=== PATIENT | female | born 1955 | race Caucasian/White ===

== ENCOUNTER → 2016-10-27 | Outpatient (CLI) | payer OTHER, BC ==
--- NOTE | 2016-10-30 13:09 | MM ---
Reason for exam: screening (asymptomatic). Last mammogram was performed 1 year ago. History: Patient is postmenopausal. Family history of premenopausal breast cancer in paternal cousin at age 42. Benign stereotactic core biopsy of the right breast, June 16, 2002. Physical Findings: A clinical breast exam by your physician is recommended on an annual basis and results should be correlated with mammographic findings. MG Screening Mammo w CAD Bilateral CC and MLO view(s) were taken. Prior study comparison: October 22, 2015, bilateral MG screening mammo w CAD. August 17, 2014, bilateral MG screening mammo w CAD. The breast tissue is almost entirely fat. No significant changes when compared with prior studies. ASSESSMENT: Benign, BI-RAD 2 RECOMMENDATION: Routine screening mammogram of both breasts in 1 year.
== END | disposition home or self-care (01) ==
LOC: RADMAMWWP 15:45
PROVIDERS: ATTEND Obstetrics & Gynecology
DX: Z12.31 Encounter for screening mammogram for malignant neoplasm of breast (principal); Z80.3 Family history of malignant neoplasm of breast

== ENCOUNTER 2017-05-17 09:31 | Day surgery (SDC) | payer OTHER, BC ==
[2017-05-15 10:43] VITALS: BMI 29.7
[~2017-05-17 09:31] MED LIST: LACTATED RINGERS 1,000 ML IV SCH
[2017-05-17 09:45] VITALS: RESP 16; TEMP 98
[2017-05-17] MEDS ORDERED: LIDOCAINE 1% 20 ML VIAL (10MG/ML) FOR IV START INTRADERMA ONE (10:04)
[2017-05-17] MEDS ORDERED: PROPOFOL 10 MG/ML 20 ML VIAL IV ONE (10:38)
[2017-05-17] MEDS ORDERED: LIDOCAINE 1% INJ 10MG/ML (20 ML MDV) ONE (10:38)
--- NOTE | 2017-05-17 10:59 | P.PCN ---
Date of Procedure: 05/17/17 Preoperative Diagnosis: Lung cancer screening, history of diverticulosis Postoperative Diagnosis: Colon cancer screening, diverticulosis, colon polyp Procedure(s) Performed: Colonoscopy and polypectomy Anesthesia: MAC Surgeon: Sayra Zamarripa Estimated Blood Loss (ml): 0 Pathology: other (Polyp 15 cm) Condition: stable Disposition: PACU Indications for Procedure: The patient presents for colon cancer screening. She has a history of diverticulitis in the past. There is a personal history of colon polyps but no pathology was available. Operative Findings: The patient's taken the operative suite where colonoscope is passed per rectum to the cecum. She had excellent prep. There is a very small polyp at 15 cm that appears to be hyperplastic polyp. This is removed with cold biopsy forceps. She has a few scattered diverticuli. There is noted to be some of the ascending colon and distal colon. Otherwise there is no evidence of polyp mass lesion or other mucosal abnormality. There is a widely patent anastomosis at about 20 cm. She tolerated the procedure without difficulty was taken recovery room in satisfactory condition. We'll call with the report of the polypectomy and let her know what her follow-up should be. Plan - Discharge Summary New Discharge Prescriptions: No Action Mometasone Furoate [Nasonex Nasal Dyer] 1 - 2 spray EA NOSTRIL DAILY PRN PRN Reason: allergies Omeprazole [PriLOSEC] 20 mg PO AC-BRKFST Levothyroxine Sodium [Levoxyl] 200 mcg PO DAILY Hydrochlorothiazide [Hydrodiuril] 25 mg PO DAILY Multivit with Calcium,Iron,Min [Women's Multivitamin] 1 each PO DAILY Loratadine [Alavert] 10 mg PO DAILY PRN PRN Reason: allergies Calcium Carbonate [Calcium] 600 mg PO DAILY Discharge Medication List Levothyroxine Sodium [Levoxyl] 200 mcg PO DAILY 06/15/15 [History] Mometasone Furoate [Nasonex Nasal Dyer] 1 - 2 spray EA NOSTRIL DAILY PRN [History] Omeprazole [PriLOSEC] 20 mg PO AC-BRKFST 06/15/15 [History] Calcium Carbonate [Calcium] 600 mg PO DAILY 05/15/17 [History] Hydrochlorothiazide [Hydrodiuril] 25 mg PO DAILY 05/15/17 [History] Loratadine [Alavert] 10 mg PO DAILY PRN 05/15/17 [History] Multivit with Calcium,Iron,Min [Women's Multivitamin] 1 each PO DAILY 05/15/17 [ History]
[2017-05-17 11:18] VITALS: BP 135/78; PULSE 71
== END 2017-05-17 11:50 | disposition home or self-care (01) ==
LOC: ORWHC2ENDO 09:31
PROVIDERS: ATTEND Surgery
DX: Z12.11 Encounter for screening for malignant neoplasm of colon (principal); K63.5 Polyp of colon; K57.30 Diverticulosis of large intestine without perforation or abscess without bleeding; Z86.010 Personal history of colon polyps; Z87.19 Personal history of other diseases of the digestive system; M19.90 Unspecified osteoarthritis, unspecified site; K21.9 Gastro-esophageal reflux disease without esophagitis; E04.9 Nontoxic goiter, unspecified; G43.909 Migraine, unspecified, not intractable, without status migrainosus; Z79.2 Long term (current) use of antibiotics; Z79.1 Long term (current) use of non-steroidal anti-inflammatories (NSAID); Z79.82 Long term (current) use of aspirin; Z79.899 Other long term (current) drug therapy; Z88.1 Allergy status to other antibiotic agents; Z88.2 Allergy status to sulfonamides; F17.210 Nicotine dependence, cigarettes, uncomplicated
CPT/HCPCS: 88305; 45380; J2001; J2704

== ENCOUNTER → 2018-01-21 | Outpatient (CLI) | payer OTHER, BC ==
--- NOTE | 2018-01-22 10:26 | MM ---
Reason for exam: screening (asymptomatic). Last mammogram was performed 1 year and 3 months ago. History: Patient is postmenopausal. Family history of premenopausal breast cancer in paternal cousin at age 42. Benign stereotactic core biopsy of the right breast, June 16, 2002. Physical Findings: A clinical breast exam by your physician is recommended on an annual basis and results should be correlated with mammographic findings. MG Screening Mammo w CAD Bilateral CC and MLO view(s) were taken. Prior study comparison: October 27, 2016, bilateral MG screening mammo w CAD. October 22, 2015, bilateral MG screening mammo w CAD. There are scattered fibroglandular densities. Finding: There are typically benign round calcifications in both breasts. Previous mammotome biopsy in the right breast. There is no discrete abnormality. ASSESSMENT: Benign, BI-RAD 2 RECOMMENDATION: Routine screening mammogram of both breasts in 1 year.
== END ==
LOC: RADMAMWWP 11:25
PROVIDERS: ATTEND Obstetrics & Gynecology
DX: Z12.31 Encounter for screening mammogram for malignant neoplasm of breast (principal); Z80.3 Family history of malignant neoplasm of breast
CPT/HCPCS: 77067

== ENCOUNTER → 2018-12-14 | Outpatient (CLI) | payer OTHER, BC ==
--- NOTE | 2018-12-14 07:47 | MR ---
EXAMINATION TYPE: MR shoulder LT wo con DATE OF EXAM: 12/14/2018 7:37 AM COMPARISON: Previous study dated 09/07/2011. HISTORY: Left shoulder pain TECHNIQUE: Multiplanar, multisequence imaging of the left shoulder is performed without contrast. FINDINGS: There is no evidence of an os acromiale. There are moderate inflammatory hypertrophic changes in the left AC joint. This is impinging upon the supraspinatus tendon. There is some superior surface scuffing of the superior surface of the suprasp inatus. No definite tear is identified. There is some subacromial fluid. There is pseudocystic change in the humeral head, an indirect sign of impingement. The cartilaginous glenoid labrum appears intact. The biceps tendon is slightly attenuated but remains within the biceps tendon groove and inserts norm ally upon the biceps anchor. IMPRESSION: 1. HYPERTROPHIC CHANGE IN THE LEFT AC JOINT CAUSING SUBACROMIAL IMPINGEMENT AND SUPERIOR SCUFFING OF THE SUPRASPINATUS TENDON. 2. MILD ATTENUATION OF THE BICEPS TENDON. 3. PSEUDOCYSTIC CHANGE IN THE HUMERAL HEAD, AN INDIRECT SIGN OF IMPINGEMENT.
== END ==
LOC: RADMRIMAIN 06:59
PROVIDERS: ATTEND Family Medicine
DX: M25.811 Other specified joint disorders, right shoulder (principal)

== ENCOUNTER → 2019-01-23 | Outpatient (CLI) | payer OTHER, BC ==
--- NOTE | 2019-01-27 09:20 | MM ---
Reason for exam: screening (asymptomatic). Last mammogram was performed 1 year ago. History: Patient is postmenopausal and history of other cancer. Family history of premenopausal breast cancer in paternal cousin at age 42. Benign stereotactic core biopsy of the right breast, June 16, 2002. Physical Findings: A clinical breast exam by your physician is recommended on an annual basis and results should be correlated with mammographic findings. MG 3D Screening Mammo W/Cad Bilateral CC and MLO view(s) were taken. Prior study comparison: January 21, 2018, bilateral MG screening mammo w CAD. October 27, 2016, bilateral MG screening mammo w CAD. There are scattered fibroglandular densities. There is chronic nodularity bilaterally. No significant changes when compared with prior studies. ASSESSMENT: Benign, BI-RAD 2 RECOMMENDATION: Routine screening mammogram of both breasts in 1 year.
== END | disposition home or self-care (01) ==
LOC: RADMAMWWP 07:38
PROVIDERS: ATTEND Family Medicine
DX: Z12.31 Encounter for screening mammogram for malignant neoplasm of breast (principal)
CPT/HCPCS: 77063; 77067

== ENCOUNTER → 2020-02-11 | Outpatient (CLI) | payer OTHER, BC ==
--- NOTE | 2020-02-12 11:15 | MM ---
Reason for exam: screening (asymptomatic). Last mammogram was performed 1 year and 1 month ago. History: Patient is postmenopausal and history of other cancer. Family history of premenopausal breast cancer in paternal cousin at age 42. Benign stereotactic core biopsy of the right breast, June 16, 2002. Physical Findings: A clinical breast exam by your physician is recommended on an annual basis and results should be correlated with mammographic findings. MG 3D Screening Mammo W/Cad Bilateral CC and MLO view(s) were taken. Prior study comparison: January 23, 2019, bilateral MG 3d screening mammo w/cad. January 21, 2018, bilateral MG screening mammo w CAD. There are scattered fibroglandular densities. Previous mammotome biopsy in the right breast. There is chronic nodularity in the left breast. Gradually enlarging 5mm nodule 8-9 o'clock right breast. Adjacent benign oil cyst. ASSESSMENT: Incomplete: need additional imaging evaluation, BI-RAD 0 RECOMMENDATION: Special view mammogram and ultrasound of the right breast. (3D) If lesion persists on supplemental views, image directed ultrasound is recommended. [facility] will attempt to contact patient to return for supplemental views and ultrasound if indicated.
== END | disposition home or self-care (01) ==
LOC: RADMAMWWP 15:56
PROVIDERS: ATTEND Obstetrics & Gynecology
DX: Z12.31 Encounter for screening mammogram for malignant neoplasm of breast (principal); Z80.3 Family history of malignant neoplasm of breast
CPT/HCPCS: 77063; 77067

== ENCOUNTER → 2020-02-17 | Outpatient (CLI) | payer OTHER, BC ==
--- NOTE | 2020-02-17 09:38 | MM ---
Reason for exam: additional evaluation requested from abnormal screening. Last mammogram was performed less than 1 month ago. History: Patient is postmenopausal and history of other cancer. Family history of premenopausal breast cancer in paternal cousin at age 42. Benign stereotactic core biopsy of the right breast, June 16, 2002. Physical Findings: Nurse Summary: 0.5 x 0.5cm nodule in the right breast at 9 o'clock (nurse ts). MG 3D Work Up W/Cad RT Spot compression CC, spot compression MLO, and LM view(s) were taken of the right breast. Prior study comparison: February 11, 2020, bilateral MG 3d screening mammo w/cad. January 23, 2019, bilateral MG 3d screening mammo w/cad. There are scattered fibroglandular densities. The nodule localizes to the 9 o'clock position. These results were verbally communicated with the patient and result sheet given to the patient on 02/17/20. ASSESSMENT: Incomplete: need additional imaging evaluation, BI-RAD 0 RECOMMENDATION: Ultrasound of the right breast.
--- NOTE | 2020-02-17 09:40 | USB ---
Reason for exam: additional evaluation requested from abnormal screening. History: Patient is postmenopausal and history of other cancer. Family history of premenopausal breast cancer in paternal cousin at age 42. Benign stereotactic core biopsy of the right breast, June 16, 2002. US Breast Workup Limited RT Right limited breast ultrasound including focal area of concern, retroareolar and axilla demonstrates a 0.3 x 0.3 x 0.3cm cystic, benign lesion at 9 o'clock, likely corresponds to the mammographic finding. No other solid or cystic lesion. Scanned 6-10 o'clock. These results were verbally communicated with the patient and result sheet given to the patient on 02/17/20. ASSESSMENT: Probably benign, BI-RAD 3 RECOMMENDATION: Follow-up diagnostic mammogram of the right breast in 6 months.
== END | disposition home or self-care (01) ==
LOC: RADMAMWWP 07:01
PROVIDERS: ATTEND Obstetrics & Gynecology
DX: R92.8 Other abnormal and inconclusive findings on diagnostic imaging of breast (principal)
CPT/HCPCS: 77061; 77065

== ENCOUNTER → 2020-02-20 | Outpatient (CLI) | payer OTHER, BC ==
--- NOTE | 2020-02-22 12:58 | ECHOF ---
Referral Reason:Heart murmur R01.1 MEASUREMENTS -------- HEIGHT: 168.9 cm WEIGHT: 84.4 kg BP: 122/84 IVSd: 1.3 cm (0.6 - 1.1) LVIDd: 3.7 cm (3.9 - 5.3) LVPWd: 1.2 cm (0.6 - 1.1) IVSs: 1.9 cm LVIDs: 2.3 cm LVPWs: 1.6 cm LA Diam: 3.5 cm (2.7 - 3.8) RVIDd: 3.1 cm (< 3.3) LAESV Index (A-L): 20.02 ml/m Ao Diam: 2.6 cm (2.0 - 3.7) AV Cusp: 1.4 cm (1.5 - 2.6) AV maxP.38 mmHg AV meanP.23 mmHg AR PHT: 516 ms RAP: 5.00 mmHg RVSP: 25.25 mmHg MV EF SLOPE: 423.16 mm/s (70 - 150) MV EXCURSION: 9.76 mm (> 18.000) FINDINGS -------- Sinus rhythm. This was a technically good study. The left ventricular size is normal. There is mild concentric left ventricular hypertrophy. Overa ll left ventricular systolic function is normal with, an EF between 60 - 65 %. The right ventricle is normal in size. Normal LA size by volume 22+/-6 ml/m2. The right atrium is normal in size. Interatrial and interventricular septum intact. There is mild aortic valve sclerosis. There is moderate aortic regurgitation. There is moderate a ortic stenosis present. Peak/mean gradient across the Aortic Valve is 36.38mmHg / 22.23mmHg. The mitral valve is normal. Mild tricuspid regurgitation present. Right ventricular systolic pressure is normal at < 35 mmHg. Trace/mild (physiologic) pulmonic regurgitation. The aortic root size is normal. Normal inferior vena cava with normal inspiratory collapse consistent with estimated right atrial pre ssure of 5 mmHg. There is no pericardial effusion. CONCLUSIONS -------- 1. Sinus rhythm. 2. This was a technically good study. 3. The left ventricular size is normal. 4. There is mild concentric left ventricular hypertrophy. 5. Overall left ventricular systolic function is normal with, an EF between 60 - 65 %. 6. Normal LA size by volume 22+/-6 ml/m2. 7. There is mild aortic valve sclerosis. 8. There is moderate aortic regurgitation. 9. There is moderate aortic stenosis present. 10. Peak/mean gradient across the Aortic Valve is 36.38mmHg / 22.23mmHg. 11. Mild tricuspid regurgitation present. 12. Right ventricular systolic pressure is normal at < 35 mmHg. 13. Trace/mild (physiologic) pulmonic regurgitation. 14. The aortic root size is normal. 15. There is no pericardial effusion. KEYBOARD INSTRUMENT TUNER: Babs Grissom RDCS
== END | disposition home or self-care (01) ==
LOC: RADECHMAIN 14:43
PROVIDERS: ATTEND Family Medicine
DX: I08.2 Rheumatic disorders of both aortic and tricuspid valves (principal)
CPT/HCPCS: 93306

== ENCOUNTER → 2020-07-19 | Outpatient (CLI) | payer OTHER, BC ==
--- NOTE | 2020-07-19 14:01 | MM ---
Reason for exam: additional evaluation requested from prior study. Last mammogram was performed 5 months ago. History: Patient is postmenopausal and history of other cancer. Family history of premenopausal breast cancer in paternal cousin at age 42. Benign stereotactic core biopsy of the right breast, June 16, 2002. Physical Findings: Nurse did not find any significant physical abnormalities on exam. MG 3D Diag Mammo W/Cad RT CC, MLO, and XCCL view(s) were taken of the right breast. Prior study comparison: February 17, 2020, right breast MG 3d work up w/cad RT. February 11, 2020, bilateral MG 3d screening mammo w/cad. The breast tissue is heterogeneously dense. This may lower the sensitivity of mammography. Stable benign calcifications. There is chronic nodularity in the right breast. There is no discrete abnormality. These results were verbally communicated with the patient and result sheet given to the patient on 07/19/20. ASSESSMENT: Benign, BI-RAD 2 RECOMMENDATION: Return to routine screening mammogram schedule for both breasts. Back on schedule.
== END | disposition home or self-care (01) ==
LOC: RADMAMWWP 13:23
PROVIDERS: ATTEND Obstetrics & Gynecology
DX: R92.8 Other abnormal and inconclusive findings on diagnostic imaging of breast (principal)
CPT/HCPCS: 77061; 77065

== ENCOUNTER → 2020-12-24 | Outpatient (CLI) | payer OTHER, BC ==
--- NOTE | 2020-12-29 14:20 | MM ---
Reason for exam: screening (asymptomatic). Last mammogram was performed 5 months ago. History: Patient is postmenopausal and history of other cancer. Family history of premenopausal breast cancer in paternal cousin at age 42. Benign stereotactic core biopsy of the right breast, June 16, 2002. Physical Findings: A clinical breast exam by your physician is recommended on an annual basis and results should be correlated with mammographic findings. MG 3D Screening Mammo W/Cad Bilateral CC and MLO view(s) were taken. Prior study comparison: July 19, 2020, right breast MG 3d diag mammo w/cad RT. February 17, 2020, right breast MG 3d work up w/cad RT. There are scattered fibroglandular densities. Previous mammotome biopsy in the right breast. ASSESSMENT: Benign, BI-RAD 2 RECOMMENDATION: Routine screening mammogram of both breasts in 1 year.
== END | disposition home or self-care (01) ==
LOC: RADMAMWWP 12:43
PROVIDERS: ATTEND Obstetrics & Gynecology
DX: Z12.31 Encounter for screening mammogram for malignant neoplasm of breast (principal); Z78.0 Asymptomatic menopausal state; Z80.3 Family history of malignant neoplasm of breast
CPT/HCPCS: 77063; 77067

== ENCOUNTER → 2021-10-19 | Outpatient (CLI) | payer MEDICARE ==
--- NOTE | 2021-10-19 15:10 | CT ---
EXAMINATION TYPE: CT chest w con DATE OF EXAM: 10/19/2021 COMPARISON: X-ray of the thoracic spine dated 10/17/2021 HISTORY: nodules CT DLP: 245.8 mGycm Automated exposure control for dose reduction was used. TECHNIQUE: CT scan of the chest is performed with IV Contrast, patient injected with 80cc mL of Isovue 300. FINDINGS: LUNGS: The lungs are grossly clear, there is no concerning parenchymal mass or nodule identified. T here is no pleural effusion or pneumothorax seen. The tracheobronchial tree is patent. MEDIASTINUM: Mild cardiomegaly, please correlate with echocardiographic results. Minimal arterial and aortic root atherosclerotic calcifications. No pericardial effusion. The pulmonary trunk measures 2. 9 cm. No pathology enlarged lymph nodes in the chest. OTHER: Unremarkable upper abdomen. Degenerative changes of the thoracic spine. T12 mild upper endpla te depression, likely chronic, please correlate clinically. No aggressive bone lesion. No definite pa raspinal lesion. IMPRESSION: No definite lesion or lymphadenopathy seen in the chest. No paraspinal abnormality identified. Incide ntal findings as described above.
== END | disposition home or self-care (01) ==
LOC: RADCTMAIN 12:39
PROVIDERS: ATTEND Family Medicine
DX: R68.89 Other general symptoms and signs (principal)
CPT/HCPCS: 82565; 84520; 71260; 36415; Q9967

== ENCOUNTER → 2022-01-02 | Outpatient (CLI) | payer MEDICARE ==
--- NOTE | 2022-01-04 07:39 | MM ---
Reason for Exam: Screening (asymptomatic). Last mammogram was performed 1 year(s) and 1 month(s) ago. Patient History: Menarche at age 12. First Full-Term at age 20. Postmenopausal. Other cancer. 06/16/2002, Benign Stereotactic Core Biopsy on the right side. Paternal cousin had breast cancer, age 42. Risk Values: Rhea 5 year model risk: 1.6%. NCI Lifetime model risk: 5.9%. Prior Study Comparison: 02/17/2020 Right Diagnostic Mammogram, [facility]. 07/19/2020 Right Diagnostic Mammogram, [facility]. 12/24/2020 Bilateral Screening Mammogram, [facility]. Tissue Density: The breast tissue is heterogeneously dense. This may lower the sensitivity of mammography. Findings: Analyzed By CAD. There is no suspicious group of microcalcifications or new suspicious mass in either breast. Overall Assessment: Benign, BI-RAD 2 Management: Screening Mammogram of both breasts in 1 year. A clinical breast exam by your physician is recommended on an annual basis and results should be correlated with mammographic findings. Electronically signed and approved by: Abdulaziz Kaufman M.D. Radiologis
== END | disposition home or self-care (01) ==
LOC: RADMAMWWP 09:37
PROVIDERS: ATTEND Family Medicine
DX: Z12.31 Encounter for screening mammogram for malignant neoplasm of breast (principal); Z78.0 Asymptomatic menopausal state; Z80.3 Family history of malignant neoplasm of breast
CPT/HCPCS: 77063; 77067

== ENCOUNTER 2022-10-25 06:07 | Day surgery (SDC) | payer MEDICARE ==
[2022-10-25 06:47] VITALS: TEMP 97.9
[2022-10-25] MEDS ORDERED: SODIUM CHLORIDE 0.9% 500 ML 500 ML IV ONE (06:47)
[2022-10-25] MEDS ORDERED: fentaNYL (PF) 50 MCG/ML 2 ML AMP ONE (07:11)
[2022-10-25] MEDS: BENZOCAINE SPRAY 1 CAN MUCOUS MEM ONE ×2 (07:15→07:25)
[2022-10-25] MEDS ORDERED: MIDAZOLAM 2 MG/2 ML VIAL IVP ONE ×2 (07:25→07:26)
[2022-10-25] MEDS ORDERED: fentaNYL (PF) 50 MCG/ML 2 ML AMP IVP ONE (07:25)
[2022-10-25 07:43] VITALS: RESP 16
--- NOTE | 2022-10-25 07:51 | P.PCN ---
Date of Procedure: 10/25/22 Description of Procedure: Indication: Aortic valve stenosis Procedure Description: After explaining the procedure to the patient, it's risk and complications, blood pressure, heart rate and O2 saturation were monitored. The throat was sprayed with Cetacaine. Patient received 3 mg intravenous Versed, 50 mcg intravenous fentanyl. The probe was introduced into the esophagus without difficulty. Images were obtained. Following that, the probe was removed. There was no immediate complication. Findings: Left atrial size is normal, left atrial appendage is normal. Left ventricle size and systolic function are normal. Mitral valve revealed mild thickening. The aortic valve is a tricuspid valve, heavily calcified, by planimetry the aortic valve area is 0.7 cm. The tricuspid valve is normal. Pulmonic valve is normal. Descending thoracic aorta appears to be normal. Contrast bubble study revealed no shunting across the intra-atrial septum with Valsalva maneuver. No pericardial effusion was noted. Doppler: Pulse wave and color Doppler were obtained, an revealed mild mitral and moderate tricuspid regurgitation. Moderate aortic regurgitation was noted. The peak gradient across the aortic valve was 65 mmHg with a mean of 30 mmHg. There was no shunting across the intra-atrial septum. Conclusion: 1. Normal left ventricle size and systolic function 2. Moderate to severe aortic stenosis with moderate aortic regurgitation 3. Mild mitral and moderate tricuspid regurgitation 4. Normal appearance of the descending thoracic aorta 5. No shunting across the interatrial septum Duration of sedation 15 minutes
[2022-10-25] MEDS ORDERED: SODIUM CHLORIDE 0.9% 1,000 ML IV SCH (08:00)
[2022-10-25 08:48] VITALS: BP 125/57; PULSE 62
[2022-10-25] MEDS ORDERED: hydroCHLOROthiazide 25 MG TAB PO SCH (09:00)
[2022-10-25] MEDS ORDERED: LEVOTHYROXINE 100 MCG TAB PO SCH (09:00)
[2022-10-25] MEDS ORDERED: ASPIRIN 81 MG PO SCH (09:00)
== END 2022-10-25 09:17 | disposition home or self-care (01) ==
LOC: CATHCVL 06:07
PROVIDERS: ATTEND Internal Medicine Interventional Cardiology
DX: I08.3 Combined rheumatic disorders of mitral, aortic and tricuspid valves (principal)
CPT/HCPCS: 93312; 93320; 93325; J2250; J3010

== ENCOUNTER → 2022-11-15 | Outpatient (CLI) | payer MEDICARE ==
[2022-11-15 15:14] LABS: HCT 44.3 % (37.2-46.3); HGB 14.7 g/dL (12.0-15.0); MCH 30.1 pg (27.0-32.0); MCHC 33.2 g/dL (32.0-37.0); MCV 90.6 fL (80.0-97.0); Mean Platelet Volume 9.6 fL (9.5-12.2); NRBC Per 100 WBC 0 /100 WBCS (0.0-0.0); Platelet Count 256 X 10*3/uL (140-440); RBC 4.89 X 10*6/uL (4.10-5.20); RDW 12.7 % (11.5-14.5); WBC 8.47 X 10*3/uL (4.50-10.00)
[2022-11-15 15:47] LABS: African American GFR (CKD) 78.9 (60.0-200.0); Anion Gap 12.1 mmol/L (10.00-18.00); Blood Urea Nitrogen 17.9 mg/dL (9.0-27.0); Carbon Dioxide 28.6 mmol/L (20.0-27.5); Non-African American GFR(CKD) 68.1 (60.0-200.0)
== END | disposition home or self-care (01) ==
LOC: LABPAT 09:58
PROVIDERS: ATTEND Internal Medicine Interventional Cardiology
DX: Z01.818 Encounter for other preprocedural examination (principal); I35.0 Nonrheumatic aortic (valve) stenosis
CPT/HCPCS: 36415; 80051; 82565; 84520; 85027

== ENCOUNTER 2022-11-22 06:06 | Day surgery (SDC) | payer MEDICARE ==
[2022-11-20 08:45] VITALS: BMI 28.9
[~2022-11-22 06:06] MED LIST changes: +ALPRAZolam 0.25 MG TAB PO PRN; +ALPRAZolam 0.5 MG TAB PO PRN; +HEPARIN SODIUM,PORCINE 10,000 UNIT in SODIUM CHLORIDE 0.9% 1,000 ML IRRIGATION PRN; +HEPARIN SODIUM,PORCINE 2,500 UNIT in SODIUM CHLORIDE 0.9% 250 ML IRRIGATION PRN; -LACTATED RINGERS 1,000 ML IV SCH; +NITROGLYCERIN SL TABS 0.4 MG TAB SUBLINGUAL PRN; +SODIUM CHLORIDE 0.9% 1,000 ML in EMPTY BAG 1 BAG IV SCH
[2022-11-22 06:43] VITALS: RESP 18; TEMP 98
[2022-11-22] MEDS ORDERED: ASPIRIN 325 MG TAB PO ONE (07:00)
[2022-11-22] MEDS ORDERED: ATORVASTATIN 80 MG TAB PO ONE (07:00)
[2022-11-22] MEDS ORDERED: HEPARIN SODIUM 1,000 UN/ML (10ML VL) ONE (07:18)
[2022-11-22] MEDS ORDERED: fentaNYL (PF) 50 MCG/ML 2 ML AMP ONE (07:18)
[2022-11-22] MEDS ORDERED: VERAPAMIL 2.5 MG/ML 2 ML AMP ONE (07:18)
[2022-11-22] MEDS ORDERED: fentaNYL (PF) 50 MCG/ML 2 ML AMP IVP ONE (07:40)
[2022-11-22] MEDS ORDERED: MIDAZOLAM 2 MG/2 ML VIAL IVP ONE (07:45)
[2022-11-22] MEDS: LIDOCAINE 1% INJ 10MG/ML (5 ML VIAL-PF) SQ ONE ×2 (07:46→07:49)
[2022-11-22] MEDS ORDERED: LIDOCAINE 1% INJ 10MG/ML (5 ML VIAL-PF) SQ ONE ×2 (07:46→07:49)
[2022-11-22] MEDS ORDERED: HYDROmorphone 1 MG/ML 1 ML SYRINGE ONE (07:50)
[2022-11-22] MEDS ORDERED: HYDROmorphone 1 MG/ML 1 ML SYRINGE IVP ONE (07:51)
[2022-11-22] MEDS ORDERED: HEPARIN SODIUM 1,000 UN/ML (10ML VL) IVP ONE (08:01)
[2022-11-22] MEDS ORDERED: IOPAMIDOL-370 100ML BTL INJ ONE (08:09)
[2022-11-22] MEDS ORDERED: RX INFO: IV CONTRAST WAS GIVEN 1 EACH MISC MISCELLANE PRN (08:19)
--- NOTE | 2022-11-22 08:26 | P.CARDCATH ---
Date of Procedure: 11/22/22 Description of Procedure: Cardiac Catheterization: The patient is a 67-year-old female who was found to have evidence of aortic stenosis, severe with symptoms of progressive dyspnea. Recommendations were made regarding cardiac catheterization, the risks and the complications were discussed with the patient who is in full understanding and agreement. Procedure Description: Patient was brought to lab specialist in fasting semi-sedated state after receiving Fentanyl and Benadryl achieiving moderate conscious sedated state. Using Xylocaine Anesthesia and Seldinger technique, a 6-Ghanaian sheath was introduced in the right radial artery . The venous access in the right brachial area was exchanged to a 6-Ghanaian sheath. There was inability to advance the [place]-Nelia catheter. Subsequently, selective coronary angiography was performed using a 5-Ghanaian 3.5 bend Richie catheter. Multiple views of the coronary artery including hemiaxial views were obtained. The right Richie catheter was used to cross the aortic valve and LVEDP was calculated. Following that, catheter and sheath were removed. Hemostasis was obtained with deployment of TR band . There was no immediate complication. Patient was returned to room in stable condition. Of note, the patient received a total of 4500 units of intravenous heparin as well as intra-arterial verapamil. Findings: Fluoroscopy: Calcification of the aortic valve was noted. Left main: This is a large size vessel, bifurcating into LAD and left circumflex, left main has no high-grade stenosis LAD: This is a large size vessel, reaching to the apex, giving rise to a large diagonal branch in the mid segment, the LAD and its branches have no evidence of high-grade stenosis. Left circumflex: This is a codominant vessel, giving rise to 2 small to moderate obtuse marginal branch, distally bifurcating into PDA and PLV, the left circumflex and its branches have no evidence of high-grade stenosis RCA: This is a codominant vessel moderate caliber giving rise to a right PDA the right coronary artery and its branches have no evidence of obstructive disease Left Ventriculogram: Not performed Hemodynamics: There was a gradient peak of 50 mmHg across the aortic valve , LVEDP was 20-25 mmHg Conclusion: 1. Normal coronary arteries 2. Codominant circulation 3. Calcified aortic valve 4. Severe aortic stenosis Recommendations: Patient will be evaluated for aortic valve replacement. She will be seen in the valve clinic for further evaluation and guidance. The findings and the recommendations were discussed with the patient and the family and they were in full understanding and agreement. Duration of sedation is 25 minutes.
[2022-11-22] MEDS ORDERED: SODIUM CHLORIDE 0.9% 1,000 ML IV SCH (08:30)
[2022-11-22] MEDS ORDERED: ASPIRIN 81 MG PO SCH (09:00)
[2022-11-22] MEDS ORDERED: MAGNESIUM OXIDE 400 MG TAB PO SCH (09:00)
[2022-11-22] MEDS ORDERED: LEVOTHYROXINE 100 MCG TAB PO SCH (09:00)
[2022-11-22 12:20] VITALS: BP 108/60; PULSE 60
[2022-11-22] MEDS ORDERED: PANTOPRAZOLE 40 MG TABLET PO SCH (21:00)
== END 2022-11-22 12:31 | disposition home or self-care (01) ==
LOC: CATHCVL 06:06
PROVIDERS: ATTEND Internal Medicine Interventional Cardiology
DX: I35.0 Nonrheumatic aortic (valve) stenosis (principal); I70.0 Atherosclerosis of aorta; I10 Essential (primary) hypertension; E07.9 Disorder of thyroid, unspecified; Z79.82 Long term (current) use of aspirin; Z79.890 Hormone replacement therapy; Z79.899 Other long term (current) drug therapy; Z87.891 Personal history of nicotine dependence
CPT/HCPCS: 93458; 99152; 99153; C1769 ×3; C1894; C1751; J2250; J2001; J3010; J1644; J1170; Q9967

== ENCOUNTER → 2022-12-14 | Outpatient (CLI) | payer MEDICARE ==
[2022-12-14 10:02] LABS: INR 0.9 (<1.2); Partial Thromboplastin Time 27.4 sec (22.0-30.0)
[2022-12-14 10:09] LABS: Appearance,Urine Clear (Clear); Bacteria,Urine Rare /hpf; Bilirubin,Urine Negative (Negative); Blood,Urine Negative (Negative); Color,Urine Yellow; Glucose,Urine (UA) Negative (Negative); Ketones,Urine Negative (Negative); Leukocyte Esterase,Urine Large (Negative); Mucus,Urine Rare /hpf; Nitrite,Urine Negative (Negative); Protein,Urine Negative (Negative); RBC,Urine 1 /hpf (0-5); Squamous Epithelial Cell,Urine 1 /hpf (0-4); Urobilinogen,Urine <2.0 mg/dL (<2.0); WBC,Urine 5 /hpf (0-5)
[2022-12-14 10:11] LABS: ALT 20 U/L (4-34); AST 29 U/L (14-36); African American GFR (CKD) >90 (>60 ml/min/1.73 sqM); Albumin 4.3 g/dL (3.5-5.0); Albumin/Globulin Ratio 1.3; Alkaline Phosphatase 125 U/L (38-126); Anion Gap 11 mmol/L; Blood Urea Nitrogen 29 mg/dL (7-17); Carbon Dioxide 30 mmol/L (22-30); Chloride 99 mmol/L (98-107); Globulin 3.4 g/dL; Glucose 107 mg/dL (74-99); Magnesium 2.1 mg/dL (1.6-2.3); Non-African American GFR(CKD) 81 (>60 ml/min/1.73 sqM); Potassium 3.7 mmol/L (3.5-5.1); Sodium 140 mmol/L (137-145); Total Bilirubin 0.6 mg/dL (0.2-1.3); Total Protein 7.7 g/dL (6.3-8.2)
[2022-12-14 10:27] LABS: HCT 48.5 % (34.0-46.0); HGB 16.1 gm/dL (11.4-16.0); MCH 29.8 pg (25.0-35.0); MCHC 33.3 g/dL (31.0-37.0); MCV 89.6 fL (80.0-100.0); Mean Platelet Volume 7.5; Platelet Count 210 k/uL (150-450); RBC 5.41 m/uL (3.80-5.40); RDW 13.1 % (11.5-15.5); WBC 6.7 k/uL (3.8-10.6)
--- NOTE | 2022-12-14 11:37 | US ---
EXAMINATION TYPE: US carotid duplex BILAT DATE OF EXAM: 12/14/2022 COMPARISON: NONE CLINICAL INDICATION: Female, 67 years old with history of R55; Pre op cardiac surgery. Aortic valve r eplacement TECHNIQUE: Carotid duplex ultrasound examination. Indirect Doppler criteria was utilized. FINDINGS: EXAM MEASUREMENTS: RIGHT: Peak Systolic Velocity (PSV) cm/sec ----- Right CCA: 72.1 ----- Right ICA: 73.2 ----- Right ECA: 94.0 ICA/CCA ratio: 1.0 RIGHT: End Diastole cm/sec ----- Right CCA: 20.6 ----- Right ICA: 19.3 ----- Right ECA: 11.1 LEFT: Peak Systolic Velocity (PSV) cm/sec ----- Left CCA: 75.6 ----- Left ICA: 81.7 ----- Left ECA: 71.2 ICA/CCA ratio: 1.1 LEFT: End Diastole cm/sec ----- Left CCA: 20.6 ----- Left ICA: 30.2 ----- Left ECA: 7.5 VERTEBRALS (direction of flow): Right Vertebral: Antegrade Left Vertebral: antegrade, diminished Rhythm: Normal FIRE TENDER NOTES: Mild plaque bilateral bifurcations. No evidence of increased velocities IMPRESSION: Mild bilateral plaque with no significant hemodynamic stenosis as visualized. Criteria for Assigning % of Stenosis / Diameter reduction (Estimation based on the indirect measurements of the internal carotid artery velocities (ICA PSV). 1. Normal (no stenosis)=ICA PSV < 125 cm/s: ratio < 2.0: ICA EDV<40 cm/s. 2. Less than 50% stenosis=ICA PSV < 125 cm/s: ratio < 2.0: ICA EDV<40 cm/s. 3. 50 to 69% stenosis=ICA PSV of 125 to 230 cm/s: ration 2.0 ? 4.0: ICA EDV 40-100 cm/s. 4. Greater than 70% stenosis to near occlusion= ICA PSV > 230 cm/s: ratio > 4.0: ICA EDV > 100 cm/s. 5. Near occlusion= ICA PSV velocities may be low or undetectable: variable ratio and ICA EDV. 6. Total occlusion=unable to detect flow.
[2022-12-14 11:53] LABS: T4, Free (Free Thyroxine) 2.05 ng/dL (0.78-2.19)
[2022-12-14 12:35] LABS: Eosinophils # (M) 0.27 k/uL (0-0.7); Lymphocytes # (M) 1.68 k/uL (1.0-4.8); Monocytes # (M) 0.67 k/uL (0-1.0); Neutrophils # (M) 4.09 k/uL (1.3-7.7); Neutrophils % (M) 61 %; Nucleated Red Blood Cells 0 /100 WBC (0-0); Total Cells Counted 100
[2022-12-14 15:09] LABS: Hepatitis A Antibody IgM Nonreactive (Nonreactive); Hepatitis B Core IgM Nonreactive (Nonreactive); Hepatitis B Surface Antigen Nonreactive (Nonreactive); Hepatitis C IgG Antibody Nonreactive (Nonreactive)
[2022-12-14 21:11] LABS: Chol/HDL Ratio 4.25 Ratio; LDL Cholesterol,Calculated 124.8 mg/dL (0.0-131.0)
--- NOTE | 2022-12-14 21:13 | CT ---
EXAMINATION TYPE: CT TAVR Planning DATE OF EXAM: 12/14/2022 COMPARISON: Not HISTORY: tavr CT DLP: 1819.4 mGycm, Automated exposure control for dose reduction was used. CONTRAST: Performed injected with 150 mL of Isovue 370. TECHNIQUE: Axial images 0.5 mm thick sections. Reconstructed images 2 3 mm thick sections were obtain ed. FINDINGS Visualized portions of the lung rose appear clear. Heart size is normal. Portion of the abdomen wit hin the field of view is unremarkable. No enlarged mediastinal or hilar adenopathy is evident. Couple small lymph nodes at the level of the main pulmonary artery. There is a 3 vessel arch. Tracheobronch ial tree appears unremarkable. Abdomen within the field of view appears normal. Liver spleen gallbladder pancreas and adrenal glands and kidneys appear unremarkable. Aorta tapers normally through its visualized course. The iliac vess els are patent. Common femoral arteries appear normal. Urinary bladder is unremarkable. Uterus is normal. Adnexa are normal. Scattered diverticuli within th e sigmoid colon. IMPRESSIONS: 1. CT for TAVR presurgical planning.
== END | disposition home or self-care (01) ==
LOC: LABWHC1 08:32
PROVIDERS: ATTEND Thoracic Surgery (Cardiothoracic Vascular Surgery)
DX: Z01.818 Encounter for other preprocedural examination (principal); I35.0 Nonrheumatic aortic (valve) stenosis; E87.8 Other disorders of electrolyte and fluid balance, not elsewhere classified; E11.9 Type 2 diabetes mellitus without complications; Z79.899 Other long term (current) drug therapy; R58 Hemorrhage, not elsewhere classified; E07.9 Disorder of thyroid, unspecified; R35.0 Frequency of micturition; N28.9 Disorder of kidney and ureter, unspecified; E78.5 Hyperlipidemia, unspecified
CPT/HCPCS: 94150; 84439; 83880; 80061; 80053; 80074; 84443; 83735; 85025; 85610; 85730; 81001; 87086; 83036; 93880; 71275; 36415 ×2; 74174; Q9967

== ENCOUNTER → 2023-01-03 | Outpatient (CLI) | payer MEDICARE ==
--- NOTE | 2023-01-03 14:40 | MM ---
Reason for Exam: Screening (asymptomatic). Last screening mammogram was performed 12 month(s) ago. Patient History: Menarche at age 12. First Full-Term at age 20. Postmenopausal. Other cancer. 06/16/2002, Benign Stereotactic Core Biopsy on the right side. Paternal cousin had breast cancer, age 42. Risk Values: Rhea 5 year model risk: 1.6%. NCI Lifetime model risk: 5.7%. Prior Study Comparison: 07/19/2020 Right Diagnostic Mammogram, [facility]. 12/24/2020 Bilateral Screening Mammogram, [facility]. 01/02/2022 Bilateral MG 3D screening mammo w/cad, [facility]. Tissue Density: The breast tissue is heterogeneously dense. This may lower the sensitivity of mammography. Findings: Analyzed By CAD. There is no suspicious group of microcalcifications or new suspicious mass in either breast. Benign round calcifications within both breasts. Biopsy clip within the right breast. Overall Assessment: Benign, BI-RAD 2 Management: Screening Mammogram of both breasts in 1 year. A clinical breast exam by your physician is recommended on an annual basis and results should be correlated with mammographic findings. Electronically signed and approved by: Chase Wallis D.O.
== END | disposition home or self-care (01) ==
LOC: RADMAMWWP 13:31
PROVIDERS: ATTEND Family Medicine
DX: Z12.31 Encounter for screening mammogram for malignant neoplasm of breast (principal); Z78.0 Asymptomatic menopausal state; Z80.3 Family history of malignant neoplasm of breast
CPT/HCPCS: 77063; 77067

== ENCOUNTER → 2023-01-05 | Outpatient (CLI) | payer MEDICARE | END | disposition home or self-care (01) | LOC: LABWHC1 10:28 | PROVIDERS: ATTEND Family Medicine | DX: I35.1 Nonrheumatic aortic (valve) insufficiency (principal) ==

== ENCOUNTER → 2023-01-09 | Outpatient (CLI) | payer MEDICARE ==
--- NOTE | 2023-01-09 09:28 | XR ---
EXAMINATION TYPE: XR chest 2V DATE OF EXAM: 01/09/2023 COMPARISON: NONE TECHNIQUE: PA and lateral views submitted. HISTORY: Presurgical FINDINGS: The lungs are clear and there is no pneumothorax, pleural effusion, or focal pneumonia. Heart size normal and no overt failure. Osseous structures demonstrate hypertrophic and degenerative changes of the spine. AC joint arthropathy. Biapical pleural thickening. IMPRESSION: 1. No acute process.
[2023-01-09 15:50] LABS: ALT 16 U/L (8-44); AST 20 U/L (13-35); Albumin 4.5 d/dL (3.8-4.9); Alkaline Phosphatase 131 U/L (41-126); BUN/Creat Ratio 24.67 Ratio (12.00-20.00); Blood Urea Nitrogen 22.2 mg/dL (9.0-27.0); Calcium 9.6 mg/dL (8.7-10.3); Carbon Dioxide 26.9 mmol/L (21.6-31.8); Chloride 100 mmol/L (96-109); Glucose 110 mg/dL (70-110); Sodium 140 mmol/L (135-145); Total Bilirubin 0.4 mg/dL (0.3-1.2); Total Protein 7.5 d/dL (6.2-8.2)
[2023-01-09 15:54] LABS: Basophils # (A) 0.04 X 10*3/uL (0.00-0.10); Basophils % (A) 0.4 %; Eosinophils # (A) 0.12 X 10*3/uL (0.04-0.35); Eosinophils % (A) 1.2 %; HCT 46.1 % (37.2-46.3); HGB 14.7 d/dL (12.0-15.0); Lymphocytes # (A) 2.21 X 10*3/uL (0.90-5.00); Lymphocytes % (A) 22.5 %; MCH 29.3 pg (27.0-32.0); MCHC 31.9 d/dL (32.0-37.0); MCV 91.8 FL (80.0-97.0); Mean Platelet Volume 9.8 FL (9.5-12.2); Monocytes # (A) 0.68 X 10*3/uL (0.20-1.00); Monocytes % (A) 6.9 %; NRBC Per 100 WBC 0 X 10*3/uL (0.00-0.01); Neutrophils # (A) 6.76 X 10*3/uL (1.80-7.70); Neutrophils % (A) 68.7 %; Platelet Count 248 X 10*3/uL (140-440); RBC 5.02 X 10*6/uL (4.10-5.20); RDW 13.1 % (11.5-14.5); WBC 9.84 X 10*3/uL (4.50-10.00)
[2023-01-09 20:38] LABS: INR <0.93 sec (0.93-1.11)
== END | disposition home or self-care (01) ==
LOC: LABPAT 08:42
PROVIDERS: ATTEND Thoracic Surgery (Cardiothoracic Vascular Surgery)
DX: Z01.812 Encounter for preprocedural laboratory examination (principal); I35.0 Nonrheumatic aortic (valve) stenosis; Z51.81 Encounter for therapeutic drug level monitoring; Z79.899 Other long term (current) drug therapy; Z79.01 Long term (current) use of anticoagulants; R06.02 Shortness of breath
CPT/HCPCS: 71046; 80053; 85025; 85610

== ENCOUNTER 2023-01-11 05:32 | Inpatient (IN) | payer MEDICARE ==
[~2023-01-11 05:32] MED LIST changes: +ALBUMIN HUMAN 25% 50 ML IV ONE; +ALBUMIN HUMAN 5% 500 ML IVPB ONE; -ALPRAZolam 0.25 MG TAB PO PRN; -ALPRAZolam 0.5 MG TAB PO PRN; +ASPIRIN 325 MG TAB PO ONE; +ATORVASTATIN 10 MG TAB PO ONE; +CALCIUM CHLORIDE 100 MG/ML 10 ML SYRINGE IV ONE; +CARDIOPLEGIC SOLN (K+ 16 MEQ/L 1,000 ML with SODIUM BICARB (1 MEQ/ML) 20 ML, LIDOCAINE ... PERFUSION ONE; +CHLORHEXIDINE GLUCONATE 15 ML CUP MUCOUS MEM ONE; +CLEVIDIPINE BUTYRATE 25 MG in EMPTY BAG 1 BAG IV ONE; +HEPARIN SODIUM 1,000 UN/ML (10ML VL) IV ONE; -HEPARIN SODIUM,PORCINE 10,000 UNIT in SODIUM CHLORIDE 0.9% 1,000 ML IRRIGATION PRN; -HEPARIN SODIUM,PORCINE 2,500 UNIT in SODIUM CHLORIDE 0.9% 250 ML IRRIGATION PRN; +HEPARIN SODIUM,PORCINE 5,000 UNIT in SODIUM CHLORIDE 0.9% 500 ML 500 ML IV ONE; +INSULIN REGULAR 100 UNIT in SODIUM CHLORIDE 0.9% 100 ML IV ONE; +LACTATED RINGERS 1,000 ML IV ONE; +MAGNESIUM SULFATE 16.24 MEQ in EMPTY SYRINGE 1 SYR IV ONE; +MANNITOL 25% 12.5 GM/50 ML VIAL IV ONE; +METOPROLOL TARTRATE 12.5 MG TAB PO ONE; +NITROGLYCERIN SL TABS 0.4 MG TAB SUBLINGUAL ONE; -NITROGLYCERIN SL TABS 0.4 MG TAB SUBLINGUAL PRN; +NITROGLYCERIN-D5W PMX 25 MG/250 ML BTL IV ONE; +NITROGLYCERIN-D5W PMX 50 MG in DEXTROSE/WATER 1 250ML.BAG IV ONE; +NOREPINEPHRINE 4 MG in SODIUM CHLORIDE 0.9% 250 ML IV ONE; +PHENYLEPHRINE 10 MG/ML VIAL IV ONE; +PHENYLEPHRINE 40 MG in SODIUM CHLORIDE 0.9% 250 ML IV ONE; +PROTAMINE SULFATE 10 MG/ML 25 ML VIAL IV ONE; +PROTAMINE SULFATE 250 MG in EMPTY BAG 1 BAG IV ONE; +SODIUM BICARB 8.4% 50 ML SYR (1 MEQ/ML) IV ONE; +SODIUM CHLORIDE 0.9% 1,000 ML IV ONE; -SODIUM CHLORIDE 0.9% 1,000 ML in EMPTY BAG 1 BAG IV SCH; +TRANEXAMIC ACID 2,000 MG in SODIUM CHLORIDE 0.9% 80 ML IV ONE; +VANCOMYCIN 1,000 MG in SODIUM CHLORIDE 0.9% IRRIGATIO 1,000 ML IRRIGATION ONE; +VANCOMYCIN 1,250 MG in SODIUM CHLORIDE 0.9% 250 ML IVPB ONE; +propofoL 1,000 MG/100 ML VIAL IV ONE
[2023-01-11] MEDS ORDERED: LACTATED RINGERS 1,000 ML IV ONE ×2 (06:00)
[2023-01-11 06:16] LABS: Glucose,Whole Blood 110 mg/dL (70-110)
[2023-01-11] MEDS ORDERED: TRANEXAMIC 1,000 MG/100ML-NACL PREMIX BAG ONE (07:30)
[2023-01-11] MEDS ORDERED: VECURONIUM 10 MG VIAL IV ONE (07:30)
[2023-01-11] MEDS ORDERED: PROTAMINE SULFATE 10 MG/ML 25 ML VIAL IV ONE (07:30)
[2023-01-11] MEDS ORDERED: fentaNYL (PF) 50 MCG/ML 50 ML VIAL ONE (07:30)
[2023-01-11] MEDS ORDERED: MILRINONE 1 MG/ML 20 ML VIAL IV ONE (07:30)
[2023-01-11] MEDS ORDERED: GLYCOPYRROLATE 0.2 MG/ML 2 ML VIAL ONE (07:30)
[2023-01-11] MEDS ORDERED: LIDOCAINE 2% SYG (PF) 100 MG/5 ML ONE (07:30)
[2023-01-11] MEDS ORDERED: MIDAZOLAM HCL 10 MG/10 ML VIAL ONE (07:30)
[2023-01-11] MEDS ORDERED: ALBUMIN HUMAN 5% (25gm) 500 ML VIAL IVPB ONE (07:30)
[2023-01-11] MEDS ORDERED: ELECTROLYTE-R (PH 7.4) 1,000 ML IV.SOLN IV ONE (07:30)
[2023-01-11] MEDS ORDERED: MAGNESIUM SULFATE 4 MEQ/ML 10ML VIAL ONE (07:30)
[2023-01-11] MEDS ORDERED: PROPOFOL 10 MG/ML 20 ML VIAL IV ONE (07:30)
[2023-01-11 08:31] LABS: ABG Base Excess 3.1 mmol/L; ABG Glucose Whole Blood 106 mg/dL (75-99); ABG HCO3 28 mmol/L (21-25); ABG Hematocrit 40 % (34.0-46.0); ABG Ionized Calcium 4.7 mg/dL (4.5-5.3); ABG Lactic Acid Whole Blood 1.2 mmol/L (0.5-1.6); ABG Oxygen Saturation 98.9 % (94-97); ABG PCO2 40 mmHg (35-45); ABG PH 7.44 (7.35-7.45); ABG PO2 218 mmHg (83-108); ABG Potassium Whole Blood 3.9 mmol/L (3.4-4.5); ABG Sodium Whole Blood 142 mmol/L (135-146); ABG TCO2 29 mmol/L (19-24)
[2023-01-11 09:10] LABS: ABG Base Excess 2.8 mmol/L; ABG Glucose Whole Blood 108 mg/dL (75-99); ABG HCO3 26 mmol/L (21-25); ABG Hematocrit 38 % (34.0-46.0); ABG Ionized Calcium 4.5 mg/dL (4.5-5.3); ABG Lactic Acid Whole Blood 1.5 mmol/L (0.5-1.6); ABG Oxygen Saturation 99.1 % (94-97); ABG PCO2 36 mmHg (35-45); ABG PH 7.47 (7.35-7.45); ABG PO2 226 mmHg (83-108); ABG Sodium Whole Blood 141 mmol/L (135-146); ABG TCO2 28 mmol/L (19-24)
[2023-01-11 09:42] LABS: ABG Base Excess 0.4 mmol/L; ABG Glucose Whole Blood 92 mg/dL (75-99); ABG HCO3 25 mmol/L (21-25); ABG Ionized Calcium 4.1 mg/dL (4.5-5.3); ABG Lactic Acid Whole Blood 1.1 mmol/L (0.5-1.6); ABG Oxygen Saturation 99.5 % (94-97); ABG PCO2 36 mmHg (35-45); ABG PH 7.44 (7.35-7.45); ABG Potassium Whole Blood 4.6 mmol/L (3.4-4.5); ABG Sodium Whole Blood 136 mmol/L (135-146); ABG TCO2 26 mmol/L (19-24)
[2023-01-11 10:14] LABS: ABG Base Excess 1.1 mmol/L; ABG Glucose Whole Blood 116 mg/dL (75-99); ABG HCO3 26 mmol/L (21-25); ABG Hematocrit 28 % (34.0-46.0); ABG Ionized Calcium 4.3 mg/dL (4.5-5.3); ABG Oxygen Saturation 99.4 % (94-97); ABG PCO2 40 mmHg (35-45); ABG PH 7.42 (7.35-7.45); ABG PO2 406 mmHg (83-108); ABG Potassium Whole Blood 4.6 mmol/L (3.4-4.5); ABG Sodium Whole Blood 138 mmol/L (135-146); ABG TCO2 27 mmol/L (19-24)
[2023-01-11 11:28] LABS: ABG Base Excess 0.1 mmol/L; ABG Glucose Whole Blood 129 mg/dL (75-99); ABG HCO3 26 mmol/L (21-25); ABG Hematocrit 27 % (34.0-46.0); ABG Ionized Calcium 4.3 mg/dL (4.5-5.3); ABG Oxygen Saturation 99.3 % (94-97); ABG PCO2 46 mmHg (35-45); ABG PH 7.36 (7.35-7.45); ABG PO2 417 mmHg (83-108); ABG Potassium Whole Blood 4.7 mmol/L (3.4-4.5); ABG Sodium Whole Blood 139 mmol/L (135-146); ABG TCO2 27 mmol/L (19-24)
[2023-01-11] MEDS ORDERED: IPRATROPIUM-ALBUTEROL 3 ML NEB INHALATION PRN (11:49)
[2023-01-11] MEDS ORDERED: CALCIUM GLUCONATE IN NACL 2 GM in SALINE 1 100ML.BAG IVPB PRN (11:49)
[2023-01-11] MEDS ORDERED: hydrALAZINE HCL 20 MG/ML 1 ML VIAL IVP PRN (11:49)
[2023-01-11] MEDS ORDERED: BENZOCAINE/MENTHOL LOZENG 1 EACH LOZENGE MUCOUS MEM PRN (11:49)
[2023-01-11] MEDS ORDERED: DEXTROSE 50% SYRINGE 50 ML IVP PRN ×2 (11:49)
[2023-01-11] MEDS ORDERED: DEXTROSE 5% IN WATER 100 ML with AMIODARONE 150 MG IV PRN (11:49)
[2023-01-11] MEDS ORDERED: FLUTICASONE 50MCG/SPRAY NASAL 16GM EA NOSTRIL PRN (11:49)
[2023-01-11] MEDS ORDERED: Potassium Replacement Protocol 1 EACH MISC MISCELLANE PRN (11:49)
[2023-01-11] MEDS ORDERED: DEXMEDETOMIDINE/0.9% NACL(PMX) 400 MCG in EMPTY BAG 1 BAG IV SCH (11:49)
[2023-01-11] MEDS ORDERED: Magnesium Replacement Protocol 1 EACH MISC MISCELLANE PRN (11:49)
[2023-01-11] MEDS ORDERED: METOCLOPRAMIDE 5 MG/ML 2 ML VIAL IVP PRN (11:49)
[2023-01-11] MEDS ORDERED: LORATADINE 10 MG TAB PO PRN (11:49)
[2023-01-11] MEDS ORDERED: AMIODARONE 450 MG in DEXTROSE 5% IN WATER 250 ML IV PRN ×2 (11:49)
[2023-01-11] MEDS ORDERED: AMIODARONE 360 MG in DEXTROSE 5% IN WATER 200 ML IV PRN ×2 (11:49)
[2023-01-11 12:13] LABS: ABG Hematocrit 24 % (34.0-46.0); ABG PO2 >420 mmHg (83-108)
--- NOTE | 2023-01-11 12:22 | P.OP ---
Date of Procedure: 01/11/23 Preoperative Diagnosis: Aortic stenosis, tricuspid regurgitation Postoperative Diagnosis: Same Procedure(s) Performed: Aortic valve replacement with 23 mm Curtis Insiris bovine pericardial valve, aortic root enlargement with a shield patch (both Yeng technique), epi-aortic ultrasound, ligation of the left atrial appendage with 35 mm AtriCure clip, ZOEY by anesthesia. Implants: 23 mm Curtis Inspiris bovine pericardial valve, Hemashield patch, AtriCure clip Anesthesia: GETA Surgeon: Chadwick Baxter Restaurant Greeter #1: Thaddeus Gautam Restaurant Greeter #2: Edy Muñiz Estimated Blood Loss (ml): 500 IV fluids (ml): 2,000 Urine output (ml): 450 Pathology: other (Aortic valve) Condition: stable Disposition: ICU Indications for Procedure: 68-year-old female with symptomatic tricuspid calcific aortic stenosis referred for several versus Shadia. She was seen in the high risk valve clinic. She has a history of tricuspid regurgitation dating back to 2009. She had a very small annulus. She is in excellent health. She was seen in the high risk valve clinic for shared decision-making and was generally agreed that she would be better served with surgical valve implantation with root enlargement. It was also felt appropriate to examine the tricuspid valve and consider a tricuspid valve repair. Patient was seen by me in the office and this was discussed f robert and informed consent was obtained. Operative Findings: ZOEY demonstrated severe calcific aortic stenosis with peak gradient of 57. The aortic root was small with a 17 mm measured annulus. There was only trivial tricuspid regurgitation noted and this was felt consistent simply with [place]-Nelia catheter. Epi-aortic ultrasonography demonstrated normal ascending aortic tissue. Was no calcification and no atheromatous degeneration. On exploration of the valve, tricuspid calcified valve with annular calcification. Following valve excision and annular debridement, attempts to place both a 21 and a 19 sizer were unsuccessful due to the small size of the root which appeared to be 17-18 mm in dimension. Description of Procedure: Patient was brought to the operating room placed supine on the operating table anesthetized and intubated. Monitoring lines been placed in the preop holding area. ZOEY probe was placed. The findings are as noted above. Based on only trivial tricuspid regurgitation it was not felt necessary to repair the tricuspid valve. The anterior torso and bilateral lower extremities were sterilely prepped and draped in entered fashion. Midline sternotomy was performed and the heart was exposed sternal retractor bilateral pleural spaces were opened the left fairly widely and the right less so. Midline pericard iotomy was performed and the heart was exposed with pericardial sutures. Patient was systemically heparinized. Epi-aortic ultrasonography was performed. Findings as noted above. Patient was cannulated for cardiopulmonary bypass was 7 mm soft flow cannula in the distal ascending aorta, two-stage venous cannula through the right atrium into the inferior vena cava. Antegrade and retrograde quadriplegia was replaced in standard fashion. Patient was placed on cardioplegia bypass and stabilized. 35mm AtriCure clip was placed across the left atrial appendage. Pursestring suture was placed in the right superior pulmonary vein. The aorta was crossclamped and the heart arrested with cold crystalloid antegrade artery plegia followed by retrograde cardioplegia. Atrial vent was placed through the right superior pulmonary vein pursestring into the right atrium. Transverse arteriotomy was performed and the aortic valve was examined. The aortic leaflets were excised the annulus debrided of calcium. Copious irrigation was performed. After sizing the valve it was determined the need tube perform a root enlargement. Arteriotomy was carried down onto and through the commissure between the left and non-coronary cusp. It was then teed to the left and to the right in the annular tissue. A patch of Hemashield was cut to appropriate dimension and brought up into the field. Was sewn in place with 5-0 running Prolene suture up into the midportion of the aorta. We now placed valve sutures pledgeted Tycron Sudanese Shiley around the annulus patch side the patch side. We now sized the annulus and chose a 23 mm instruments valve. Valve sutures were thrown sewn through the sewing ring of the valve and it was seated. Valve sutures were cut. Valve sutures were now placed through the remaining portion of the valve ring through the patch and tied externally. Following this the valve was checked and noted to have seated well. The coronary ostia were free. Copious irrigation was again performed. The aortic closure was now completed with the 5-0 Prolene suture tailoring the patch to fit the aortotomy all the way over to the region of the pulmonary artery. On completion of the patch it was sealed on the suture line with some CoSeal. The left atrial vent was removed and the site pursestring suture tied shut. Patient was placed into steep Trendelenburg and the cross-clamp was removed. Good hemostasis was noted at the aortotomy site. The retrograde catheter was removed and pacing wires were placed and the patient was paced. Heart was de-aired under ZOEY guidance and once we were satisfied with this the aortic vent line was removed and pursestring suture tied. After appropriate reperfusion and rewarming the patient was weaned from cardiopulmonary bypass. There was some diastolic dysfunction and she was very volume dependent. She was given a half loading dose of Primacor and stabilized. Heparin was reversed with protamine and the patient was decannulated in standard fashion. The aortic cannulation site was reinforced with a 40 pledgeted Prolene suture. Good hemostasis was noted throughout. Left pleural space was drained with a 32-Sudanese chest tube. The mediastinum was drained with a 36-Sudanese chest tube. Mediastinum was irrigated with antibiotic solution. After assuring good hemostasis sternum was closed with 8 sternal wires. Fascia was closed with 0 Ethibond. Subcutaneous and subcuticular layers were closed with layers of Vicryl suture. On completion of the case the patient was in sinus rhythm with a heart rate in the 60s. Blood pressure and cardiac output were satisfactory. Good urine output continued. Patient was not acidotic. Patient received no blood transfusions and was not on no inotropic support at the time of exit from the operating room. Patient was transported to the ICU in stable condition.
[2023-01-11 12:36] LABS: Glucose,Whole Blood 138 mg/dL (70-110)
[2023-01-11] MEDS: ALBUMIN HUMAN 5% 250 ML in EMPTY BAG 1 BAG IVPB PRN ×5 (12:39→21:12)
[2023-01-11 12:51] LABS: HCT 31.4 % (34.0-46.0); MCH 30.6 pg (25.0-35.0); MCHC 33.8 g/dL (31.0-37.0); MCV 90.5 fL (80.0-100.0); Mean Platelet Volume 8.1; Platelet Count 128 k/uL (150-450); RBC 3.47 m/uL (3.80-5.40); RDW 13.3 % (11.5-15.5); WBC 17.2 k/uL (3.8-10.6)
--- NOTE | 2023-01-11 12:56 | P.CNPUL ---
History of Present Illness Consult date: 01/11/23 Requesting physician: Chadwick Baxter Reason for consult: other (Ventilator/critical care management) Chief complaint: Aortic stenosis History of present illness: This is a 68-year-old female patient with a known history of hypertension, gastroesophageal reflux disease, hypothyroidism, Graves' disease, diverticulitis with previous bowel resection. She also has a known history of severe aortic valve stenosis and was brought in today electively for aortic valve replacement. She received an aortic valve replacement with a 23 mm Curtis Insiris bovine pericardial valve. She is seen in the postoperative period in the intensive care unit. Intubated on mechanical ventilator currently and assist-control mode at a tidal volume of 450, FiO2 100% and a PEEP of 8. She has a left pleural chest tube in place, mediastinal chest tube in place. Right IJ [place]-Nelia catheter in place. Temperature venous pacing wires in place. Arterial blood gases pending. Labs are pending. Review of Systems ROS unobtainable: due to endotracheal tube Past Medical History Past Medical History: Cancer, Diabetes Mellitus, GERD/Reflux, Hypertension, Osteoarthritis (OA), Thyroid Disorder Additional Past Medical History / Comment(s): past hx. hypertension-just takes "water pill". past hx. Grave's disease thyroid removed, aortic valve issues recent fatigue and SOB w/exertion, hx mild leaky mitral valve. tricuspid valve issue, "pre diabetic." watching diet. basal cell skin cancer removed from arm History of Any Multi-Drug Resistant Organisms: None Reported Past Surgical History: Bowel Resection, Heart Catheterization, Hernia Repair, Tonsillectomy, Uterine Ablation Additional Past Surgical History / Comment(s): thyroidectomy, inc hernia repair, left shoulder rotator cuff repair Past Anesthesia/Blood Transfusion Reactions: Postoperative Nausea & Vomiting (PONV) Additional Past Anesthesia/Blood Transfusion Reaction / Comment(s): slow to come out of anesthesia. no blood transfusions Smoking Status: Former smoker, Second hand smoke exposure - Past Family History Mother Family Medical History: Deep Vein Thrombosis (DVT) Father Family Medical History: Deep Vein Thrombosis (DVT) Medications and Allergies Home Medications Medication Instructions Recorded Confirmed Type Levothyroxine Sodium [Levoxyl] 200 mcg PO DAILY 06/15/15 01/11/23 History Mometasone Furoate [Nasonex Nasal 1 - 2 spray EA NOSTRIL DAILY PRN 06/15/15 01/08/23 History Ramey] Omeprazole [PriLOSEC] 20 mg PO HS 06/15/15 01/11/23 History Calcium Carbonate [Calcium] 600 mg PO DAILY 05/15/17 01/08/23 History Multivit with Calcium,Iron,Min 1 each PO DAILY 05/15/17 01/11/23 History [Women's Multivitamin] hydroCHLOROthiazide [Hydrodiuril] 25 mg PO DAILY 05/15/17 01/11/23 History Acetaminophen [Tylenol Extra 500 mg PO DIRECTED PRN 10/20/22 01/11/23 History Strength] Aspirin 81 mg PO DAILY 10/20/22 01/11/23 History Fexofenadine HCl [Liat Allergy] 180 mg PO DAILY PRN 10/20/22 01/11/23 History Ibuprofen [Motrin Ib] 200 mg PO DIRECTED PRN 10/20/22 01/11/23 History Magnesium 250 mg PO DAILY 10/20/22 01/08/23 History Unk B Complex 1 tab PO DAILY 10/20/22 01/11/23 History Unk Biotin 1 tab PO DAILY 10/20/22 01/11/23 History Unk Vitamin C 1 tab PO DAILY 10/20/22 01/11/23 History Cholecalciferol (Vitamin D3) 2,000 unit PO DAILY 11/20/22 01/11/23 History [Vitamin D3 (50 Mcg = 2000 Iu) Chew Tab] Ubidecarenone [Coenzyme Q10] 200 mg PO DAILY 11/20/22 01/11/23 History Rosuvastatin [Crestor] 10 mg PO QAM 01/08/23 01/11/23 History Allergies Allergy/AdvReac Type Severity Reaction Status Date / Time cefaclor [From Ceclor] Allergy Rash/Hives Verified 01/11/23 05:51 ciprofloxacin [From Cipro] Allergy Unknown Verified 01/11/23 05:51 sulfamethoxazole AdvReac Nausea & Verified 01/11/23 05:51 [From Septra] Vomiting trimethoprim [From Marra] AdvReac Nausea & Verified 01/11/23 05:51 Vomiting Physical Exam Vitals: Vital Signs Temp Pulse Resp BP BP Pulse Ox FiO2 01/11/23 12:31 100 01/11/23 12:15 100 01/11/23 05:45 98.2 F 75 16 132/60 155/66 99 Intake and Output 01/10/23 01/11/23 01/11/23 22:59 06:59 14:59 Intake Total 200 252 Output Total 1450 Balance 200 -1198 Intake: IV 200 252 Output: Urine 450 Estimated Blood Loss 1000 Other: Weight 85.1 kg GENERAL EXAM: Intubated, sedated 68-year-old female, comfortable in no apparent distress. HEAD: Normocephalic. EYES: Sluggish reaction of pupils, equal size. NOSE: Clear with pink turbinates. THROAT: Oral endotracheal and gastric tube secured in place. No erythema or exudates. NECK: Right IJ [place]-Nelia catheter in place No masses, no JVD. CHEST: Sternal dressing dry and intact. Mediastinal and left chest tubes in place. Temporary venous pacing wires in place. LUNGS: Equal air entry with no crackles, wheeze, rhonchi or dullness. CVS: S1 and S2 normal with no audible murmur, regular rhythm. ABDOMEN: No hepatosplenomegaly. SPINE: No scoliosis or deformity SKIN: No rashes CENTRAL NERVOUS SYSTEM: Sedated, tone is normal in all 4 extremities. EXTREMITIES: LUISA wraps to the lower extremities. SCDs in Place. There is no peripheral edema. No clubbing, no cyanosis. Peripheral pulses are intact. Results - Laboratory Findings ABG ABG pH 7.36 (7.35-7.45) 01/11/23 10:47 ABG pCO2 46 mmHg (35-45) H 01/11/23 10:47 ABG pO2 417 mmHg (83-108) H 01/11/23 10:47 ABG O2 Saturation 99.3 % (94-97) H 01/11/23 10:47 Abnormal lab findings: Abnormal Labs 01/05/23 01/05/23 01/11/23 10:40 10:40 08:34 APTT 34.8 H ABG pH ABG pCO2 ABG pO2 218 H ABG HCO3 28 H ABG Total CO2 29 H ABG O2 Saturation 98.9 H ABG Hematocrit ABG Potassium ABG Ionized Calcium ABG Glucose 106 H Hemoglobin POC Glucose (mg/dL) Arterial Blood Potassium Arterial Blood Glucose 106 H Crossmatch See Detail 01/11/23 01/11/23 01/11/23 09:13 09:45 10:17 APTT ABG pH 7.47 H ABG pCO2 ABG pO2 226 H >420 H 406 H ABG HCO3 26 H 26 H ABG Total CO2 28 H 26 H 27 H ABG O2 Saturation 99.1 H 99.5 H 99.4 H ABG Hematocrit 24 L 28 L ABG Potassium 4.6 H 4.6 H ABG Ionized Calcium 4.1 L 4.3 L ABG Glucose 108 H 116 H Hemoglobin 7.9 L 9.0 L POC Glucose (mg/dL) Arterial Blood Potassium 4.6 H 4.6 H Arterial Blood Glucose 108 H 116 H Crossmatch 01/11/23 01/11/23 10:47 12:35 APTT ABG pH ABG pCO2 46 H ABG pO2 417 H ABG HCO3 26 H ABG Total CO2 27 H ABG O2 Saturation 99.3 H ABG Hematocrit 27 L ABG Potassium 4.7 H ABG Ionized Calcium 4.3 L ABG Glucose 129 H Hemoglobin 8.9 L POC Glucose (mg/dL) 138 H Arterial Blood Potassium 4.7 H Arterial Blood Glucose 129 H Crossmatch Assessment and Plan Assessment: Severe aortic stenosis status post aortic valve replacement utilizing a 23 mm Curtis Insiris bovine pericardial valve. Postoperative day #0. History of hypertension Hypothyroidism status post thyroidectomy History of Graves' disease Gastroesophageal reflux disease History of diverticulitis with previous bowel resection Nonsmoker, pulmonary function testing revealed an FEV1 value of 2.0 L which was 83% of predicted Plan: The patient was seen and evaluated Chest x-ray, labs and ABGs are pending We will titrate the FiO2 as tolerated Plan for early extubation protocol Continue to monitor her closely here in the intensive care unit We will continue to follow and make further recommendations based on her clinical status I have personally seen and examined the patient, performed the documentation and the assessment and plan as written. Number of minutes spent on the visit: 20.
[2023-01-11 13:02] LABS: ABG Base Excess -0.2 mmol/L; ABG HCO3 25 mmol/L (21-25); ABG Oxygen Saturation 99.4 % (94-97); ABG PCO2 42 mmHg (35-45); ABG PH 7.38 (7.35-7.45); ABG PO2 202 mmHg (83-108); ABG TCO2 26 mmol/L (19-24)
--- NOTE | 2023-01-11 13:03 | XR ---
EXAMINATION TYPE: XR chest 1V portable DATE OF EXAM: 01/11/2023 COMPARISON: 01/09/2023 HISTORY: Postop TECHNIQUE: Single frontal view of the chest is obtained. FINDINGS: The left lower lobe consolidation and small effusion. Left-sided chest tube. No overt fail ure. Heart size normal. Prosthetic heart valve. ET tube 2.2 cm above cullen and NG tube in good position. [place]-Nelia catheter with the tip overlying the proximal pulmonary outflow tract. There is an epicardial lead. No sizable pneumothorax. IMPRESSION: 1. Left lower lobe infiltrate and small effusion. 2. Postoperative changes.
[2023-01-11 13:04] LABS: Allen Test Performed? no
[2023-01-11] MEDS: LACTATED RINGERS 1,000 ML IV SCH (13:11)
[2023-01-11 13:17] LABS: Ionized Calcium 4.9 mg/dL (4.5-5.3)
[2023-01-11] MEDS: CLEVIDIPINE BUTYRATE 25 MG in EMPTY BAG 1 BAG IV SCH ×2 (13:17→13:18)
[2023-01-11 13:20] LABS: INR 1.1 (<1.2); Partial Thromboplastin Time 29.6 sec (22.0-30.0); Prothrombin Time 11.4 sec (9.0-12.0)
[2023-01-11 13:22] LABS: HGB 10.6 gm/dL (11.4-16.0)
[2023-01-11] MEDS: INSULIN REGULAR 100 UNIT in SODIUM CHLORIDE 0.9% 100 ML IV SCH (13:29)
[2023-01-11 13:36] LABS: Glucose,Whole Blood 152 mg/dL (70-110)
[2023-01-11 13:43] LABS: ALT 16 U/L (4-34); AST 34 U/L (14-36); African American GFR (CKD) >90 (>60 ml/min/1.73 sqM); Albumin 2.8 g/dL (3.5-5.0); Alkaline Phosphatase 64 U/L (38-126); Anion Gap 6 mmol/L; Blood Urea Nitrogen 19 mg/dL (7-17); Calcium 7.8 mg/dL (8.4-10.2); Carbon Dioxide 23 mmol/L (22-30); Chloride 108 mmol/L (98-107); Glucose 137 mg/dL (74-99); Magnesium 3.9 mg/dL (1.6-2.3); Non-African American GFR(CKD) >90 (>60 ml/min/1.73 sqM); Potassium 4.3 mmol/L (3.5-5.1); Sodium 137 mmol/L (137-145); Total Bilirubin 0.8 mg/dL (0.2-1.3); Total Protein 4.8 g/dL (6.3-8.2)
[2023-01-11 13:48] LABS: Band Neutrophils % 3 %; Monocytes # (M) 1.55 k/uL (0-1.0); Neutrophils % (M) 81 %; Nucleated Red Blood Cells 0 /100 WBC (0-0); Total Cells Counted 100
[2023-01-11 13:49] LABS: RBC Morphology Normal
[2023-01-11] MEDS: ACETAMINOPHEN IV (For NPO) 1,000 MG in EMPTY BAG 1 BAG IVPB SCH ×2 (14:07→20:27)
[2023-01-11] MEDS: IPRATROPIUM-ALBUTEROL 3 ML NEB INHALATION SCH ×3 (14:17→19:59)
[2023-01-11 14:22] LABS: Glucose,Whole Blood 160 mg/dL (70-110)
[2023-01-11 15:04] LABS: Glucose,Whole Blood 154 mg/dL (70-110)
[2023-01-11 16:00] LABS: ABG HCO3 25 mmol/L (21-25); ABG Oxygen Saturation 97.2 % (94-97); ABG PCO2 43 mmHg (35-45); ABG PH 7.36 (7.35-7.45); ABG PO2 115 mmHg (83-108); ABG TCO2 26 mmol/L (19-24)
[2023-01-11 16:00] LABS: HCT 32.3 % (34.0-46.0); HGB 10.8 gm/dL (11.4-16.0); MCH 29.5 pg (25.0-35.0); MCHC 33.4 g/dL (31.0-37.0); MCV 88.4 fL (80.0-100.0); Mean Platelet Volume 8.3; Platelet Count 149 k/uL (150-450); RBC 3.65 m/uL (3.80-5.40); RDW 13.3 % (11.5-15.5); WBC 19.3 k/uL (3.8-10.6)
[2023-01-11 16:01] LABS: Allen Test Performed? no
[2023-01-11 16:32] LABS: Glucose,Whole Blood 148 mg/dL (70-110)
[2023-01-11] MEDS: ONDANSETRON 4 MG/2 ML VIAL IVP PRN (16:45)
[2023-01-11 16:46] LABS: Band Neutrophils % 3 %; Lymphocytes # (M) 1.93 k/uL (1.0-4.8); Monocytes # (M) 1.35 k/uL (0-1.0); Neutrophils % (M) 80 %; Nucleated Red Blood Cells 0 /100 WBC (0-0); Total Cells Counted 100
[2023-01-11] MEDS: KETOROLAC 15 MG/ML 1 ML VIAL IVP SCH ×2 (16:49→23:24)
[2023-01-11 17:13] LABS: Glucose,Whole Blood 130 mg/dL (70-110)
[2023-01-11] MEDS: HEPARIN SODIUM,PORCINE/PF 5,000 UNIT/0.5 ML SYRINGE SQ SCH ×2 (17:30→23:20)
[2023-01-11 18:24] LABS: Glucose,Whole Blood 123 mg/dL (70-110)
[2023-01-11 19:10] LABS: Glucose,Whole Blood 124 mg/dL (70-110)
[2023-01-11 19:11] LABS: HCT 24.5 % (34.0-46.0); HGB 8.3 gm/dL (11.4-16.0); MCH 30.4 pg (25.0-35.0); MCV 89.2 fL (80.0-100.0); Mean Platelet Volume 9.5; Platelet Count 108 k/uL (150-450); RBC 2.74 m/uL (3.80-5.40); RDW 13.3 % (11.5-15.5); WBC 12.1 k/uL (3.8-10.6)
[2023-01-11 19:56] LABS: Glucose,Whole Blood 124 mg/dL (70-110)
[2023-01-11] MEDS: SENNOSIDES-DOCUSATE SODIUM 1 EACH TAB PO SCH (20:31)
[2023-01-11 20:39] LABS: Lymphocytes # (M) 1.09 k/uL (1.0-4.8); Monocytes # (M) 0.48 k/uL (0-1.0); Neutrophils # (M) 10.53 k/uL (1.3-7.7); Neutrophils % (M) 87 %; Nucleated Red Blood Cells 0 /100 WBC (0-0); Total Cells Counted 100
[2023-01-11 21:35] LABS: Glucose,Whole Blood 137 mg/dL (70-110)
[2023-01-11 22:17] LABS: Glucose,Whole Blood 127 mg/dL (70-110)
[2023-01-11 23:10] LABS: Glucose,Whole Blood 122 mg/dL (70-110)
[2023-01-12 00:19] LABS: Glucose,Whole Blood 111 mg/dL (70-110)
[2023-01-12 01:01] LABS: Glucose,Whole Blood 138 mg/dL (70-110)
--- NOTE | 2023-01-12 01:18 | P.CONS ---
History of Present Illness - Reason for Consult Consult date: 01/11/23 Medical management - Chief Complaint Aortic valve replacement - History of Present Illness Patient is a 68-year-old female with a known history of hypertension, prediabetes, GERD, osteoarthritis, diverticulitis with history of bowel resection hypothyroidism and prior history of smoking and severe aortic stenosis was admitted to the hospital for elective aortic valve replacement. Patient is s/p replacement with bovine pericardial valve. Patient was intubated perioperatively and was transferred to MICU. Currently on Ventilator with assist control with FiO2 450 and PEEP of 8. Chest x-ray showed left lower lobe infiltrate with small effusion. Postoperative changes. ABG showed pH 7.38 PCO2 42 and PO2 202 WBC 17.2 hemoglobin 10.6 and platelets 128 Sodium 137 potassium 4.3 chloride 108 bicarb 23 BUN 19 and creatinine 0.65 blood sugar is 138 and albumin 2.8. Review of Systems ROS unobtainable: due to endotracheal tube, due to mental status Past Medical History Past Medical History: Cancer, Diabetes Mellitus, GERD/Reflux, Hypertension, Osteoarthritis (OA), Thyroid Disorder Additional Past Medical History / Comment(s): past hx. hypertension-just takes "water pill". past hx. Grave's disease thyroid removed, aortic valve issues recent fatigue and SOB w/exertion, hx mild leaky mitral valve. tricuspid valve issue, "pre diabetic." watching diet. basal cell skin cancer removed from arm History of Any Multi-Drug Resistant Organisms: None Reported Past Surgical History: Bowel Resection, Heart Catheterization, Hernia Repair, Tonsillectomy, Uterine Ablation Additional Past Surgical History / Comment(s): thyroidectomy, inc hernia repair, left shoulder rotator cuff repair Past Anesthesia/Blood Transfusion Reactions: Postoperative Nausea & Vomiting (PONV) Additional Past Anesthesia/Blood Transfusion Reaction / Comm: slow to come out of anesthesia. no blood transfusions Smoking Status: Former smoker, Second hand smoke exposure - Past Family History Mother Family Medical History: Deep Vein Thrombosis (DVT) Father Family Medical History: Deep Vein Thrombosis (DVT) Medications and Allergies Home Medications Medication Instructions Recorded Confirmed Type Levothyroxine Sodium [Levoxyl] 200 mcg PO DAILY 06/15/15 01/11/23 History Mometasone Furoate [Nasonex Nasal 1 - 2 spray EA NOSTRIL DAILY PRN 06/15/15 01/08/23 History [place]] Omeprazole [PriLOSEC] 20 mg PO HS 06/15/15 01/11/23 History Calcium Carbonate [Calcium] 600 mg PO DAILY 05/15/17 01/08/23 History Multivit with Calcium,Iron,Min 1 each PO DAILY 05/15/17 01/11/23 History [Women's Multivitamin] hydroCHLOROthiazide [Hydrodiuril] 25 mg PO DAILY 05/15/17 01/11/23 History Acetaminophen [Tylenol Extra 500 mg PO DIRECTED PRN 10/20/22 01/11/23 History Strength] Aspirin 81 mg PO DAILY 10/20/22 01/11/23 History Fexofenadine HCl [Liat Allergy] 180 mg PO DAILY PRN 10/20/22 01/11/23 History Ibuprofen [Motrin Ib] 200 mg PO DIRECTED PRN 10/20/22 01/11/23 History Magnesium 250 mg PO DAILY 10/20/22 01/08/23 History Unk B Complex 1 tab PO DAILY 10/20/22 01/11/23 History Unk Biotin 1 tab PO DAILY 10/20/22 01/11/23 History Unk Vitamin C 1 tab PO DAILY 10/20/22 01/11/23 History Cholecalciferol (Vitamin D3) 2,000 unit PO DAILY 11/20/22 01/11/23 History [Vitamin D3 (50 Mcg = 2000 Iu) Chew Tab] Ubidecarenone [Coenzyme Q10] 200 mg PO DAILY 11/20/22 01/11/23 History Rosuvastatin [Crestor] 10 mg PO QAM 01/08/23 01/11/23 History Allergies Allergy/AdvReac Type Severity Reaction Status Date / Time cefaclor [From Ceclor] Allergy Rash/Hives Verified 01/11/23 05:51 ciprofloxacin [From Cipro] Allergy Unknown Verified 01/11/23 05:51 sulfamethoxazole AdvReac Nausea & Verified 01/11/23 05:51 [From Septra] Vomiting trimethoprim [From Septra] AdvReac Nausea & Verified 01/11/23 05:51 Vomiting Physical Exam Vitals: Vital Signs Temp Pulse Pulse Resp BP BP Pulse Ox 01/11/23 13:50 68 18 100 01/11/23 13:40 68 24 100 01/11/23 13:30 96.8 F L 68 16 100 06/15/23 13:20 66 15 100 01/11/23 13:10 71 19 99 01/11/23 13:04 01/11/23 13:00 65 14 100 01/11/23 12:50 64 14 100 01/11/23 12:40 65 14 100 01/11/23 12:31 01/11/23 12:30 96.6 F L 64 14 100 01/11/23 12:15 01/11/23 05:45 98.2 F 75 16 132/60 155/66 99 FiO2 01/11/23 13:50 01/11/23 13:40 01/11/23 13:30 60 01/11/23 13:20 01/11/23 13:10 01/11/23 13:04 60 01/11/23 13:00 01/11/23 12:50 01/11/23 12:40 100 01/11/23 12:31 100 01/11/23 12:30 100 01/11/23 12:15 100 01/11/23 05:45 Intake and Output 01/10/23 01/11/23 01/11/23 22:59 06:59 14:59 Intake Total 200 971.129 Output Total 2355 Balance 200 -1383.871 Intake: IV 200 959 0.9NS Cardiac Output 30 0.9NS Pressure Bag 27 Albumin Human 5% 250 ml 500 In Empty Bag 1 bag @ 250 mls/hr IVPB Q1HR PRN Rx#: [id number] Lactated Ringers 1,000 ml 150 @ 50 mls/hr IV .Q20H GAURAV Rx#:[id number] Intake, IV Titration 12.129 Amount Clevidipine Butyrate 25 0.3 mg In Empty Bag 1 bag @ 1 MG/HR 2 mls/hr IV .Q24H GAURAV Rx#:[id number] propofoL 1,000 mg In 11.829 Empty Bag 1 bag @ Titrate IV .Q0M GAURAV Rx#: [id number] Output: Chest Tube Drainage 250 Left Pleural/Mediastinal 250 Urine 1105 Estimated Blood Loss 1000 Other: Weight 85.1 kg ABP, PAP, CO, CI - Last 8 Hours Arterial Blood Pressure 123/61 Arterial Blood Pressure 128/65 Arterial Blood Pressure 130/64 Arterial Blood Pressure 129/62 Arterial Blood Pressure 127/62 Arterial Blood Pressure 292/282 Arterial Blood Pressure 141/72 Arterial Blood Pressure 142/68 Pulmonary Artery Pressure 35/10 Pulmonary Artery Pressure 35/10 Pulmonary Artery Pressure 35/11 Pulmonary Artery Pressure 34/11 Pulmonary Artery Pressure 34/9 Pulmonary Artery Pressure 32/9 Pulmonary Artery Pressure 31/8 Pulmonary Artery Pressure 31/16 Cardiac Output 5.3 Cardiac Output 4.8 Cardiac Output 4.8 Cardiac Index 2.7 Cardiac Index 2.5 Cardiac Index 2.5 PHYSICAL EXAMINATION: Patient is currently on mechanical ventilator. Sedated... HEENT: Normocephalic. Neck is supple. Pupils reactive. Nostrils clear. Oral cavity is moist. Neck reveals no JVD, carotid bruits, or thyromegaly. CHEST EXAMINATION: Trachea is central. ET tube in place. Symmetrical expansion. Bibasilar diminished sounds.. CARDIAC: Normal S1, S2 with no gallops. No murmurs ABDOMEN: Soft. Bowel sounds present. Nontender. No organomegaly. No abdominal bruits. Extremities: reveal no edema. No clubbing or cyanosis Neurologically patient is sedated and intubated. No gross focal deficits noted Skin: No rash or skin lesions. Psychiatric: Could not be assessed at this time., Musculoskeletal: No joint swelling or deformity Results CBC & Chem 7: 01/11/23 18:41 01/11/23 12:38 Labs: Abnormal Lab Results - Last 24 Hours (Table) 01/05/23 01/11/23 01/11/23 Range/Units 10:40 08:34 09:13 WBC (3.8-10.6) k/uL RBC (3.80-5.40) m/uL Hgb (11.4-16.0) gm/dL Hct (34.0-46.0) % Plt Count (150-450) k/uL Neutrophils # (Manual) (1.3-7.7) k/uL Monocytes # (Manual) (0-1.0) k/uL ABG pH 7.47 H (7.35-7.45) ABG pCO2 (35-45) mmHg ABG pO2 218 H 226 H (83-108) mmHg ABG HCO3 28 H 26 H (21-25) mmol/L ABG Total CO2 29 H 28 H (19-24) mmol/L ABG O2 Saturation 98.9 H 99.1 H (94-97) % ABG Hematocrit (34.0-46.0) % ABG Potassium (3.4-4.5) mmol/L ABG Ionized Calcium (4.5-5.3) mg/dL ABG Glucose 106 H 108 H (75-99) mg/dL Hemoglobin (11.4-16.0) gm/dL Chloride (98-107) mmol/L BUN (7-17) mg/dL Glucose (74-99) mg/dL POC Glucose (mg/dL) (70-110) mg/dL Calcium (8.4-10.2) mg/dL Magnesium (1.6-2.3) mg/dL Total Protein (6.3-8.2) g/dL Albumin (3.5-5.0) g/dL Arterial Blood Potassium (3.4-4.5) mmol/L Arterial Blood Glucose 106 H 108 H (75-99) mg/dL Crossmatch See Detail 01/11/23 01/11/23 01/11/23 Range/Units 09:45 10:17 10:47 WBC (3.8-10.6) k/uL RBC (3.80-5.40) m/uL Hgb (11.4-16.0) gm/dL Hct (34.0-46.0) % Plt Count (150-450) k/uL Neutrophils # (Manual) (1.3-7.7) k/uL Monocytes # (Manual) (0-1.0) k/uL ABG pH (7.35-7.45) ABG pCO2 46 H (35-45) mmHg ABG pO2 >420 H 406 H 417 H (83-108) mmHg ABG HCO3 26 H 26 H (21-25) mmol/L ABG Total CO2 26 H 27 H 27 H (19-24) mmol/L ABG O2 Saturation 99.5 H 99.4 H 99.3 H (94-97) % ABG Hematocrit 24 L 28 L 27 L (34.0-46.0) % ABG Potassium 4.6 H 4.6 H 4.7 H (3.4-4.5) mmol/L ABG Ionized Calcium 4.1 L 4.3 L 4.3 L (4.5-5.3) mg/dL ABG Glucose 116 H 129 H (75-99) mg/dL Hemoglobin 7.9 L 9.0 L 8.9 L (11.4-16.0) gm/dL Chloride (98-107) mmol/L BUN (7-17) mg/dL Glucose (74-99) mg/dL POC Glucose (mg/dL) (70-110) mg/dL Calcium (8.4-10.2) mg/dL Magnesium (1.6-2.3) mg/dL Total Protein (6.3-8.2) g/dL Albumin (3.5-5.0) g/dL Arterial Blood Potassium 4.6 H 4.6 H 4.7 H (3.4-4.5) mmol/L Arterial Blood Glucose 116 H 129 H (75-99) mg/dL Crossmatch 01/11/23 01/11/23 01/11/23 Range/Units 12:35 12:38 12:38 WBC 17.2 H (3.8-10.6) k/uL RBC 3.47 L (3.80-5.40) m/uL Hgb 10.6 L D (11.4-16.0) gm/dL Hct 31.4 L (34.0-46.0) % Plt Count 128 L (150-450) k/uL Neutrophils # (Manual) 14.40 H (1.3-7.7) k/uL Monocytes # (Manual) 1.55 H (0-1.0) k/uL ABG pH (7.35-7.45) ABG pCO2 (35-45) mmHg ABG pO2 (83-108) mmHg ABG HCO3 (21-25) mmol/L ABG Total CO2 (19-24) mmol/L ABG O2 Saturation (94-97) % ABG Hematocrit (34.0-46.0) % ABG Potassium (3.4-4.5) mmol/L ABG Ionized Calcium (4.5-5.3) mg/dL ABG Glucose (75-99) mg/dL Hemoglobin (11.4-16.0) gm/dL Chloride 108 H (98-107) mmol/L BUN 19 H (7-17) mg/dL Glucose 137 H (74-99) mg/dL POC Glucose (mg/dL) 138 H (70-110) mg/dL Calcium 7.8 L (8.4-10.2) mg/dL Magnesium 3.9 H (1.6-2.3) mg/dL Total Protein 4.8 L (6.3-8.2) g/dL Albumin 2.8 L (3.5-5.0) g/dL Arterial Blood Potassium (3.4-4.5) mmol/L Arterial Blood Glucose (75-99) mg/dL Crossmatch 01/11/23 01/11/23 Range/Units 13:00 13:25 WBC (3.8-10.6) k/uL RBC (3.80-5.40) m/uL Hgb (11.4-16.0) gm/dL Hct (34.0-46.0) % Plt Count (150-450) k/uL Neutrophils # (Manual) (1.3-7.7) k/uL Monocytes # (Manual) (0-1.0) k/uL ABG pH (7.35-7.45) ABG pCO2 (35-45) mmHg ABG pO2 202 H (83-108) mmHg ABG HCO3 (21-25) mmol/L ABG Total CO2 26 H (19-24) mmol/L ABG O2 Saturation 99.4 H (94-97) % ABG Hematocrit (34.0-46.0) % ABG Potassium (3.4-4.5) mmol/L ABG Ionized Calcium (4.5-5.3) mg/dL ABG Glucose (75-99) mg/dL Hemoglobin (11.4-16.0) gm/dL Chloride (98-107) mmol/L BUN (7-17) mg/dL Glucose (74-99) mg/dL POC Glucose (mg/dL) 152 H (70-110) mg/dL Calcium (8.4-10.2) mg/dL Magnesium (1.6-2.3) mg/dL Total Protein (6.3-8.2) g/dL Albumin (3.5-5.0) g/dL Arterial Blood Potassium (3.4-4.5) mmol/L Arterial Blood Glucose (75-99) mg/dL Crossmatch Assessment and Plan Assessment: Severe aortic stenosis. Status post surgical aortic valve replacement with bovine valve. Postoperative day 0 Leukocytosis likely due to postoperative inflammation reaction. Hypertension Prediabetes Hypothyroidism with history of thyroidectomy History of diverticulitis status post bowel resection GERD Prior history of smoking DVT prophylaxis and GI prophylaxis Plan: Patient is currently in the MICU. Intubated and on mechanical ventilator. Critical care team is on board. Plan to extubate in the next few hours. Patient is on insulin drip for better blood sugar control. Patient will be continued on home medication including levothyroxine. GI DVT prophylaxis. We will continue to follow closely and further recommendations based on the clinical course. Thank you for your consult. Time with Patient: Greater than 30
[2023-01-12 02:04] LABS: Glucose,Whole Blood 137 mg/dL (70-110)
[2023-01-12 03:09] LABS: Glucose,Whole Blood 124 mg/dL (70-110)
[2023-01-12 04:12] LABS: Glucose,Whole Blood 115 mg/dL (70-110)
[2023-01-12 04:27] LABS: Ionized Calcium 4.7 mg/dL (4.5-5.3)
[2023-01-12 04:39] LABS: HCT 21.1 % (34.0-46.0); HGB 7.1 gm/dL (11.4-16.0); MCH 30.6 pg (25.0-35.0); MCHC 33.7 g/dL (31.0-37.0); MCV 90.6 fL (80.0-100.0); Mean Platelet Volume 8.8; Platelet Count 121 k/uL (150-450); RBC 2.33 m/uL (3.80-5.40); RDW 13.3 % (11.5-15.5); WBC 10.7 k/uL (3.8-10.6)
[2023-01-12 04:41] LABS: ALT 15 U/L (4-34); AST 37 U/L (14-36); African American GFR (CKD) >90 (>60 ml/min/1.73 sqM); Albumin 3.1 g/dL (3.5-5.0); Alkaline Phosphatase 44 U/L (38-126); Anion Gap 7 mmol/L; Blood Urea Nitrogen 19 mg/dL (7-17); Calcium 7.4 mg/dL (8.4-10.2); Carbon Dioxide 24 mmol/L (22-30); Chloride 107 mmol/L (98-107); Glucose 105 mg/dL (74-99); Magnesium 2.5 mg/dL (1.6-2.3); Non-African American GFR(CKD) >90 (>60 ml/min/1.73 sqM); Potassium 3.7 mmol/L (3.5-5.1); Sodium 138 mmol/L (137-145); Total Bilirubin 0.5 mg/dL (0.2-1.3); Total Protein 4.8 g/dL (6.3-8.2)
[2023-01-12] MEDS: HYDROcodone/APAP 5-325MG 1 EACH TAB PO PRN ×3 (04:55→14:18)
[2023-01-12 05:02] LABS: Glucose,Whole Blood 113 mg/dL (70-110)
[2023-01-12 06:01] LABS: Glucose,Whole Blood 123 mg/dL (70-110)
--- NOTE | 2023-01-12 06:51 | P.CRDCN ---
History of Present Illness Consult date: 01/12/23 Chief complaint: Status post aortic valve replacement History of present illness: The patient is a pleasant 68-year-old female patient with a past medical history significant for valvular heart disease with aortic stenosis as well as dyslipidemia as well as thyroid disease was admitted to the hospital and underwent surgical aortic valve replacement. The patient was diagnosed recently with severe symptomatic aortic stenosis where she was experiencing shortness of breath on exertion consistent with NYHA class II. No dizziness or lightheade dness and no presyncope or syncope and no symptoms of any chest pain or chest discomfort. Further workup including transesophageal echocardiogram and heart catheterization performed and showed severe aortic stenosis. She was seen after that the valve if clinically and she was deemed to be a candidate to undergo surgical aortic valve replacement. The surgery was performed yesterday and this is postoperative day #1. She has been stable from the cardiac standpoint of view and currently she is not on any vasopressors. She has been maintaining normal sinus mechanism. Urine output has been within normal limits. Hemoglobin this morning 7.1. The chest x-ray was reviewed and showed what it seems to be a small left pleural effusion. Currently she is on aspirin 325 mg by mouth daily and also she is on beta cruz. At this point we'll continue the current medical regimen continue monitoring the kidney function and electrolytes and continue monitoring the hemoglobin. The examination is remarkable for regular rhythm with a systolic murmur right upper sternal border sounds bilaterally. Assessment Severe symptomatic aortic stenosis and status post aortic valve replacement Hypertension appeared to be under good control Thyroid disease with hypothyroidism Plan Continue the current medical regimen including the current dose of beta cruz at current dose of statin Continue monitor the hemoglobin and kidney function and electrolytes The chest x-ray from this morning was reviewed She has been maintaining good urine output She has been maintaining normal sinus mechanism so far We'll continue following up with the patient Past Medical History Past Medical History: Cancer, Diabetes Mellitus, GERD/Reflux, Hypertension, Osteoarthritis (OA), Thyroid Disorder Additional Past Medical History / Comment(s): past hx. hypertension-just takes "water pill". past hx. Grave's disease thyroid removed, aortic valve issues re cent fatigue and SOB w/exertion, hx mild leaky mitral valve. tricuspid valve issue, "pre diabetic." watching diet. basal cell skin cancer removed from arm History of Any Multi-Drug Resistant Organisms: None Reported Past Surgical History: Bowel Resection, Heart Catheterization, Hernia Repair, Tonsillectomy, Uterine Ablation Additional Past Surgical History / Comment(s): thyroidectomy, inc hernia repair, left shoulder rotator cuff repair Past Anesthesia/Blood Transfusion Reactions: Postoperative Nausea & Vomiting (PONV) Additional Past Anesthesia/Blood Transfusion Reaction / Comment(s): slow to come out of anesthesia. no blood transfusions Smoking Status: Former smoker, Second hand smoke exposure - Past Family History Mother Family Medical History: Deep Vein Thrombosis (DVT) Father Family Medical History: Deep Vein Thrombosis (DVT) Medications and Allergies Home Medications Medication Instructions Recorded Confirmed Type Levothyroxine Sodium [Levoxyl] 200 mcg PO DAILY 06/15/15 01/11/23 History Mometasone Furoate [Nasonex Nasal 1 - 2 spray EA NOSTRIL DAILY PRN 06/15/15 01/08/23 History Pep] Omeprazole [PriLOSEC] 20 mg PO HS 06/15/15 01/11/23 History Calcium Carbonate [Calcium] 600 mg PO DAILY 05/15/17 01/08/23 History Multivit with Calcium,Iron,Min 1 each PO DAILY 05/15/17 01/11/23 History [Women's Multivitamin] hydroCHLOROthiazide [Hydrodiuril] 25 mg PO DAILY 05/15/17 01/11/23 History Acetaminophen [Tylenol Extra 500 mg PO DIRECTED PRN 10/20/22 01/11/23 History Strength] Aspirin 81 mg PO DAILY 10/20/22 01/11/23 History Fexofenadine HCl [Liat Allergy] 180 mg PO DAILY PRN 10/20/22 01/11/23 History Ibuprofen [Motrin Ib] 200 mg PO DIRECTED PRN 10/20/22 01/11/23 History Magnesium 250 mg PO DAILY 10/20/22 01/08/23 History Unk B Complex 1 tab PO DAILY 10/20/22 01/11/23 History Unk Biotin 1 tab PO DAILY 10/20/22 01/11/23 History Unk Vitamin C 1 tab PO DAILY 10/20/22 01/11/23 History Cholecalciferol (Vitamin D3) 2,000 unit PO DAILY 11/20/22 01/11/23 History [Vitamin D3 (50 Mcg = 2000 Iu) Chew Tab] Ubidecarenone [Coenzyme Q10] 200 mg PO DAILY 11/20/22 01/11/23 History Rosuvastatin [Crestor] 10 mg PO QAM 01/08/23 01/11/23 History Allergies Allergy/AdvReac Type Severity Reaction Status Date / Time cefaclor [From Ceclor] Allergy Rash/Hives Verified 01/11/23 05:51 ciprofloxacin [From Cipro] Allergy Unknown Verified 01/11/23 05:51 sulfamethoxazole AdvReac Nausea & Verified 01/11/23 05:51 [From Septra] Vomiting trimethoprim [From Marra] AdvReac Nausea & Verified 01/11/23 05:51 Vomiting Physical Exam Vitals: Vital Signs Temp Pulse Resp Pulse Ox FiO2 01/12/23 06:00 78 19 93 L 01/12/23 05:30 82 18 95 01/12/23 05:00 92 17 97 01/12/23 04:30 86 19 95 01/12/23 04:00 98.8 F 91 19 95 01/12/23 03:30 79 19 96 01/12/23 03:00 76 18 96 01/12/23 02:30 73 16 96 01/12/23 02:00 76 16 97 01/12/23 01:30 77 16 97 01/12/23 01:00 75 15 98 01/12/23 00:30 69 15 97 01/12/23 00:00 98.6 F 65 17 98 01/11/23 23:30 75 20 98 01/11/23 23:00 73 18 98 01/11/23 22:30 64 15 98 01/11/23 22:00 64 15 97 01/11/23 21:30 63 14 99 01/11/23 21:00 74 16 98 01/11/23 20:30 71 17 98 01/11/23 20:12 80 01/11/23 20:00 98.2 F 75 15 97 01/11/23 19:59 71 01/11/23 19:30 75 24 97 01/11/23 19:00 65 17 99 01/11/23 18:30 62 15 98 01/11/23 18:00 97.9 F 60 14 99 01/11/23 17:45 73 19 99 01/11/23 17:30 57 L 15 99 01/11/23 17:15 57 L 16 99 01/11/23 17:00 63 16 98 01/11/23 16:30 63 14 99 01/11/23 16:00 68 15 98 01/11/23 15:30 84 16 99 01/11/23 15:28 40 01/11/23 15:17 100 01/11/23 15:00 97.9 F 79 23 100 40 01/11/23 14:48 40 01/11/23 14:40 78 21 97 01/11/23 14:20 71 19 98 40 01/11/23 14:17 40 01/11/23 14:00 73 23 99 01/11/23 13:50 68 18 100 45 01/11/23 13:40 68 24 100 01/11/23 13:30 96.8 F L 68 16 100 60 01/11/23 13:20 66 15 100 01/11/23 13:10 71 19 99 01/11/23 13:04 60 01/11/23 13:00 65 14 100 01/11/23 12:50 64 14 100 01/11/23 12:41 100 01/11/23 12:40 65 14 100 100 01/11/23 12:31 100 01/11/23 12:30 96.6 F L 64 14 100 100 01/11/23 12:15 100 Intake and Output 01/11/23 01/11/23 01/12/23 14:59 22:59 06:59 Intake Total 4957.809 5481.441 512.992 Output Total 2355 2085 415 Balance -1132.432 -950.559 97.992 Intake: IV 1209 1072 492 0.9NS Cardiac Output 30 100 120 0.9NS Pressure Bag 27 72 72 Albumin Human 5% 250 ml 750 500 In Empty Bag 1 bag @ 250 mls/hr IVPB Q1HR PRN Rx#: [id number] Lactated Ringers 1,000 ml 150 400 250 @ 50 mls/hr IV .Q20H [facility] Rx#:[id number] ceFAZolin 2 gm In Sodium 50 Chloride 0.9% 50 ml @ 100 mls/hr IVPB Q8HR [facility] Rx# :[id number] Intake, IV Titration 13.568 62.441 20.992 Amount Clevidipine Butyrate 25 0.3 38.866 mg In Empty Bag 1 bag @ 1 MG/HR 2 mls/hr IV .Q24H [facility] Rx#:[id number] Insulin Regular 100 unit 1.439 23.575 20.992 In Sodium Chloride 0.9% 100 ml @ Per Protocol IV .Q0M [facility] Rx#:[id number] propofoL 1,000 mg In 11.829 Empty Bag 1 bag @ Titrate IV .Q0M [facility] Rx#: [id number] Output: Chest Tube Drainage 250 1000 150 Left Pleural/Mediastinal 250 1000 150 Urine 1105 1085 265 Estimated Blood Loss 1000 Other: Voiding Method Indwelling Catheter Indwelling Catheter Indwelling Catheter Weight 89.4 kg ABP, PAP, CO, CI - Last 8 Hours Arterial Blood Pressure 117/38 Arterial Blood Pressure 132/42 Arterial Blood Pressure 115/39 Arterial Blood Pressure 126/40 Arterial Blood Pressure 116/39 Arterial Blood Pressure 120/40 Arterial Blood Pressure 112/39 Arterial Blood Pressure 105/37 Arterial Blood Pressure 110/39 Arterial Blood Pressure 111/40 Arterial Blood Pressure 104/39 Arterial Blood Pressure 103/38 Arterial Blood Pressure 107/40 Arterial Blood Pressure 115/44 Arterial Blood Pressure 116/44 Pulmonary Artery Pressure 24/9 Pulmonary Artery Pressure 31/12 Pulmonary Artery Pressure 29/11 Pulmonary Artery Pressure 27/9 Pulmonary Artery Pressure 25/11 Pulmonary Artery Pressure 26/10 Pulmonary Artery Pressure 25/8 Pulmonary Artery Pressure 25/7 Pulmonary Artery Pressure 27/9 Pulmonary Artery Pressure 29/10 Pulmonary Artery Pressure 27/10 Pulmonary Artery Pressure 24/8 Pulmonary Artery Pressure 25/9 Pulmonary Artery Pressure 27/11 Cardiac Output 6.4 Cardiac Output 6.3 Cardiac Output 5 Cardiac Output 5.8 Cardiac Index 3.3 Cardiac Index 3.3 Cardiac Index 2.6 Cardiac Index 3 Results 01/12/23 04:11 01/12/23 04:11 Cardiac Enzymes 01/11/23 01/12/23 Range/Units 12:38 04:11 AST 34 37 H (14-36) U/L Coagulation 01/11/23 Range/Units 12:38 PT 11.4 (9.0-12.0) sec APTT 29.6 (22.0-30.0) sec CBC 01/11/23 01/11/23 01/11/23 Range/Units 12:38 15:35 18:41 WBC 17.2 H 19.3 H 12.1 H (3.8-10.6) k/uL RBC 3.47 L 3.65 L 2.74 L (3.80-5.40) m/uL Hgb 10.6 L D 10.8 L 8.3 L D (11.4-16.0) gm/dL Hct 31.4 L 32.3 L 24.5 L (34.0-46.0) % Plt Count 128 L 149 L 108 L (150-450) k/uL 01/12/23 Range/Units 04:11 WBC 10.7 H (3.8-10.6) k/uL RBC 2.33 L (3.80-5.40) m/uL Hgb 7.1 L (11.4-16.0) gm/dL Hct 21.1 L (34.0-46.0) % Plt Count 121 L (150-450) k/uL Comprehensive Metabolic Panel 01/11/23 01/12/23 Range/Units 12:38 04:11 Sodium 137 138 (137-145) mmol/L Potassium 4.3 3.7 (3.5-5.1) mmol/L Chloride 108 H 107 (98-107) mmol/L Carbon Dioxide 23 24 (22-30) mmol/L BUN 19 H 19 H (7-17) mg/dL Creatinine 0.65 0.66 (0.52-1.04) mg/dL Glucose 137 H 105 H (74-99) mg/dL Calcium 7.8 L 7.4 L (8.4-10.2) mg/dL AST 34 37 H (14-36) U/L ALT 16 15 (4-34) U/L Alkaline Phosphatase 64 44 (38-126) U/L Total Protein 4.8 L 4.8 L (6.3-8.2) g/dL Albumin 2.8 L 3.1 L (3.5-5.0) g/dL Current Medications Generic Name Dose Route Start Last Admin Trade Name Freq PRN Reason Stop Dose Admin Hydrocodone Bitart/Acetaminophen 1 each 01/11/23 19:00 01/12/23 04:55 Hydrocodone/Apap 5-325mg 1 Each Tab PO 1 each Q4HR PRN Administration Moderate Pain (Scale 4 to 6) Hydrocodone Bitart/Acetaminophen 1 each 01/11/23 19:00 Hydrocodone/Apap 10-325mg 1 Each Tab PO Q4HR PRN Severe Pain (Scale 7 to 10) Albuterol/Ipratropium 3 ml 01/11/23 11:49 Ipratropium-Albuterol 3 Ml Neb INHALATION RT-Q2H PRN Shortness Of Breath Or Wheezin Albuterol/Ipratropium 3 ml 01/11/23 20:00 01/11/23 19:59 Ipratropium-Albuterol 3 Ml Neb INHALATION 3 ml RT-QID [facility] Administration Ascorbic Acid 500 mg 01/12/23 07:30 Ascorbic Acid 500 Mg Tab PO BID-W/MEALS [facility] Aspirin 81 mg 01/12/23 09:00 Aspirin 325 Mg Tab PO DAILY [facility] Atorvastatin Calcium 20 mg 01/12/23 09:00 Atorvastatin 20 Mg Tab PO QAM [facility] Benzocaine/Menthol 1 each 01/11/23 11:49 Benzocaine/Menthol Lozeng 1 Each Lozenge MUCOUS MEM Q2H PRN Sore Throat Bisacodyl 10 mg 01/12/23 09:00 Bisacodyl 10 Mg Supp RECTAL DAILY PRN Constipation Calcium Carbonate/Glycine 500 mg 01/12/23 09:00 Calcium Carbonate 500 Mg Chewable PO DAILY [facility] Cholecalciferol 50 mcg 01/12/23 09:00 Cholecalciferol 25 Mcg (1000 Iu) Tablet PO DAILY [facility] Clopidogrel Bisulfate 75 mg 01/12/23 09:00 Clopidogrel 75 Mg Tab PO DAILY [facility] Dextrose/Water 25 ml 01/11/23 11:49 Dextrose 50% Syringe 50 Ml IVP PER PROTOCOL PRN Hypoglycemia Protocol Dextrose/Water 50 ml 01/11/23 11:49 Dextrose 50% Syringe 50 Ml IVP PER PROTOCOL PRN Hypoglycemia Protocol Ferrous Sulfate 325 mg 01/12/23 07:30 Ferrous Sulfate 325 Mg Tab PO BID-W/MEALS [facility] Fluticasone Propionate 1 - 2 spray 01/11/23 11:49 Fluticasone 50mcg/Pep Nasal 16gm EA NOSTRIL DAILY PRN allergies Heparin Sodium (Porcine) 5,000 unit 01/11/23 16:00 01/11/23 23:20 Heparin Sodium,Porcine/Pf 5,000 Unit/0.5 Ml Syringe SQ Not Given Q8HR [facility] Hydralazine HCl 10 mg 01/11/23 11:49 Hydralazine Hcl 20 Mg/Ml 1 Ml Vial IVP Q1H PRN Blood Pressure - High Clevidipine 25 mg/ IV Solution 50 mls @ 2 mls/hr 01/11/23 11:49 01/11/23 19:15 IV 0 mg/hr .Q24H [facility] 0 mls/hr Titration Protocol 1 MG/HR Amiodarone HCl 150 mg/ 103 mls @ 618 mls/hr 01/11/23 11:49 Dextrose/Water IV .Q10M PRN A.FIB/FLUTTER Protocol Amiodarone HCl 360 mg/ 207.2 mls @ 34.533 mls/hr 01/11/23 11:49 Dextrose/Water IV .Q6H PRN A.FIB/FLUTTER Protocol 1 MG/MIN Amiodarone HCl 450 mg/ 250 mls @ 16.667 mls/hr 01/11/23 11:49 Dextrose/Water IV .Q15H PRN A.FIB/FLUTTER Protocol 0.5 MG/MIN Albumin Human 250 ml/ IV 250 mls @ 250 mls/hr 01/11/23 11:49 01/11/23 21:12 Solution IVPB 01/13/23 11:50 250 mls/hr Q1HR PRN Administration For Volume Protocol Lactated Ringer's 1,000 mls @ 50 mls/hr 01/11/23 11:49 01/11/23 13:11 Lactated Ringers IV 50 mls/hr .Q20H [facility] Administration Cefazolin Sodium 2 gm/ Sodium 50 mls @ 100 mls/hr 01/11/23 16:00 01/11/23 23:25 Chloride IVPB 01/12/23 08:29 100 mls/hr Q8HR [facility] Administration Protocol Calcium Gluconate/Sodium 100 mls @ 100 mls/hr 01/11/23 11:49 Chloride 2 gm/ IV Solution IVPB 01/18/23 11:50 ONCE PRN Ionized Calcium less than 4.4 Insulin Human Regular 100 unit 101 mls @ 0 mls/hr 01/11/23 11:49 01/12/23 06:21 / Sodium Chloride IV 2 unit/hr .Q0M [facility] 2.02 mls/hr Titration Protocol Per Protocol Ketorolac Tromethamine 15 mg 01/11/23 18:00 01/11/23 23:24 Ketorolac 15 Mg/Ml 1 Ml Vial IVP 01/16/23 13:58 15 mg Q6HR [facility] Administration Levothyroxine Sodium 200 mcg 01/12/23 06:30 Levothyroxine 100 Mc[place] 0630 [facility] Loratadine 10 mg 01/11/23 11:49 Loratadine 10 Mg Tab PO DAILY PRN allergies Magnesium Hydroxide 2,400 mg 01/12/23 09:00 Magnesium Hydroxide 2,400 Mg/10 Ml Cup PO BID PRN Constipation Metoclopramide HCl 10 mg 01/11/23 11:49 01/11/23 20:18 Metoclopramide 5 Mg/Ml 2 Ml Vial IVP 10 mg Q4H PRN Administration Nausea And Vomiting Metoprolol Tartrate 12.5 mg 01/12/23 09:00 Metoprolol Tartrate 12.5 Mg Tab PO BID [facility] Miscellaneous Information 1 each 01/11/23 11:49 Magnesium Replacement Protocol 1 Each Misc MISCELLANE DAILY PRN Per Protocol Protocol Miscellaneous Information 1 each 01/11/23 11:49 Potassium Replacement Protocol 1 Each Misc MISCELLANE DAILY PRN Per Protocol Protocol Multivitamins 1 each 01/12/23 09:00 Multivitamins, Thera 1 Each Tab PO DAILY [facility] Ondansetron HCl 4 mg 01/11/23 11:49 01/11/23 16:45 Ondansetron 4 Mg/2 Ml Vial IVP 4 mg Q6HR PRN Administration Nausea And Vomiting Pantoprazole Sodium 40 mg 01/12/23 09:00 Pantoprazole 40 Mg/10 Ml Vial IVP DAILY [facility] Senna/Docusate Sodium 2 each 01/11/23 21:00 01/11/23 20:31 Sennosides-Docusate Sodium 1 Each Tab PO 2 each HS [facility] Administration Sodium Chloride 10 ml 01/11/23 21:00 01/11/23 20:31 Sodium Chloride 0.9% Flush 10 Ml Syringe IV 10 ml BID [facility] Administration Intake and Output 01/11/23 01/11/23 01/12/23 14:59 22:59 06:59 Intake Total 7566.543 2421.441 512.992 Output Total 2355 2085 415 Balance -1132.432 -950.559 97.992 Intake: IV 1209 1072 492 0.9NS Cardiac Output 30 100 120 0.9NS Pressure Bag 27 72 72 Albumin Human 5% 250 ml 750 500 In Empty Bag 1 bag @ 250 mls/hr IVPB Q1HR PRN Rx#: [id number] Lactated Ringers 1,000 ml 150 400 250 @ 50 mls/hr IV .Q20H [facility] Rx#:[id number] ceFAZolin 2 gm In Sodium 50 Chloride 0.9% 50 ml @ 100 mls/hr IVPB Q8HR [facility] Rx# :[id number] Intake, IV Titration 13.568 62.441 20.992 Amount Clevidipine Butyrate 25 0.3 38.866 mg In Empty Bag 1 bag @ 1 MG/HR 2 mls/hr IV .Q24H [facility] Rx#:[id number] Insulin Regular 100 unit 1.439 23.575 20.992 In Sodium Chloride 0.9% 100 ml @ Per Protocol IV .Q0M [facility] Rx#:[id number] propofoL 1,000 mg In 11.829 Empty Bag 1 bag @ Titrate IV .Q0M [facility] Rx#: [id number] Output: Chest Tube Drainage 250 1000 150 Left Pleural/Mediastinal 250 1000 150 Urine 1105 1085 265 Estimated Blood Loss 1000 Other: Voiding Method Indwelling Catheter Indwelling Catheter Indwelling Catheter Weight 89.4 kg Patient Weight 01/12/23 06:59 Weight 89.4 kg 01/12/23 04:11 01/12/23 04:11
[2023-01-12] MEDS ORDERED: POTASSIUM CHLORIDE ER 20 MEQ TAB.ER PO STA (06:54)
[2023-01-12] MEDS: KETOROLAC 15 MG/ML 1 ML VIAL IVP SCH (06:56)
[2023-01-12] MEDS: ASCORBIC ACID 500 MG TAB PO SCH ×2 (07:00→18:10)
[2023-01-12] MEDS: FERROUS SULFATE 325 MG TAB PO SCH ×2 (07:01→18:10)
[2023-01-12] MEDS: LEVOTHYROXINE 100 MCG TAB PO SCH (07:07)
[2023-01-12 07:13] LABS: Glucose,Whole Blood 160 mg/dL (70-110)
--- NOTE | 2023-01-12 08:01 | P.PN ---
Subjective Progress Note Date: 01/12/23 Principal diagnosis: Severe symptomatic aortic stenosis, tricuspid regurgitation. Previous medical history of hypertension, hyperlipidemia, borderline diet controlled diabetes, hy pothyroid/Graves status post thyroidectomy, previous secondhand smoke exposure, bowel resection secondary to diverticulitis, GERD POD #1 aortic valve replacement with 23 mm Curtis Inspiris bovine pericardial valve, aortic root enlargement with hemashield patch (Gurinder Leahy technique), epi- aortic ultrasound, ligation of the left atrial appendage with a 35 mm AtriCure clip, intraoperative transesophageal echocardiogram performed by anesthesia Postoperative acute blood loss anemia and thrombocytopenia, expected outcomes of postoperative open heart surgery given the hemodilution and cardiopulmonary bypass pump The patient was seen and examined this morning sitting up in a recliner in the intensive care unit in no acute distress. She was successfully extubated yesterday at 16:12. Remains in sinus rhythm, currently hemodynamically stable on no inotropes or pressors. She did have a brief episode of hypotension yesterday which responded well to IV fluids. This morning she needed Cleviprex for a short time period. Her only complaint is of a stiff neck and some back pain, she has been reluctant to take narcotics. Currently on 2 L nasal cannula with oxygen saturation in the mid to high 90s, able to achieve 1000 mL on her incentive spirometry. Chest x-ray, lab work were reviewed. Right internal jugular [place]/Cordis, right radial arterial line, mediastinal/left pleural chest tubes remain. No other new concerns. Objective - Vital Signs Vital signs: Vital Signs Temp 98.8 F 01/12/23 04:00 Pulse 84 01/12/23 07:00 Resp 24 01/12/23 07:00 BP 155/66 01/11/23 05:45 Pulse Ox 97 01/12/23 07:00 FiO2 40 01/11/23 15:28 Intake & Output 01/11/23 01/12/23 01/12/23 18:59 06:59 18:59 Intake Total 0867.398 0545.516 40.751 Output Total 3730 1125 90 Balance -1949.515 -35.484 -49.249 Weight 89.4 kg Intake: IV 1745 1028 39 0.9NS Cardiac Output 80 170 30 0.9NS Pressure Bag 63 108 9 Albumin Human 5% 250 ml 1000 250 In Empty Bag 1 bag @ 250 mls/hr IVPB Q1HR PRN Rx#: [id number] Lactated Ringers 1,000 ml 350 450 @ 20 mls/hr IV .Q24H [facility] Rx#:[id number] ceFAZolin 2 gm In Sodium 50 Chloride 0.9% 50 ml @ 100 mls/hr IVPB Q8HR [facility] Rx# :[id number] Intake, IV Titration 35.485 61.516 1.751 Amount Clevidipine Butyrate 25 7.833 31.333 mg In Empty Bag 1 bag @ 1 MG/HR 2 mls/hr IV .Q24H [facility] Rx#:[id number] Insulin Regular 100 unit 15.823 30.183 1.751 In Sodium Chloride 0.9% 100 ml @ Per Protocol IV .Q0M [facility] Rx#:[id number] propofoL 1,000 mg In 11.829 Empty Bag 1 bag @ Titrate IV .Q0M [facility] Rx#: [id number] Output: Chest Tube Drainage 730 670 30 Left Pleural/Mediastinal 730 670 30 Urine 2000 455 60 Estimated Blood Loss 1000 Other: Voiding Method Indwelling Catheter Indwelling Catheter ABP, PAP, CO, CI - Last Documented Arterial Blood Pressure 142/43 Pulmonary Artery Pressure 24/8 Cardiac Output 5 Cardiac Index 2.6 - Exam CONSTITUTIONAL: Appears comfortable, cooperative, no acute distress RESPIRATORY: Lungs sounds diminished bilaterally. Respirations even, nonlabored. Currently on 2 L nasal cannula with oxygen saturation 97%. Able to achieve 1000 mL on incentive spirometry. Strong cough. CARDIOVASCULAR: S1, S2 present. Regular rate and rhythm, sinus rhythm on tel emetry. Sternum stable. Palpable peripheral pulses bilaterally. No edema present. No calf pain or tenderness noted. Heart hugger in place with patient demonstrating appropriate use. Antiembolism stockings, SCDs present. GASTROINTESTINAL: Abdomen soft, nontender, nondistended. Hypoactive bowel sounds present 4 quadrants. Tolerating minimal clear liquids. Denies flatus GENITOURINARY: Smith present draining clear, yellow urine. Output overnight 25-45 mL per hour INTEGUMENTARY: Skin is warm and dry with evidence of good perfusion. Anterior chest incision well approximated and covered with dry intact dressing NEUROLOGIC: Cranial nerves II through XII intact MUSKULOSKELETAL: Able to move all extremities, strength equal bilaterally, gait normal PSYCHIATRIC: Alert and oriented to person place and time, appropriate affect, intact judgment and insight INVASIVE LINES AND TUBES: Mediastinal/left pleural chest tubes present and connected to wall suction, no air leaks present, 150 mL serosanguineous drainage overnight, 1470 mL since surgery. A/V epicardial pacemaker wires present, connected to generator, backup rate 50 bpm. Right internal jugular [place]/Cordis, right radial arterial line present. Last CO/CI 5.0/2.6, PA 27/9, CVP 9. - Allied health notes Allied health notes reviewed: nursing - Labs CBC & Chem 7: 01/12/23 04:11 01/12/23 04:11 Labs: Abnormal Lab Results - Last 24 Hours (Table) 01/05/23 01/11/23 01/11/23 Range/Units 10:40 08:34 09:13 WBC (3.8-10.6) k/uL RBC (3.80-5.40) m/uL Hgb (11.4-16.0) gm/dL Hct (34.0-46.0) % Plt Count (150-450) k/uL Neutrophils # (Manual) (1.3-7.7) k/uL Monocytes # (Manual) (0-1.0) k/uL ABG pH 7.47 H (7.35-7.45) ABG pCO2 (35-45) mmHg ABG pO2 218 H 226 H (83-108) mmHg ABG HCO3 28 H 26 H (21-25) mmol/L ABG Total CO2 29 H 28 H (19-24) mmol/L ABG O2 Saturation 98.9 H 99.1 H (94-97) % ABG Hematocrit (34.0-46.0) % ABG Potassium (3.4-4.5) mmol/L ABG Ionized Calcium (4.5-5.3) mg/dL ABG Glucose 106 H 108 H (75-99) mg/dL Hemoglobin (11.4-16.0) gm/dL Chloride (98-107) mmol/L BUN (7-17) mg/dL Glucose (74-99) mg/dL POC Glucose (mg/dL) (70-110) mg/dL Calcium (8.4-10.2) mg/dL Magnesium (1.6-2.3) mg/dL AST (14-36) U/L Total Protein (6.3-8.2) g/dL Albumin (3.5-5.0) g/dL Arterial Blood Potassium (3.4-4.5) mmol/L Arterial Blood Glucose 106 H 108 H (75-99) mg/dL Crossmatch See Detail 01/11/23 01/11/23 01/11/23 Range/Units 09:45 10:17 10:47 WBC (3.8-10.6) k/uL RBC (3.80-5.40) m/uL Hgb (11.4-16.0) gm/dL Hct (34.0-46.0) % Plt Count (150-450) k/uL Neutrophils # (Manual) (1.3-7.7) k/uL Monocytes # (Manual) (0-1.0) k/uL ABG pH (7.35-7.45) ABG pCO2 46 H (35-45) mmHg ABG pO2 >420 H 406 H 417 H (83-108) mmHg ABG HCO3 26 H 26 H (21-25) mmol/L ABG Total CO2 26 H 27 H 27 H (19-24) mmol/L ABG O2 Saturation 99.5 H 99.4 H 99.3 H (94-97) % ABG Hematocrit 24 L 28 L 27 L (34.0-46.0) % ABG Potassium 4.6 H 4.6 H 4.7 H (3.4-4.5) mmol/L ABG Ionized Calcium 4.1 L 4.3 L 4.3 L (4.5-5.3) mg/dL ABG Glucose 116 H 129 H (75-99) mg/dL Hemoglobin 7.9 L 9.0 L 8.9 L (11.4-16.0) gm/dL Chloride (98-107) mmol/L BUN (7-17) mg/dL Glucose (74-99) mg/dL POC Glucose (mg/dL) (70-110) mg/dL Calcium (8.4-10.2) mg/dL Magnesium (1.6-2.3) mg/dL AST (14-36) U/L Total Protein (6.3-8.2) g/dL Albumin (3.5-5.0) g/dL Arterial Blood Potassium 4.6 H 4.6 H 4.7 H (3.4-4.5) mmol/L Arterial Blood Glucose 116 H 129 H (75-99) mg/dL Crossmatch 01/11/23 01/11/23 01/11/23 Range/Units 12:35 12:38 12:38 WBC 17.2 H (3.8-10.6) k/uL RBC 3.47 L (3.80-5.40) m/uL Hgb 10.6 L D (11.4-16.0) gm/dL Hct 31.4 L (34.0-46.0) % Plt Count 128 L (150-450) k/uL Neutrophils # (Manual) 14.40 H (1.3-7.7) k/uL Monocytes # (Manual) 1.55 H (0-1.0) k/uL ABG pH (7.35-7.45) ABG pCO2 (35-45) mmHg ABG pO2 (83-108) mmHg ABG HCO3 (21-25) mmol/L ABG Total CO2 (19-24) mmol/L ABG O2 Saturation (94-97) % ABG Hematocrit (34.0-46.0) % ABG Potassium (3.4-4.5) mmol/L ABG Ionized Calcium (4.5-5.3) mg/dL ABG Glucose (75-99) mg/dL Hemoglobin (11.4-16.0) gm/dL Chloride 108 H (98-107) mmol/L BUN 19 H (7-17) mg/dL Glucose 137 H (74-99) mg/dL POC Glucose (mg/dL) 138 H (70-110) mg/dL Calcium 7.8 L (8.4-10.2) mg/dL Magnesium 3.9 H (1.6-2.3) mg/dL AST (14-36) U/L Total Protein 4.8 L (6.3-8.2) g/dL Albumin 2.8 L (3.5-5.0) g/dL Arterial Blood Potassium (3.4-4.5) mmol/L Arterial Blood Glucose (75-99) mg/dL Crossmatch 01/11/23 01/11/23 01/11/23 Range/Units 13:00 13:25 14:20 WBC (3.8-10.6) k/uL RBC (3.80-5.40) m/uL Hgb (11.4-16.0) gm/dL Hct (34.0-46.0) % Plt Count (150-450) k/uL Neutrophils # (Manual) (1.3-7.7) k/uL Monocytes # (Manual) (0-1.0) k/uL ABG pH (7.35-7.45) ABG pCO2 (35-45) mmHg ABG pO2 202 H (83-108) mmHg ABG HCO3 (21-25) mmol/L ABG Total CO2 26 H (19-24) mmol/L ABG O2 Saturation 99.4 H (94-97) % ABG Hematocrit (34.0-46.0) % ABG Potassium (3.4-4.5) mmol/L ABG Ionized Calcium (4.5-5.3) mg/dL ABG Glucose (75-99) mg/dL Hemoglobin (11.4-16.0) gm/dL Chloride (98-107) mmol/L BUN (7-17) mg/dL Glucose (74-99) mg/dL POC Glucose (mg/dL) 152 H 160 H (70-110) mg/dL Calcium (8.4-10.2) mg/dL Magnesium (1.6-2.3) mg/dL AST (14-36) U/L Total Protein (6.3-8.2) g/dL Albumin (3.5-5.0) g/dL Arterial Blood Potassium (3.4-4.5) mmol/L Arterial Blood Glucose (75-99) mg/dL Crossmatch 01/11/23 01/11/23 01/11/23 Range/Units 15:02 15:35 15:59 WBC 19.3 H (3.8-10.6) k/uL RBC 3.65 L (3.80-5.40) m/uL Hgb 10.8 L (11.4-16.0) gm/dL Hct 32.3 L (34.0-46.0) % Plt Count 149 L (150-450) k/uL Neutrophils # (Manual) 16.00 H (1.3-7.7) k/uL Monocytes # (Manual) 1.35 H (0-1.0) k/uL ABG pH (7.35-7.45) ABG pCO2 (35-45) mmHg ABG pO2 115 H (83-108) mmHg ABG HCO3 (21-25) mmol/L ABG Total CO2 26 H (19-24) mmol/L ABG O2 Saturation 97.2 H (94-97) % ABG Hematocrit (34.0-46.0) % ABG Potassium (3.4-4.5) mmol/L ABG Ionized Calcium (4.5-5.3) mg/dL ABG Glucose (75-99) mg/dL Hemoglobin (11.4-16.0) gm/dL Chloride (98-107) mmol/L BUN (7-17) mg/dL Glucose (74-99) mg/dL POC Glucose (mg/dL) 154 H (70-110) mg/dL Calcium (8.4-10.2) mg/dL Magnesium (1.6-2.3) mg/dL AST (14-36) U/L Total Protein (6.3-8.2) g/dL Albumin (3.5-5.0) g/dL Arterial Blood Potassium (3.4-4.5) mmol/L Arterial Blood Glucose (75-99) mg/dL Crossmatch 01/11/23 01/11/23 01/11/23 Range/Units 16:30 17:12 18:21 WBC (3.8-10.6) k/uL RBC (3.80-5.40) m/uL Hgb (11.4-16.0) gm/dL Hct (34.0-46.0) % Plt Count (150-450) k/uL Neutrophils # (Manual) (1.3-7.7) k/uL Monocytes # (Manual) (0-1.0) k/uL ABG pH (7.35-7.45) ABG pCO2 (35-45) mmHg ABG pO2 (83-108) mmHg ABG HCO3 (21-25) mmol/L ABG Total CO2 (19-24) mmol/L ABG O2 Saturation (94-97) % ABG Hematocrit (34.0-46.0) % ABG Potassium (3.4-4.5) mmol/L ABG Ionized Calcium (4.5-5.3) mg/dL ABG Glucose (75-99) mg/dL Hemoglobin (11.4-16.0) gm/dL Chloride (98-107) mmol/L BUN (7-17) mg/dL Glucose (74-99) mg/dL POC Glucose (mg/dL) 148 H 130 H 123 H (70-110) mg/dL Calcium (8.4-10.2) mg/dL Magnesium (1.6-2.3) mg/dL AST (14-36) U/L Total Protein (6.3-8.2) g/dL Albumin (3.5-5.0) g/dL Arterial Blood Potassium (3.4-4.5) mmol/L Arterial Blood Glucose (75-99) mg/dL Crossmatch 01/11/23 01/11/23 01/11/23 Range/Units 18:41 19:08 19:55 WBC 12.1 H (3.8-10.6) k/uL RBC 2.74 L (3.80-5.40) m/uL Hgb 8.3 L D (11.4-16.0) gm/dL Hct 24.5 L (34.0-46.0) % Plt Count 108 L (150-450) k/uL Neutrophils # (Manual) 10.53 H (1.3-7.7) k/uL Monocytes # (Manual) (0-1.0) k/uL ABG pH (7.35-7.45) ABG pCO2 (35-45) mmHg ABG pO2 (83-108) mmHg ABG HCO3 (21-25) mmol/L ABG Total CO2 (19-24) mmol/L ABG O2 Saturation (94-97) % ABG Hematocrit (34.0-46.0) % ABG Potassium (3.4-4.5) mmol/L ABG Ionized Calcium (4.5-5.3) mg/dL ABG Glucose (75-99) mg/dL Hemoglobin (11.4-16.0) gm/dL Chloride (98-107) mmol/L BUN (7-17) mg/dL Glucose (74-99) mg/dL POC Glucose (mg/dL) 124 H 124 H (70-110) mg/dL Calcium (8.4-10.2) mg/dL Magnesium (1.6-2.3) mg/dL AST (14-36) U/L Total Protein (6.3-8.2) g/dL Albumin (3.5-5.0) g/dL Arterial Blood Potassium (3.4-4.5) mmol/L Arterial Blood Glucose (75-99) mg/dL Crossmatch 01/11/23 01/11/23 01/11/23 Range/Units 21:24 22:16 23:08 WBC (3.8-10.6) k/uL RBC (3.80-5.40) m/uL Hgb (11.4-16.0) gm/dL Hct (34.0-46.0) % Plt Count (150-450) k/uL Neutrophils # (Manual) (1.3-7.7) k/uL Monocytes # (Manual) (0-1.0) k/uL ABG pH (7.35-7.45) ABG pCO2 (35-45) mmHg ABG pO2 (83-108) mmHg ABG HCO3 (21-25) mmol/L ABG Total CO2 (19-24) mmol/L ABG O2 Saturation (94-97) % ABG Hematocrit (34.0-46.0) % ABG Potassium (3.4-4.5) mmol/L ABG Ionized Calcium (4.5-5.3) mg/dL ABG Glucose (75-99) mg/dL Hemoglobin (11.4-16.0) gm/dL Chloride (98-107) mmol/L BUN (7-17) mg/dL Glucose (74-99) mg/dL POC Glucose (mg/dL) 137 H 127 H 122 H (70-110) mg/dL Calcium (8.4-10.2) mg/dL Magnesium (1.6-2.3) mg/dL AST (14-36) U/L Total Protein (6.3-8.2) g/dL Albumin (3.5-5.0) g/dL Arterial Blood Potassium (3.4-4.5) mmol/L Arterial Blood Glucose (75-99) mg/dL Crossmatch 01/12/23 01/12/23 01/12/23 Range/Units 00:18 01:00 02:02 WBC (3.8-10.6) k/uL RBC (3.80-5.40) m/uL Hgb (11.4-16.0) gm/dL Hct (34.0-46.0) % Plt Count (150-450) k/uL Neutrophils # (Manual) (1.3-7.7) k/uL Monocytes # (Manual) (0-1.0) k/uL ABG pH (7.35-7.45) ABG pCO2 (35-45) mmHg ABG pO2 (83-108) mmHg ABG HCO3 (21-25) mmol/L ABG Total CO2 (19-24) mmol/L ABG O2 Saturation (94-97) % ABG Hematocrit (34.0-46.0) % ABG Potassium (3.4-4.5) mmol/L ABG Ionized Calcium (4.5-5.3) mg/dL ABG Glucose (75-99) mg/dL Hemoglobin (11.4-16.0) gm/dL Chloride (98-107) mmol/L BUN (7-17) mg/dL Glucose (74-99) mg/dL POC Glucose (mg/dL) 111 H 138 H 137 H (70-110) mg/dL Calcium (8.4-10.2) mg/dL Magnesium (1.6-2.3) mg/dL AST (14-36) U/L Total Protein (6.3-8.2) g/dL Albumin (3.5-5.0) g/dL Arterial Blood Potassium (3.4-4.5) mmol/L Arterial Blood Glucose (75-99) mg/dL Crossmatch 01/12/23 01/12/23 01/12/23 Range/Units 03:06 04:10 04:11 WBC 10.7 H (3.8-10.6) k/uL RBC 2.33 L (3.80-5.40) m/uL Hgb 7.1 L (11.4-16.0) gm/dL Hct 21.1 L (34.0-46.0) % Plt Count 121 L (150-450) k/uL Neutrophils # (Manual) (1.3-7.7) k/uL Monocytes # (Manual) (0-1.0) k/uL ABG pH (7.35-7.45) ABG pCO2 (35-45) mmHg ABG pO2 (83-108) mmHg ABG HCO3 (21-25) mmol/L ABG Total CO2 (19-24) mmol/L ABG O2 Saturation (94-97) % ABG Hematocrit (34.0-46.0) % ABG Potassium (3.4-4.5) mmol/L ABG Ionized Calcium (4.5-5.3) mg/dL ABG Glucose (75-99) mg/dL Hemoglobin (11.4-16.0) gm/dL Chloride (98-107) mmol/L BUN (7-17) mg/dL Glucose (74-99) mg/dL POC Glucose (mg/dL) 124 H 115 H (70-110) mg/dL Calcium (8.4-10.2) mg/dL Magnesium (1.6-2.3) mg/dL AST (14-36) U/L Total Protein (6.3-8.2) g/dL Albumin (3.5-5.0) g/dL Arterial Blood Potassium (3.4-4.5) mmol/L Arterial Blood Glucose (75-99) mg/dL Crossmatch 01/12/23 01/12/23 01/12/23 Range/Units 04:11 05:00 05:59 WBC (3.8-10.6) k/uL RBC (3.80-5.40) m/uL Hgb (11.4-16.0) gm/dL Hct (34.0-46.0) % Plt Count (150-450) k/uL Neutrophils # (Manual) (1.3-7.7) k/uL Monocytes # (Manual) (0-1.0) k/uL ABG pH (7.35-7.45) ABG pCO2 (35-45) mmHg ABG pO2 (83-108) mmHg ABG HCO3 (21-25) mmol/L ABG Total CO2 (19-24) mmol/L ABG O2 Saturation (94-97) % ABG Hematocrit (34.0-46.0) % ABG Potassium (3.4-4.5) mmol/L ABG Ionized Calcium (4.5-5.3) mg/dL ABG Glucose (75-99) mg/dL Hemoglobin (11.4-16.0) gm/dL Chloride (98-107) mmol/L BUN 19 H (7-17) mg/dL Glucose 105 H (74-99) mg/dL POC Glucose (mg/dL) 113 H 123 H (70-110) mg/dL Calcium 7.4 L (8.4-10.2) mg/dL Magnesium 2.5 H (1.6-2.3) mg/dL AST 37 H (14-36) U/L Total Protein 4.8 L (6.3-8.2) g/dL Albumin 3.1 L (3.5-5.0) g/dL Arterial Blood Potassium (3.4-4.5) mmol/L Arterial Blood Glucose (75-99) mg/dL Crossmatch 01/12/23 Range/Units 07:12 WBC (3.8-10.6) k/uL RBC (3.80-5.40) m/uL Hgb (11.4-16.0) gm/dL Hct (34.0-46.0) % Plt Count (150-450) k/uL Neutrophils # (Manual) (1.3-7.7) k/uL Monocytes # (Manual) (0-1.0) k/uL ABG pH (7.35-7.45) ABG pCO2 (35-45) mmHg ABG pO2 (83-108) mmHg ABG HCO3 (21-25) mmol/L ABG Total CO2 (19-24) mmol/L ABG O2 Saturation (94-97) % ABG Hematocrit (34.0-46.0) % ABG Potassium (3.4-4.5) mmol/L ABG Ionized Calcium (4.5-5.3) mg/dL ABG Glucose (75-99) mg/dL Hemoglobin (11.4-16.0) gm/dL Chloride (98-107) mmol/L BUN (7-17) mg/dL Glucose (74-99) mg/dL POC Glucose (mg/dL) 160 H (70-110) mg/dL Calcium (8.4-10.2) mg/dL Magnesium (1.6-2.3) mg/dL AST (14-36) U/L Total Protein (6.3-8.2) g/dL Albumin (3.5-5.0) g/dL Arterial Blood Potassium (3.4-4.5) mmol/L Arterial Blood Glucose (75-99) mg/dL Crossmatch - Imaging and Cardiology Chest x-ray: image reviewed Assessment and Plan Assessment: Severe symptomatic aortic stenosis, status post bioprosthetic aortic valve replacement with aortic root enlargement Tricuspid regurgitation, moderate on previous ZOEY, trivial intraoperative History of hypertension Hyperlipidemia, treated, cholesterol 217, LDL 125, triglycerides 206 Borderline diet controlled diabetes, hemoglobin A1c 6.2% Hypothyroid/Graves status post thyroidectomy, recent TSH 0.274, free T4 2.05 Previous secondhand smoke exposure, preoperative FEV1 83% of predicted Bowel resection secondary to diverticulitis GERD Postoperative acute blood loss anemia and thrombocytopenia, expected Plan: Continue to maximize medical therapy with low-dose aspirin, statin, Plavix, beta cruz. Will increase beta cruz therapy as tolerated Wean O2 as tolerated. Encourage incentive spirometry use 10 times every hour while awake. Bronchodilators per pulmonology Increase activity, ambulate as tolerated. PT/OT/cardiac rehab consulted Will monitor daily labs and x-rays. Electrolyte replacement protocol GI/DVT prophylaxis Pain control with current medication regimen Insulin management per internal medicine service. Patient is borderline diabeti c with preoperative hemoglobin A1c 6.2%, needs tight blood sugar control to prevent infection and promote healing Discontinue [place]. Connect Cordis to continuous CVP monitoring Continue mediastinal/left pleural chest tubes for another 24 hours, monitor output Continue Smith for another 24 hours for strict accurate intake and output Daily weights Appropriate home meds resumed More recommendations to follow based on patient's progress
[2023-01-12 08:19] LABS: Band Neutrophils % 1 %; Lymphocytes # (M) 1.39 k/uL (1.0-4.8); Monocytes # (M) 0.54 k/uL (0-1.0); Neutrophils % (M) 81 %; Nucleated Red Blood Cells 0 /100 WBC (0-0); Total Cells Counted 100
[2023-01-12] MEDS: IPRATROPIUM-ALBUTEROL 3 ML NEB INHALATION SCH ×5 (08:26→19:55)
--- NOTE | 2023-01-12 08:26 | XR ---
EXAMINATION TYPE: XR chest 1V portable DATE OF EXAM: 01/12/2023 COMPARISON: 01/11/2023 HISTORY: Postop TECHNIQUE: Single frontal view of the chest is obtained. FINDINGS: The left lower lobe consolidation and small effusion. There now is right lower lobe consol idation with small effusion. Correlate for Left-sided chest tube. Mediastinal drains stable. Heart size normal. Prosthetic heart valve. ET tube and NG tube have been removed. [place] catheter with the tip overlying the proximal pulmonary outflow tract. IMPRESSION: 1. Postsurgical changes with stable left lower lobe consolidation and small effusion. There now is a small right pleural effusion
[2023-01-12] MEDS ORDERED: PANTOPRAZOLE 40 MG/10 ML VIAL IVP SCH (09:00)
[2023-01-12] MEDS ORDERED: ASPIRIN 325 MG TAB PO SCH (09:00)
[2023-01-12] MEDS ORDERED: MAGNESIUM HYDROXIDE 2,400 MG/10 ML CUP PO PRN (09:00)
[2023-01-12] MEDS ORDERED: bisacodyL 10 MG SUPP RECTAL PRN (09:00)
[2023-01-12] MEDS: HEPARIN SODIUM,PORCINE/PF 5,000 UNIT/0.5 ML SYRINGE SQ SCH ×2 (09:02→16:23)
[2023-01-12] MEDS: CALCIUM CARBONATE 500 MG CHEWABLE PO SCH (09:07)
[2023-01-12] MEDS: ATORVASTATIN 20 MG TAB PO SCH (09:07)
[2023-01-12] MEDS: MULTIVITAMINS, THERA 1 EACH TAB PO SCH (09:09)
[2023-01-12] MEDS: ASPIRIN 81 MG PO SCH (09:11)
[2023-01-12] MEDS: CLOPIDOGREL 75 MG TAB PO SCH (09:11)
[2023-01-12] MEDS: METOPROLOL TARTRATE 12.5 MG TAB PO SCH ×2 (09:11→20:12)
[2023-01-12 09:12] LABS: Glucose,Whole Blood 138 mg/dL (70-110)
[2023-01-12] MEDS: CHOLECALCIFEROL 25 MCG (1000 IU) TABLET PO SCH (09:15)
[2023-01-12 10:11] VITALS: BMI 31.3
--- NOTE | 2023-01-12 10:18 | P.PN ---
Subjective Progress Note Date: 01/12/23 This is a 68-year-old female patient with a known history of hypertension, gastroesophageal reflux disease, hypothyroidism, Graves' disease, diverticulitis with previous bowel resection. She also has a known history of severe aortic valve stenosis and was brought in today electively for aortic valve replacement. She received an aortic valve replacement with a 23 mm Curtis Insiris bovine pericardial valve. She is seen in the postoperative period in the intensive care unit. Intubated on mechanical ventilator currently and assist-control mode at a tidal volume of 450, FiO2 100% and a PEEP of 8. She has a left pleural chest tube in place, mediastinal chest tube in place. Right IJ [place]elia cath eter in place. Temperature venous pacing wires in place. Arterial blood gases pending. Labs are pending. The patient is seen today 01/12/2023 in follow-up in the intensive care unit. She was successfully extubated within the six-hour protocol. She is currently sitting up in a chair at the bedside. Maintaining good O2 saturations in the 90s on 2 L/m per nasal cannula. She has lactated Ringer's at 50 MLS per hour. Currently on a insulin drip at 4 units per hour. Right IJ [place]elia catheter remains in place. Cardiac output 5.0. Cardiac index 2.6. CVP 4. PA pressures 25/11. Right radial arterial line in place. Mediastinal and left pleural chest tubes remain in place. AV epicardial pacemaker wires remain in place. Backup rate of 50. Currently in sinus rhythm in the 80s. Blood pressure improved. Off Cleviprex. White count 10.7. Hemoglobin 7.1. Platelet count 121. Sodium 138. Potassium 3.7. Bicarb 24. BUN 19. Creatinine 0.66. Glucose 1:15. AST 37. ALT 15. Magnesium 2.5. Chest x-ray reveals small left pleural effusion. She continues to work well with the incentive spirometer. Continued on DuoNeb inhalations. Heparin for DVT prophylaxis. Objective - Vital Signs Vital signs: Vital Signs Temp 98.8 F 01/12/23 04:00 Pulse 84 01/12/23 07:00 Resp 24 01/12/23 07:00 BP 155/66 01/11/23 05:45 Pulse Ox 97 01/12/23 08:29 FiO2 40 01/11/23 15:28 Intake & Output 01/11/23 01/12/23 01/12/23 18:59 06:59 18:59 Intake Total 1280.746 6238.516 48.764 Output Total 3730 1125 90 Balance -1949.515 -35.484 -41.236 Weight 89.4 kg 89.4 kg Intake: IV 1745 1028 39 0.9NS Cardiac Output 80 170 30 0.9NS Pressure Bag 63 108 9 Albumin Human 5% 250 ml 1000 250 In Empty Bag 1 bag @ 250 mls/hr IVPB Q1HR PRN Rx#: [id number] Lactated Ringers 1,000 ml 350 450 @ 20 mls/hr IV .Q24H GAURAV Rx#:[id number] ceFAZolin 2 gm In Sodium 50 Chloride 0.9% 50 ml @ 100 mls/hr IVPB Q8HR GAURAV Rx# :[id number] Intake, IV Titration 35.485 61.516 9.764 Amount Clevidipine Butyrate 25 7.833 31.333 mg In Empty Bag 1 bag @ 1 MG/HR 2 mls/hr IV .Q24H GAURAV Rx#:[id number] Insulin Regular 100 unit 15.823 30.183 9.764 In Sodium Chloride 0.9% 100 ml @ Per Protocol IV .Q0M GAURAV Rx#:[id number] propofoL 1,000 mg In 11.829 Empty Bag 1 bag @ Titrate IV .Q0M GAURAV Rx#: [id number] Output: Chest Tube Drainage 730 670 30 Left Pleural/Mediastinal 730 670 30 Urine 2000 455 60 Estimated Blood Loss 1000 Other: Voiding Method Indwelling Catheter Indwelling Catheter ABP, PAP, CO, CI - Last Documented Arterial Blood Pressure 142/43 Pulmonary Artery Pressure 24/8 Cardiac Output 5 Cardiac Index 2.6 - Exam GENERAL EXAM: Alert, very pleasant 68-year-old female, up in a chair at the bedside, on 2 L nasal cannula, fairly comfortable in no apparent distress. HEAD: Normocephalic. EYES: Normal reaction of pupils, equal size. NOSE: Clear with pink turbinates. THROAT: No erythema or exudates. NECK: Right IJ [place]elia catheter in place. No masses, no JVD. CHEST: Sternal dressing dry and intact. Left and mediastinal chest tubes remain in place. AV pacemaker wires in place. Backup rate of 50. LUNGS: Equal air entry with crackles in the left lung base. CVS: S1 and S2 normal with no audible murmur, regular rhythm. ABDOMEN: No hepatosplenomegaly, normal bowel sounds, no guarding or rigidity. SPINE: No scoliosis or deformity SKIN: No rashes CENTRAL NERVOUS SYSTEM: No focal deficits, tone is normal in all 4 extremities. EXTREMITIES: There is trace peripheral edema. No clubbing, no cyanosis. Peripheral pulses are intact. - Labs CBC & Chem 7: 01/12/23 04:11 01/12/23 04:11 Labs: Abnormal Lab Results - Last 24 Hours (Table) 01/05/23 01/11/23 01/11/23 Range/Units 10:40 08:34 09:13 WBC (3.8-10.6) k/uL RBC (3.80-5.40) m/uL Hgb (11.4-16.0) gm/dL Hct (34.0-46.0) % Plt Count (150-450) k/uL Neutrophils # (Manual) (1.3-7.7) k/uL Monocytes # (Manual) (0-1.0) k/uL ABG pH 7.47 H (7.35-7.45) ABG pCO2 (35-45) mmHg ABG pO2 218 H 226 H (83-108) mmHg ABG HCO3 28 H 26 H (21-25) mmol/L ABG Total CO2 29 H 28 H (19-24) mmol/L ABG O2 Saturation 98.9 H 99.1 H (94-97) % ABG Hematocrit (34.0-46.0) % ABG Potassium (3.4-4.5) mmol/L ABG Ionized Calcium (4.5-5.3) mg/dL ABG Glucose 106 H 108 H (75-99) mg/dL Hemoglobin (11.4-16.0) gm/dL Chloride (98-107) mmol/L BUN (7-17) mg/dL Glucose (74-99) mg/dL POC Glucose (mg/dL) (70-110) mg/dL Calcium (8.4-10.2) mg/dL Magnesium (1.6-2.3) mg/dL AST (14-36) U/L Total Protein (6.3-8.2) g/dL Albumin (3.5-5.0) g/dL Arterial Blood Potassium (3.4-4.5) mmol/L Arterial Blood Glucose 106 H 108 H (75-99) mg/dL Crossmatch See Detail 01/11/23 01/11/23 01/11/23 Range/Units 09:45 10:17 10:47 WBC (3.8-10.6) k/uL RBC (3.80-5.40) m/uL Hgb (11.4-16.0) gm/dL Hct (34.0-46.0) % Plt Count (150-450) k/uL Neutrophils # (Manual) (1.3-7.7) k/uL Monocytes # (Manual) (0-1.0) k/uL ABG pH (7.35-7.45) ABG pCO2 46 H (35-45) mmHg ABG pO2 >420 H 406 H 417 H (83-108) mmHg ABG HCO3 26 H 26 H (21-25) mmol/L ABG Total CO2 26 H 27 H 27 H (19-24) mmol/L ABG O2 Saturation 99.5 H 99.4 H 99.3 H (94-97) % ABG Hematocrit 24 L 28 L 27 L (34.0-46.0) % ABG Potassium 4.6 H 4.6 H 4.7 H (3.4-4.5) mmol/L ABG Ionized Calcium 4.1 L 4.3 L 4.3 L (4.5-5.3) mg/dL ABG Glucose 116 H 129 H (75-99) mg/dL Hemoglobin 7.9 L 9.0 L 8.9 L (11.4-16.0) gm/dL Chloride (98-107) mmol/L BUN (7-17) mg/dL Glucose (74-99) mg/dL POC Glucose (mg/dL) (70-110) mg/dL Calcium (8.4-10.2) mg/dL Magnesium (1.6-2.3) mg/dL AST (14-36) U/L Total Protein (6.3-8.2) g/dL Albumin (3.5-5.0) g/dL Arterial Blood Potassium 4.6 H 4.6 H 4.7 H (3.4-4.5) mmol/L Arterial Blood Glucose 116 H 129 H (75-99) mg/dL Crossmatch 01/11/23 01/11/23 01/11/23 Range/Units 12:35 12:38 12:38 WBC 17.2 H (3.8-10.6) k/uL RBC 3.47 L (3.80-5.40) m/uL Hgb 10.6 L D (11.4-16.0) gm/dL Hct 31.4 L (34.0-46.0) % Plt Count 128 L (150-450) k/uL Neutrophils # (Manual) 14.40 H (1.3-7.7) k/uL Monocytes # (Manual) 1.55 H (0-1.0) k/uL ABG pH (7.35-7.45) ABG pCO2 (35-45) mmHg ABG pO2 (83-108) mmHg ABG HCO3 (21-25) mmol/L ABG Total CO2 (19-24) mmol/L ABG O2 Saturation (94-97) % ABG Hematocrit (34.0-46.0) % ABG Potassium (3.4-4.5) mmol/L ABG Ionized Calcium (4.5-5.3) mg/dL ABG Glucose (75-99) mg/dL Hemoglobin (11.4-16.0) gm/dL Chloride 108 H (98-107) mmol/L BUN 19 H (7-17) mg/dL Glucose 137 H (74-99) mg/dL POC Glucose (mg/dL) 138 H (70-110) mg/dL Calcium 7.8 L (8.4-10.2) mg/dL Magnesium 3.9 H (1.6-2.3) mg/dL AST (14-36) U/L Total Protein 4.8 L (6.3-8.2) g/dL Albumin 2.8 L (3.5-5.0) g/dL Arterial Blood Potassium (3.4-4.5) mmol/L Arterial Blood Glucose (75-99) mg/dL Crossmatch 01/11/23 01/11/23 01/11/23 Range/Units 13:00 13:25 14:20 WBC (3.8-10.6) k/uL RBC (3.80-5.40) m/uL Hgb (11.4-16.0) gm/dL Hct (34.0-46.0) % Plt Count (150-450) k/uL Neutrophils # (Manual) (1.3-7.7) k/uL Monocytes # (Manual) (0-1.0) k/uL ABG pH (7.35-7.45) ABG pCO2 (35-45) mmHg ABG pO2 202 H (83-108) mmHg ABG HCO3 (21-25) mmol/L ABG Total CO2 26 H (19-24) mmol/L ABG O2 Saturation 99.4 H (94-97) % ABG Hematocrit (34.0-46.0) % ABG Potassium (3.4-4.5) mmol/L ABG Ionized Calcium (4.5-5.3) mg/dL ABG Glucose (75-99) mg/dL Hemoglobin (11.4-16.0) gm/dL Chloride (98-107) mmol/L BUN (7-17) mg/dL Glucose (74-99) mg/dL POC Glucose (mg/dL) 152 H 160 H (70-110) mg/dL Calcium (8.4-10.2) mg/dL Magnesium (1.6-2.3) mg/dL AST (14-36) U/L Total Protein (6.3-8.2) g/dL Albumin (3.5-5.0) g/dL Arterial Blood Potassium (3.4-4.5) mmol/L Arterial Blood Glucose (75-99) mg/dL Crossmatch 01/11/23 01/11/23 01/11/23 Range/Units 15:02 15:35 15:59 WBC 19.3 H (3.8-10.6) k/uL RBC 3.65 L (3.80-5.40) m/uL Hgb 10.8 L (11.4-16.0) gm/dL Hct 32.3 L (34.0-46.0) % Plt Count 149 L (150-450) k/uL Neutrophils # (Manual) 16.00 H (1.3-7.7) k/uL Monocytes # (Manual) 1.35 H (0-1.0) k/uL ABG pH (7.35-7.45) ABG pCO2 (35-45) mmHg ABG pO2 115 H (83-108) mmHg ABG HCO3 (21-25) mmol/L ABG Total CO2 26 H (19-24) mmol/L ABG O2 Saturation 97.2 H (94-97) % ABG Hematocrit (34.0-46.0) % ABG Potassium (3.4-4.5) mmol/L ABG Ionized Calcium (4.5-5.3) mg/dL ABG Glucose (75-99) mg/dL Hemoglobin (11.4-16.0) gm/dL Chloride (98-107) mmol/L BUN (7-17) mg/dL Glucose (74-99) mg/dL POC Glucose (mg/dL) 154 H (70-110) mg/dL Calcium (8.4-10.2) mg/dL Magnesium (1.6-2.3) mg/dL AST (14-36) U/L Total Protein (6.3-8.2) g/dL Albumin (3.5-5.0) g/dL Arterial Blood Potassium (3.4-4.5) mmol/L Arterial Blood Glucose (75-99) mg/dL Crossmatch 01/11/23 01/11/23 01/11/23 Range/Units 16:30 17:12 18:21 WBC (3.8-10.6) k/uL RBC (3.80-5.40) m/uL Hgb (11.4-16.0) gm/dL Hct (34.0-46.0) % Plt Count (150-450) k/uL Neutrophils # (Manual) (1.3-7.7) k/uL Monocytes # (Manual) (0-1.0) k/uL ABG pH (7.35-7.45) ABG pCO2 (35-45) mmHg ABG pO2 (83-108) mmHg ABG HCO3 (21-25) mmol/L ABG Total CO2 (19-24) mmol/L ABG O2 Saturation (94-97) % ABG Hematocrit (34.0-46.0) % ABG Potassium (3.4-4.5) mmol/L ABG Ionized Calcium (4.5-5.3) mg/dL ABG Glucose (75-99) mg/dL Hemoglobin (11.4-16.0) gm/dL Chloride (98-107) mmol/L BUN (7-17) mg/dL Glucose (74-99) mg/dL POC Glucose (mg/dL) 148 H 130 H 123 H (70-110) mg/dL Calcium (8.4-10.2) mg/dL Magnesium (1.6-2.3) mg/dL AST (14-36) U/L Total Protein (6.3-8.2) g/dL Albumin (3.5-5.0) g/dL Arterial Blood Potassium (3.4-4.5) mmol/L Arterial Blood Glucose (75-99) mg/dL Crossmatch 01/11/23 01/11/23 01/11/23 Range/Units 18:41 19:08 19:55 WBC 12.1 H (3.8-10.6) k/uL RBC 2.74 L (3.80-5.40) m/uL Hgb 8.3 L D (11.4-16.0) gm/dL Hct 24.5 L (34.0-46.0) % Plt Count 108 L (150-450) k/uL Neutrophils # (Manual) 10.53 H (1.3-7.7) k/uL Monocytes # (Manual) (0-1.0) k/uL ABG pH (7.35-7.45) ABG pCO2 (35-45) mmHg ABG pO2 (83-108) mmHg ABG HCO3 (21-25) mmol/L ABG Total CO2 (19-24) mmol/L ABG O2 Saturation (94-97) % ABG Hematocrit (34.0-46.0) % ABG Potassium (3.4-4.5) mmol/L ABG Ionized Calcium (4.5-5.3) mg/dL ABG Glucose (75-99) mg/dL Hemoglobin (11.4-16.0) gm/dL Chloride (98-107) mmol/L BUN (7-17) mg/dL Glucose (74-99) mg/dL POC Glucose (mg/dL) 124 H 124 H (70-110) mg/dL Calcium (8.4-10.2) mg/dL Magnesium (1.6-2.3) mg/dL AST (14-36) U/L Total Protein (6.3-8.2) g/dL Albumin (3.5-5.0) g/dL Arterial Blood Potassium (3.4-4.5) mmol/L Arterial Blood Glucose (75-99) mg/dL Crossmatch 01/11/23 01/11/23 01/11/23 Range/Units 21:24 22:16 23:08 WBC (3.8-10.6) k/uL RBC (3.80-5.40) m/uL Hgb (11.4-16.0) gm/dL Hct (34.0-46.0) % Plt Count (150-450) k/uL Neutrophils # (Manual) (1.3-7.7) k/uL Monocytes # (Manual) (0-1.0) k/uL ABG pH (7.35-7.45) ABG pCO2 (35-45) mmHg ABG pO2 (83-108) mmHg ABG HCO3 (21-25) mmol/L ABG Total CO2 (19-24) mmol/L ABG O2 Saturation (94-97) % ABG Hematocrit (34.0-46.0) % ABG Potassium (3.4-4.5) mmol/L ABG Ionized Calcium (4.5-5.3) mg/dL ABG Glucose (75-99) mg/dL Hemoglobin (11.4-16.0) gm/dL Chloride (98-107) mmol/L BUN (7-17) mg/dL Glucose (74-99) mg/dL POC Glucose (mg/dL) 137 H 127 H 122 H (70-110) mg/dL Calcium (8.4-10.2) mg/dL Magnesium (1.6-2.3) mg/dL AST (14-36) U/L Total Protein (6.3-8.2) g/dL Albumin (3.5-5.0) g/dL Arterial Blood Potassium (3.4-4.5) mmol/L Arterial Blood Glucose (75-99) mg/dL Crossmatch 01/12/23 01/12/23 01/12/23 Range/Units 00:18 01:00 02:02 WBC (3.8-10.6) k/uL RBC (3.80-5.40) m/uL Hgb (11.4-16.0) gm/dL Hct (34.0-46.0) % Plt Count (150-450) k/uL Neutrophils # (Manual) (1.3-7.7) k/uL Monocytes # (Manual) (0-1.0) k/uL ABG pH (7.35-7.45) ABG pCO2 (35-45) mmHg ABG pO2 (83-108) mmHg ABG HCO3 (21-25) mmol/L ABG Total CO2 (19-24) mmol/L ABG O2 Saturation (94-97) % ABG Hematocrit (34.0-46.0) % ABG Potassium (3.4-4.5) mmol/L ABG Ionized Calcium (4.5-5.3) mg/dL ABG Glucose (75-99) mg/dL Hemoglobin (11.4-16.0) gm/dL Chloride (98-107) mmol/L BUN (7-17) mg/dL Glucose (74-99) mg/dL POC Glucose (mg/dL) 111 H 138 H 137 H (70-110) mg/dL Calcium (8.4-10.2) mg/dL Magnesium (1.6-2.3) mg/dL AST (14-36) U/L Total Protein (6.3-8.2) g/dL Albumin (3.5-5.0) g/dL Arterial Blood Potassium (3.4-4.5) mmol/L Arterial Blood Glucose (75-99) mg/dL Crossmatch 01/12/23 01/12/23 01/12/23 Range/Units 03:06 04:10 04:11 WBC 10.7 H (3.8-10.6) k/uL RBC 2.33 L (3.80-5.40) m/uL Hgb 7.1 L (11.4-16.0) gm/dL Hct 21.1 L (34.0-46.0) % Plt Count 121 L (150-450) k/uL Neutrophils # (Manual) 8.70 H (1.3-7.7) k/uL Monocytes # (Manual) (0-1.0) k/uL ABG pH (7.35-7.45) ABG pCO2 (35-45) mmHg ABG pO2 (83-108) mmHg ABG HCO3 (21-25) mmol/L ABG Total CO2 (19-24) mmol/L ABG O2 Saturation (94-97) % ABG Hematocrit (34.0-46.0) % ABG Potassium (3.4-4.5) mmol/L ABG Ionized Calcium (4.5-5.3) mg/dL ABG Glucose (75-99) mg/dL Hemoglobin (11.4-16.0) gm/dL Chloride (98-107) mmol/L BUN (7-17) mg/dL Glucose (74-99) mg/dL POC Glucose (mg/dL) 124 H 115 H (70-110) mg/dL Calcium (8.4-10.2) mg/dL Magnesium (1.6-2.3) mg/dL AST (14-36) U/L Total Protein (6.3-8.2) g/dL Albumin (3.5-5.0) g/dL Arterial Blood Potassium (3.4-4.5) mmol/L Arterial Blood Glucose (75-99) mg/dL Crossmatch 01/12/23 01/12/23 01/12/23 Range/Units 04:11 05:00 05:59 WBC (3.8-10.6) k/uL RBC (3.80-5.40) m/uL Hgb (11.4-16.0) gm/dL Hct (34.0-46.0) % Plt Count (150-450) k/uL Neutrophils # (Manual) (1.3-7.7) k/uL Monocytes # (Manual) (0-1.0) k/uL ABG pH (7.35-7.45) ABG pCO2 (35-45) mmHg ABG pO2 (83-108) mmHg ABG HCO3 (21-25) mmol/L ABG Total CO2 (19-24) mmol/L ABG O2 Saturation (94-97) % ABG Hematocrit (34.0-46.0) % ABG Potassium (3.4-4.5) mmol/L ABG Ionized Calcium (4.5-5.3) mg/dL ABG Glucose (75-99) mg/dL Hemoglobin (11.4-16.0) gm/dL Chloride (98-107) mmol/L BUN 19 H (7-17) mg/dL Glucose 105 H (74-99) mg/dL POC Glucose (mg/dL) 113 H 123 H (70-110) mg/dL Calcium 7.4 L (8.4-10.2) mg/dL Magnesium 2.5 H (1.6-2.3) mg/dL AST 37 H (14-36) U/L Total Protein 4.8 L (6.3-8.2) g/dL Albumin 3.1 L (3.5-5.0) g/dL Arterial Blood Potassium (3.4-4.5) mmol/L Arterial Blood Glucose (75-99) mg/dL Crossmatch 01/12/23 01/12/23 Range/Units 07:12 09:11 WBC (3.8-10.6) k/uL RBC (3.80-5.40) m/uL Hgb (11.4-16.0) gm/dL Hct (34.0-46.0) % Plt Count (150-450) k/uL Neutrophils # (Manual) (1.3-7.7) k/uL Monocytes # (Manual) (0-1.0) k/uL ABG pH (7.35-7.45) ABG pCO2 (35-45) mmHg ABG pO2 (83-108) mmHg ABG HCO3 (21-25) mmol/L ABG Total CO2 (19-24) mmol/L ABG O2 Saturation (94-97) % ABG Hematocrit (34.0-46.0) % ABG Potassium (3.4-4.5) mmol/L ABG Ionized Calcium (4.5-5.3) mg/dL ABG Glucose (75-99) mg/dL Hemoglobin (11.4-16.0) gm/dL Chloride (98-107) mmol/L BUN (7-17) mg/dL Glucose (74-99) mg/dL POC Glucose (mg/dL) 160 H 138 H (70-110) mg/dL Calcium (8.4-10.2) mg/dL Magnesium (1.6-2.3) mg/dL AST (14-36) U/L Total Protein (6.3-8.2) g/dL Albumin (3.5-5.0) g/dL Arterial Blood Potassium (3.4-4.5) mmol/L Arterial Blood Glucose (75-99) mg/dL Crossmatch Assessment and Plan Assessment: Severe aortic stenosis status post aortic valve replacement utilizing a 23 mm Curtis Insiris bovine pericardial valve. Postoperative day #1. History of hypertension Hypothyroidism status post thyroidectomy History of Graves' disease Gastroesophageal reflux disease History of diverticulitis with previous bowel resection Nonsmoker, pulmonary function testing revealed an FEV1 value of 2.0 L which was 83% of predicted Plan: The patient was seen and evaluated Chest x-ray, labs and medications reviewed We will titrate the FiO2 as tolerated Encourage increased use of the incentive spirometer Continue bronchodilators Heparin for DVT prophylaxis Continue to monitor her in the intensive care unit We will continue to follow I have personally seen and examined the patient, performed the documentation and the assessment and plan as written. Number of minutes spent on the visit: 10.
[2023-01-12] MEDS: ONDANSETRON 4 MG/2 ML VIAL IVP PRN ×2 (10:44→20:12)
[2023-01-12 11:39] LABS: Glucose,Whole Blood 138 mg/dL (70-110)
[2023-01-12] MEDS: ALBUMIN HUMAN 5% 250 ML in EMPTY BAG 1 BAG IVPB PRN (13:05)
[2023-01-12 15:29] LABS: Glucose,Whole Blood 153 mg/dL (70-110)
[2023-01-12 18:00] LABS: Glucose,Whole Blood 174 mg/dL (70-110)
[2023-01-12 19:41] LABS: Glucose,Whole Blood 149 mg/dL (70-110)
[2023-01-12] MEDS: SENNOSIDES-DOCUSATE SODIUM 1 EACH TAB PO SCH (20:12)
[2023-01-12] MEDS: HYDROcodone/APAP 10-325MG 1 EACH TAB PO PRN (20:30)
[2023-01-12 21:20] LABS: Glucose,Whole Blood 146 mg/dL (70-110)
[2023-01-12] MEDS: INSULIN REGULAR 100 UNIT in SODIUM CHLORIDE 0.9% 100 ML IV SCH (21:23)
[2023-01-12 22:21] LABS: Glucose,Whole Blood 94 mg/dL (70-110)
[2023-01-12 22:54] LABS: Glucose,Whole Blood 138 mg/dL (70-110)
[2023-01-12] MEDS: LACTATED RINGERS 1,000 ML IV SCH (23:39)
[2023-01-12 23:46] LABS: Glucose,Whole Blood 141 mg/dL (70-110)
[2023-01-13] MEDS: HYDROcodone/APAP 10-325MG 1 EACH TAB PO PRN ×6 (00:02→20:07)
[2023-01-13 00:56] LABS: Glucose,Whole Blood 138 mg/dL (70-110)
[2023-01-13 02:16] LABS: Glucose,Whole Blood 115 mg/dL (70-110)
[2023-01-13] MEDS: HEPARIN SODIUM,PORCINE/PF 5,000 UNIT/0.5 ML SYRINGE SQ SCH ×3 (02:18→15:38)
[2023-01-13 03:13] LABS: Glucose,Whole Blood 134 mg/dL (70-110)
[2023-01-13 04:22] LABS: Glucose,Whole Blood 125 mg/dL (70-110)
[2023-01-13 05:26] LABS: Glucose,Whole Blood 116 mg/dL (70-110)
[2023-01-13 05:35] LABS: HCT 21.3 % (34.0-46.0); HGB 7.1 gm/dL (11.4-16.0); MCHC 33.5 g/dL (31.0-37.0); MCV 89.4 fL (80.0-100.0); Mean Platelet Volume 8.7; Platelet Count 115 k/uL (150-450); RBC 2.38 m/uL (3.80-5.40); RDW 13.8 % (11.5-15.5); WBC 12.6 k/uL (3.8-10.6)
[2023-01-13 05:40] LABS: Ionized Calcium 4.8 mg/dL (4.5-5.3)
[2023-01-13 05:48] LABS: ALT 13 U/L (4-34); AST 29 U/L (14-36); African American GFR (CKD) >90 (>60 ml/min/1.73 sqM); Albumin 3.2 g/dL (3.5-5.0); Alkaline Phosphatase 54 U/L (38-126); Anion Gap 4 mmol/L; Blood Urea Nitrogen 14 mg/dL (7-17); Calcium 8.1 mg/dL (8.4-10.2); Carbon Dioxide 27 mmol/L (22-30); Chloride 104 mmol/L (98-107); Glucose 105 mg/dL (74-99); Non-African American GFR(CKD) >90 (>60 ml/min/1.73 sqM); Potassium 4.2 mmol/L (3.5-5.1); Sodium 135 mmol/L (137-145); Total Bilirubin 0.7 mg/dL (0.2-1.3); Total Protein 5.2 g/dL (6.3-8.2)
[2023-01-13 06:03] LABS: Eosinophils # (M) 0.25 k/uL (0-0.7); Lymphocytes # (M) 1.64 k/uL (1.0-4.8); Monocytes # (M) 1.26 k/uL (0-1.0); Neutrophils # (M) 9.45 k/uL (1.3-7.7); Neutrophils % (M) 75 %; Nucleated Red Blood Cells 0 /100 WBC (0-0); Polychromasia Present; Total Cells Counted 100
[2023-01-13 06:15] LABS: Glucose,Whole Blood 127 mg/dL (70-110)
[2023-01-13] MEDS: LEVOTHYROXINE 100 MCG TAB PO SCH (06:28)
--- NOTE | 2023-01-13 07:01 | XR ---
EXAMINATION TYPE: XR chest 1V portable DATE OF EXAM: 01/13/2023 5:55 AM COMPARISON: Chest radiographs from 01/12/2023 TECHNIQUE: XR chest 1V portable Frontal view of the chest. CLINICAL INDICATION:Female, 68 years old with history of Post Operative Cardiac Surgery; FINDINGS: Lungs/Pleura: No evidence of focal consolidation or pneumothorax. Blunting of the costophrenic angles is present. Pulmonary vascularity: Unremarkable. Heart/mediastinum: Cardiomediastinal silhouette is enlarged and stable. Post aortic valve repair clarence nges. Left atrial appendage occlusion device is present. Musculoskeletal: No acute osseous pathology. Midline sternotomy wires are noted. Other findings: None Lines/Tubes: Left thoracotomy versus mediastinal tube tube is present without evidence of pneumothorax. There is a [place]-Nelia catheter sheath in place. IMPRESSION: Stable postsurgical change with trace bilateral pleural effusions and left thoracotomy tube. No evide nce for pneumothorax.
[2023-01-13] MEDS: ASCORBIC ACID 500 MG TAB PO SCH ×2 (07:05→16:39)
[2023-01-13] MEDS: FERROUS SULFATE 325 MG TAB PO SCH ×2 (07:05→16:39)
[2023-01-13] MEDS: PANTOPRAZOLE 40 MG TABLET PO SCH (07:05)
[2023-01-13 07:10] LABS: Glucose,Whole Blood 121 mg/dL (70-110)
[2023-01-13] MEDS: CYCLOBENZAPRINE 5 MG TAB PO PRN ×2 (07:23→21:47)
[2023-01-13] MEDS: IPRATROPIUM-ALBUTEROL 3 ML NEB INHALATION SCH ×4 (07:27→21:45)
--- NOTE | 2023-01-13 07:36 | P.PN ---
Subjective Progress Note Date: 01/13/23 Principal diagnosis: Severe symptomatic aortic stenosis, tricuspid regurgitation. Previous medical history of hypertension, hyperlipidemia, borderline diet controlled diabetes, hy pothyroid/Graves status post thyroidectomy, previous secondhand smoke exposure, bowel resection secondary to diverticulitis, GERD POD #2 aortic valve replacement with 23 mm Curtis Inspiris bovine pericardial valve, aortic root enlargement with hemashield patch (Gurinder Leahy technique), epi- aortic ultrasound, ligation of the left atrial appendage with a 35 mm AtriCure clip, intraoperative transesophageal echocardiogram performed by anesthesia Postoperative acute blood loss anemia and thrombocytopenia, expected outcomes of postoperative open heart surgery given the hemodilution and cardiopulmonary bypass pump The patient was seen and examined this morning sitting up in a recliner in the intensive care unit in no acute distress. Her complaint this morning is of headache. Remains in sinus rhythm, currently hemodynamically stable on no inotropes or pressors. Currently on 2 L nasal cannula with oxygen saturation in the mid 90s, only able to achieve 500 mL on her incentive spirometry this m orning. Chest x-ray, lab work were reviewed. Right internal jugular Cordis, right radial arterial line, mediastinal/left pleural chest tubes remain. No other new concerns. Objective - Vital Signs Vital signs: Vital Signs Temp 98.0 F 01/13/23 04:00 Pulse 79 01/13/23 07:00 Resp 18 01/13/23 07:00 BP 155/66 01/11/23 05:45 Pulse Ox 95 01/13/23 07:00 FiO2 40 01/11/23 15:28 Intake & Output 01/12/23 01/13/23 01/13/23 18:59 06:59 18:59 Intake Total 1525.618 374.673 1.978 Output Total 441 1915 Balance 1084.618 -1540.327 1.978 Weight 89.4 kg 90.7 kg Intake: IV 731 342 0.9NS Cardiac Output 30 0.9NS Pressure Bag 81 72 Albumin Human 5% 250 ml 250 In Empty Bag 1 bag @ 250 mls/hr IVPB Q1HR PRN Rx#: [id number] Lactated Ringers 1,000 ml 370 270 @ 20 mls/hr IV .Q24H [facility] Rx#:[id number] Intake, IV Titration 34.618 32.673 1.978 Amount Insulin Regular 100 unit 34.618 32.673 1.978 In Sodium Chloride 0.9% 100 ml @ Per Protocol IV .Q0M [facility] Rx#:[id number] Oral 760 Output: Chest Tube Drainage 90 260 Left Pleural/Mediastinal 90 260 Urine 351 1655 Other: Voiding Method Indwelling Catheter Indwelling Catheter ABP, PAP, CO, CI - Last Documented Arterial Blood Pressure 90/42 Pulmonary Artery Pressure 25/12 Cardiac Output 5 Cardiac Index 2.6 - Exam CONSTITUTIONAL: Appears comfortable, cooperative, no acute distress RESPIRATORY: Lungs sounds diminished bilaterally. Respirations even, nonlabored. Currently on 2 L nasal cannula with oxygen saturation 95%. Able to achieve 500 mL on incentive spirometry. Strong cough. CARDIOVASCULAR: S1, S2 present. Regular rate and rhythm, sinus rhythm on telemetry. Sternum stable. Palpable peripheral pulses bilaterally. Trace upper extremity edema present. No calf pain or tenderness noted. Heart hugger in place with patient demonstrating appropriate use. Antiembolism stockings, SCDs present. GASTROINTESTINAL: Abdomen soft, nontender, nondistended. Hypoactive bowel sounds present 4 quadrants. Tolerating diet. Denies flatus GENITOURINARY: Smith present draining clear, yellow urine. Output overnight 100-200 mL per hour, 1806 mL in the last 24 hours INTEGUMENTARY: Skin is warm and dry with evidence of good perfusion. Anterior chest incision well approximated and covered with dry intact dressing NEUROLOGIC: Cranial nerves II through XII intact MUSKULOSKELETAL: Able to move all extremities, strength equal bilaterally, gait normal PSYCHIATRIC: Alert and oriented to person place and time, appropriate affect, intact judgment and insight INVASIVE LINES AND TUBES: Mediastinal/left pleural chest tubes present and connected to wall suction, no air leaks present, 140 mL serosanguineous drainage overnight, 300 mL in the last 24 hours. A/V epicardial pacemaker wires present, connected to generator, backup rate 50 bpm. Right internal jugular cordis, right radial arterial line present. Last CVP 8. - Allied health notes Allied health notes reviewed: nursing - Labs CBC & Chem 7: 01/13/23 04:45 01/13/23 04:45 Labs: Abnormal Lab Results - Last 24 Hours (Table) 01/12/23 01/12/23 01/12/23 Range/Units 04:11 09:11 11:38 WBC (3.8-10.6) k/uL RBC (3.80-5.40) m/uL Hgb (11.4-16.0) gm/dL Hct (34.0-46.0) % Plt Count (150-450) k/uL Neutrophils # (Manual) 8.70 H (1.3-7.7) k/uL Monocytes # (Manual) (0-1.0) k/uL Sodium (137-145) mmol/L Glucose (74-99) mg/dL POC Glucose (mg/dL) 138 H 138 H (70-110) mg/dL Calcium (8.4-10.2) mg/dL Total Protein (6.3-8.2) g/dL Albumin (3.5-5.0) g/dL 01/12/23 01/12/23 01/12/23 Range/Units 15:28 17:59 19:40 WBC (3.8-10.6) k/uL RBC (3.80-5.40) m/uL Hgb (11.4-16.0) gm/dL Hct (34.0-46.0) % Plt Count (150-450) k/uL Neutrophils # (Manual) (1.3-7.7) k/uL Monocytes # (Manual) (0-1.0) k/uL Sodium (137-145) mmol/L Glucose (74-99) mg/dL POC Glucose (mg/dL) 153 H 174 H 149 H (70-110) mg/dL Calcium (8.4-10.2) mg/dL Total Protein (6.3-8.2) g/dL Albumin (3.5-5.0) g/dL 01/12/23 01/12/23 01/12/23 Range/Units 21:18 22:52 23:44 WBC (3.8-10.6) k/uL RBC (3.80-5.40) m/uL Hgb (11.4-16.0) gm/dL Hct (34.0-46.0) % Plt Count (150-450) k/uL Neutrophils # (Manual) (1.3-7.7) k/uL Monocytes # (Manual) (0-1.0) k/uL Sodium (137-145) mmol/L Glucose (74-99) mg/dL POC Glucose (mg/dL) 146 H 138 H 141 H (70-110) mg/dL Calcium (8.4-10.2) mg/dL Total Protein (6.3-8.2) g/dL Albumin (3.5-5.0) g/dL 01/13/23 01/13/23 01/13/23 Range/Units 00:54 02:14 03:12 WBC (3.8-10.6) k/uL RBC (3.80-5.40) m/uL Hgb (11.4-16.0) gm/dL Hct (34.0-46.0) % Plt Count (150-450) k/uL Neutrophils # (Manual) (1.3-7.7) k/uL Monocytes # (Manual) (0-1.0) k/uL Sodium (137-145) mmol/L Glucose (74-99) mg/dL POC Glucose (mg/dL) 138 H 115 H 134 H (70-110) mg/dL Calcium (8.4-10.2) mg/dL Total Protein (6.3-8.2) g/dL Albumin (3.5-5.0) g/dL 01/13/23 01/13/23 01/13/23 Range/Units 04:15 04:45 04:45 WBC 12.6 H (3.8-10.6) k/uL RBC 2.38 L (3.80-5.40) m/uL Hgb 7.1 L (11.4-16.0) gm/dL Hct 21.3 L (34.0-46.0) % Plt Count 115 L (150-450) k/uL Neutrophils # (Manual) 9.45 H (1.3-7.7) k/uL Monocytes # (Manual) 1.26 H (0-1.0) k/uL Sodium 135 L (137-145) mmol/L Glucose 105 H (74-99) mg/dL POC Glucose (mg/dL) 125 H (70-110) mg/dL Calcium 8.1 L (8.4-10.2) mg/dL Total Protein 5.2 L (6.3-8.2) g/dL Albumin 3.2 L (3.5-5.0) g/dL 01/13/23 01/13/23 01/13/23 Range/Units 05:25 06:14 07:09 WBC (3.8-10.6) k/uL RBC (3.80-5.40) m/uL Hgb (11.4-16.0) gm/dL Hct (34.0-46.0) % Plt Count (150-450) k/uL Neutrophils # (Manual) (1.3-7.7) k/uL Monocytes # (Manual) (0-1.0) k/uL Sodium (137-145) mmol/L Glucose (74-99) mg/dL POC Glucose (mg/dL) 116 H 127 H 121 H (70-110) mg/dL Calcium (8.4-10.2) mg/dL Total Protein (6.3-8.2) g/dL Albumin (3.5-5.0) g/dL - Imaging and Cardiology Chest x-ray: report reviewed, image reviewed Assessment and Plan Assessment: Severe symptomatic aortic stenosis, status post bioprosthetic aortic valve replacement with aortic root enlargement Tricuspid regurgitation, moderate on previous ZOEY, trivial intraoperative History of hypertension Hyperlipidemia, treated, cholesterol 217, LDL 125, triglycerides 206 Borderline diet controlled diabetes, hemoglobin A1c 6.2% Hypothyroid/Graves status post thyroidectomy, recent TSH 0.274, free T4 2.05 Previous secondhand smoke exposure, preoperative FEV1 83% of predicted Bowel resection secondary to diverticulitis GERD Postoperative acute blood loss anemia and thrombocytopenia, expected Plan: Continue to maximize medical therapy with low-dose aspirin, statin, Plavix, beta cruz. Will increase beta cruz therapy as tolerated. Will add afterload reduction when able Wean O2 as tolerated. Encourage incentive spirometry use 10 times every hour while awake. Bronchodilators per pulmonology Increase activity, ambulate as tolerated. PT/OT/cardiac rehab consulted Will monitor daily labs and x-rays. Electrolyte replacement protocol GI/DVT prophylaxis Pain control with current medication regimen Insulin management per internal medicine service. Patient is borderline diabetic with preoperative hemoglobin A1c 6.2%, needs tight blood sugar control to prevent infection and promote healing Will discontinue mediastinal chest tube, continue left pleural chest tubes for another 24 hours, monitor output Discontinue Smith, may bladder scan and straight cath for >300 mL residual Strict accurate intake and output Daily weights More recommendations to follow based on patient's progress
[2023-01-13 08:19] LABS: Glucose,Whole Blood 168 mg/dL (70-110)
[2023-01-13] MEDS: ASPIRIN 81 MG PO SCH (08:19)
[2023-01-13] MEDS: ATORVASTATIN 20 MG TAB PO SCH (08:19)
[2023-01-13] MEDS: CLOPIDOGREL 75 MG TAB PO SCH (08:19)
[2023-01-13] MEDS: METOPROLOL TARTRATE 12.5 MG TAB PO SCH ×2 (08:19→20:08)
[2023-01-13] MEDS: CHOLECALCIFEROL 25 MCG (1000 IU) TABLET PO SCH (08:20)
[2023-01-13] MEDS: MULTIVITAMINS, THERA 1 EACH TAB PO SCH (08:20)
[2023-01-13] MEDS: CALCIUM CARBONATE 500 MG CHEWABLE PO SCH (08:21)
--- NOTE | 2023-01-13 08:25 | P.PN ---
Subjective Progress Note Date: 01/13/23 Principal diagnosis: Status post aortic valve replacement The patient is a 68-year-old female patient was underwent 2 days ago surgical aortic valve replacement. This is postoperative patient a #2. She is doing well overall. The pressure has been marginal. Currently she is only on metoprolol at the small dose. We'll continue monitor the blood pressure. Urine output has been marginal as well. The chest x-ray was reviewed and appeared to be stable. She is on dual antiplatelet therapy as well as statin. On examination the vitals are as described above and she does not look in any pain or any distress. She has soft systolic murmur at the right upper sternal border Assessment Status post aortic valve replacement Plan Continue the current medical regimen Continue monitor the kidney function and electrolytes Continue monitor the blood pressure Continue monitor for arrhythmia Follow-up with the patient Objective - Vital Signs Vital signs: Vital Signs Temp 98.0 F 01/13/23 04:00 Pulse 84 01/13/23 07:42 Resp 18 01/13/23 07:00 BP 155/66 01/11/23 05:45 Pulse Ox 95 01/13/23 07:29 FiO2 40 01/11/23 15:28 Intake & Output 01/12/23 01/13/23 01/13/23 18:59 06:59 18:59 Intake Total 1525.618 374.673 1.978 Output Total 441 1915 Balance 1084.618 -1540.327 1.978 Weight 89.4 kg 90.7 kg Intake: IV 731 342 0.9NS Cardiac Output 30 0.9NS Pressure Bag 81 72 Albumin Human 5% 250 ml 250 In Empty Bag 1 bag @ 250 mls/hr IVPB Q1HR PRN Rx#: [id number] Lactated Ringers 1,000 ml 370 270 @ 20 mls/hr IV .Q24H [facility] Rx#:[id number] Intake, IV Titration 34.618 32.673 1.978 Amount Insulin Regular 100 unit 34.618 32.673 1.978 In Sodium Chloride 0.9% 100 ml @ Per Protocol IV .Q0M [facility] Rx#:[id number] Oral 760 Output: Chest Tube Drainage 90 260 Left Pleural/Mediastinal 90 260 Urine 351 1655 Other: Voiding Method Indwelling Catheter Indwelling Catheter ABP, PAP, CO, CI - Last Documented Arterial Blood Pressure 90/42 Pulmonary Artery Pressure 25/12 Cardiac Output 5 Cardiac Index 2.6 - Labs CBC & Chem 7: 01/13/23 04:45 01/13/23 04:45 Labs: Abnormal Lab Results - Last 24 Hours (Table) 01/12/23 01/12/23 01/12/23 Range/Units 04:11 09:11 11:38 WBC (3.8-10.6) k/uL RBC (3.80-5.40) m/uL Hgb (11.4-16.0) gm/dL Hct (34.0-46.0) % Plt Count (150-450) k/uL Neutrophils # (Manual) 8.70 H (1.3-7.7) k/uL Monocytes # (Manual) (0-1.0) k/uL Sodium (137-145) mmol/L Glucose (74-99) mg/dL POC Glucose (mg/dL) 138 H 138 H (70-110) mg/dL Calcium (8.4-10.2) mg/dL Total Protein (6.3-8.2) g/dL Albumin (3.5-5.0) g/dL 01/12/23 01/12/23 01/12/23 Range/Units 15:28 17:59 19:40 WBC (3.8-10.6) k/uL RBC (3.80-5.40) m/uL Hgb (11.4-16.0) gm/dL Hct (34.0-46.0) % Plt Count (150-450) k/uL Neutrophils # (Manual) (1.3-7.7) k/uL Monocytes # (Manual) (0-1.0) k/uL Sodium (137-145) mmol/L Glucose (74-99) mg/dL POC Glucose (mg/dL) 153 H 174 H 149 H (70-110) mg/dL Calcium (8.4-10.2) mg/dL Total Protein (6.3-8.2) g/dL Albumin (3.5-5.0) g/dL 01/12/23 01/12/23 01/12/23 Range/Units 21:18 22:52 23:44 WBC (3.8-10.6) k/uL RBC (3.80-5.40) m/uL Hgb (11.4-16.0) gm/dL Hct (34.0-46.0) % Plt Count (150-450) k/uL Neutrophils # (Manual) (1.3-7.7) k/uL Monocytes # (Manual) (0-1.0) k/uL Sodium (137-145) mmol/L Glucose (74-99) mg/dL POC Glucose (mg/dL) 146 H 138 H 141 H (70-110) mg/dL Calcium (8.4-10.2) mg/dL Total Protein (6.3-8.2) g/dL Albumin (3.5-5.0) g/dL 01/13/23 01/13/23 01/13/23 Range/Units 00:54 02:14 03:12 WBC (3.8-10.6) k/uL RBC (3.80-5.40) m/uL Hgb (11.4-16.0) gm/dL Hct (34.0-46.0) % Plt Count (150-450) k/uL Neutrophils # (Manual) (1.3-7.7) k/uL Monocytes # (Manual) (0-1.0) k/uL Sodium (137-145) mmol/L Glucose (74-99) mg/dL POC Glucose (mg/dL) 138 H 115 H 134 H (70-110) mg/dL Calcium (8.4-10.2) mg/dL Total Protein (6.3-8.2) g/dL Albumin (3.5-5.0) g/dL 01/13/23 01/13/23 01/13/23 Range/Units 04:15 04:45 04:45 WBC 12.6 H (3.8-10.6) k/uL RBC 2.38 L (3.80-5.40) m/uL Hgb 7.1 L (11.4-16.0) gm/dL Hct 21.3 L (34.0-46.0) % Plt Count 115 L (150-450) k/uL Neutrophils # (Manual) 9.45 H (1.3-7.7) k/uL Monocytes # (Manual) 1.26 H (0-1.0) k/uL Sodium 135 L (137-145) mmol/L Glucose 105 H (74-99) mg/dL POC Glucose (mg/dL) 125 H (70-110) mg/dL Calcium 8.1 L (8.4-10.2) mg/dL Total Protein 5.2 L (6.3-8.2) g/dL Albumin 3.2 L (3.5-5.0) g/dL 01/13/23 01/13/23 01/13/23 Range/Units 05:25 06:14 07:09 WBC (3.8-10.6) k/uL RBC (3.80-5.40) m/uL Hgb (11.4-16.0) gm/dL Hct (34.0-46.0) % Plt Count (150-450) k/uL Neutrophils # (Manual) (1.3-7.7) k/uL Monocytes # (Manual) (0-1.0) k/uL Sodium (137-145) mmol/L Glucose (74-99) mg/dL POC Glucose (mg/dL) 116 H 127 H 121 H (70-110) mg/dL Calcium (8.4-10.2) mg/dL Total Protein (6.3-8.2) g/dL Albumin (3.5-5.0) g/dL 01/13/23 Range/Units 08:15 WBC (3.8-10.6) k/uL RBC (3.80-5.40) m/uL Hgb (11.4-16.0) gm/dL Hct (34.0-46.0) % Plt Count (150-450) k/uL Neutrophils # (Manual) (1.3-7.7) k/uL Monocytes # (Manual) (0-1.0) k/uL Sodium (137-145) mmol/L Glucose (74-99) mg/dL POC Glucose (mg/dL) 168 H (70-110) mg/dL Calcium (8.4-10.2) mg/dL Total Protein (6.3-8.2) g/dL Albumin (3.5-5.0) g/dL
[2023-01-13] MEDS: INSULIN ASPART (NovoLOG) 100 UNIT/ML VIAL SQ SCH ×4 (08:40→20:08)
[2023-01-13] MEDS ORDERED: ALBUMIN HUMAN 5% 250 ML in EMPTY BAG 1 BAG IVPB ONE (09:00)
--- NOTE | 2023-01-13 10:24 | P.PN ---
Subjective Progress Note Date: 01/13/23 This is a 68-year-old female patient with a known history of hypertension, gastroesophageal reflux disease, hypothyroidism, Graves' disease, diverticulitis with previous bowel resection. She also has a known history of severe aortic valve stenosis and was brought in today electively for aortic valve replacement. She received an aortic valve replacement with a 23 mm Curtis Insiris bovine pericardial valve. She is seen in the postoperative period in the intensive care unit. Intubated on mechanical ventilator currently and assist-control mode at a tidal volume of 450, FiO2 100% and a PEEP of 8. She has a left pleural chest tube in place, mediastinal chest tube in place. Right IJ [place]-Nelia cath eter in place. Temperature venous pacing wires in place. Arterial blood gases pending. Labs are pending. The patient is seen today 01/12/2023 in follow-up in the intensive care unit. She was successfully extubated within the six-hour protocol. She is currently sitting up in a chair at the bedside. Maintaining good O2 saturations in the 90s on 2 L/m per nasal cannula. She has lactated Ringer's at 50 MLS per hour. Currently on a insulin drip at 4 units per hour. Right IJ [place]-Nelia catheter remains in place. Cardiac output 5.0. Cardiac index 2.6. CVP 4. PA pressures 25/11. Right radial arterial line in place. Mediastinal and left pleural chest tubes remain in place. AV epicardial pacemaker wires remain in place. Backup rate of 50. Currently in sinus rhythm in the 80s. Blood pressure improved. Off Cleviprex. White count 10.7. Hemoglobin 7.1. Platelet count 121. Sodium 138. Potassium 3.7. Bicarb 24. BUN 19. Creatinine 0.66. Glucose 1:15. AST 37. ALT 15. Magnesium 2.5. Chest x-ray reveals small left pleural effusion. She continues to work well with the incentive spirometer. Continued on DuoNeb inhalations. Heparin for DVT prophylaxis. The patient is seen today 01/13/2023 in follow-up in the intensive care unit. Postoperative day #2. She is currently sitting up in a chair at the bedside. Awake and alert in no acute distress. Maintaining O2 saturations in the 90s on 2 L/m per nasal cannula. She has lactated Ringer's at 20 miles per hour. Chest x-ray reveals a small right effusion and some atelectasis at the bases. She continues working well with the incentive spirometer. Mediastinal/left pleural chest tubes remain in place. Right IJ Cordis in place. Right radial arterial line in place. AV epicardial pacer wires present. Backup rate of 50. She is remaining in sinus rhythm. White count 12.6. Hemoglobin 7.1. Platelets 115. Sodium 135. Potassium 4.2. Bicarb 27. BUN 14. Creatinine 0.68. Glucose 105. Gloria on DuoNeb inhalations. Heparin for DVT prophylaxis. She is up ambulating with assistance. Objective - Vital Signs Vital signs: Vital Signs Temp 98.4 F 01/13/23 08:00 Pulse 77 01/13/23 10:00 Resp 15 01/13/23 10:00 BP 102/47 01/13/23 10:00 Pulse Ox 94 L 01/13/23 10:00 FiO2 40 01/11/23 15:28 Intake & Output 01/12/23 01/13/23 01/13/23 18:59 06:59 18:59 Intake Total 1525.618 374.673 529.978 Output Total 441 1915 100 Balance 1084.618 -1540.327 429.978 Weight 89.4 kg 90.7 kg Intake: IV 731 342 328 0.9NS Cardiac Output 30 0.9NS Pressure Bag 81 72 18 Albumin Human 5% 250 ml 250 250 In Empty Bag 1 bag @ 250 mls/hr IVPB Q1HR PRN Rx#: [id number] Lactated Ringers 1,000 ml 370 270 60 @ 20 mls/hr IV .Q24H [facility] Rx#:[id number] Intake, IV Titration 34.618 32.673 1.978 Amount Insulin Regular 100 unit 34.618 32.673 1.978 In Sodium Chloride 0.9% 100 ml @ Per Protocol IV .Q0M [facility] Rx#:[id number] Oral 760 200 Output: Chest Tube Drainage 90 260 20 Left Pleural/Mediastinal 90 260 20 Urine 351 1655 80 Other: Voiding Method Indwelling Catheter Indwelling Catheter Indwelling Catheter ABP, PAP, CO, CI - Last Documented Arterial Blood Pressure 101/46 Pulmonary Artery Pressure 25/12 Cardiac Output 5 Cardiac Index 2.6 - Exam GENERAL EXAM: Alert, 68-year-old female, up in a chair, on 2 L nasal cannula, fa irly comfortable in no apparent distress. HEAD: Normocephalic. EYES: Normal reaction of pupils, equal size. NOSE: Clear with pink turbinates. THROAT: No erythema or exudates. NECK: Right IJ Cordis in place. No masses, no JVD. CHEST: Sternal dressing dry and intact. Left and mediastinal chest tubes remain in place. AV pacemaker wires in place. Backup rate of 50. LUNGS: Equal air entry with faint crackles in the bilateral bases. CVS: S1 and S2 normal with no audible murmur, regular rhythm. ABDOMEN: No hepatosplenomegaly, normal bowel sounds, no guarding or rigidity. SPINE: No scoliosis or deformity SKIN: No rashes CENTRAL NERVOUS SYSTEM: No focal deficits, tone is normal in all 4 extremities. EXTREMITIES: Arterial line secured in place. There is trace peripheral edema. Peripheral pulses are intact. - Labs CBC & Chem 7: 01/13/23 04:45 01/13/23 04:45 Labs: Abnormal Lab Results - Last 24 Hours (Table) 01/12/23 01/12/23 01/12/23 Range/Units 11:38 15:28 17:59 WBC (3.8-10.6) k/uL RBC (3.80-5.40) m/uL Hgb (11.4-16.0) gm/dL Hct (34.0-46.0) % Plt Count (150-450) k/uL Neutrophils # (Manual) (1.3-7.7) k/uL Monocytes # (Manual) (0-1.0) k/uL Sodium (137-145) mmol/L Glucose (74-99) mg/dL POC Glucose (mg/dL) 138 H 153 H 174 H (70-110) mg/dL Calcium (8.4-10.2) mg/dL Total Protein (6.3-8.2) g/dL Albumin (3.5-5.0) g/dL 01/12/23 01/12/23 01/12/23 Range/Units 19:40 21:18 22:52 WBC (3.8-10.6) k/uL RBC (3.80-5.40) m/uL Hgb (11.4-16.0) gm/dL Hct (34.0-46.0) % Plt Count (150-450) k/uL Neutrophils # (Manual) (1.3-7.7) k/uL Monocytes # (Manual) (0-1.0) k/uL Sodium (137-145) mmol/L Glucose (74-99) mg/dL POC Glucose (mg/dL) 149 H 146 H 138 H (70-110) mg/dL Calcium (8.4-10.2) mg/dL Total Protein (6.3-8.2) g/dL Albumin (3.5-5.0) g/dL 01/12/23 01/13/23 01/13/23 Range/Units 23:44 00:54 02:14 WBC (3.8-10.6) k/uL RBC (3.80-5.40) m/uL Hgb (11.4-16.0) gm/dL Hct (34.0-46.0) % Plt Count (150-450) k/uL Neutrophils # (Manual) (1.3-7.7) k/uL Monocytes # (Manual) (0-1.0) k/uL Sodium (137-145) mmol/L Glucose (74-99) mg/dL POC Glucose (mg/dL) 141 H 138 H 115 H (70-110) mg/dL Calcium (8.4-10.2) mg/dL Total Protein (6.3-8.2) g/dL Albumin (3.5-5.0) g/dL 01/13/23 01/13/23 01/13/23 Range/Units 03:12 04:15 04:45 WBC 12.6 H (3.8-10.6) k/uL RBC 2.38 L (3.80-5.40) m/uL Hgb 7.1 L (11.4-16.0) gm/dL Hct 21.3 L (34.0-46.0) % Plt Count 115 L (150-450) k/uL Neutrophils # (Manual) 9.45 H (1.3-7.7) k/uL Monocytes # (Manual) 1.26 H (0-1.0) k/uL Sodium (137-145) mmol/L Glucose (74-99) mg/dL POC Glucose (mg/dL) 134 H 125 H (70-110) mg/dL Calcium (8.4-10.2) mg/dL Total Protein (6.3-8.2) g/dL Albumin (3.5-5.0) g/dL 01/13/23 01/13/23 01/13/23 Range/Units 04:45 05:25 06:14 WBC (3.8-10.6) k/uL RBC (3.80-5.40) m/uL Hgb (11.4-16.0) gm/dL Hct (34.0-46.0) % Plt Count (150-450) k/uL Neutrophils # (Manual) (1.3-7.7) k/uL Monocytes # (Manual) (0-1.0) k/uL Sodium 135 L (137-145) mmol/L Glucose 105 H (74-99) mg/dL POC Glucose (mg/dL) 116 H 127 H (70-110) mg/dL Calcium 8.1 L (8.4-10.2) mg/dL Total Protein 5.2 L (6.3-8.2) g/dL Albumin 3.2 L (3.5-5.0) g/dL 01/13/23 01/13/23 Range/Units 07:09 08:15 WBC (3.8-10.6) k/uL RBC (3.80-5.40) m/uL Hgb (11.4-16.0) gm/dL Hct (34.0-46.0) % Plt Count (150-450) k/uL Neutrophils # (Manual) (1.3-7.7) k/uL Monocytes # (Manual) (0-1.0) k/uL Sodium (137-145) mmol/L Glucose (74-99) mg/dL POC Glucose (mg/dL) 121 H 168 H (70-110) mg/dL Calcium (8.4-10.2) mg/dL Total Protein (6.3-8.2) g/dL Albumin (3.5-5.0) g/dL Assessment and Plan Assessment: Severe aortic stenosis status post aortic valve replacement utilizing a 23 mm Curtis Insiris bovine pericardial valve. Postoperative day #2. History of hypertension Hypothyroidism status post thyroidectomy History of Graves' disease Gastroesophageal reflux disease History of diverticulitis with previous bowel resection Nonsmoker, pulmonary function testing revealed an FEV1 value of 2.0 L which was 83% of predicted Plan: The patient was seen and evaluated Chest x-ray, labs and medications reviewed We will titrate the FiO2 as tolerated Encourage increased use of the incentive spirometer Continue bronchodilators Heparin for DVT prophylaxis Increase her activity as tolerated We will continue to follow I have personally seen and examined the patient, performed the documentation and the assessment and plan as written. Number of minutes spent on the visit: 10.
[2023-01-13 11:29] LABS: Glucose,Whole Blood 210 mg/dL (70-110)
[2023-01-13] MEDS: LACTATED RINGERS 1,000 ML IV SCH (15:38)
[2023-01-13 16:31] LABS: Glucose,Whole Blood 133 mg/dL (70-110)
[2023-01-13 20:03] LABS: Glucose,Whole Blood 178 mg/dL (70-110)
[2023-01-13] MEDS: SENNOSIDES-DOCUSATE SODIUM 1 EACH TAB PO SCH (20:07)
[2023-01-14] MEDS: HEPARIN SODIUM,PORCINE/PF 5,000 UNIT/0.5 ML SYRINGE SQ SCH ×3 (00:16→16:53)
[2023-01-14] MEDS: HYDROcodone/APAP 10-325MG 1 EACH TAB PO PRN ×5 (03:38→20:53)
[2023-01-14 05:10] LABS: MCH 30.5 pg (25.0-35.0); MCHC 32.9 g/dL (31.0-37.0); MCV 92.6 fL (80.0-100.0); Mean Platelet Volume 9.4; Platelet Count 110 k/uL (150-450); RBC 1.97 m/uL (3.80-5.40); RDW 13.9 % (11.5-15.5); WBC 11.3 k/uL (3.8-10.6)
[2023-01-14 05:16] LABS: ALT 14 U/L (4-34); AST 23 U/L (14-36); African American GFR (CKD) >90 (>60 ml/min/1.73 sqM); Albumin 2.9 g/dL (3.5-5.0); Alkaline Phosphatase 62 U/L (38-126); Anion Gap 5 mmol/L; Blood Urea Nitrogen 16 mg/dL (7-17); Calcium 7.5 mg/dL (8.4-10.2); Carbon Dioxide 27 mmol/L (22-30); Chloride 102 mmol/L (98-107); Glucose 137 mg/dL (74-99); Non-African American GFR(CKD) >90 (>60 ml/min/1.73 sqM); Potassium 4.2 mmol/L (3.5-5.1); Sodium 134 mmol/L (137-145); Total Bilirubin 0.6 mg/dL (0.2-1.3)
[2023-01-14 05:32] LABS: HCT 18.3 % (34.0-46.0)
[2023-01-14 06:41] LABS: Glucose,Whole Blood 150 mg/dL (70-110)
[2023-01-14] MEDS: INSULIN ASPART (NovoLOG) 100 UNIT/ML VIAL SQ SCH ×4 (06:41→21:30)
[2023-01-14] MEDS: LEVOTHYROXINE 100 MCG TAB PO SCH (06:44)
[2023-01-14] MEDS: PANTOPRAZOLE 40 MG TABLET PO SCH (06:45)
[2023-01-14] MEDS: FERROUS SULFATE 325 MG TAB PO SCH ×2 (06:45→16:53)
[2023-01-14] MEDS: ASCORBIC ACID 500 MG TAB PO SCH ×2 (06:45→16:53)
[2023-01-14 07:14] LABS: Eosinophils # (M) 0.23 k/uL (0-0.7); Lymphocytes # (M) 2.03 k/uL (1.0-4.8); Monocytes # (M) 1.13 k/uL (0-1.0); Neutrophils # (M) 7.91 k/uL (1.3-7.7); Neutrophils % (M) 70 %; Nucleated Red Blood Cells 0 /100 WBC (0-0); RBC Morphology Normal; Total Cells Counted 100
--- NOTE | 2023-01-14 07:19 | XR ---
EXAMINATION TYPE: XR chest 1V portable DATE OF EXAM: 01/14/2023 6:08 AM COMPARISON: Chest radiograph from one day prior. TECHNIQUE: XR chest 1V portable Frontal view of the chest. CLINICAL INDICATION:Female, 68 years old with history of post cardiac surgery; FINDINGS: Lungs/Pleura: No evidence of focal consolidation or pneumothorax. Blunting of the costophrenic angles is present. Pulmonary vascularity: Unremarkable. Heart/mediastinum: Cardiomediastinal silhouette is enlarged and stable. Post aortic valve repair clarence nges. Left atrial appendage occlusion device is present. Musculoskeletal: No acute osseous pathology. Midline sternotomy wires are noted. Other findings: None Lines/Tubes: Left thoracotomy versus mediastinal tube tube is present without evidence of pneumothorax. There is a [place] catheter sheath in place. IMPRESSION: Stable postsurgical change with trace bilateral pleural effusions and left thoracotomy tube. No evide nce for pneumothorax.
[2023-01-14] MEDS: IPRATROPIUM-ALBUTEROL 3 ML NEB INHALATION SCH ×4 (07:30→21:00)
--- NOTE | 2023-01-14 07:36 | P.PN ---
Subjective Progress Note Date: 01/14/23 Principal diagnosis: Severe symptomatic aortic stenosis, tricuspid regurgitation. Previous medical history of hypertension, hyperlipidemia, borderline diet controlled diabetes, hy pothyroid/Graves status post thyroidectomy, previous secondhand smoke exposure, bowel resection secondary to diverticulitis, GERD POD #3 aortic valve replacement with 23 mm Curtis Inspiris bovine pericardial valve, aortic root enlargement with hemashield patch (Gurinder Leahy technique), epi- aortic ultrasound, ligation of the left atrial appendage with a 35 mm AtriCure clip, intraoperative transesophageal echocardiogram performed by anesthesia Postoperative acute blood loss anemia and thrombocytopenia, expected outcomes of postoperative open heart surgery given the hemodilution and cardiopulmonary bypass pump The patient was seen and examined this morning sitting up in a recliner in the intensive care unit in no acute distress. She is worried about her hemaglobin this am, states postoperative pain is mostly controlled, no other new complaints. Remains in sinus rhythm, currently hemodynamically stable although blood pressure marginal on no inotropes or pressors. Currently on 2 L nasal c annula with oxygen saturation in the high 90s, on room air in the low 90s, only able to achieve 750 mL on her incentive spirometry this morning. Chest x-ray, lab work were reviewed. Right internal jugular Cordis,left pleural chest tubes remain. She did ambulate in hallway yesterday without difficulty. No other new concerns. Objective - Vital Signs Vital signs: Vital Signs Temp 97.8 F 01/14/23 04:00 Pulse 87 01/14/23 07:00 Resp 23 01/14/23 07:00 BP 106/51 01/14/23 07:00 Pulse Ox 95 01/14/23 06:00 FiO2 40 01/11/23 15:28 Intake & Output 01/13/23 01/14/23 01/14/23 18:59 06:59 18:59 Intake Total 1082.978 299 Output Total 520 930 Balance 562.978 -631 Weight 91.6 kg Intake: IV 521 299 0.9NS Pressure Bag 51 39 Albumin Human 5% 250 ml 250 In Empty Bag 1 bag @ 250 mls/hr IVPB Q1HR PRN Rx#: [id number] Lactated Ringers 1,000 ml 220 260 @ 20 mls/hr IV .Q24H [facility] Rx#:[id number] Intake, IV Titration 1.978 Amount Insulin Regular 100 unit 1.978 In Sodium Chloride 0.9% 100 ml @ Per Protocol IV .Q0M [facility] Rx#:[id number] Oral 560 Output: Chest Tube Drainage 130 80 Left Pleural/Mediastinal 130 80 Urine 390 850 Other: Voiding Method Bedside Commode Bedside Commode ABP, PAP, CO, CI - Last Documented Arterial Blood Pressure 97/46 Pulmonary Artery Pressure 25/12 Cardiac Output 5 Cardiac Index 2.6 - Exam CONSTITUTIONAL: Appears comfortable, cooperative, no acute distress RESPIRATORY: Lungs sounds diminished bilaterally. Respirations even, nonlabored. Was on 2 L nasal cannula with oxygen saturation 97%, currently on room air with oxygen saturation 96%. Able to achieve 750 mL on incentive spirometry. Strong cough. CARDIOVASCULAR: S1, S2 present. Regular rate and rhythm, sinus rhythm on telemetry. Sternum stable. Palpable peripheral pulses bilaterally. Trace upper extremity edema present. No calf pain or tenderness noted. Heart hugger in place with patient demonstrating appropriate use. Antiembolism stockings, SCDs present. GASTROINTESTINAL: Abdomen soft, nontender, nondistended. Active bowel sounds present 4 quadrants. Tolerating diet. Positive flatus GENITOURINARY: Smith discontinued yesterday, continues to void. Output 1240 mL in the last 24 hours INTEGUMENTARY: Skin is warm and dry with evidence of good perfusion. Anterior chest incision well approximated and covered with dry intact dressing NEUROLOGIC: Cranial nerves II through XII intact MUSKULOSKELETAL: Able to move all extremities, strength equal bilaterally, gait normal PSYCHIATRIC: Alert and oriented to person place and time, appropriate affect, intact judgment and insight INVASIVE LINES AND TUBES: Left pleural chest tubes present and connected to wall suction, no air leaks present, 50 mL serosanguineous drainage overnight, 280 mL in the last 24 hours. A/V epicardial pacemaker wires present, gounded. Right internal jugular cordis present although not functioning - Allied health notes Allied health notes reviewed: nursing - Labs CBC & Chem 7: 01/14/23 04:55 01/14/23 04:55 Labs: Abnormal Lab Results - Last 24 Hours (Table) 01/13/23 01/13/23 01/13/23 Range/Units 08:15 11:27 16:30 WBC (3.8-10.6) k/uL RBC (3.80-5.40) m/uL Hgb (11.4-16.0) gm/dL Hct (34.0-46.0) % Plt Count (150-450) k/uL Neutrophils # (Manual) (1.3-7.7) k/uL Monocytes # (Manual) (0-1.0) k/uL Sodium (137-145) mmol/L Glucose (74-99) mg/dL POC Glucose (mg/dL) 168 H 210 H 133 H (70-110) mg/dL Calcium (8.4-10.2) mg/dL Total Protein (6.3-8.2) g/dL Albumin (3.5-5.0) g/dL 01/13/23 01/14/23 01/14/23 Range/Units 20:02 04:55 04:55 WBC 11.3 H (3.8-10.6) k/uL RBC 1.97 L (3.80-5.40) m/uL Hgb 6.0 L* (11.4-16.0) gm/dL Hct 18.3 L* (34.0-46.0) % Plt Count 110 L (150-450) k/uL Neutrophils # (Manual) 7.91 H (1.3-7.7) k/uL Monocytes # (Manual) 1.13 H (0-1.0) k/uL Sodium 134 L (137-145) mmol/L Glucose 137 H (74-99) mg/dL POC Glucose (mg/dL) 178 H (70-110) mg/dL Calcium 7.5 L (8.4-10.2) mg/dL Total Protein 5.0 L (6.3-8.2) g/dL Albumin 2.9 L (3.5-5.0) g/dL 01/14/23 Range/Units 06:40 WBC (3.8-10.6) k/uL RBC (3.80-5.40) m/uL Hgb (11.4-16.0) gm/dL Hct (34.0-46.0) % Plt Count (150-450) k/uL Neutrophils # (Manual) (1.3-7.7) k/uL Monocytes # (Manual) (0-1.0) k/uL Sodium (137-145) mmol/L Glucose (74-99) mg/dL POC Glucose (mg/dL) 150 H (70-110) mg/dL Calcium (8.4-10.2) mg/dL Total Protein (6.3-8.2) g/dL Albumin (3.5-5.0) g/dL - Imaging and Cardiology Chest x-ray: report reviewed, image reviewed Assessment and Plan Assessment: Severe symptomatic aortic stenosis, status post bioprosthetic aortic valve repla cement with aortic root enlargement Tricuspid regurgitation, moderate on previous ZOEY, trivial intraoperative History of hypertension Hyperlipidemia, treated, cholesterol 217, LDL 125, triglycerides 206 Borderline diet controlled diabetes, hemoglobin A1c 6.2% Hypothyroid/Graves status post thyroidectomy, recent TSH 0.274, free T4 2.05 Previous secondhand smoke exposure, preoperative FEV1 83% of predicted Bowel resection secondary to diverticulitis GERD Postoperative acute blood loss anemia and thrombocytopenia, expected Plan: Continue to maximize medical therapy with low-dose aspirin, statin, Plavix, beta cruz. Will increase beta cruz therapy as tolerated. Will add afterload reduction when able Encourage incentive spirometry use 10 times every hour while awake. Bronchodilators per pulmonology Increase activity, ambulate as tolerated. PT/OT/cardiac rehab following Will monitor daily labs and x-rays. Electrolyte replacement protocol. Repeat CBC to verify Hgb, if accurate will give 1 unit PRBCs followed by IV lasix GI/DVT prophylaxis Pain control with current medication regimen Insulin management per internal medicine service. Patient is borderline diabetic with preoperative hemoglobin A1c 6.2%, needs tight blood sugar control to prevent infection and promote healing Will discontinue left pleural chest tube Discontinue cordis Strict accurate intake and output Daily weights More recommendations to follow based on patient's progress
[2023-01-14] MEDS: ATORVASTATIN 20 MG TAB PO SCH (08:10)
[2023-01-14] MEDS: CLOPIDOGREL 75 MG TAB PO SCH (08:11)
[2023-01-14] MEDS: CALCIUM CARBONATE 500 MG CHEWABLE PO SCH (08:11)
[2023-01-14] MEDS: ASPIRIN 81 MG PO SCH (08:11)
[2023-01-14] MEDS: MULTIVITAMINS, THERA 1 EACH TAB PO SCH (08:11)
[2023-01-14] MEDS: CHOLECALCIFEROL 25 MCG (1000 IU) TABLET PO SCH (08:12)
[2023-01-14 08:43] LABS: HCT 20.5 % (34.0-46.0); MCH 29.9 pg (25.0-35.0); MCHC 32.1 g/dL (31.0-37.0); MCV 93.3 fL (80.0-100.0); Mean Platelet Volume 7.9; Platelet Count 139 k/uL (150-450); RBC 2.19 m/uL (3.80-5.40); RDW 13.8 % (11.5-15.5); WBC 14.9 k/uL (3.8-10.6)
[2023-01-14 08:49] LABS: HGB 6.6 gm/dL (11.4-16.0)
[2023-01-14] MEDS ORDERED: FUROSEMIDE 10 MG/ML 2 ML VIAL IV ONE (09:30)
[2023-01-14] MEDS: METOPROLOL TARTRATE 12.5 MG TAB PO SCH ×2 (10:27→20:52)
--- NOTE | 2023-01-14 10:29 | P.PN ---
Subjective Progress Note Date: 01/14/23 Principal diagnosis: Status post aortic valve replacement The patient is a 68-year-old female patient was underwent 2 days ago surgical aortic valve replacement. This is postoperative patient a #2. She is doing well overall. The pressure has been marginal. Currently she is only on metoprolol at the small dose. We'll continue monitor the blood pressure. Urine output has been marginal as well. The chest x-ray was reviewed and appeared to be stable. She is on dual antiplatelet therapy as well as statin. 01/14/2023 The patient was seen and evaluated this morning. She is a slightly tired but the hemoglobin is 6.6 and she is in process of receiving one unit of packed RBC. Otherwise she is hemodynamically stable. Urine output has been within normal limits. She has been maintaining normal sinus mechanism. The chest x-ray was reviewed and continues to be stable as well as small bilateral pleural effusion. Overall she is stable and she is in process of receiving one unit of packed RBC with continue monitoring the hemoglobin and kidney function. She continues to be on dual antiplatelet therapy along with metoprolol along with a statin On examination the vitals are as described above and she does not look in any pain or any distress. She has soft systolic murmur at the right upper sternal border Assessment Status post aortic valve replacement Plan 1 unit of packed RBC to be given Continue the current medical regimen Continue monitor the kidney function and electrolytes Continue monitor the blood pressure Continue monitor for arrhythmia Follow-up with the patient Objective - Vital Signs Vital signs: Vital Signs Temp 98.1 F 01/14/23 10:20 Pulse 86 01/14/23 10:00 Resp 18 01/14/23 10:20 BP 116/62 01/14/23 10:20 Pulse Ox 97 01/14/23 10:20 FiO2 40 01/11/23 15:28 Intake & Output 01/13/23 01/14/23 01/14/23 18:59 06:59 18:59 Intake Total 1082.978 299 163 Output Total 520 930 440 Balance 562.978 -631 -277 Weight 91.6 kg Intake: IV 521 299 63 0.9NS Pressure Bag 51 39 3 Albumin Human 5% 250 ml 250 In Empty Bag 1 bag @ 250 mls/hr IVPB Q1HR PRN Rx#: [id number] Lactated Ringers 1,000 ml 220 260 60 @ 20 mls/hr IV .Q24H [facility] Rx#:[id number] Intake, IV Titration 1.978 100 Amount Calcium Gluconate in NaCl 100 2 gm In Saline 1 100ml. bag @ 100 mls/hr IVPB ONCE PRN Rx#:[id number] Insulin Regular 100 unit 1.978 In Sodium Chloride 0.9% 100 ml @ Per Protocol IV .Q0M [facility] Rx#:[id number] Oral 560 Blood Product 0 Unit 0 Output: Chest Tube Drainage 130 80 40 Left Pleural/Mediastinal 130 80 40 Urine 390 850 400 Other: Voiding Method Bedside Commode Bedside Commode Bedside Commode ABP, PAP, CO, CI - Last Documented Arterial Blood Pressure 97/46 Pulmonary Artery Pressure 25/12 Cardiac Output 5 Cardiac Index 2.6 - Labs CBC & Chem 7: 01/14/23 08:05 01/14/23 04:55 Labs: Abnormal Lab Results - Last 24 Hours (Table) 01/13/23 01/13/23 01/13/23 Range/Units 11:27 16:30 20:02 WBC (3.8-10.6) k/uL RBC (3.80-5.40) m/uL Hgb (11.4-16.0) gm/dL Hct (34.0-46.0) % Plt Count (150-450) k/uL Neutrophils # (Manual) (1.3-7.7) k/uL Monocytes # (Manual) (0-1.0) k/uL Sodium (137-145) mmol/L Glucose (74-99) mg/dL POC Glucose (mg/dL) 210 H 133 H 178 H (70-110) mg/dL Calcium (8.4-10.2) mg/dL Total Protein (6.3-8.2) g/dL Albumin (3.5-5.0) g/dL Crossmatch 01/14/23 01/14/23 01/14/23 Range/Units 04:55 04:55 04:55 WBC 11.3 H (3.8-10.6) k/uL RBC 1.97 L (3.80-5.40) m/uL Hgb 6.0 L* (11.4-16.0) gm/dL Hct 18.3 L* (34.0-46.0) % Plt Count 110 L (150-450) k/uL Neutrophils # (Manual) 7.91 H (1.3-7.7) k/uL Monocytes # (Manual) 1.13 H (0-1.0) k/uL Sodium 134 L (137-145) mmol/L Glucose 137 H (74-99) mg/dL POC Glucose (mg/dL) (70-110) mg/dL Calcium 7.5 L (8.4-10.2) mg/dL Total Protein 5.0 L (6.3-8.2) g/dL Albumin 2.9 L (3.5-5.0) g/dL Crossmatch See Detail 01/14/23 01/14/23 Range/Units 06:40 08:05 WBC 14.9 H (3.8-10.6) k/uL RBC 2.19 L (3.80-5.40) m/uL Hgb 6.6 L* (11.4-16.0) gm/dL Hct 20.5 L (34.0-46.0) % Plt Count 139 L (150-450) k/uL Neutrophils # (Manual) (1.3-7.7) k/uL Monocytes # (Manual) (0-1.0) k/uL Sodium (137-145) mmol/L Glucose (74-99) mg/dL POC Glucose (mg/dL) 150 H (70-110) mg/dL Calcium (8.4-10.2) mg/dL Total Protein (6.3-8.2) g/dL Albumin (3.5-5.0) g/dL Crossmatch
--- NOTE | 2023-01-14 10:31 | P.PN ---
Subjective Progress Note Date: 01/14/23 This is a 68-year-old female patient with a known history of hypertension, gastroesophageal reflux disease, hypothyroidism, Graves' disease, diverticulitis with previous bowel resection. She also has a known history of severe aortic valve stenosis and was brought in today electively for aortic valve replacement. She received an aortic valve replacement with a 23 mm Curtis Insiris bovine pericardial valve. She is seen in the postoperative period in the intensive care unit. Intubated on mechanical ventilator currently and assist-control mode at a tidal volume of 450, FiO2 100% and a PEEP of 8. She has a left pleural chest tube in place, mediastinal chest tube in place. Right IJ Gravelly-Nelia cath eter in place. Temperature venous pacing wires in place. Arterial blood gases pending. Labs are pending. The patient is seen today 01/12/2023 in follow-up in the intensive care unit. She was successfully extubated within the six-hour protocol. She is currently sitting up in a chair at the bedside. Maintaining good O2 saturations in the 90s on 2 L/m per nasal cannula. She has lactated Ringer's at 50 MLS per hour. Currently on a insulin drip at 4 units per hour. Right IJ Gravelly-Nelia catheter remains in place. Cardiac output 5.0. Cardiac index 2.6. CVP 4. PA pressures 25/11. Right radial arterial line in place. Mediastinal and left pleural chest tubes remain in place. AV epicardial pacemaker wires remain in place. Backup rate of 50. Currently in sinus rhythm in the 80s. Blood pressure improved. Off Cleviprex. White count 10.7. Hemoglobin 7.1. Platelet count 121. Sodium 138. Potassium 3.7. Bicarb 24. BUN 19. Creatinine 0.66. Glucose 1:15. AST 37. ALT 15. Magnesium 2.5. Chest x-ray reveals small left pleural effusion. She continues to work well with the incentive spirometer. Continued on DuoNeb inhalations. Heparin for DVT prophylaxis. The patient is seen today 01/13/2023 in follow-up in the intensive care unit. Postoperative day #2. She is currently sitting up in a chair at the bedside. Awake and alert in no acute distress. Maintaining O2 saturations in the 90s on 2 L/m per nasal cannula. She has lactated Ringer's at 20 miles per hour. Chest x-ray reveals a small right effusion and some atelectasis at the bases. She continues working well with the incentive spirometer. Mediastinal/left pleural chest tubes remain in place. Right IJ Cordis in place. Right radial arterial line in place. AV epicardial pacer wires present. Backup rate of 50. She is remaining in sinus rhythm. White count 12.6. Hemoglobin 7.1. Platelets 115. Sodium 135. Potassium 4.2. Bicarb 27. BUN 14. Creatinine 0.68. Glucose 105. Gloria on DuoNeb inhalations. Heparin for DVT prophylaxis. She is up ambulating with assistance. The patient is seen today 01/14/2023 in follow-up in the intensive care unit. Postoperative day #3. She is awake and alert in no acute distress. Sitting up in a chair at the bedside. Maintaining good O2 saturations in the 90s on 2 L nasal cannula. Chest x-ray reveals stable trace bilateral pleural effusions with left chest tube in place. No evidence of pneumothorax. Her main complaint today is that of she did have a hemoglobin of 6.0 with a follow-up hemoglobin of 6.6. The plan is for one unit of packed blood cells today. White count 14.9. Platelets 139. Sodium 134. Potassium 4.2. Bicarb 27. BUN 16. Creatinine 0.68. Glucose 137. Currently in a negative balance. Remains on DuoNeb inhalations. Heparin for DVT prophylaxis. Objective - Vital Signs Vital signs: Vital Signs Temp 98.1 F 01/14/23 10:20 Pulse 95 01/14/23 09:00 Resp 18 01/14/23 10:20 BP 116/62 01/14/23 10:20 Pulse Ox 97 01/14/23 10:20 FiO2 40 01/11/23 15:28 Intake & Output 01/13/23 01/14/23 01/14/23 18:59 06:59 18:59 Intake Total 1082.978 299 143 Output Total 520 930 150 Balance 562.978 -631 -7 Weight 91.6 kg Intake: IV 521 299 43 0.9NS Pressure Bag 51 39 3 Albumin Human 5% 250 ml 250 In Empty Bag 1 bag @ 250 mls/hr IVPB Q1HR PRN Rx#: [id number] Lactated Ringers 1,000 ml 220 260 40 @ 20 mls/hr IV .Q24H [facility] Rx#:[id number] Intake, IV Titration 1.978 100 Amount Calcium Gluconate in NaCl 100 2 gm In Saline 1 100ml. bag @ 100 mls/hr IVPB ONCE PRN Rx#:[id number] Insulin Regular 100 unit 1.978 In Sodium Chloride 0.9% 100 ml @ Per Protocol IV .Q0M [facility] Rx#:[id number] Oral 560 Blood Product 0 Unit 0 Output: Chest Tube Drainage 130 80 Left Pleural/Mediastinal 130 80 Urine 390 850 150 Other: Voiding Method Bedside Commode Bedside Commode Bedside Commode ABP, PAP, CO, CI - Last Documented Arterial Blood Pressure 97/46 Pulmonary Artery Pressure 25/12 Cardiac Output 5 Cardiac Index 2.6 - Exam GENERAL EXAM: Alert, very pleasant, pale 68-year-old female, up in a chair, on 2 L nasal cannula, fatigued, comfortable in no apparent distress. HEAD: Normocephalic. EYES: Normal reaction of pupils, equal size. NOSE: Clear with pink turbinates. THROAT: No erythema or exudates. NECK: Right IJ Cordis in place. No masses, no JVD. CHEST: Sternal dressing dry and intact. Left chest tube remain in place. AV pacemaker wires in place, grounded. LUNGS: Equal air entry with faint crackles in the bilateral bases. CVS: S1 and S2 normal with no audible murmur, regular rhythm. ABDOMEN: No hepatosplenomegaly, normal bowel sounds, no guarding or rigidity. SPINE: No scoliosis or deformity SKIN: No rashes CENTRAL NERVOUS SYSTEM: No focal deficits, tone is normal in all 4 extremities. EXTREMITIES: There is trace peripheral edema. Peripheral pulses are intact. - Labs CBC & Chem 7: 01/14/23 08:05 01/14/23 04:55 Labs: Abnormal Lab Results - Last 24 Hours (Table) 01/13/23 01/13/23 01/13/23 Range/Units 11:27 16:30 20:02 WBC (3.8-10.6) k/uL RBC (3.80-5.40) m/uL Hgb (11.4-16.0) gm/dL Hct (34.0-46.0) % Plt Count (150-450) k/uL Neutrophils # (Manual) (1.3-7.7) k/uL Monocytes # (Manual) (0-1.0) k/uL Sodium (137-145) mmol/L Glucose (74-99) mg/dL POC Glucose (mg/dL) 210 H 133 H 178 H (70-110) mg/dL Calcium (8.4-10.2) mg/dL Total Protein (6.3-8.2) g/dL Albumin (3.5-5.0) g/dL Crossmatch 01/14/23 01/14/23 01/14/23 Range/Units 04:55 04:55 04:55 WBC 11.3 H (3.8-10.6) k/uL RBC 1.97 L (3.80-5.40) m/uL Hgb 6.0 L* (11.4-16.0) gm/dL Hct 18.3 L* (34.0-46.0) % Plt Count 110 L (150-450) k/uL Neutrophils # (Manual) 7.91 H (1.3-7.7) k/uL Monocytes # (Manual) 1.13 H (0-1.0) k/uL Sodium 134 L (137-145) mmol/L Glucose 137 H (74-99) mg/dL POC Glucose (mg/dL) (70-110) mg/dL Calcium 7.5 L (8.4-10.2) mg/dL Total Protein 5.0 L (6.3-8.2) g/dL Albumin 2.9 L (3.5-5.0) g/dL Crossmatch See Detail 01/14/23 01/14/23 Range/Units 06:40 08:05 WBC 14.9 H (3.8-10.6) k/uL RBC 2.19 L (3.80-5.40) m/uL Hgb 6.6 L* (11.4-16.0) gm/dL Hct 20.5 L (34.0-46.0) % Plt Count 139 L (150-450) k/uL Neutrophils # (Manual) (1.3-7.7) k/uL Monocytes # (Manual) (0-1.0) k/uL Sodium (137-145) mmol/L Glucose (74-99) mg/dL POC Glucose (mg/dL) 150 H (70-110) mg/dL Calcium (8.4-10.2) mg/dL Total Protein (6.3-8.2) g/dL Albumin (3.5-5.0) g/dL Crossmatch Assessment and Plan Assessment: Severe aortic stenosis status post aortic valve replacement utilizing a 23 mm Curtis Insiris bovine pericardial valve. Postoperative day #3 Anemia, expected outcome of surgery, current hemoglobin 6.6, receiving 1 unit of packed red blood cells History of hypertension Hypothyroidism status post thyroidectomy History of Graves' disease Gastroesophageal reflux disease History of diverticulitis with previous bowel resection Nonsmoker, pulmonary function testing revealed an FEV1 value of 2.0 L which was 83% of predicted Plan: The patient was seen and evaluated Chest x-ray, labs and medications reviewed Plan is for one unit of packed red blood cells today Titrate the FiO2 as tolerated Continue the incentive spirometer Continue bronchodilators Heparin for DVT prophylaxis Increase her activity as tolerated We will continue to follow I have personally seen and examined the patient, performed the documentation and the assessment and plan as written. Number of minutes spent on the visit: 10.
[2023-01-14 11:31] LABS: Glucose,Whole Blood 133 mg/dL (70-110)
[2023-01-14 15:08] LABS: HCT 27.9 % (34.0-46.0); MCH 29.5 pg (25.0-35.0); MCHC 32.1 g/dL (31.0-37.0); MCV 91.7 fL (80.0-100.0); Mean Platelet Volume 8.6; Platelet Count 171 k/uL (150-450); RBC 3.04 m/uL (3.80-5.40); RDW 14.3 % (11.5-15.5); WBC 20.6 k/uL (3.8-10.6)
[2023-01-14 16:42] LABS: Glucose,Whole Blood 145 mg/dL (70-110)
[2023-01-14] MEDS: SENNOSIDES-DOCUSATE SODIUM 1 EACH TAB PO SCH (20:50)
[2023-01-14 21:40] LABS: Glucose,Whole Blood 183 mg/dL (70-110)
[2023-01-14] MEDS: CYCLOBENZAPRINE 5 MG TAB PO PRN (22:01)
--- NOTE | 2023-01-15 00:13 | P.PN ---
Subjective Progress Note Date: 01/12/23 Patient is a 68-year-old female with a known history of hypertension, prediabetes, GERD, osteoarthritis, diverticulitis with history of bowel resection hypothyroidism and prior history of smoking and severe aortic stenosis was admitted to the hospital for elective aortic valve replacement. Patient is s/p replacement with bovine pericardial valve. Patient was intubated perioperatively and was transferred to MICU. Currently on Ventilator with assist control with FiO2 450 and PEEP of 8. Chest x-ray showed left lower lobe infiltrate with small effusion. Postoperative changes. ABG showed pH 7.38 PCO2 42 and PO2 202 WBC 17.2 hemoglobin 10.6 and platelets 128 Sodium 137 potassium 4.3 chloride 108 bicarb 23 BUN 19 and creatinine 0.65 blood sugar is 138 and albumin 2.8. 01/12/2023 Patient is currently in the MICU. Was extubated successfully yesterday. Currently on oxygen at 2 L via nasal cannula. Able to sit up in the chair. Pleural and mediastinal chest tubes in place. Epicardial pacemaker wires in place. Patient is being continued on incentive spirometry and DuoNebs. On insulin drip. Blood sugars controlled. Laboratory data showed WBC 10.7 hemoglobin 7.1 and platelets 121, sodium 138 potassium 3.7 chloride 107 bicarb 24 BUN 19 and creatinine 0.66 Blood sugar 105 calcium 7.4 AST 37 albumin 3.1. Current medications reviewed. Objective - Vital Signs Vital signs: Vital Signs Temp 98.0 F 01/12/23 20:00 Pulse 81 01/12/23 22:00 Resp 22 01/12/23 22:00 BP 155/66 01/11/23 05:45 Pulse Ox 98 01/12/23 22:00 FiO2 40 01/11/23 15:28 Intake & Output 01/12/23 01/12/23 01/13/23 06:59 18:59 06:59 Intake Total 3485.085 1458.618 147.585 Output Total 1125 441 530 Balance -35.484 1084.618 -382.415 Weight 89.4 kg 89.4 kg Intake: IV 1028 731 134 0.9NS Cardiac Output 170 30 0.9NS Pressure Bag 108 81 24 Albumin Human 5% 250 ml 250 250 In Empty Bag 1 bag @ 250 mls/hr IVPB Q1HR PRN Rx#: [id number] Lactated Ringers 1,000 ml 450 370 110 @ 20 mls/hr IV .Q24H [facility] Rx#:[id number] ceFAZolin 2 gm In Sodium 50 Chloride 0.9% 50 ml @ 100 mls/hr IVPB Q8HR [facility] Rx# :[id number] Intake, IV Titration 61.516 34.618 13.585 Amount Clevidipine Butyrate 25 31.333 mg In Empty Bag 1 bag @ 1 MG/HR 2 mls/hr IV .Q24H [facility] Rx#:[id number] Insulin Regular 100 unit 30.183 34.618 13.585 In Sodium Chloride 0.9% 100 ml @ Per Protocol IV .Q0M [facility] Rx#:[id number] Oral 760 Output: Chest Tube Drainage 670 90 50 Left Pleural/Mediastinal 670 90 50 Urine 455 351 480 Other: Voiding Method Indwelling Catheter Indwelling Catheter Indwelling Catheter ABP, PAP, CO, CI - Last Documented Arterial Blood Pressure 136/52 Pulmonary Artery Pressure 25/12 Cardiac Output 5 Cardiac Index 2.6 - Exam PHYSICAL EXAMINATION: Patient is lying in the bed comfortably, no acute distress, awake alert and oriented.. HEENT: Normocephalic. Neck is supple. Pupils reactive. Nostrils clear. Oral cavity is moist. Neck reveals no JVD, carotid bruits, or thyromegaly. CHEST EXAMINATION: Trachea is central. Symmetrical expansion. Left pleural and mediastinal chest tubes in place. Left basilar crackles. No wheezing or rhonchi.. CARDIAC: Normal S1, S2 with no gallops. No murmurs ABDOMEN: Soft. Bowel sounds present. Nontender. No organomegaly. No abdominal bruits. Extremities: Trace bilateral pedal edema. No clubbing or cyanosis Neurologically awake, alert, oriented x3 with well-coordinated movements. No focal deficits noted Skin: No rash or skin lesions. Psychiatric: Coperative. Nonsuicidal, Musculoskeletal: No joint swelling or deformity. Normal range of motion. - Labs CBC & Chem 7: 01/14/23 14:33 01/14/23 04:55 Labs: Abnormal Lab Results - Last 24 Hours (Table) 01/12/23 01/12/23 01/12/23 Range/Units 00:18 01:00 02:02 WBC (3.8-10.6) k/uL RBC (3.80-5.40) m/uL Hgb (11.4-16.0) gm/dL Hct (34.0-46.0) % Plt Count (150-450) k/uL Neutrophils # (Manual) (1.3-7.7) k/uL BUN (7-17) mg/dL Glucose (74-99) mg/dL POC Glucose (mg/dL) 111 H 138 H 137 H (70-110) mg/dL Calcium (8.4-10.2) mg/dL Magnesium (1.6-2.3) mg/dL AST (14-36) U/L Total Protein (6.3-8.2) g/dL Albumin (3.5-5.0) g/dL 01/12/23 01/12/23 01/12/23 Range/Units 03:06 04:10 04:11 WBC 10.7 H (3.8-10.6) k/uL RBC 2.33 L (3.80-5.40) m/uL Hgb 7.1 L (11.4-16.0) gm/dL Hct 21.1 L (34.0-46.0) % Plt Count 121 L (150-450) k/uL Neutrophils # (Manual) 8.70 H (1.3-7.7) k/uL BUN (7-17) mg/dL Glucose (74-99) mg/dL POC Glucose (mg/dL) 124 H 115 H (70-110) mg/dL Calcium (8.4-10.2) mg/dL Magnesium (1.6-2.3) mg/dL AST (14-36) U/L Total Protein (6.3-8.2) g/dL Albumin (3.5-5.0) g/dL 01/12/23 01/12/23 01/12/23 Range/Units 04:11 05:00 05:59 WBC (3.8-10.6) k/uL RBC (3.80-5.40) m/uL Hgb (11.4-16.0) gm/dL Hct (34.0-46.0) % Plt Count (150-450) k/uL Neutrophils # (Manual) (1.3-7.7) k/uL BUN 19 H (7-17) mg/dL Glucose 105 H (74-99) mg/dL POC Glucose (mg/dL) 113 H 123 H (70-110) mg/dL Calcium 7.4 L (8.4-10.2) mg/dL Magnesium 2.5 H (1.6-2.3) mg/dL AST 37 H (14-36) U/L Total Protein 4.8 L (6.3-8.2) g/dL Albumin 3.1 L (3.5-5.0) g/dL 01/12/23 01/12/23 01/12/23 Range/Units 07:12 09:11 11:38 WBC (3.8-10.6) k/uL RBC (3.80-5.40) m/uL Hgb (11.4-16.0) gm/dL Hct (34.0-46.0) % Plt Count (150-450) k/uL Neutrophils # (Manual) (1.3-7.7) k/uL BUN (7-17) mg/dL Glucose (74-99) mg/dL POC Glucose (mg/dL) 160 H 138 H 138 H (70-110) mg/dL Calcium (8.4-10.2) mg/dL Magnesium (1.6-2.3) mg/dL AST (14-36) U/L Total Protein (6.3-8.2) g/dL Albumin (3.5-5.0) g/dL 01/12/23 01/12/23 01/12/23 Range/Units 15:28 17:59 19:40 WBC (3.8-10.6) k/uL RBC (3.80-5.40) m/uL Hgb (11.4-16.0) gm/dL Hct (34.0-46.0) % Plt Count (150-450) k/uL Neutrophils # (Manual) (1.3-7.7) k/uL BUN (7-17) mg/dL Glucose (74-99) mg/dL POC Glucose (mg/dL) 153 H 174 H 149 H (70-110) mg/dL Calcium (8.4-10.2) mg/dL Magnesium (1.6-2.3) mg/dL AST (14-36) U/L Total Protein (6.3-8.2) g/dL Albumin (3.5-5.0) g/dL 01/12/23 01/12/23 01/12/23 Range/Units 21:18 22:52 23:44 WBC (3.8-10.6) k/uL RBC (3.80-5.40) m/uL Hgb (11.4-16.0) gm/dL Hct (34.0-46.0) % Plt Count (150-450) k/uL Neutrophils # (Manual) (1.3-7.7) k/uL BUN (7-17) mg/dL Glucose (74-99) mg/dL POC Glucose (mg/dL) 146 H 138 H 141 H (70-110) mg/dL Calcium (8.4-10.2) mg/dL Magnesium (1.6-2.3) mg/dL AST (14-36) U/L Total Protein (6.3-8.2) g/dL Albumin (3.5-5.0) g/dL Assessment and Plan Assessment: Severe aortic stenosis. Status post surgical aortic valve replacement with bovine valve. Postoperative day 1 Leukocytosis likely due to postoperative inflammation reaction. Hypertension Prediabetes Hypothyroidism with history of thyroidectomy History of diverticulitis status post bowel resection GERD Prior history of smoking DVT prophylaxis and GI prophylaxis Plan: Patient is extubated and is currently on 2 L via nasal cannula. Continue with incentive spirometry. Continue with DuoNebs. On insulin drip for better blood sugar control. Continue transition to subcu insulin with sliding scale. PT OT to be consulted. Patient will be continued on home medication including levothyroxine. GI DVT prophylaxis. We will continue to follow closely and further recommendations based on the clinical course. Time with Patient: Greater than 30
--- NOTE | 2023-01-15 00:30 | P.PN ---
Subjective Progress Note Date: 01/13/23 Patient is a 68-year-old female with a known history of hypertension, prediabetes, GERD, osteoarthritis, diverticulitis with history of bowel resection hypothyroidism and prior history of smoking and severe aortic stenosis was admitted to the hospital for elective aortic valve replacement. Patient is s/p replacement with bovine pericardial valve. Patient was intubated perioperatively and was transferred to MICU. Currently on Ventilator with assist control with FiO2 450 and PEEP of 8. Chest x-ray showed left lower lobe infiltrate with small effusion. Postoperative changes. ABG showed pH 7.38 PCO2 42 and PO2 202 WBC 17.2 hemoglobin 10.6 and platelets 128 Sodium 137 potassium 4.3 chloride 108 bicarb 23 BUN 19 and creatinine 0.65 blood sugar is 138 and albumin 2.8. 01/12/2023 Patient is currently in the MICU. Was extubated successfully yesterday. Currently on oxygen at 2 L via nasal cannula. Able to sit up in the chair. Pleural and mediastinal chest tubes in place. Epicardial pacemaker wires in place. Patient is being continued on incentive spirometry and DuoNebs. On insulin drip. Blood sugars controlled. Laboratory data showed WBC 10.7 hemoglobin 7.1 and platelets 121, sodium 138 potassium 3.7 chloride 107 bicarb 24 BUN 19 and creatinine 0.66 Blood sugar 105 calcium 7.4 AST 37 albumin 3.1. 01/13/2023 Patient is postoperative day 2 Currently sitting in the chair. Complains of shortness of breath with exertion and while moving to the chair. Denies any complaints of chest pain. Requiring 2 L oxygen via nasal cannula. Left pleural and mediastinal chest tubes in place. Chest x-ray showed stable postsurgical changes with trace bilateral pleural effusions and left thoracotomy tube. No evidence for pneumothorax. Patient is on insulin sliding scale. Blood sugar this morning 105 Laboratory data showed WBC 12.6 hemoglobin 7.1 and platelets 115, sodium 135 potassium 4.2 chloride 104 bicarb is 27 BUN 14 and creatinine 0.68 and albumin 3.2. Current medications reviewed. Objective - Vital Signs Vital signs: Vital Signs Temp 98.4 F 01/13/23 20:00 Pulse 101 H 01/13/23 22:00 Resp 18 01/13/23 22:00 BP 96/39 01/13/23 22:00 Pulse Ox 94 L 01/13/23 22:00 FiO2 40 01/11/23 15:28 Intake & Output 01/13/23 01/13/23 01/14/23 06:59 18:59 06:59 Intake Total 608.038 4443.978 92 Output Total 1915 520 300 Balance -1540.327 562.978 -208 Weight 90.7 kg Intake: IV 342 521 92 0.9NS Pressure Bag 72 51 12 Albumin Human 5% 250 ml 250 In Empty Bag 1 bag @ 250 mls/hr IVPB Q1HR PRN Rx#: [id number] Lactated Ringers 1,000 ml 270 220 80 @ 20 mls/hr IV .Q24H [facility] Rx#:[id number] Intake, IV Titration 32.673 1.978 Amount Insulin Regular 100 unit 32.673 1.978 In Sodium Chloride 0.9% 100 ml @ Per Protocol IV .Q0M [facility] Rx#:[id number] Oral 560 Output: Chest Tube Drainage 260 130 0 Left Pleural/Mediastinal 260 130 0 Urine 1655 390 300 Other: Voiding Method Indwelling Catheter Bedside Commode Bedside Commode ABP, PAP, CO, CI - Last Documented Arterial Blood Pressure 97/46 Pulmonary Artery Pressure 25/12 Cardiac Output 5 Cardiac Index 2.6 - Exam PHYSICAL EXAMINATION: Patient is lying in the bed comfortably, no acute distress, awake alert and oriented.. HEENT: Normocephalic. Neck is supple. Pupils reactive. Nostrils clear. Oral cavity is moist. Neck reveals no JVD, carotid bruits, or thyromegaly. CHEST EXAMINATION: Trachea is central. Symmetrical expansion. Left pleural and mediastinal chest tubes in place. Left basilar crackles. No wheezing or rhonchi.. CARDIAC: Normal S1, S2 with no gallops. No murmurs ABDOMEN: Soft. Bowel sounds present. Nontender. No organomegaly. No abdominal bruits. Extremities: Trace bilateral pedal edema. No clubbing or cyanosis Neurologically awake, alert, oriented x3 with well-coordinated movements. No focal deficits noted Skin: No rash or skin lesions. Psychiatric: Coperative. Nonsuicidal, Musculoskeletal: No joint swelling or deformity. Normal range of motion. - Labs CBC & Chem 7: 01/14/23 14:33 01/14/23 04:55 Labs: Abnormal Lab Results - Last 24 Hours (Table) 01/12/23 01/12/2301/13/23 Range/Units 22:52 23:44 00:54 WBC (3.8-10.6) k/uL RBC (3.80-5.40) m/uL Hgb (11.4-16.0) gm/dL Hct (34.0-46.0) % Plt Count (150-450) k/uL Neutrophils # (Manual) (1.3-7.7) k/uL Monocytes # (Manual) (0-1.0) k/uL Sodium (137-145) mmol/L Glucose (74-99) mg/dL POC Glucose (mg/dL) 138 H 141 H 138 H (70-110) mg/dL Calcium (8.4-10.2) mg/dL Total Protein (6.3-8.2) g/dL Albumin (3.5-5.0) g/dL 01/13/23 01/13/23 01/13/23 Range/Units 02:14 03:12 04:15 WBC (3.8-10.6) k/uL RBC (3.80-5.40) m/uL Hgb (11.4-16.0) gm/dL Hct (34.0-46.0) % Plt Count (150-450) k/uL Neutrophils # (Manual) (1.3-7.7) k/uL Monocytes # (Manual) (0-1.0) k/uL Sodium (137-145) mmol/L Glucose (74-99) mg/dL POC Glucose (mg/dL) 115 H 134 H 125 H (70-110) mg/dL Calcium (8.4-10.2) mg/dL Total Protein (6.3-8.2) g/dL Albumin (3.5-5.0) g/dL 01/13/23 01/13/23 01/13/23 Range/Units 04:45 04:45 05:25 WBC 12.6 H (3.8-10.6) k/uL RBC 2.38 L (3.80-5.40) m/uL Hgb 7.1 L (11.4-16.0) gm/dL Hct 21.3 L (34.0-46.0) % Plt Count 115 L (150-450) k/uL Neutrophils # (Manual) 9.45 H (1.3-7.7) k/uL Monocytes # (Manual) 1.26 H (0-1.0) k/uL Sodium 135 L (137-145) mmol/L Glucose 105 H (74-99) mg/dL POC Glucose (mg/dL) 116 H (70-110) mg/dL Calcium 8.1 L (8.4-10.2) mg/dL Total Protein 5.2 L (6.3-8.2) g/dL Albumin 3.2 L (3.5-5.0) g/dL 01/13/23 01/13/23 01/13/23 Range/Units 06:14 07:09 08:15 WBC (3.8-10.6) k/uL RBC (3.80-5.40) m/uL Hgb (11.4-16.0) gm/dL Hct (34.0-46.0) % Plt Count (150-450) k/uL Neutrophils # (Manual) (1.3-7.7) k/uL Monocytes # (Manual) (0-1.0) k/uL Sodium (137-145) mmol/L Glucose (74-99) mg/dL POC Glucose (mg/dL) 127 H 121 H 168 H (70-110) mg/dL Calcium (8.4-10.2) mg/dL Total Protein (6.3-8.2) g/dL Albumin (3.5-5.0) g/dL 01/13/23 01/13/23 01/13/23 Range/Units 11:27 16:30 20:02 WBC (3.8-10.6) k/uL RBC (3.80-5.40) m/uL Hgb (11.4-16.0) gm/dL Hct (34.0-46.0) % Plt Count (150-450) k/uL Neutrophils # (Manual) (1.3-7.7) k/uL Monocytes # (Manual) (0-1.0) k/uL Sodium (137-145) mmol/L Glucose (74-99) mg/dL POC Glucose (mg/dL) 210 H 133 H 178 H (70-110) mg/dL Calcium (8.4-10.2) mg/dL Total Protein (6.3-8.2) g/dL Albumin (3.5-5.0) g/dL Assessment and Plan Assessment: Severe aortic stenosis. Status post surgical aortic valve replacement with bovine valve. Postoperative day 2 Leukocytosis likely due to postoperative inflammation reaction. Hypertension Prediabetes Hypothyroidism with history of thyroidectomy History of diverticulitis status post bowel resection GERD Prior history of smoking DVT prophylaxis and GI prophylaxis Plan: Patient was extubated in 6hrs per protocol and is currently on 2 L via nasal cannula. Continue with incentive spirometry. Continue with DuoNebs. Recent drip has been discontinued. Patient is on insulin sliding scale. Blood sugar is controlled.. PT OT is following. Patient will be continued on home medication including levothyroxine. GI DVT prophylaxis. We will continue to follow closely and further recommendations based on the clinical course. Time with Patient: Greater than 30
--- NOTE | 2023-01-15 00:38 | P.PN ---
Subjective Progress Note Date: 01/14/23 Patient is a 68-year-old female with a known history of hypertension, prediabetes, GERD, osteoarthritis, diverticulitis with history of bowel resection hypothyroidism and prior history of smoking and severe aortic stenosis was admitted to the hospital for elective aortic valve replacement. Patient is s/p replacement with bovine pericardial valve. Patient was intubated perioperatively and was transferred to MICU. Currently on Ventilator with assist control with FiO2 450 and PEEP of 8. Chest x-ray showed left lower lobe infiltrate with small effusion. Postoperative changes. ABG showed pH 7.38 PCO2 42 and PO2 202 WBC 17.2 hemoglobin 10.6 and platelets 128 Sodium 137 potassium 4.3 chloride 108 bicarb 23 BUN 19 and creatinine 0.65 blood sugar is 138 and albumin 2.8. 01/12/2023 Patient is currently in the MICU. Was extubated successfully yesterday. Currently on oxygen at 2 L via nasal cannula. Able to sit up in the chair. Pleural and mediastinal chest tubes in place. Epicardial pacemaker wires in place. Patient is being continued on incentive spirometry and DuoNebs. On insulin drip. Blood sugars controlled. Laboratory data showed WBC 10.7 hemoglobin 7.1 and platelets 121, sodium 138 potassium 3.7 chloride 107 bicarb 24 BUN 19 and creatinine 0.66 Blood sugar 105 calcium 7.4 AST 37 albumin 3.1. 01/13/2023 Patient is postoperative day 2 Currently sitting in the chair. Complains of shortness of breath with exertion and while moving to the chair. Denies any complaints of chest pain. Requiring 2 L oxygen via nasal cannula. Left pleural and mediastinal chest tubes in place. Chest x-ray showed stable postsurgical changes with trace bilateral pleural effusions and left thoracotomy tube. No evidence for pneumothorax. Patient is on insulin sliding scale. Blood sugar this morning 105 Laboratory data showed WBC 12.6 hemoglobin 7.1 and platelets 115, sodium 135 potassium 4.2 chloride 104 bicarb is 27 BUN 14 and creatinine 0.68 and albumin 3.2. 01/14/2023 Patient is currently sitting in the chair comfortably. Awake alert and oriented x3. Not in distress. On 2 L via nasal cannula and saturating at 96%. No complaints of chest pain. Patient does have exertional dyspnea. Otherwise afebrile. No cough or sputum production. Chest x-ray today showed stable postsurgical change with trace bilateral pleural effusions and left thoracotomy tube. No evidence for pneumothorax.Left pleural chest tube in place. Laboratory data showed WBC 11.3 hemoglobin 6.0 and is being transfused with 1 unit of PRBC. Platelets 110. Sodium 134 potassium 4.2 chloride 102 bicarb is 27 BUN 16 and creatinine 0.68 and calcium 7.5 blood sugar is 137 this morning. Albumin 2.9. Cardiology and pulmonary is on board. Current medications reviewed. Objective - Vital Signs Vital signs: Vital Signs Temp 98.3 F 01/14/23 12:00 Pulse 86 01/14/23 15:21 Resp 22 01/14/23 15:00 BP 92/48 01/14/23 15:00 Pulse Ox 92 L 01/14/23 15:00 FiO2 40 01/11/23 15:28 Intake & Output 01/13/23 01/14/23 01/14/23 18:59 06:59 18:59 Intake Total 1082.978 299 763 Output Total 813 894 1220 Balance 102.297 -035 -8198 Weight 91.6 kg Intake: IV 521 299 63 0.9NS Pressure Bag 51 39 3 Albumin Human 5% 250 ml 250 In Empty Bag 1 bag @ 250 mls/hr IVPB Q1HR PRN Rx#: [id number] Lactated Ringers 1,000 ml 220 260 60 @ 20 mls/hr IV .Q24H COUNTS INCLUDE 234 BEDS AT [facility] Rx#:[id number] Intake, IV Titration 1.978 100 Amount Calcium Gluconate in NaCl 100 2 gm In Saline 1 100ml. bag @ 100 mls/hr IVPB ONCE PRN Rx#:[id number] Insulin Regular 100 unit 1.978 In Sodium Chloride 0.9% 100 ml @ Per Protocol IV .Q0M COUNTS INCLUDE 234 BEDS AT THE [facility] Rx#:[id number] Oral 560 240 Blood Product 310 Rc As-1 Unit 310 [id number] Other 50 Rc As-1 Unit 50 [id number] Output: Chest Tube Drainage 130 80 70 Left Pleural/Mediastinal 130 80 70 Urine 833 213 1915 Other: Voiding Method Bedside Commode Bedside Commode Bedside Commode ABP, PAP, CO, CI - Last Documented Arterial Blood Pressure 97/46 Pulmonary Artery Pressure 25/12 Cardiac Output 5 Cardiac Index 2.6 - Exam PHYSICAL EXAMINATION: Patient is lying in the bed comfortably, no acute distress, awake alert and oriented.. HEENT: Normocephalic. Neck is supple. Pupils reactive. Nostrils clear. Oral cavity is moist. Neck reveals no JVD, carotid bruits, or thyromegaly. CHEST EXAMINATION: Trachea is central. Symmetrical expansion. Left pleural chest tube in place. Left basilar crackles. No wheezing or rhonchi.. CARDIAC: Normal S1, S2 with no gallops. No murmurs ABDOMEN: Soft. Bowel sounds present. Nontender. No organomegaly. No abdominal bruits. Extremities: Trace bilateral pedal edema. No clubbing or cyanosis Neurologically awake, alert, oriented x3 with well-coordinated movements. No focal deficits noted Skin: No rash or skin lesions. Psychiatric: Coperative. Nonsuicidal, Musculoskeletal: No joint swelling or deformity. Normal range of motion. - Labs CBC & Chem 7: 01/14/23 14:33 01/14/23 04:55 Labs: Abnormal Lab Results - Last 24 Hours (Table) 01/13/23 01/13/23 01/14/23 Range/Units 16:30 20:02 04:55 WBC 11.3 H (3.8-10.6) k/uL RBC 1.97 L (3.80-5.40) m/uL Hgb 6.0 L* (11.4-16.0) gm/dL Hct 18.3 L* (34.0-46.0) % Plt Count 110 L (150-450) k/uL Neutrophils # (Manual) 7.91 H (1.3-7.7) k/uL Monocytes # (Manual) 1.13 H (0-1.0) k/uL Sodium (137-145) mmol/L Glucose (74-99) mg/dL POC Glucose (mg/dL) 133 H 178 H (70-110) mg/dL Calcium (8.4-10.2) mg/dL Total Protein (6.3-8.2) g/dL Albumin (3.5-5.0) g/dL Crossmatch 01/14/23 01/14/23 01/14/23 Range/Units 04:55 04:55 06:40 WBC (3.8-10.6) k/uL RBC (3.80-5.40) m/uL Hgb (11.4-16.0) gm/dL Hct (34.0-46.0) % Plt Count (150-450) k/uL Neutrophils # (Manual) (1.3-7.7) k/uL Monocytes # (Manual) (0-1.0) k/uL Sodium 134 L (137-145) mmol/L Glucose 137 H (74-99) mg/dL POC Glucose (mg/dL) 150 H (70-110) mg/dL Calcium 7.5 L (8.4-10.2) mg/dL Total Protein 5.0 L (6.3-8.2) g/dL Albumin 2.9 L (3.5-5.0) g/dL Crossmatch See Detail 01/14/23 01/14/23 01/14/23 Range/Units 08:05 11:29 14:33 WBC 14.9 H 20.6 H (3.8-10.6) k/uL RBC 2.19 L 3.04 L (3.80-5.40) m/uL Hgb 6.6 L* 9.0 L D (11.4-16.0) gm/dL Hct 20.5 L 27.9 L (34.0-46.0) % Plt Count 139 L (150-450) k/uL Neutrophils # (Manual) (1.3-7.7) k/uL Monocytes # (Manual) (0-1.0) k/uL Sodium (137-145) mmol/L Glucose (74-99) mg/dL POC Glucose (mg/dL) 133 H (70-110) mg/dL Calcium (8.4-10.2) mg/dL Total Protein (6.3-8.2) g/dL Albumin (3.5-5.0) g/dL Crossmatch Assessment and Plan Assessment: Severe aortic stenosis. Status post surgical aortic valve replacement with bovine valve. Postoperative day 3 Leukocytosis likely due to postoperative inflammation reaction. improved, Acute blood loss anemia expected from surgery. Hemoglobin 6.0 on 01/14/2023 Hypertension Prediabetes Hypothyroidism with history of thyroidectomy History of diverticulitis status post bowel resection GERD Prior history of smoking DVT prophylaxis and GI prophylaxis Plan: Patient is being transfused with 1 unit of PRBC. Patient was extubated in 6hrs per protocol and is currently on 2 L via nasal cannula. Continue with incentive spirometry. Continue with DuoNebs. Recent drip has been discontinued. Patient is on insulin sliding scale. Blood sugar is controlled.. PT OT is following. Patient will be continued on home medication including levothyroxine. GI DVT prophylaxis. We will continue to follow closely and further recommendations based on the clinical course. Time with Patient: Greater than 30
[2023-01-15] MEDS: HYDROcodone/APAP 10-325MG 1 EACH TAB PO PRN ×2 (04:14→08:22)
[2023-01-15] MEDS: ONDANSETRON 4 MG/2 ML VIAL IVP PRN (04:47)
[2023-01-15 05:45] LABS: HCT 24.8 % (34.0-46.0); HGB 8.1 gm/dL (11.4-16.0); MCH 29.6 pg (25.0-35.0); MCHC 32.8 g/dL (31.0-37.0); MCV 90.3 fL (80.0-100.0); Mean Platelet Volume 8.3; Platelet Count 172 k/uL (150-450); RBC 2.75 m/uL (3.80-5.40); RDW 14.9 % (11.5-15.5); WBC 16.3 k/uL (3.8-10.6)
[2023-01-15 05:55] LABS: African American GFR (CKD) >90 (>60 ml/min/1.73 sqM); Anion Gap 8 mmol/L; Blood Urea Nitrogen 16 mg/dL (7-17); Calcium 8.1 mg/dL (8.4-10.2); Carbon Dioxide 28 mmol/L (22-30); Chloride 100 mmol/L (98-107); Glucose 121 mg/dL (74-99); Non-African American GFR(CKD) >90 (>60 ml/min/1.73 sqM); Potassium 4.2 mmol/L (3.5-5.1); Sodium 136 mmol/L (137-145)
[2023-01-15] MEDS: LEVOTHYROXINE 100 MCG TAB PO SCH (06:25)
[2023-01-15] MEDS: FERROUS SULFATE 325 MG TAB PO SCH ×2 (06:44→17:10)
[2023-01-15] MEDS: PANTOPRAZOLE 40 MG TABLET PO SCH (06:44)
[2023-01-15] MEDS: ASCORBIC ACID 500 MG TAB PO SCH ×2 (06:44→17:10)
[2023-01-15 06:46] LABS: Glucose,Whole Blood 147 mg/dL (70-110)
--- NOTE | 2023-01-15 07:31 | XR ---
EXAMINATION TYPE: XR chest 1V portable DATE OF EXAM: 01/15/2023 5:22 AM COMPARISON: Chest radiograph from one day prior. TECHNIQUE: XR chest 1V portable Frontal view of the chest. CLINICAL INDICATION:Female, 68 years old with history of post cardiac surgery; FINDINGS: Lungs/Pleura: No evidence of focal consolidation or pneumothorax. Blunting of the costophrenic angles is present. Pulmonary vascularity: Unremarkable. Heart/mediastinum: Cardiomediastinal silhouette is enlarged and stable. Post aortic valve repair clarence nges. Left atrial appendage occlusion device is present. Musculoskeletal: No acute osseous pathology. Midline sternotomy wires are noted. Other findings: None Lines/Tubes: Left thoracotomy versus mediastinal tube tube is present without evidence of pneumothorax. There is a Garland-Nelia catheter sheath in place. IMPRESSION: Stable postsurgical change with trace bilateral pleural effusions and left thoracotomy tube. No evide nce for pneumothorax.
--- NOTE | 2023-01-15 07:58 | P.PN ---
Subjective Progress Note Date: 01/15/23 Principal diagnosis: Severe symptomatic aortic stenosis, tricuspid regurgitation. Previous medical history of hypertension, hyperlipidemia, borderline diet controlled diabetes, hy pothyroid/Graves status post thyroidectomy, previous secondhand smoke exposure, bowel resection secondary to diverticulitis, GERD POD #4 aortic valve replacement with 23 mm Curtis Inspiris bovine pericardial valve, aortic root enlargement with hemashield patch (Gurinder Leahy technique), epi- aortic ultrasound, ligation of the left atrial appendage with a 35 mm AtriCure clip, intraoperative transesophageal echocardiogram performed by anesthesia Postoperative acute blood loss anemia and thrombocytopenia, expected outcomes of postoperative open heart surgery given the hemodilution and cardiopulmonary bypass pump The patient was seen and examined this morning sitting up in a recliner in the intensive care unit in no acute distress. She is continues to be worried about her hemaglobin, states postoperative pain is mostly controlled, expresses concern this morning about difficulty getting out of bed, mostly due to pain. Remains in sinus rhythm, currently hemodynamically stable. Currently on 2 L nasal cannula with oxygen saturation in the high 90s, only able to achieve 750 mL on her incentive spirometry. Chest x-ray, lab work were reviewed. Did receive 1 unit PRBCs yesterday for hemaglobin 6.0 which came up to 9 after transfusion and lasix, hemaglobin 8.1 this am. Left pleural chest tube remains. She did ambulate in hallway yesterday without difficulty. No other new concerns. Objective - Vital Signs Vital signs: Vital Signs Temp 97.6 F 01/15/23 04:00 Pulse 96 01/15/23 07:00 Resp 17 01/15/23 07:00 BP 100/50 01/15/23 07:00 Pulse Ox 96 01/15/23 07:00 FiO2 40 01/11/23 15:28 Intake & Output 01/14/23 01/15/23 01/15/23 18:59 06:59 18:59 Intake Total 883 Output Total 2245 900 0 Balance -1362 -900 0 Weight 91.8 kg Intake: IV 63 0.9NS Pressure Bag 3 Lactated Ringers 1,000 ml 60 @ 20 mls/hr IV .Q24H [facility] Rx#:[id number] Intake, IV Titration 100 Amount Calcium Gluconate in NaCl 100 2 gm In Saline 1 100ml. bag @ 100 mls/hr IVPB ONCE PRN Rx#:[id number] Oral 360 Blood Product 310 Rc As-1 Unit 310 [id number] Other 50 Rc As-1 Unit 50 [id number] Output: Chest Tube Drainage 120 100 Left Pleural/Mediastinal 70 Mediastinal 50 100 Urine 2125 800 0 Other: Voiding Method Bedside Commode Bedside Commode ABP, PAP, CO, CI - Last Documented Arterial Blood Pressure 97/46 Pulmonary Artery Pressure 25/12 Cardiac Output 5 Cardiac Index 2.6 - Exam CONSTITUTIONAL: Appears comfortable, cooperative, no acute distress RESPIRATORY: Lungs sounds diminished bilaterally. Respirations even, nonlabored. Currently on 2 L nasal cannula with oxygen saturation 97%. Able to achieve 750 mL on incentive spirometry. Strong cough. CARDIOVASCULAR: S1, S2 present. Regular rate and rhythm, sinus rhythm on telemetry. Sternum stable. Palpable peripheral pulses bilaterally. Trace upper extremity edema present. No calf pain or tenderness noted. Heart hugger in place with patient demonstrating appropriate use. Antiembolism stockings, SCDs present. GASTROINTESTINAL: Abdomen soft, nontender, nondistended. Active bowel sounds present 4 quadrants. Tolerating diet. Positive flatus, no bowel movement since surgery GENITOURINARY: Continues to void. Output 2825 mL in the last 24 hours INTEGUMENTARY: Skin is warm and dry with evidence of good perfusion. Anterior chest incision well approximated and covered with dry intact dressing NEUROLOGIC: Cranial nerves II through XII intact MUSKULOSKELETAL: Able to move all extremities, strength equal bilaterally, gait normal PSYCHIATRIC: Alert and oriented to person place and time, appropriate affect, intact judgment and insight INVASIVE LINES AND TUBES: Left pleural chest tubes present and connected to wall suction, no air leaks present, 50 mL serosanguineous drainage overnight, 250 mL in the last 24 hours. A/V epicardial pacemaker wires present, gounded. - Allied health notes Allied health notes reviewed: nursing - Labs CBC & Chem 7: 01/15/23 04:30 01/15/23 04:30 Labs: Abnormal Lab Results - Last 24 Hours (Table) 01/14/23 01/14/23 01/14/23 Range/Units 04:55 08:05 11:29 WBC 14.9 H (3.8-10.6) k/uL RBC 2.19 L (3.80-5.40) m/uL Hgb 6.6 L* (11.4-16.0) gm/dL Hct 20.5 L (34.0-46.0) % Plt Count 139 L (150-450) k/uL Sodium (137-145) mmol/L Glucose (74-99) mg/dL POC Glucose (mg/dL) 133 H (70-110) mg/dL Calcium (8.4-10.2) mg/dL Crossmatch See Detail 01/14/23 01/14/23 01/14/23 Range/Units 14:33 16:40 21:39 WBC 20.6 H (3.8-10.6) k/uL RBC 3.04 L (3.80-5.40) m/uL Hgb 9.0 L D (11.4-16.0) gm/dL Hct 27.9 L (34.0-46.0) % Plt Count (150-450) k/uL Sodium (137-145) mmol/L Glucose (74-99) mg/dL POC Glucose (mg/dL) 145 H 183 H (70-110) mg/dL Calcium (8.4-10.2) mg/dL Crossmatch 01/15/23 01/15/23 01/15/23 Range/Units 04:30 04:30 06:45 WBC 16.3 H (3.8-10.6) k/uL RBC 2.75 L (3.80-5.40) m/uL Hgb 8.1 L (11.4-16.0) gm/dL Hct 24.8 L (34.0-46.0) % Plt Count (150-450) k/uL Sodium 136 L (137-145) mmol/L Glucose 121 H (74-99) mg/dL POC Glucose (mg/dL) 147 H (70-110) mg/dL Calcium 8.1 L (8.4-10.2) mg/dL Crossmatch - Imaging and Cardiology Chest x-ray: report reviewed, image reviewed Assessment and Plan Assessment: Severe symptomatic aortic stenosis, status post bioprosthetic aortic valve replacement with aortic root enlargement Tricuspid regurgitation, moderate on previous ZOEY, trivial intraoperative History of hypertension Hyperlipidemia, treated, cholesterol 217, LDL 125, triglycerides 206 Borderline diet controlled diabetes, hemoglobin A1c 6.2% Hypothyroid/Graves status post thyroidectomy, recent TSH 0.274, free T4 2.05 Previous secondhand smoke exposure, preoperative FEV1 83% of predicted Bowel resection secondary to diverticulitis GERD Postoperative acute blood loss anemia and thrombocytopenia, expected Plan: Continue to maximize medical therapy with low-dose aspirin, statin, Plavix, beta cruz. Will increase beta cruz therapy as tolerated. Will add afterload reduction when able Wean oxygen as tolerated. Encourage incentive spirometry use 10 times every hour while awake. Bronchodilators per pulmonology Increase activity, ambulate as tolerated. PT/OT/cardiac rehab following- requested to teach how to get out of bed safely Will monitor daily labs and x-rays. Electrolyte replacement protocol. No transfusion today GI/DVT prophylaxis Pain control with current medication regimen Insulin management per internal medicine service. Patient is borderline diabetic with preoperative hemoglobin A1c 6.2%, needs tight blood sugar control to prevent infection and promote healing Will discontinue left pleural chest tube Strict accurate intake and output Daily weights Likely will place 3 south transfer orders this afternoon More recommendations to follow based on patient's progress
[2023-01-15] MEDS: INSULIN ASPART (NovoLOG) 100 UNIT/ML VIAL SQ SCH ×4 (08:10→20:50)
[2023-01-15] MEDS: HEPARIN SODIUM,PORCINE/PF 5,000 UNIT/0.5 ML SYRINGE SQ SCH ×3 (08:19→17:10)
[2023-01-15] MEDS: CALCIUM CARBONATE 500 MG CHEWABLE PO SCH (08:20)
[2023-01-15] MEDS: ASPIRIN 81 MG PO SCH (08:20)
[2023-01-15] MEDS: ATORVASTATIN 20 MG TAB PO SCH (08:20)
[2023-01-15] MEDS: CHOLECALCIFEROL 25 MCG (1000 IU) TABLET PO SCH (08:21)
[2023-01-15] MEDS: CLOPIDOGREL 75 MG TAB PO SCH (08:21)
[2023-01-15] MEDS: MULTIVITAMINS, THERA 1 EACH TAB PO SCH (08:22)
[2023-01-15] MEDS: METOPROLOL TARTRATE 12.5 MG TAB PO SCH ×3 (08:23→20:39)
--- NOTE | 2023-01-15 08:45 | P.PN ---
Subjective Progress Note Date: 01/15/23 This is a 68-year-old female patient with a known history of hypertension, gastroesophageal reflux disease, hypothyroidism, Graves' disease, diverticulitis with previous bowel resection. She also has a known history of severe aortic valve stenosis and was brought in today electively for aortic valve replacement. She received an aortic valve replacement with a 23 mm Curtis Insiris bovine pericardial valve. She is seen in the postoperative period in the intensive care unit. Intubated on mechanical ventilator currently and assist-control mode at a tidal volume of 450, FiO2 100% and a PEEP of 8. She has a left pleural chest tube in place, mediastinal chest tube in place. Right IJ Cortez-Nelia cat heter in place. Temperature venous pacing wires in place. Arterial blood gases pending. Labs are pending. The patient is seen today 01/12/2023 in follow-up in the intensive care unit. She was successfully extubated within the six-hour protocol. She is currently sitting up in a chair at the bedside. Maintaining good O2 saturations in the 90s on 2 L/m per nasal cannula. She has lactated Ringer's at 50 MLS per hour. Currently on a insulin drip at 4 units per hour. Right IJ Cortez-Nelia catheter remains in place. Cardiac output 5.0. Cardiac index 2.6. CVP 4. PA pressures 25/11. Right radial arterial line in place. Mediastinal and left pleural chest tubes remain in place. AV epicardial pacemaker wires remain in place. Backup rate of 50. Currently in sinus rhythm in the 80s. Blood pressure improved. Off Cleviprex. White count 10.7. Hemoglobin 7.1. Platelet count 121. Sodium 138. Potassium 3.7. Bicarb 24. BUN 19. Creatinine 0.66. Glucose 1:15. AST 37. ALT 15. Magnesium 2.5. Chest x-ray reveals small left pleural effusion. She continues to work well with the incentive spirometer. Continued on DuoNeb inhalations. Heparin for DVT prophylaxis. The patient is seen today 01/13/2023 in follow-up in the intensive care unit. Postoperative day #2. She is currently sitting up in a chair at the bedside. Awake and alert in no acute distress. Maintaining O2 saturations in the 90s on 2 L/m per nasal cannula. She has lactated Ringer's at 20 miles per hour. Chest x-ray reveals a small right effusion and some atelectasis at the bases. She continues working well with the incentive spirometer. Mediastinal/left pleural chest tubes remain in place. Right IJ Cordis in place. Right radial arterial line in place. AV epicardial pacer wires present. Backup rate of 50. She is remaining in sinus rhythm. White count 12.6. Hemoglobin 7.1. Platelets 115. Sodium 135. Potassium 4.2. Bicarb 27. BUN 14. Creatinine 0.68. Glucose 105. Gloria on DuoNeb inhalations. Heparin for DVT prophylaxis. She is up ambulating with assistance. The patient is seen today 01/14/2023 in follow-up in the intensive care unit. Postoperative day #3. She is awake and alert in no acute distress. Sitting up in a chair at the bedside. Maintaining good O2 saturations in the 90s on 2 L nasal cannula. Chest x-ray reveals stable trace bilateral pleural effusions with left chest tube in place. No evidence of pneumothorax. Her main complaint today is that of she did have a hemoglobin of 6.0 with a follow-up hemoglobin of 6.6. The plan is for one unit of packed blood cells today. White count 14.9. Platelets 139. Sodium 134. Potassium 4.2. Bicarb 27. BUN 16. Creatinine 0.68. Glucose 137. Currently in a negative balance. Remains on DuoNeb inhalations. Heparin for DVT prophylaxis. 01/15 2023 the patient is postop day #4, and the patient is currently on 2 L of oxygen by nasal cannula, ambulating. Left pleural chest tube still in place and output has been 50 mL over the past 24 hours. Cardiac rhythm is sinus. Pain is under adequate control and the patient has no specific complaints. Chest x-ray shows no evidence of a pneumothorax. It showed some atelectatic change in the lung bases bilaterally. Chest tube is in a good location. Terms of her hemoglobin, the patient received 2 units of packed RBC for a hemoglobin of 6.0. Her subsequent hemoglobin is at 8.1.S of the blood work shows edematous, 16.3, platelet count of 172, BUN is at 60 with a creatinine of 0.6. Sodium is at 136. No other significant events overnight. Awake and alert and following commands without any focal neurological deficits. Objective - Vital Signs Vital signs: Vital Signs Temp 97.6 F 01/15/23 04:00 Pulse 96 01/15/23 07:00 Resp 17 01/15/23 07:00 BP 100/50 01/15/23 07:00 Pulse Ox 96 01/15/23 07:00 FiO2 40 01/11/23 15:28 Intake & Output 01/14/23 01/15/23 01/15/23 18:59 06:59 18:59 Intake Total 883 Output Total 2245 900 0 Balance -1362 -900 0 Weight 91.8 kg Intake: IV 63 0.9NS Pressure Bag 3 Lactated Ringers 1,000 ml 60 @ 20 mls/hr IV .Q24H [facility] Rx#:[id number] Intake, IV Titration 100 Amount Calcium Gluconate in NaCl 100 2 gm In Saline 1 100ml. bag @ 100 mls/hr IVPB ONCE PRN Rx#:[id number] Oral 360 Blood Product 310 Rc As-1 Unit 310 [id number] Other 50 Rc As-1 Unit 50 [id number] Output: Chest Tube Drainage 120 100 Left Pleural/Mediastinal 70 Mediastinal 50 100 Urine 2125 800 0 Other: Voiding Method Bedside Commode Bedside Commode ABP, PAP, CO, CI - Last Documented Arterial Blood Pressure 97/46 Pulmonary Artery Pressure 25/12 Cardiac Output 5 Cardiac Index 2.6 - Exam GENERAL EXAM: Alert, very pleasant, pale 68-year-old female, up in a chair, on 2 L nasal cannula, fatigued, comfortable in no apparent distress. HEAD: Normocephalic. EYES: Normal reaction of pupils, equal size. NOSE: Clear with pink turbinates. THROAT: No erythema or exudates. NECK: Right IJ Cordis in place. No masses, no JVD. CHEST: Sternal dressing dry and intact. Left chest tube remain in place. AV pacemaker wires in place, grounded. LUNGS: Equal air entry with faint crackles in the bilateral bases. CVS: S1 and S2 normal with no audible murmur, regular rhythm. ABDOMEN: No hepatosplenomegaly, normal bowel sounds, no guarding or rigidity. SPINE: No scoliosis or deformity SKIN: No rashes CENTRAL NERVOUS SYSTEM: No focal deficits, tone is normal in all 4 extremities. EXTREMITIES: There is trace peripheral edema. Peripheral pulses are intact. - Labs CBC & Chem 7: 01/15/23 04:30 01/15/23 04:30 Labs: Abnormal Lab Results - Last 24 Hours (Table) 01/14/23 01/14/23 01/14/23 Range/Units 04:55 08:05 11:29 WBC 14.9 H (3.8-10.6) k/uL RBC 2.19 L (3.80-5.40) m/uL Hgb 6.6 L* (11.4-16.0) gm/dL Hct 20.5 L (34.0-46.0) % Plt Count 139 L (150-450) k/uL Sodium (137-145) mmol/L Glucose (74-99) mg/dL POC Glucose (mg/dL) 133 H (70-110) mg/dL Calcium (8.4-10.2) mg/dL Crossmatch See Detail 01/14/23 01/14/23 01/14/23 Range/Units 14:33 16:40 21:39 WBC 20.6 H (3.8-10.6) k/uL RBC 3.04 L (3.80-5.40) m/uL Hgb 9.0 L D (11.4-16.0) gm/dL Hct 27.9 L (34.0-46.0) % Plt Count (150-450) k/uL Sodium (137-145) mmol/L Glucose (74-99) mg/dL POC Glucose (mg/dL) 145 H 183 H (70-110) mg/dL Calcium (8.4-10.2) mg/dL Crossmatch 01/15/23 01/15/23 01/15/23 Range/Units 04:30 04:30 06:45 WBC 16.3 H (3.8-10.6) k/uL RBC 2.75 L (3.80-5.40) m/uL Hgb 8.1 L (11.4-16.0) gm/dL Hct 24.8 L (34.0-46.0) % Plt Count (150-450) k/uL Sodium 136 L (137-145) mmol/L Glucose 121 H (74-99) mg/dL POC Glucose (mg/dL) 147 H (70-110) mg/dL Calcium 8.1 L (8.4-10.2) mg/dL Crossmatch Assessment and Plan Plan: Severe aortic stenosis status post aortic valve replacement utilizing a 23 mm Curtis Insiris bovine pericardial valve. Postoperative day #4 Anemia, expected outcome of surgery, current hemoglobin 6.6, receiving 1 unit of packed red blood cells, current hemoglobin is at 8.1 History of hypertension Hypothyroidism status post thyroidectomy History of Graves' disease Gastroesophageal reflux disease History of diverticulitis with previous bowel resection Nonsmoker, pulmonary function testing revealed an FEV1 value of 2.0 L which was 83% of predicted Plan: The patient was seen and evaluated Clinically stable hemodynamically stable Will likely remove the left-sided chest tube today Chest x-ray was reviewed and there is no acute abnormalities. Some atelectatic change in lung bases Continue using the incentive spirometer We'll continue to follow Continue beta blockers and the patient is currently on metoprolol 12.5 mg by mouth twice a day. Continue aspirin and Plavix. Continue thyroid hormone and the patient takes 200 g of levothyroxine daily basis.
[2023-01-15] MEDS: IPRATROPIUM-ALBUTEROL 3 ML NEB INHALATION SCH ×4 (08:57→20:23)
--- NOTE | 2023-01-15 09:24 | P.PN ---
Subjective Progress Note Date: 01/15/23 The patient is a 68-year-old female who follows in the office with Dr. Wheatley. She underwent aortic valve replacement on January [address] Baxter. Postoperative recovery includes blood loss anemia. She received 1 unit of packed blood cells yesterday. The patient was interviewed and examined sitting up in the recliner chair. She had just walk the unit. She states she is slightly labored. No pain. No dizziness or lightheadedness. GENERAL: Well-appearing, well-nourished and in no acute distress. NECK: Supple without JVD or thyromegaly. LUNGS: Breath sounds clear to auscultation bilaterally. Respiration equal and unlabored. Bilateral expiratory wheezes. HEART: Regular rate and rhythm. Soft systolic murmur. No rubs or gallops. S1 and S2 heard. EXTREMITIES: Normal range of motion, no edema. No clubbing or cyanosis. Peripheral pulses intact and strong. TELEMETRY: Sinus rhythm. No arrhythmias overnight. Sinus tachycardia with ambulation. LABS: WBC 16.3, hemoglobin 8.1, hematocrit 24.8, platelet 172, sodium 136, potassium 4.2, BUN 16, creatinine 0.69, magnesium 2.0 IMPRESSION: Aortic stenosis Status post bioprosthetic aortic valve replacement Hypertension Hypothyroidism PLAN: Continue supportive treatment Aggressive pulmonary hygiene Maximize beta blockers as tolerated Further recommendations to be based on clinical course I am dictating on behalf of Dr Herbert Encarnacion's history/physical and assessment/plan. Objective - Vital Signs Vital signs: Vital Signs Temp 97.6 F 01/15/23 04:00 Pulse 96 01/15/23 07:00 Resp 17 01/15/23 07:00 BP 100/50 01/15/23 07:00 Pulse Ox 95 01/15/23 08:57 FiO2 40 01/11/23 15:28 Intake & Output 01/14/23 01/15/23 01/15/23 18:59 06:59 18:59 Intake Total 883 50 Output Total 1435 900 100 Balance -1362 -900 -50 Weight 91.8 kg Intake: IV 63 0.9NS Pressure Bag 3 Lactated Ringers 1,000 ml 60 @ 20 mls/hr IV .Q24H [facility] Rx#:[id number] Intake, IV Titration 100 Amount Calcium Gluconate in NaCl 100 2 gm In Saline 1 100ml. bag @ 100 mls/hr IVPB ONCE PRN Rx#:[id number] Oral 360 50 Blood Product 310 Rc As-1 Unit 310 [id number] Other 50 Rc As-1 Unit 50 [id number] Output: Chest Tube Drainage 120 100 Left Pleural/Mediastinal 70 Mediastinal 50 100 Urine 2125 800 100 Other: Voiding Method Bedside Commode Bedside Commode ABP, PAP, CO, CI - Last Documented Arterial Blood Pressure 97/46 Pulmonary Artery Pressure 25/12 Cardiac Output 5 Cardiac Index 2.6 - Labs CBC & Chem 7: 01/15/23 04:30 01/15/23 04:30 Labs: Abnormal Lab Results - Last 24 Hours (Table) 01/14/23 01/14/23 01/14/23 Range/Units 04:55 11:29 14:33 WBC 20.6 H (3.8-10.6) k/uL RBC 3.04 L (3.80-5.40) m/uL Hgb 9.0 L D (11.4-16.0) gm/dL Hct 27.9 L (34.0-46.0) % Sodium (137-145) mmol/L Glucose (74-99) mg/dL POC Glucose (mg/dL) 133 H (70-110) mg/dL Calcium (8.4-10.2) mg/dL Crossmatch See Detail 01/14/23 01/14/23 01/15/23 Range/Units 16:40 21:39 04:30 WBC 16.3 H (3.8-10.6) k/uL RBC 2.75 L (3.80-5.40) m/uL Hgb 8.1 L (11.4-16.0) gm/dL Hct 24.8 L (34.0-46.0) % Sodium (137-145) mmol/L Glucose (74-99) mg/dL POC Glucose (mg/dL) 145 H 183 H (70-110) mg/dL Calcium (8.4-10.2) mg/dL Crossmatch 01/15/23 01/15/23 Range/Units 04:30 06:45 WBC (3.8-10.6) k/uL RBC (3.80-5.40) m/uL Hgb (11.4-16.0) gm/dL Hct (34.0-46.0) % Sodium 136 L (137-145) mmol/L Glucose 121 H (74-99) mg/dL POC Glucose (mg/dL) 147 H (70-110) mg/dL Calcium 8.1 L (8.4-10.2) mg/dL Crossmatch
[2023-01-15 11:45] LABS: Glucose,Whole Blood 122 mg/dL (70-110)
[2023-01-15] MEDS: HYDROcodone/APAP 5-325MG 1 EACH TAB PO PRN (12:48)
[2023-01-15] MEDS ORDERED: MAGNESIUM HYDROXIDE 2,400 MG/30 ML CUP PO PRN (15:54)
[2023-01-15 16:34] LABS: Glucose,Whole Blood 183 mg/dL (70-110)
[2023-01-15] MEDS: ACETAMINOPHEN TAB 325 MG TAB PO PRN (20:36)
[2023-01-15] MEDS: SENNOSIDES-DOCUSATE SODIUM 1 EACH TAB PO SCH (20:39)
[2023-01-15 20:46] LABS: Glucose,Whole Blood 180 mg/dL (70-110)
[2023-01-16] MEDS: HEPARIN SODIUM,PORCINE/PF 5,000 UNIT/0.5 ML SYRINGE SQ SCH ×4 (01:05→23:00)
[2023-01-16] MEDS: ACETAMINOPHEN TAB 325 MG TAB PO PRN ×5 (01:05→22:23)
[2023-01-16] MEDS: METOPROLOL TARTRATE 12.5 MG TAB PO SCH ×4 (01:07→23:01)
--- NOTE | 2023-01-16 02:07 | PN ---
PROGRESS NOTE DATE OF SERVICE: 01/15/2023 SUBJECTIVE: This is a 68-year-old woman with a past medical history of multiple medical problems, underwent surgical aortic valve replacement for severe aortic stenosis. The patient has some leukocytosis and acute blood loss anemia as expected from surgery. The patient was closely monitored. The patient has also working with incentive spirometry. The most recent chest x-ray which I reviewed personally showed some atelectasis. PAST MEDICAL HISTORY: Reviewed. REVIEW OF SYSTEMS: A 14-point review is negative except as mentioned earlier. CURRENT MEDICATIONS: Reviewed include DuoNeb, dose and rest of medication noted. PHYSICAL EXAMINATION: VITAL SIGNS: Pulse is 96, blood pressure 106/50, respirations 19. CHEST: A few scattered rhonchi and crackles. ABDOMEN: Soft. NERVOUS SYSTEM: Nonfocal. LABORATORY DATA: Reviewed. ASSESSMENT: 1. Severe aortic stenosis, status post aortic valve replacement surgical. 2. Leukocytosis. 3. Acute blood loss anemia as expected. 4. Atelectasis as expected. 5. Hypertension. 6. Prediabetes. 7. Hypothyroidism. 8. Multiple medical issues. RECOMMENDATIONS: Recommend to continue current management and continue symptomatic treatment. Otherwise, repeat labs. Incentive spirometry. Bronchodilators. Closely follow with multiple consultants. DVT prophylaxis. Further recommendations to follow. MMODL / IJN: [id number] /
[2023-01-16 06:08] LABS: African American GFR (CKD) >90 (>60 ml/min/1.73 sqM); Anion Gap 7 mmol/L; Blood Urea Nitrogen 15 mg/dL (7-17); Calcium 7.9 mg/dL (8.4-10.2); Carbon Dioxide 28 mmol/L (22-30); Chloride 98 mmol/L (98-107); Glucose 123 mg/dL (74-99); Non-African American GFR(CKD) >90 (>60 ml/min/1.73 sqM); Potassium 4.3 mmol/L (3.5-5.1); Sodium 133 mmol/L (137-145)
[2023-01-16 06:13] LABS: HCT 22.4 % (34.0-46.0); HGB 7.5 gm/dL (11.4-16.0); MCH 31.1 pg (25.0-35.0); MCHC 33.6 g/dL (31.0-37.0); MCV 92.6 fL (80.0-100.0); Mean Platelet Volume 7.8; Platelet Count 182 k/uL (150-450); RBC 2.42 m/uL (3.80-5.40); RDW 14.6 % (11.5-15.5)
[2023-01-16] MEDS: ASCORBIC ACID 500 MG TAB PO SCH ×2 (06:30→19:01)
[2023-01-16] MEDS: LEVOTHYROXINE 100 MCG TAB PO SCH (06:30)
[2023-01-16] MEDS: FERROUS SULFATE 325 MG TAB PO SCH ×2 (06:30→19:01)
[2023-01-16] MEDS: PANTOPRAZOLE 40 MG TABLET PO SCH (06:31)
[2023-01-16 06:37] LABS: Glucose,Whole Blood 137 mg/dL (70-110)
[2023-01-16] MEDS: INSULIN ASPART (NovoLOG) 100 UNIT/ML VIAL SQ SCH ×4 (06:45→20:43)
--- NOTE | 2023-01-16 07:43 | P.PN ---
Subjective Progress Note Date: 01/16/23 Principal diagnosis: Severe symptomatic aortic stenosis, tricuspid regurgitation. Previous medical history of hypertension, hyperlipidemia, borderline diet controlled diabetes, hy pothyroid/Graves status post thyroidectomy, previous secondhand smoke exposure, bowel resection secondary to diverticulitis, GERD POD #5 aortic valve replacement with 23 mm Curtis Inspiris bovine pericardial valve, aortic root enlargement with hemashield patch (Gurinder Leahy technique), epi- aortic ultrasound, ligation of the left atrial appendage with a 35 mm AtriCure clip, intraoperative transesophageal echocardiogram performed by anesthesia Postoperative acute blood loss anemia and thrombocytopenia, expected outcomes of postoperative open heart surgery given the hemodilution and cardiopulmonary bypass pump The patient was seen and examined this morning sitting up in a recliner in the intensive care unit in no acute distress. States pain is controlled on tylenol, denies shortness of breath except with ambulation. Remains in sinus rhythm, currently hemodynamically stable although blood pressures remain a bit soft. Currently on 1 L nasal cannula with oxygen saturation in the mid 90s, able to achieve 1000 mL on her incentive spirometry. Chest x-ray, lab work were reviewed. She has ambulated in hallway without difficulty. Transfer orders placed yesterday for stepdown unit, no beds available. No other new concerns. Objective - Vital Signs Vital signs: Vital Signs Temp 98 F 01/16/23 04:00 Pulse 76 01/16/23 07:00 Resp 24 01/16/23 07:00 BP 91/51 01/16/23 04:00 Pulse Ox 93 L 01/16/23 07:00 FiO2 40 01/11/23 15:28 Intake & Output 01/15/23 01/16/23 01/16/23 18:59 06:59 18:59 Intake Total 950 240 Output Total 700 975 0 Balance 250 -735 0 Weight 91.8 kg Intake: Oral 950 240 Output: Urine 700 975 0 Other: Voiding Method Bedside Commode Bedside Commode # Voids 1 # Bowel Movements 1 ABP, PAP, CO, CI - Last Documented Arterial Blood Pressure 97/46 Pulmonary Artery Pressure 25/12 Cardiac Output 5 Cardiac Index 2.6 - Exam CONSTITUTIONAL: Appears comfortable, cooperative, no acute distress RESPIRATORY: Lungs sounds diminished bilaterally. Respirations even, nonlabored. Currently on 1 L nasal cannula with oxygen saturation 95%. Able to achieve 1000 mL on incentive spirometry. Strong nonproductive cough. CARDIOVASCULAR: S1, S2 present. Regular rate and rhythm, sinus rhythm on telemetry. Sternum stable. Palpable peripheral pulses bilaterally. No edema present. No calf pain or tenderness noted. Heart hugger in place with patient demonstrating appropriate use. Antiembolism stockings, SCDs present. GASTROINTESTINAL: Abdomen soft, nontender, nondistended. Active bowel sounds present 4 quadrants. Tolerating diet. Positive bowel movement GENITOURINARY: Continues to void. Output 1675 mL in the last 24 hours INTEGUMENTARY: Skin is warm and dry with evidence of good perfusion. Anterior chest incision well approximated and covered with dry intact dressing NEUROLOGIC: Cranial nerves II through XII intact MUSKULOSKELETAL: Able to move all extremities, strength equal bilaterally, gait normal PSYCHIATRIC: Alert and oriented to person place and time, appropriate affect, intact judgment and insight INVASIVE LINES AND TUBES: A/V epicardial pacemaker wires present, gounded. - Allied health notes Allied health notes reviewed: nursing - Labs CBC & Chem 7: 01/16/23 05:05 01/16/23 05:05 Labs: Abnormal Lab Results - Last 24 Hours (Table) 01/15/23 01/15/23 01/15/23 Range/Units 11:43 16:32 20:45 WBC (3.8-10.6) k/uL RBC (3.80-5.40) m/uL Hgb (11.4-16.0) gm/dL Hct (34.0-46.0) % Sodium (137-145) mmol/L Glucose (74-99) mg/dL POC Glucose (mg/dL) 122 H 183 H 180 H (70-110) mg/dL Calcium (8.4-10.2) mg/dL 01/16/23 01/16/23 01/16/23 Range/Units 05:05 05:05 06:36 WBC 14.0 H (3.8-10.6) k/uL RBC 2.42 L (3.80-5.40) m/uL Hgb 7.5 L (11.4-16.0) gm/dL Hct 22.4 L (34.0-46.0) % Sodium 133 L (137-145) mmol/L Glucose 123 H (74-99) mg/dL POC Glucose (mg/dL) 137 H (70-110) mg/dL Calcium 7.9 L (8.4-10.2) mg/dL - Imaging and Cardiology Chest x-ray: image reviewed Assessment and Plan Assessment: Severe symptomatic aortic stenosis, status post bioprosthetic aortic valve replacement with aortic root enlargement Tricuspid regurgitation, moderate on previous ZOEY, trivial intraoperative History of hypertension Hyperlipidemia, treated, cholesterol 217, LDL 125, triglycerides 206 Borderline diet controlled diabetes, hemoglobin A1c 6.2% Hypothyroid/Graves status post thyroidectomy, recent TSH 0.274, free T4 2.05 Previous secondhand smoke exposure, preoperative FEV1 83% of predicted Bowel resection secondary to diverticulitis GERD Postoperative acute blood loss anemia and thrombocytopenia, expected Plan: Continue to maximize medical therapy with low-dose aspirin, statin, Plavix, beta cruz. Will increase beta cruz therapy as tolerated Wean oxygen as tolerated. Encourage incentive spirometry use 10 times every hour while awake. Bronchodilators per pulmonology Increase activity, ambulate as tolerated. PT/OT/cardiac rehab following Will monitor daily labs and x-rays. Electrolyte replacement protocol GI/DVT prophylaxis Pain control with current medication regimen Insulin management per internal medicine service. Patient is borderline diabetic with preoperative hemoglobin A1c 6.2%, needs tight blood sugar control to prevent infection and promote healing Shower daily starting today Strict accurate intake and output Daily weights Transfer orders placed yesterday for [facility] [address], may transfer when bed available Discharge planning in progress, anticipate discharge to home in the next 24 hours More recommendations to follow based on patient's progress
--- NOTE | 2023-01-16 08:24 | XR ---
EXAMINATION TYPE: XR chest 2V DATE OF EXAM: 01/16/2023 COMPARISON: 01/15/2023 TECHNIQUE: PA and lateral views submitted. HISTORY: Postcardiac surgery FINDINGS: The heart is enlarged and there is postoperative change in the aortic valve replacement. There is no evidence of reflux. Bilateral infiltrate and pleural effusion superimposed on background COPD. Interv al removal of left-sided chest tube with no sizable pneumothorax. Mild central interstitial prominenc e. Hypertrophic and degenerative change of the spine. Findings suggest epicardial lead. IMPRESSION: 1. Cardiomegaly with bilateral infiltrate and pleural effusion correlate for mild central venous dennis estion. 2. No sizable pneumothorax.
--- NOTE | 2023-01-16 08:48 | P.PN ---
Subjective Progress Note Date: 01/16/23 This is a 68-year-old female patient with a known history of hypertension, gastroesophageal reflux disease, hypothyroidism, Graves' disease, diverticulitis with previous bowel resection. She also has a known history of severe aortic valve stenosis and was brought in today electively for aortic valve replacement. She received an aortic valve replacement with a 23 mm Curtis Insiris bovine pericardial valve. She is seen in the postoperative period in the intensive care unit. Intubated on mechanical ventilator currently and assist-control mode at a tidal volume of 450, FiO2 100% and a PEEP of 8. She has a left pleural chest tube in place, mediastinal chest tube in place. Right IJ Cotati-Nelia cat heter in place. Temperature venous pacing wires in place. Arterial blood gases pending. Labs are pending. The patient is seen today 01/12/2023 in follow-up in the intensive care unit. She was successfully extubated within the six-hour protocol. She is currently sitting up in a chair at the bedside. Maintaining good O2 saturations in the 90s on 2 L/m per nasal cannula. She has lactated Ringer's at 50 MLS per hour. Currently on a insulin drip at 4 units per hour. Right IJ Cotati-Nelia catheter remains in place. Cardiac output 5.0. Cardiac index 2.6. CVP 4. PA pressures 25/11. Right radial arterial line in place. Mediastinal and left pleural chest tubes remain in place. AV epicardial pacemaker wires remain in place. Backup rate of 50. Currently in sinus rhythm in the 80s. Blood pressure improved. Off Cleviprex. White count 10.7. Hemoglobin 7.1. Platelet count 121. Sodium 138. Potassium 3.7. Bicarb 24. BUN 19. Creatinine 0.66. Glucose 1:15. AST 37. ALT 15. Magnesium 2.5. Chest x-ray reveals small left pleural effusion. She continues to work well with the incentive spirometer. Continued on DuoNeb inhalations. Heparin for DVT prophylaxis. The patient is seen today 01/13/2023 in follow-up in the intensive care unit. Postoperative day #2. She is currently sitting up in a chair at the bedside. Awake and alert in no acute distress. Maintaining O2 saturations in the 90s on 2 L/m per nasal cannula. She has lactated Ringer's at 20 miles per hour. Chest x-ray reveals a small right effusion and some atelectasis at the bases. She continues working well with the incentive spirometer. Mediastinal/left pleural chest tubes remain in place. Right IJ Cordis in place. Right radial arterial line in place. AV epicardial pacer wires present. Backup rate of 50. She is remaining in sinus rhythm. White count 12.6. Hemoglobin 7.1. Platelets 115. Sodium 135. Potassium 4.2. Bicarb 27. BUN 14. Creatinine 0.68. Glucose 105. Gloria on DuoNeb inhalations. Heparin for DVT prophylaxis. She is up ambulating with assistance. The patient is seen today 01/14/2023 in follow-up in the intensive care unit. Postoperative day #3. She is awake and alert in no acute distress. Sitting up in a chair at the bedside. Maintaining good O2 saturations in the 90s on 2 L nasal cannula. Chest x-ray reveals stable trace bilateral pleural effusions with left chest tube in place. No evidence of pneumothorax. Her main complaint today is that of she did have a hemoglobin of 6.0 with a follow-up hemoglobin of 6.6. The plan is for one unit of packed blood cells today. White count 14.9. Platelets 139. Sodium 134. Potassium 4.2. Bicarb 27. BUN 16. Creatinine 0.68. Glucose 137. Currently in a negative balance. Remains on DuoNeb inhalations. Heparin for DVT prophylaxis. 01/15 2023 the patient is postop day #4, and the patient is currently on 2 L of oxygen by nasal cannula, ambulating. Left pleural chest tube still in place and output has been 50 mL over the past 24 hours. Cardiac rhythm is sinus. Pain is under adequate control and the patient has no specific complaints. Chest x-ray shows no evidence of a pneumothorax. It showed some atelectatic change in the lung bases bilaterally. Chest tube is in a good location. Terms of her hemoglobin, the patient received 2 units of packed RBC for a hemoglobin of 6.0. Her subsequent hemoglobin is at 8.1.S of the blood work shows edematous, 16.3, platelet count of 172, BUN is at 60 with a creatinine of 0.6. Sodium is at 136. No other significant events overnight. Awake and alert and following commands without any focal neurological deficits. On today's evaluation of 01/16/2023, seeing the patient for a follow-up. She is postop day #5 following day open-heart surgery with about replacement. The patient had an aortic valve replacement. On today's evaluation, the patient is still using the incentive spirometer, 20,000, chest x-ray was reviewed and shows atelectatic changes in lung bases bilaterally. She is in normal sinus rhythm. Hemoglobin stable at 7.5. White cell count at 14. Electrolytes are normal, renal function is normal. She is afebrile in the surgical one-sided striking and intact. Chest tubes have been removed. The patient's Smith catheter has b een removed. Hematologic profile shows a stable platelet count of 182. No bleeding. Objective - Vital Signs Vital signs: Vital Signs Temp 98 F 01/16/23 04:00 Pulse 76 01/16/23 07:00 Resp 24 01/16/23 07:00 BP 91/51 01/16/23 04:00 Pulse Ox 93 L 01/16/23 07:00 FiO2 40 01/11/23 15:28 Intake & Output 01/15/23 01/16/23 01/16/23 18:59 06:59 18:59 Intake Total 950 240 Output Total 700 975 0 Balance 250 -735 0 Weight 91.8 kg Intake: Oral 950 240 Output: Urine 700 975 0 Other: Voiding Method Bedside Commode Bedside Commode # Voids 1 # Bowel Movements 1 ABP, PAP, CO, CI - Last Documented Arterial Blood Pressure 97/46 Pulmonary Artery Pressure 25/12 Cardiac Output 5 Cardiac Index 2.6 - Exam GENERAL EXAM: Alert, very pleasant, pale 68-year-old female, up in a chair, on 2 L nasal cannula, fatigued, comfortable in no apparent distress. HEAD: Normocephalic. EYES: Normal reaction of pupils, equal size. NOSE: Clear with pink turbinates. THROAT: No erythema or exudates. NECK: Right IJ Cordis in place. No masses, no JVD. CHEST: Sternal dressing dry and intact. She'll submit removed and AV pacemaker wires in place, grounded. LUNGS: Equal air entry with faint crackles in the bilateral bases. CVS: S1 and S2 normal with no audible murmur, regular rhythm. ABDOMEN: No hepatosplenomegaly, normal bowel sounds, no guarding or rigidity. SPINE: No scoliosis or deformity SKIN: No rashes CENTRAL NERVOUS SYSTEM: No focal deficits, tone is normal in all 4 extremities. EXTREMITIES: There is trace peripheral edema. Peripheral pulses are intact. - Labs CBC & Chem 7: 01/16/23 05:05 01/16/23 05:05 Labs: Abnormal Lab Results - Last 24 Hours (Table) 01/15/23 01/15/23 01/15/23 Range/Units 11:43 16:32 20:45 WBC (3.8-10.6) k/uL RBC (3.80-5.40) m/uL Hgb (11.4-16.0) gm/dL Hct (34.0-46.0) % Sodium (137-145) mmol/L Glucose (74-99) mg/dL POC Glucose (mg/dL) 122 H 183 H 180 H (70-110) mg/dL Calcium (8.4-10.2) mg/dL 01/16/23 01/16/23 01/16/23 Range/Units 05:05 05:05 06:36 WBC 14.0 H (3.8-10.6) k/uL RBC 2.42 L (3.80-5.40) m/uL Hgb 7.5 L (11.4-16.0) gm/dL Hct 22.4 L (34.0-46.0) % Sodium 133 L (137-145) mmol/L Glucose 123 H (74-99) mg/dL POC Glucose (mg/dL) 137 H (70-110) mg/dL Calcium 7.9 L (8.4-10.2) mg/dL Assessment and Plan Plan: Severe aortic stenosis status post aortic valve replacement utilizing a 23 mm Curtis Insiris bovine pericardial valve. Postoperative day #5 Anemia, expected outcome of surgery, current hemoglobin 6.6, receiving 1 unit of packed red blood cells, current hemoglobin is at 7.5 History of hypertension Hypothyroidism status post thyroidectomy History of Graves' disease Gastroesophageal reflux disease History of diverticulitis with previous bowel resection Nonsmoker, pulmonary function testing revealed an FEV1 value of 2.0 L which was 83% of predicted Plan: Chest tubes have been removed Using the incentive spirometer Ambulating Had a bowel movement yesterday Tolerating diet The patient was seen and evaluated Clinically stable hemodynamically stable Chest x-ray was reviewed and there is no acute abnormalities. Some atelectatic change in lung bases Continue using the incentive spirometer We'll continue to follow Continue beta blockers and the patient is currently on metoprolol 12.5 mg by mouth QID a day. Continue aspirin and Plavix. Continue thyroid hormone and the patient takes 200 g of levothyroxine daily basis.
--- NOTE | 2023-01-16 08:53 | P.PN ---
Subjective Progress Note Date: 01/16/23 The patient is a 68-year-old female who follows in the office with Dr. Wheatley. She underwent aortic valve replacement on January [address] Baxter. Postoperative recovery includes blood loss anemia, requiring transfusion. The patient was interviewed and examined sitting up in the recliner chair. She states her pain is well controlled. No exertional shortness of breath or orthopnea. No dizziness or lightheadedness when standing. GENERAL: Well-appearing, well-nourished and in no acute distress. NECK: Supple without JVD or thyromegaly. LUNGS: Breath sounds clear to auscultation bilaterally. Respiration equal and unlabored. Bilateral expiratory wheezes. HEART: Regular rate and rhythm. Soft systolic murmur. No rubs or gallops. S1 and S2 heard. Heart hugger in place. EXTREMITIES: Normal range of motion, no edema. No clubbing or cyanosis. Peripheral pulses intact and strong. TELEMETRY: Sinus rhythm. No arrhythmias overnight. LABS: WBC 14.0, hemoglobin 7.5, hematocrit 22.4, platelet 182, sodium 133, potassium 4.3, BUN 15, creatinine 0.64 IMPRESSION: Aortic stenosis Status post bioprosthetic aortic valve replacement Hypertension Hypothyroidism PLAN: Continue supportive treatment Aggressive pulmonary hygiene Maximize beta blockers as tolerated Further recommendations to be based on clinical course I am dictating on behalf of Dr Herbert Encarnacion's history/physical and assessment/ plan. Objective - Vital Signs Vital signs: Vital Signs Temp 98 F 01/16/23 04:00 Pulse 76 01/16/23 07:00 Resp 24 01/16/23 07:00 BP 91/51 01/16/23 04:00 Pulse Ox 93 L 01/16/23 07:00 FiO2 40 01/11/23 15:28 Intake & Output 01/15/23 01/16/23 01/16/23 18:59 06:59 18:59 Intake Total 950 240 Output Total 700 975 0 Balance 250 -735 0 Weight 91.8 kg Intake: Oral 950 240 Output: Urine 700 975 0 Other: Voiding Method Bedside Commode Bedside Commode # Voids 1 # Bowel Movements 1 ABP, PAP, CO, CI - Last Documented Arterial Blood Pressure 97/46 Pulmonary Artery Pressure 25/12 Cardiac Output 5 Cardiac Index 2.6 - Labs CBC & Chem 7: 01/16/23 05:05 01/16/23 05:05 Labs: Abnormal Lab Results - Last 24 Hours (Table) 01/15/23 01/15/23 01/15/23 Range/Units 11:43 16:32 20:45 WBC (3.8-10.6) k/uL RBC (3.80-5.40) m/uL Hgb (11.4-16.0) gm/dL Hct (34.0-46.0) % Sodium (137-145) mmol/L Glucose (74-99) mg/dL POC Glucose (mg/dL) 122 H 183 H 180 H (70-110) mg/dL Calcium (8.4-10.2) mg/dL 01/16/23 01/16/23 01/16/23 Range/Units 05:05 05:05 06:36 WBC 14.0 H (3.8-10.6) k/uL RBC 2.42 L (3.80-5.40) m/uL Hgb 7.5 L (11.4-16.0) gm/dL Hct 22.4 L (34.0-46.0) % Sodium 133 L (137-145) mmol/L Glucose 123 H (74-99) mg/dL POC Glucose (mg/dL) 137 H (70-110) mg/dL Calcium 7.9 L (8.4-10.2) mg/dL
[2023-01-16] MEDS: IPRATROPIUM-ALBUTEROL 3 ML NEB INHALATION SCH ×4 (09:15→20:37)
[2023-01-16] MEDS: CALCIUM CARBONATE 500 MG CHEWABLE PO SCH (10:25)
[2023-01-16] MEDS: CHOLECALCIFEROL 25 MCG (1000 IU) TABLET PO SCH (10:25)
[2023-01-16] MEDS: MULTIVITAMINS, THERA 1 EACH TAB PO SCH (10:26)
[2023-01-16] MEDS: ASPIRIN 81 MG PO SCH (10:26)
[2023-01-16] MEDS: CLOPIDOGREL 75 MG TAB PO SCH (10:26)
[2023-01-16] MEDS: ATORVASTATIN 20 MG TAB PO SCH (10:26)
[2023-01-16 11:36] LABS: Glucose,Whole Blood 115 mg/dL (70-110)
--- NOTE | 2023-01-16 15:56 | P.PN ---
Subjective Progress Note Date: 01/16/23 Patient is a 68-year-old female with a known history of hypertension, prediabetes, GERD, osteoarthritis, diverticulitis with history of bowel resection hypothyroidism and prior history of smoking and severe aortic stenosis was admitted to the hospital for elective aortic valve replacement. Patient is s/p replacement with bovine pericardial valve. Patient was intubated perioperatively and was transferred to MICU. Currently on Ventilator with assist control with FiO2 450 and PEEP of 8. Chest x-ray showed left lower lobe infiltrate with small effusion. Postoperative changes. ABG showed pH 7.38 PCO2 42 and PO2 202 WBC 17.2 hemoglobin 10.6 and platelets 128 Sodium 137 potassium 4.3 chloride 108 bicarb 23 BUN 19 and creatinine 0.65 blood sugar is 138 and albumin 2.8. 01/12/2023 Patient is currently in the MICU. Was extubated successfully yesterday. Currently on oxygen at 2 L via nasal cannula. Able to sit up in the chair. Pleural and mediastinal chest tubes in place. Epicardial pacemaker wires in place. Patient is being continued on incentive spirometry and DuoNebs. On insulin drip. Blood sugars controlled. Laboratory data showed WBC 10.7 hemoglobin 7.1 and platelets 121, sodium 138 potassium 3.7 chloride 107 bicarb 24 BUN 19 and creatinine 0.66 Blood sugar 105 calcium 7.4 AST 37 albumin 3.1. 01/13/2023 Patient is postoperative day 2 Currently sitting in the chair. Complains of shortness of breath with exertion and while moving to the chair. Denies any complaints of chest pain. Requiring 2 L oxygen via nasal cannula. Left pleural and mediastinal chest tubes in place. Chest x-ray showed stable postsurgical changes with trace bilateral pleural effusions and left thoracotomy tube. No evidence for pneumothorax. Patient is on insulin sliding scale. Blood sugar this morning 105 Laboratory data showed WBC 12.6 hemoglobin 7.1 and platelets 115, sodium 135 potassium 4.2 chloride 104 bicarb is 27 BUN 14 and creatinine 0.68 and albumin 3.2. 01/14/2023 Patient is currently sitting in the chair comfortably. Awake alert and oriented x3. Not in distress. On 2 L via nasal cannula and saturating at 96%. No complaints of chest pain. Patient does have exertional dyspnea. Otherwise afebrile. No cough or sputum production. Chest x-ray today showed stable postsurgical change with trace bilateral pleural effusions and left thoracotomy tube. No evidence for pneumothorax.Left pleural chest tube in place. Laboratory data showed WBC 11.3 hemoglobin 6.0 and is being transfused with 1 unit of PRBC. Platelets 110. Sodium 134 potassium 4.2 chloride 102 bicarb is 27 BUN 16 and creatinine 0.68 and calcium 7.5 blood sugar is 137 this morning. Albumin 2.9. Cardiology and pulmonary is on board. 01/15/2023 Patient is seen and evaluated in follow-up this morning continues to be in ICU with multiple medical consultations following. Patient has had chest tubes removed and Smith catheter currently getting up status post for shower from cardiac surgery and doing well. Per nursing staff patient is improved on her incentive spirometer achieving over 1000 and has been frequently using. Encouraged to continue using at least 10 times every hour while awake. Chest x- ray shows some vascular congestion and weaning FiO2 as tolerated. Patient is currently 96% on 1 L. Encouraged to increase activity as tolerated with restrictions per CT surgery. Patient's blood pressures are soft and recommend monitoring closely. WBC is trending down currently at 14 and hemoglobin is 7.5. Sodium is 133 with a potassium of 4.3 and creatinine is 0.64. Blood sugars being monitored and appeared to be improved. Patient is afebrile denies chest pain or shortness of breath. Patient does have some chest wall pain which is to be expected. Patient denies nausea or vomiting and tolerating diet. Recommend follow-up labs in a.m. along with repeat chest x-ray. Review of systems: Constitutional: No reports of fatigue, fever, or chills Cardiovascular: No reports of chest pain or palpitations Respiratory: No reports of shortness of breath or cough GI: No reports of nausea, vomiting, or diarrhea : No reports of dysuria or retention Neurovascular: No reports of weakness or numbness All medications have been reviewed PHYSICAL EXAMINATION: Patient is up in the shower, awake alert and oriented.. HEENT: Normocephalic. Neck is supple. Pupils reactive. Nostrils clear. Oral cavity is moist. Neck reveals no JVD, carotid bruits, or thyromegaly. CHEST EXAMINATION: Trachea is central. Symmetrical expansion. Left pleural chest tube in place. Left basilar crackles. No wheezing or rhonchi.. CARDIAC: Normal S1, S2 with no gallops. No murmurs ABDOMEN: Soft. Bowel sounds present. Nontender. No organomegaly. No abdominal bruits. Extremities: Trace bilateral pedal edema. No clubbing or cyanosis Neurologically awake, alert, oriented x3 with well-coordinated movements. No focal deficits noted Skin: No rash or skin lesions. Psychiatric: Coperative. Nonsuicidal, Musculoskeletal: No joint swelling or deformity. Normal range of motion. Assessment: Severe aortic stenosis. Status post surgical aortic valve replacement with bovine valve. Postoperative day 4 Leukocytosis likely due to postoperative inflammation reaction. improving Acute blood loss anemia expected from surgery. Hemoglobin 6.0 on 01/14/2023 Atelectasis, as expected, improving Hypertension Prediabetes Hypothyroidism with history of thyroidectomy History of diverticulitis status post bowel resection GERD Prior history of smoking DVT prophylaxis and GI prophylaxis Full code Plan: Patient continues to be in the ICU currently up in the shower doing well and has had chest tubes along with Smith catheter removed, due to void Chest x-ray shows some pulmonary congestion and patient is currently maintaining oxygen saturation of 96% on 1 L. Patient continues with incentive spirometer and has been achieving over thousand. Recommend continue using at least 10 time s every hour while awake Recommend tight glycemic control and will continue to monitor Accu-Cheks before meals and at bedtime and continue sliding scale as needed PT OT is following. Recommend increased activity as tolerated Patient will be continued on home medication including levothyroxine. Continue GI DVT prophylaxis. We will continue to follow closely with cardiothoracic surgery during ho spitalization. Thank you kindly for this consultation. The impression and plan of care has been dictated by Susana Limon, Nurse Practitioner as directed. Dr. Kishan MD I have performed a history and examination and MDM of this patient, discussed the same with the dictator, and agree with the dictator's assessment and plan as written ,documented as a scribe. Based on total visit time, I have performed more than 50% of the visit. Objective - Vital Signs Vital signs: Vital Signs Temp 97.9 F 01/16/23 08:00 Pulse 81 01/16/23 10:00 Resp 24 01/16/23 10:00 BP 99/46 01/16/23 11:00 Pulse Ox 96 01/16/23 10:00 FiO2 40 01/11/23 15:28 Intake & Output 01/15/23 01/16/2323 18:59 06:59 18:59 Intake Total 950 240 450 Output Total 261 687 9019 Balance 250 -735 -750 Weight 91.8 kg Intake: Oral 950 240 450 Output: Urine 805 208 2444 Other: Voiding Method Bedside Commode Bedside Commode # Voids 1 # Bowel Movements 1 ABP, PAP, CO, CI - Last Documented Arterial Blood Pressure 97/46 Pulmonary Artery Pressure 25/12 Cardiac Output 5 Cardiac Index 2.6 - Labs CBC & Chem 7: 01/16/23 05:05 01/16/23 05:05 Labs: Abnormal Lab Results - Last 24 Hours (Table) 01/15/23 01/15/23 01/16/23 Range/Units 16:32 20:45 05:05 WBC 14.0 H (3.8-10.6) k/uL RBC 2.42 L (3.80-5.40) m/uL Hgb 7.5 L (11.4-16.0) gm/dL Hct 22.4 L (34.0-46.0) % Sodium (137-145) mmol/L Glucose (74-99) mg/dL POC Glucose (mg/dL) 183 H 180 H (70-110) mg/dL Calcium (8.4-10.2) mg/dL 01/16/23 01/16/23 01/16/23 Range/Units 05:05 06:36 11:34 WBC (3.8-10.6) k/uL RBC (3.80-5.40) m/uL Hgb (11.4-16.0) gm/dL Hct (34.0-46.0) % Sodium 133 L (137-145) mmol/L Glucose 123 H (74-99) mg/dL POC Glucose (mg/dL) 137 H 115 H (70-110) mg/dL Calcium 7.9 L (8.4-10.2) mg/dL
[2023-01-16 20:17] LABS: Glucose,Whole Blood 123 mg/dL (70-110)
[2023-01-16] MEDS: DOCUSATE 100 MG CAP PO SCH (20:54)
[2023-01-16] MEDS: MAGNESIUM OXIDE 400 MG TAB PO SCH (20:54)
[2023-01-16] MEDS: CYCLOBENZAPRINE 5 MG TAB PO PRN (20:54)
[2023-01-16] MEDS: SENNOSIDES-DOCUSATE SODIUM 1 EACH TAB PO SCH (20:55)
[2023-01-17 06:10] LABS: HCT 21.7 % (34.0-46.0); HGB 7.4 gm/dL (11.4-16.0); MCH 31.9 pg (25.0-35.0); MCHC 33.9 g/dL (31.0-37.0); MCV 94.1 fL (80.0-100.0); Mean Platelet Volume 7.7; Platelet Count 214 k/uL (150-450); RBC 2.31 m/uL (3.80-5.40); RDW 14.4 % (11.5-15.5); WBC 11.6 k/uL (3.8-10.6)
[2023-01-17 06:13] LABS: African American GFR (CKD) >90 (>60 ml/min/1.73 sqM); Anion Gap 3 mmol/L; Blood Urea Nitrogen 14 mg/dL (7-17); Calcium 7.7 mg/dL (8.4-10.2); Carbon Dioxide 32 mmol/L (22-30); Chloride 103 mmol/L (98-107); Glucose 96 mg/dL (74-99); Magnesium 2.5 mg/dL (1.6-2.3); Non-African American GFR(CKD) >90 (>60 ml/min/1.73 sqM); Potassium 4.3 mmol/L (3.5-5.1); Sodium 138 mmol/L (137-145)
[2023-01-17 06:49] LABS: Glucose,Whole Blood 128 mg/dL (70-110)
[2023-01-17] MEDS: INSULIN ASPART (NovoLOG) 100 UNIT/ML VIAL SQ SCH ×2 (07:16→11:50)
[2023-01-17] MEDS: LEVOTHYROXINE 100 MCG TAB PO SCH (07:20)
[2023-01-17] MEDS: ASCORBIC ACID 500 MG TAB PO SCH ×2 (07:20→17:09)
[2023-01-17] MEDS: FERROUS SULFATE 325 MG TAB PO SCH ×2 (07:20→17:09)
[2023-01-17] MEDS: PANTOPRAZOLE 40 MG TABLET PO SCH (07:20)
--- NOTE | 2023-01-17 07:28 | P.PN ---
Subjective Progress Note Date: 01/17/23 Principal diagnosis: Severe symptomatic aortic stenosis, tricuspid regurgitation. Previous medical history of hypertension, hyperlipidemia, borderline diet controlled diabetes, hy pothyroid/Graves status post thyroidectomy, previous secondhand smoke exposure, bowel resection secondary to diverticulitis, GERD POD #6 aortic valve replacement with 23 mm Curtis Inspiris bovine pericardial valve, aortic root enlargement with hemashield patch (Gurinder Leahy technique), epi- aortic ultrasound, ligation of the left atrial appendage with a 35 mm AtriCure clip, intraoperative transesophageal echocardiogram performed by anesthesia Postoperative acute blood loss anemia and thrombocytopenia, expected outcomes of postoperative open heart surgery given the hemodilution and cardiopulmonary bypass pump The patient was seen and examined this morning sitting up in a recliner in the intensive care unit in no acute distress. She states she have a very bad afternoon with pain and shortness of breath, states she feels a little better this morning but was in tears stating she doesn't feel ready to go home yet. Was placed back on oxygen for shortness of breath despite oxygen saturation 94- 95% on room air. Remains in sinus rhythm, currently hemodynamically stable although blood pressures remain a bit soft. Lab work, CXR were reviewed. She has ambulated in hallway several times. Transfer orders placed for stepdown unit, no beds available. No other new concerns. Objective - Vital Signs Vital signs: Vital Signs Temp 97.9 F 01/17/23 00:33 Pulse 78 01/17/23 04:00 Resp 17 01/17/23 04:00 BP 97/54 01/17/23 04:00 Pulse Ox 95 01/17/23 04:00 FiO2 40 01/11/23 15:28 Intake & Output 01/16/23 01/17/23 01/17/23 18:59 06:59 18:59 Intake Total 900 Output Total 1450 1400 Balance -550 -1400 Weight 91.5 kg Intake: Oral 900 Output: Urine 1450 1400 Other: Voiding Method Toilet # Voids 1 ABP, PAP, CO, CI - Last Documented Arterial Blood Pressure 97/46 Pulmonary Artery Pressure 25/12 Cardiac Output 5 Cardiac Index 2.6 - Exam CONSTITUTIONAL: Appears anxious, tearful RESPIRATORY: Lungs sounds diminished bilaterally. Respirations even, nonlabored. Currently on 2 L nasal cannula with oxygen saturation 99%. Able to achieve 750 mL on incentive spirometry. Strong nonproductive cough. CARDIOVASCULAR: S1, S2 present. Regular rate and rhythm, sinus rhythm on telemetry. Sternum stable. Palpable peripheral pulses bilaterally. No edema present. No calf pain or tenderness noted. Heart hugger in place with patient demonstrating appropriate use. Antiembolism stockings, SCDs present. GASTROINTESTINAL: Abdomen soft, nontender, nondistended. Active bowel sounds present 4 quadrants. Tolerating diet. Positive bowel movement GENITOURINARY: Continues to void. Output 2700 mL in the last 24 hours INTEGUMENTARY: Skin is warm and dry with evidence of good perfusion. Anterior chest incision well approximated NEUROLOGIC: Cranial nerves II through XII intact MUSKULOSKELETAL: Able to move all extremities, strength equal bilaterally, gait normal PSYCHIATRIC: Alert and oriented to person place and time INVASIVE LINES AND TUBES: A/V epicardial pacemaker wires present, gounded. - Allied health notes Allied health notes reviewed: nursing - Labs CBC & Chem 7: 01/17/23 05:22 01/17/23 05:22 Labs: Abnormal Lab Results - Last 24 Hours (Table) 01/16/23 01/16/23 01/17/23 Range/Units 11:34 20:15 05:22 WBC 11.6 H (3.8-10.6) k/uL RBC 2.31 L (3.80-5.40) m/uL Hgb 7.4 L (11.4-16.0) gm/dL Hct 21.7 L (34.0-46.0) % Carbon Dioxide (22-30) mmol/L POC Glucose (mg/dL) 115 H 123 H (70-110) mg/dL Calcium (8.4-10.2) mg/dL Magnesium (1.6-2.3) mg/dL 01/17/23 01/17/23 Range/Units 05:22 06:48 WBC (3.8-10.6) k/uL RBC (3.80-5.40) m/uL Hgb (11.4-16.0) gm/dL Hct (34.0-46.0) % Carbon Dioxide 32 H (22-30) mmol/L POC Glucose (mg/dL) 128 H (70-110) mg/dL Calcium 7.7 L (8.4-10.2) mg/dL Magnesium 2.5 H (1.6-2.3) mg/dL - Imaging and Cardiology Chest x-ray: image reviewed Assessment and Plan Assessment: Severe symptomatic aortic stenosis, status post bioprosthetic aortic valve replacement with aortic root enlargement Tricuspid regurgitation, moderate on previous ZOEY, trivial intraoperative History of hypertension Hyperlipidemia, treated, cholesterol 217, LDL 125, triglycerides 206 Borderline diet controlled diabetes, hemoglobin A1c 6.2% Hypothyroid/Graves status post thyroidectomy, recent TSH 0.274, free T4 2.05 Previous secondhand smoke exposure, preoperative FEV1 83% of predicted Bowel resection secondary to diverticulitis GERD Postoperative acute blood loss anemia and thrombocytopenia, expected Plan: Continue to maximize medical therapy with low-dose aspirin, statin, Plavix, beta cruz. Will increase beta cruz therapy as tolerated Wean oxygen as tolerated. Encourage incentive spirometry use 10 times every hour while awake. Bronchodilators per pulmonology Increase activity, ambulate as tolerated. PT/OT/cardiac rehab following Will monitor daily labs and x-rays. Electrolyte replacement protocol GI/DVT prophylaxis Pain control with current medication regimen Insulin management per internal medicine service. Patient is borderline diabetic with preoperative hemoglobin A1c 6.2%, needs tight blood sugar control to prevent infection and promote healing Shower daily Strict accurate intake and output Daily weights Transfer orders placed for 3 [address], may transfer when bed available Discharge planning in progress, anticipate discharge to home with home care today vs tomorrow More recommendations to follow based on patient's progress
--- NOTE | 2023-01-17 08:03 | XR ---
EXAMINATION TYPE: XR chest 2V DATE OF EXAM: 01/17/2023 COMPARISON: 01/16/2023 TECHNIQUE: PA and lateral views submitted. HISTORY: Post cardiac surgery FINDINGS: The heart is enlarged and there is postoperative change in the aortic valve replacement. There is no evidence of reflux. Bilateral infiltrate and pleural effusion superimposed on background COPD. Interv al removal of left-sided chest tube with no sizable pneumothorax. Mild central interstitial prominenc e. Hypertrophic and degenerative change of the spine. Findings suggest epicardial lead. Prominent rig ht hilum. IMPRESSION: 1. Stable cardiomegaly, postoperative change in bilateral consolidation or effusion. Mild residual ve nous central congestion in the differential diagnosis. Prominent right hilum. Adenopathy or mass is n ot excluded.
[2023-01-17] MEDS: IPRATROPIUM-ALBUTEROL 3 ML NEB INHALATION SCH ×4 (08:21→21:15)
--- NOTE | 2023-01-17 08:38 | P.PN ---
Subjective Progress Note Date: 01/17/23 The patient is a 68-year-old female who follows in the office with Dr. Wheatley. She underwent aortic valve replacement on January [address] Baxter. Postoperative recovery includes blood loss anemia, requiring transfusion. No arrhythmias to date. She states while walking yesterday she did develop new onset of chest heaviness. Chest x-ray was completed which shows mild bilateral infiltrates/pleural eff usion, which is unchanged from previous exam The patient was interviewed and examined sitting up in the recliner chair. She states her pain is well controlled. No exertional shortness of breath or orthopnea. No dizziness or lightheadedness when standing. GENERAL: Well-appearing, well-nourished and in no acute distress. NECK: Supple without JVD or thyromegaly. LUNGS: Breath sounds clear to auscultation bilaterally. Respiration equal and unlabored. Bilateral expiratory wheezes. HEART: Regular rate and rhythm. Soft systolic murmur. No rubs or gallops. S1 and S2 heard. Heart hugger in place. EXTREMITIES: Normal range of motion, no edema. No clubbing or cyanosis. Peripheral pulses intact and strong. TELEMETRY: Sinus rhythm. No arrhythmias overnight. LABS: WBC 11.6, hemoglobin 7.4, hematocrit 21.7, platelet 214, sodium 138, potassium 4.3, BUN 14, creatinine 0.67, magnesium 2.5 IMPRESSION: Aortic stenosis Status post bioprosthetic aortic valve replacement Hypertension Hypothyroidism PLAN: Continue supportive treatment Aggressive pulmonary hygiene Further recommendations to be based on clinical course I am dictating on behalf of Dr Herbert Encarnacion's history/physical and as sessment/plan. Objective - Vital Signs Vital signs: Vital Signs Temp 97.9 F 01/17/23 00:33 Pulse 85 01/17/23 08:31 Resp 17 01/17/23 04:00 BP 97/54 01/17/23 04:00 Pulse Ox 99 01/17/23 08:21 FiO2 40 01/11/23 15:28 Intake & Output 01/16/23 01/17/23 01/17/23 18:59 06:59 18:59 Intake Total 900 Output Total 1450 1400 Balance -550 -1400 Weight 91.5 kg Intake: Oral 900 Output: Urine 1450 1400 Other: Voiding Method Toilet # Voids 1 ABP, PAP, CO, CI - Last Documented Arterial Blood Pressure 97/46 Pulmonary Artery Pressure 25/12 Cardiac Output 5 Cardiac Index 2.6 - Labs CBC & Chem 7: 01/17/23 05:22 01/17/23 05:22 Labs: Abnormal Lab Results - Last 24 Hours (Table) 01/16/23 01/16/23 01/17/23 Range/Units 11:34 20:15 05:22 WBC 11.6 H (3.8-10.6) k/uL RBC 2.31 L (3.80-5.40) m/uL Hgb 7.4 L (11.4-16.0) gm/dL Hct 21.7 L (34.0-46.0) % Carbon Dioxide (22-30) mmol/L POC Glucose (mg/dL) 115 H 123 H (70-110) mg/dL Calcium (8.4-10.2) mg/dL Magnesium (1.6-2.3) mg/dL 01/17/23 01/17/23 Range/Units 05:22 06:48 WBC (3.8-10.6) k/uL RBC (3.80-5.40) m/uL Hgb (11.4-16.0) gm/dL Hct (34.0-46.0) % Carbon Dioxide 32 H (22-30) mmol/L POC Glucose (mg/dL) 128 H (70-110) mg/dL Calcium 7.7 L (8.4-10.2) mg/dL Magnesium 2.5 H (1.6-2.3) mg/dL
[2023-01-17] MEDS: HYDROcodone/APAP 5-325MG 1 EACH TAB PO PRN ×3 (08:40→20:47)
--- NOTE | 2023-01-17 08:57 | P.PN ---
Subjective Progress Note Date: 01/17/23 This is a 68-year-old female patient with a known history of hypertension, gastroesophageal reflux disease, hypothyroidism, Graves' disease, diverticulitis with previous bowel resection. She also has a known history of severe aortic valve stenosis and was brought in today electively for aortic valve replacement. She received an aortic valve replacement with a 23 mm Curtis Insiris bovine pericardial valve. She is seen in the postoperative period in the intensive care unit. Intubated on mechanical ventilator currently and assist-control mode at a tidal volume of 450, FiO2 100% and a PEEP of 8. She has a left pleural chest tube in place, mediastinal chest tube in place. Right IJ [place]-Nelia cat heter in place. Temperature venous pacing wires in place. Arterial blood gases pending. Labs are pending. The patient is seen today 01/12/2023 in follow-up in the intensive care unit. She was successfully extubated within the six-hour protocol. She is currently sitting up in a chair at the bedside. Maintaining good O2 saturations in the 90s on 2 L/m per nasal cannula. She has lactated Ringer's at 50 MLS per hour. Currently on a insulin drip at 4 units per hour. Right IJ [place]-Nelia catheter remains in place. Cardiac output 5.0. Cardiac index 2.6. CVP 4. PA pressures 25/11. Right radial arterial line in place. Mediastinal and left pleural chest tubes remain in place. AV epicardial pacemaker wires remain in place. Backup rate of 50. Currently in sinus rhythm in the 80s. Blood pressure improved. Off Cleviprex. White count 10.7. Hemoglobin 7.1. Platelet count 121. Sodium 138. Potassium 3.7. Bicarb 24. BUN 19. Creatinine 0.66. Glucose 1:15. AST 37. ALT 15. Magnesium 2.5. Chest x-ray reveals small left pleural effusion. She continues to work well with the incentive spirometer. Continued on DuoNeb inhalations. Heparin for DVT prophylaxis. The patient is seen today 01/13/2023 in follow-up in the intensive care unit. Postoperative day #2. She is currently sitting up in a chair at the bedside. Awake and alert in no acute distress. Maintaining O2 saturations in the 90s on 2 L/m per nasal cannula. She has lactated Ringer's at 20 miles per hour. Chest x-ray reveals a small right effusion and some atelectasis at the bases. She continues working well with the incentive spirometer. Mediastinal/left pleural chest tubes remain in place. Right IJ Cordis in place. Right radial arterial line in place. AV epicardial pacer wires present. Backup rate of 50. She is remaining in sinus rhythm. White count 12.6. Hemoglobin 7.1. Platelets 115. Sodium 135. Potassium 4.2. Bicarb 27. BUN 14. Creatinine 0.68. Glucose 105. Gloria on DuoNeb inhalations. Heparin for DVT prophylaxis. She is up ambulating with assistance. The patient is seen today 01/14/2023 in follow-up in the intensive care unit. Postoperative day #3. She is awake and alert in no acute distress. Sitting up in a chair at the bedside. Maintaining good O2 saturations in the 90s on 2 L nasal cannula. Chest x-ray reveals stable trace bilateral pleural effusions with left chest tube in place. No evidence of pneumothorax. Her main complaint today is that of she did have a hemoglobin of 6.0 with a follow-up hemoglobin of 6.6. The plan is for one unit of packed blood cells today. White count 14.9. Platelets 139. Sodium 134. Potassium 4.2. Bicarb 27. BUN 16. Creatinine 0.68. Glucose 137. Currently in a negative balance. Remains on DuoNeb inhalations. Heparin for DVT prophylaxis. 01/15 2023 the patient is postop day #4, and the patient is currently on 2 L of oxygen by nasal cannula, ambulating. Left pleural chest tube still in place and output has been 50 mL over the past 24 hours. Cardiac rhythm is sinus. Pain is under adequate control and the patient has no specific complaints. Chest x-ray shows no evidence of a pneumothorax. It showed some atelectatic change in the lung bases bilaterally. Chest tube is in a good location. Terms of her hemoglobin, the patient received 2 units of packed RBC for a hemoglobin of 6.0. Her subsequent hemoglobin is at 8.1.S of the blood work shows edematous, 16.3, platelet count of 172, BUN is at 60 with a creatinine of 0.6. Sodium is at 136. No other significant events overnight. Awake and alert and following commands without any focal neurological deficits. On today's evaluation of 01/16/2023, seeing the patient for a follow-up. She is postop day #5 following day open-heart surgery with about replacement. The patient had an aortic valve replacement. On today's evaluation, the patient is still using the incentive spirometer, 20,000, chest x-ray was reviewed and shows atelectatic changes in lung bases bilaterally. She is in normal sinus rhythm. Hemoglobin stable at 7.5. White cell count at 14. Electrolytes are normal, renal function is normal. She is afebrile in the surgical one-sided striking and intact. Chest tubes have been removed. The patient's Smith catheter has b een removed. Hematologic profile shows a stable platelet count of 182. No bleeding. 01/17/2023, the patient is postop day #6. She remains in the intensive care unit. The main issue for today some chest wall pain in the surgical one-sided. She was treated with [place]. Pain is under better control for now. She is using the incentive spirometer. A chest x-ray from today shows small bilateral pleural effusion which is an anticipated expected outcome of surgery. All of the chest was minimal. She is post aortic valve replacement. No lower extremity edema. There is some leakage from the chest tube stoma the left which is minimal at this point in time and is serosanguineous. She is on 2 L of oxygen by nasal cannula. She was ambulating yesterday. Blood pressure is soft and the patient remains on metoprolol 12.5 mg by mouth 3 times a day. She is also on combination of aspirin and Plavix. Epicardial leads are still in place.Assess of the blood work from today shows a hemoglobin of 7.4 which is stable compared to yesterday. WBC count of 11.6. Platelet count is 214. Sodium is at 138, potassium levels at 4.3, bicarb is at 32, BUN is 14 with a creatinine of 0.67 which is essentially stable. She has adequate urine output. She has adequate bowel sounds. She is ambulating. Objective - Vital Signs Vital signs: Vital Signs Temp 97.9 F 01/17/23 00:33 Pulse 85 01/17/23 08:31 Resp 17 01/17/23 04:00 BP 97/54 01/17/23 04:00 Pulse Ox 99 01/17/23 08:21 FiO2 40 01/11/23 15:28 Intake & Output 01/16/23 01/17/23 01/17/23 18:59 06:59 18:59 Intake Total 900 Output Total 1450 1400 Balance -550 -1400 Weight 91.5 kg Intake: Oral 900 Output: Urine 1450 1400 Other: Voiding Method Toilet # Voids 1 ABP, PAP, CO, CI - Last Documented Arterial Blood Pressure 97/46 Pulmonary Artery Pressure 25/12 Cardiac Output 5 Cardiac Index 2.6 - Exam GENERAL EXAM: Alert, very pleasant, pale 68-year-old female, up in a chair, on 2 L nasal cannula, fatigued, comfortable in no apparent distress. HEAD: Normocephalic. EYES: Normal reaction of pupils, equal size. NOSE: Clear with pink turbinates. THROAT: No erythema or exudates. NECK: Right IJ Cordis in place. No masses, no JVD. CHEST: Sternal dressing dry and intact. She'll submit removed and AV pacemaker wires in place, grounded. LUNGS: Equal air entry with faint crackles in the bilateral bases. CVS: S1 and S2 normal with no audible murmur, regular rhythm. ABDOMEN: No hepatosplenomegaly, normal bowel sounds, no guarding or rigidity. SPINE: No scoliosis or deformity SKIN: No rashes CENTRAL NERVOUS SYSTEM: No focal deficits, tone is normal in all 4 extremities. EXTREMITIES: There is trace peripheral edema. Peripheral pulses are intact. - Labs CBC & Chem 7: 01/17/23 05:22 01/17/23 05:22 Labs: Abnormal Lab Results - Last 24 Hours (Table) 01/16/23 01/16/23 01/17/23 Range/Units 11:34 20:15 05:22 WBC 11.6 H (3.8-10.6) k/uL RBC 2.31 L (3.80-5.40) m/uL Hgb 7.4 L (11.4-16.0) gm/dL Hct 21.7 L (34.0-46.0) % Carbon Dioxide (22-30) mmol/L POC Glucose (mg/dL) 115 H 123 H (70-110) mg/dL Calcium (8.4-10.2) mg/dL Magnesium (1.6-2.3) mg/dL 06/21/23 06/21/23 Range/Units 05:22 06:48 WBC (3.8-10.6) k/uL RBC (3.80-5.40) m/uL Hgb (11.4-16.0) gm/dL Hct (34.0-46.0) % Carbon Dioxide 32 H (22-30) mmol/L POC Glucose (mg/dL) 128 H (70-110) mg/dL Calcium 7.7 L (8.4-10.2) mg/dL Magnesium 2.5 H (1.6-2.3) mg/dL Assessment and Plan Plan: Severe aortic stenosis status post aortic valve replacement utilizing a 23 mm Curtis Insiris bovine pericardial valve. Postoperative day #6 Anemia, expected outcome of surgery, current hemoglobin 6.6, receiving 1 unit of packed red blood cells, current hemoglobin is at 7.4 History of hypertension Hypothyroidism status post thyroidectomy History of Graves' disease Gastroesophageal reflux disease History of diverticulitis with previous bowel resection Nonsmoker, pulmonary function testing revealed an FEV1 value of 2.0 L which was 83% of predicted Plan: Control chest wall pain and the patient is receiving [place] No constipation Continue using incentive spirometer The epicardial leads may be removed today Chest tubes have been removed Using the incentive spirometer Ambulating Had a bowel movement yesterday Tolerating diet Clinically stable hemodynamically stable and she is still on metoprolol 12.5 mg 3 times a day. Chest x-ray was reviewed and there is no acute abnormalities. Some atelectatic change in lung bases Continue using the incentive spirometer We'll continue to follow
[2023-01-17] MEDS: HEPARIN SODIUM,PORCINE/PF 5,000 UNIT/0.5 ML SYRINGE SQ SCH ×2 (10:03→15:19)
[2023-01-17] MEDS: METOPROLOL TARTRATE 12.5 MG TAB PO SCH ×2 (10:04→15:20)
[2023-01-17] MEDS: MAGNESIUM OXIDE 400 MG TAB PO SCH (10:05)
[2023-01-17] MEDS: CHOLECALCIFEROL 25 MCG (1000 IU) TABLET PO SCH (10:05)
[2023-01-17] MEDS: ASPIRIN 81 MG PO SCH (10:05)
[2023-01-17] MEDS: ATORVASTATIN 20 MG TAB PO SCH (10:05)
[2023-01-17] MEDS: CALCIUM CARBONATE 500 MG CHEWABLE PO SCH (10:05)
[2023-01-17] MEDS: MULTIVITAMINS, THERA 1 EACH TAB PO SCH (10:06)
[2023-01-17] MEDS: DOCUSATE 100 MG CAP PO SCH (10:06)
[2023-01-17] MEDS: CLOPIDOGREL 75 MG TAB PO SCH (10:06)
[2023-01-17 11:42] LABS: Glucose,Whole Blood 126 mg/dL (70-110)
--- NOTE | 2023-01-17 14:29 | P.DS ---
Providers Date of admission: 01/11/23 05:32 Expected date of discharge: 01/18/23 Attending physician: Chadwick Baxter Consults: 01/11/23 11:49 Consult Physician Routine Consulting Provider: Sina Mercado Consult Reason/Comments: Sharepoint Trainer Consult: post cardiac surgery Do you want consulting provider notified?: Yes Consult Physician Routine Consulting Provider: Ava Patino Consult Reason/Comments: Sales Lead Consult: post cardiac surgery; [facility] patient Do you want consulting provider notified?: Yes Consult Physician Routine Consulting Provider: Nisreen Hylton Consult Reason/Comments: med mgmt; [facility] patient Do you want consulting provider notified?: Yes Primary care physician: Sayra Seaview Hospital Course: FINAL DIAGNOSIS: 1. Severe symptomatic aortic stenosis 2. Tricuspid regurgitation, moderate on previous ZOEY, trivial intraoperative 3. History of hypertension 4. Hyperlipidemia, treated, cholesterol 217, LDL 125, triglycerides 206 5. Borderline diet controlled diabetes, hemoglobin A1c 6.2% 6. Hypothyroid/Graves status post thyroidectomy, recent TSH 0.24, free T4 2.05 7. Previous secondhand smoke exposure, preoperative FEV1 83% of predicted 8. Bowel resection secondary to diverticulitis 9. GERD 10. Postoperative acute blood loss anemia and thrombocytopenia, expected PRINCIPAL PROCEDURE: 1. Aortic valve replacement with 23 mm Curtis Inspiris bovine pericardial valve 2. Aortic root enlargement with Hemashield patch (Gurinder Leahy technique) 3. Epi-aortic ultrasound 4. Ligation of the left atrial appendage with a 35 mm AtriCure clip 5. Intraoperative transesophageal echocardiogram performed by anesthesia HISTORY OF PRESENT ILLNESS: This is a 68-year-old female patient who follows outpatient with Dr. Britt for primary care and Dr. Wheatley for cardiology. She has a known history of aortic stenosis being followed by Dr. Wheatley, and was becoming increasingly symptomatic. She had shortness of breath with activity, including line dancing and skeet shooting. She had no symptoms at rest. In addition she recently began experiencing occasional chest pain which resolved with cessation of activity. She will underwent echocardiogram demonstrating severe aortic stenosis with aortic valve area 0.7-0.8 cm, peak gradient across the aortic valve 74 mmHg with mean gradient 45 mmHg, trileaflet calcific aortic stenosis, preserved left ventricular function, as well as mild mitral and mild to moderate tricuspid regurgitation. She also underwent heart catheterization demonstrating no evidence of coronary artery disease. Initially she was seen in the TAVR clinic, however she was felt to be most appropriate for surgical aortic valve replacement. The patient was referred to Dr. Baxter from cardiothoracic surgery at the patient's request. She was recommended to undergo surgical aortic valve replacement. The usual perioperative course was discussed in detail with the patient, all risks and benefits were explained, all questions were answered, and consent was obtained to proceed with surgery. The patient was scheduled for elective surgery at the earliest possible date. HOSPITAL COURSE: The patient was brought to the hospital on 01/11/23, taken to the preoperative area, prepared in the usual fashion, and subsequently taken to the operating room where Dr. Baxter performed bioprosthetic aortic valve replacement with root enlargement. Upon completion of surgery the patient was transferred to the cardiovascular intensive care unit where she was recovered and monitored hemodynamically. She was extubated, all lines, tubes, and drips were discontinued when appropriate, and transfer orders were placed for 3 S. cardiac stepdown unit, however there was no bed availability and the patient remained on ICU as a stepdown patient until discharge. Her oxygen was titrated down, she continued to work with physical and occupational therapy, she was tolerating oral diet, her pain was controlled, and she was ready to be discharged to home with [facility] on postoperative day #6, however patient did not wish to go home and wished to wait until POD #7. She received written and verbal instruction regarding her medications, activity restrictions, signs and symptoms requiring physician notification, and follow-up appointments. Patient Condition at Discharge: Stable Plan - Discharge Summary Discharge Rx Participant: No New Discharge Prescriptions: New Ferrous Sulfate [Iron (65 MG Elemental)] 325 mg PO BID-W/MEALS #28 tab Clopidogrel [Plavix] 75 mg PO DAILY #30 tab HYDROcodone/APAP 5-325MG [[place] 5-325] 1 each PO Q6HR PRN #28 tab PRN Reason: Pain Sennosides-Docusate Sodium [Senokot-S] 2 each PO HS PRN tab PRN Reason: Constipation Metoprolol Succinate (ER) [Toprol XL] 25 mg PO DAILY #30 tab Continue Mometasone Furoate [Nasonex 50 mcg Nasal [place]] 1 - 2 spray EA NOSTRIL DAILY PRN PRN Reason: allergies Omeprazole [PriLOSEC] 20 mg PO HS Levothyroxine Sodium [Levoxyl] 200 mcg PO DAILY Multivit with Calcium,Iron,Min [Women's Multivitamin] 1 each PO DAILY Calcium Carbonate [Calcium] 600 mg PO DAILY Fexofenadine HCl [Liat Allergy] 180 mg PO DAILY PRN PRN Reason: allergies Aspirin 81 mg PO DAILY Ibuprofen [Motrin Ib] 200 mg PO DIRECTED PRN PRN Reason: Pain Unk Vitamin C 1 tab PO DAILY Unk Biotin 1 tab PO DAILY Cholecalciferol (Vitamin D3) [Vitamin D3 (50 Mcg = 2000 Iu) Chew Tab] 2,000 unit PO DAILY Magnesium 250 mg PO DAILY Unk B Complex 1 tab PO DAILY Acetaminophen [Tylenol Extra Strength] 500 mg PO DIRECTED PRN PRN Reason: Headache Ubidecarenone [Coenzyme Q10] 200 mg PO DAILY Rosuvastatin [Crestor] 10 mg PO QAM Discontinued hydroCHLOROthiazide [Hydrodiuril] 25 mg PO DAILY Discharge Medication List Levothyroxine Sodium [Levoxyl] 200 mcg PO DAILY 06/15/15 [History] Mometasone Furoate [Nasonex 50 mcg Nasal [place]] 1 - 2 spray EA NOSTRIL DAILY PRN 06/15/15 [History] Omeprazole [PriLOSEC] 20 mg PO HS 06/15/15 [History] Calcium Carbonate [Calcium] 600 mg PO DAILY 05/15/17 [History] Multivit with Calcium,Iron,Min [Women's Multivitamin] 1 each PO DAILY 05/15/17 [History] Acetaminophen [Tylenol Extra Strength] 500 mg PO DIRECTED PRN 10/20/22 [History] Aspirin 81 mg PO DAILY 10/20/22 [History] Fexofenadine HCl [Liat Allergy] 180 mg PO DAILY PRN 10/20/22 [History] Ibuprofen [Motrin Ib] 200 mg PO DIRECTED PRN 10/20/22 [History] Magnesium 250 mg PO DAILY 10/20/22 [History] Unk B Complex 1 tab PO DAILY 10/20/22 [History] Unk Biotin 1 tab PO DAILY 10/20/22 [History] Unk Vitamin C 1 tab PO DAILY 10/20/22 [History] Cholecalciferol (Vitamin D3) [Vitamin D3 (50 Mcg = 2000 Iu) Chew Tab] 2,000 unit PO DAILY 11/20/22 [History] Ubidecarenone [Coenzyme Q10] 200 mg PO DAILY 11/20/22 [History] Rosuvastatin [Crestor] 10 mg PO QAM 01/08/23 [History] Clopidogrel [Plavix] 75 mg PO DAILY #30 tab 01/17/23 [Rx] Ferrous Sulfate [Iron (65 MG Elemental)] 325 mg PO BID-W/MEALS #28 tab 01/17/23 [Rx] HYDROcodone/APAP 5-325MG [[place] 5-325] 1 each PO Q6HR PRN #28 tab 01/17/23 [Rx] Metoprolol Succinate (ER) [Toprol XL] 25 mg PO DAILY #30 tab 01/17/23 [Rx] Sennosides-Docusate Sodium [Senokot-S] 2 each PO HS PRN tab 01/17/23 [Rx] Follow up Appointment(s)/Referral(s): Lainey Urias NPC [Nurse Practitioner] - 01/23/23 2:45 pm (You will be seen in [facility] surgeon's office behind the hospital in [facility], [address] [place] [address] [address] Office phone number is . Please call the office if you need to change the appointment) Tiffany Wheatley MD [STAFF PHYSICIAN] - 01/31/23 10:30 am [facility] [NON-STAFF] - 4 Weeks (You will receive a phone call in approximately 4-6 weeks for evaluation for cardiac rehab) Sayra Britt MD [Primary Care Provider] - 01/23/23 3:30 pm [facility] [NON-STAFF] - 1-2 Days (To be seen the day after discharge, then 2-3 times per week for 4 weeks) Chadwick Baxter MD [STAFF PHYSICIAN] - 02/08/23 1:00 pm Sina Mercado DO [Doctor of Osteopathic Medicine] - 02/13/23 9:30 am Ambulatory/Diagnostic Orders: Complete Blood Count w/diff [LAB.AMB] Time Frame: 3 Days, Location: None Selected Comprehensive Metabolic Panel [LAB.AMB] Time Frame: 3 Days, Location: None Selected Activity/Diet/Wound Care/Special Instructions: DISCHARGE INSTRUCTIONS: 1. No driving for 4 weeks, or until physician gives their ok. 2. The patient should sleep in their own bed, no medical bed needed. 3. Stairs are not an issue. If the bedroom is upstairs, it is advised that the patient go up at night and down in the morning for the first week. Go slowly, using handrail and take 1 step at a time. 4. FADIA hose are to be worn for 30 days post surgery or until physician discontinues. 5. Heart hugger is to be worn 100% of the time until physician discontinues.(except when showering) 6. No lifting, pushing, or pulling more than 10 pounds for 12 weeks. The physician will advise of any restriction changes. 7. The patient is expected to continue the prescribed walking program. 8. Continue pain control per as needed orders. 9. Continue with incentive spirometry and splinting/heart hugger until otherwise directed by the physician. 10. Must shower daily using liquid antibacterial soap 11. Routine sternal incision care. No powders, lotions, ointments on incisions. No dressings are necessary on incisions unless they are draining. Dermabond tape is to remain on sternal incision until surgeon follow-up. 12. Please call surgeon/SOA ENGINEER for temp greater than 101 F or purulent drainage from incisions. 13. You should weigh yourself daily, record and bring log with you to follow up appointments. 14. All prescriptions given by surgeon for 30 days. Refills need to be filled through health promotion coordinator/primary care physician. 15. A Red armband has been placed on the patient. It should be worn for 30 days post discharge from surgery and will be removed by the cardiac surgeons. If an ER visit is necessary, please make sure the number on the Red armband is called before going to ER. 16. You have been referred to and are expected to begin Cardiac Rehab in approximately 4-6 weeks. HOME HEALTH SERVICES TO PROVIDE: RN SKILLED HOME CARE SERVICES FOR POST-OP SURGICAL PATIENTS WITH THE FOLLOWING: Coronary Artery Bypass Surgery (CABG), Mitral Valve Replacement/Repair ( MVR), Aortic Valve Replacement/Repair (AVR) RN TO CONTINUE EDUCATION FROM ``ROAD TO A HEALTH HEART PATIENT EDUCATION MANUAL (GIVEN TO PATIENT IN THE HOSPITAL) MEDICATION RECONCILIATION WITH EDUCATION NEEDED ON FIRST HOME VISIT EMPHASIZE IMPORTANCE OF WEARING BREAST SUPPORT/HEART HUGGER ENCOURAGE USE OF INCENTIVE SPIROMETER 10 X EVERY HOUR WHILE AWAKE ENCOURAGE UTILIZATION OF LOWER EXTREMITY COMPRESSION STOCKINGS/FADIA HOSE and ELEVATE LEGS ABOVE LEVEL OF HEART WHILE AT REST. ENCOURAGE AMBULATION 3-5x/day INCREASING TOLERATES, WHILE AVOIDING EXTREMES IN TEMPERATURE FREQUENCY: RN TO OPEN THE PATIENT WITHIN 24 HOURS OF DISCHARGE FROM THE HOSPITAL WITH TELEHEALTH INSTALLED AT [facility], RN TO VISIT 2-3 X A WEEK FOR 4 WEEKS ESTABLISHED BY PATIENT NEEDS. LABORATORY: CBC, CMP TO BE DRAWN ON THE THIRD DAY HOME, (RAN STAT) FAX RESULTS TO [phone]. TELEHEALTH PARAMETERS: WEIGHT: NOTIFY MD OF WEIGHT GAIN OF 2 LBS IN 24 HOURS OR 5 LBS IN ONE WEEK HR: NOTIFY MD OF HR <55 BPM OR HR>100 BPM BP: NOTIFY MD IF BP <90/55 OR BP>140/100 O2 SAT: NOTIFY MD IF PO2<93% ON ROOM AIR SEND TELEHEALTH REPORT TO [facility]ARDIOVASCULAR SURGEON THE FIRST WEEK OF CARE AND THEN BI-WEEKLY. PLEASE ADDITIONALLY COMMUNICATE ANY ABNORMALS AND NEW FINDINGS TO THE SURGEONS OFFICE. Discharge Disposition: HOME WITH HOME HEALTH SERVICES
--- NOTE | 2023-01-17 15:45 | P.PN ---
Subjective Progress Note Date: 01/17/23 Patient is a 68-year-old female with a known history of hypertension, prediabetes, GERD, osteoarthritis, diverticulitis with history of bowel resection hypothyroidism and prior history of smoking and severe aortic stenosis was admitted to the hospital for elective aortic valve replacement. Patient is s/p replacement with bovine pericardial valve. Patient was intubated perioperatively and was transferred to MICU. Currently on Ventilator with assist control with FiO2 450 and PEEP of 8. Chest x-ray showed left lower lobe infiltrate with small effusion. Postoperative changes. ABG showed pH 7.38 PCO2 42 and PO2 202 WBC 17.2 hemoglobin 10.6 and platelets 128 Sodium 137 potassium 4.3 chloride 108 bicarb 23 BUN 19 and creatinine 0.65 blood sugar is 138 and albumin 2.8. 01/12/2023 Patient is currently in the MICU. Was extubated successfully yesterday. Currently on oxygen at 2 L via nasal cannula. Able to sit up in the chair. Pleural and mediastinal chest tubes in place. Epicardial pacemaker wires in place. Patient is being continued on incentive spirometry and DuoNebs. On insulin drip. Blood sugars controlled. Laboratory data showed WBC 10.7 hemoglobin 7.1 and platelets 121, sodium 138 potassium 3.7 chloride 107 bicarb 24 BUN 19 and creatinine 0.66 Blood sugar 105 calcium 7.4 AST 37 albumin 3.1. 01/13/2023 Patient is postoperative day 2 Currently sitting in the chair. Complains of shortness of breath with exertion and while moving to the chair. Denies any complaints of chest pain. Requiring 2 L oxygen via nasal cannula. Left pleural and mediastinal chest tubes in place. Chest x-ray showed stable postsurgical changes with trace bilateral pleural effusions and left thoracotomy tube. No evidence for pneumothorax. Patient is on insulin sliding scale. Blood sugar this morning 105 Laboratory data showed WBC 12.6 hemoglobin 7.1 and platelets 115, sodium 135 potassium 4.2 chloride 104 bicarb is 27 BUN 14 and creatinine 0.68 and albumin 3.2. 01/14/2023 Patient is currently sitting in the chair comfortably. Awake alert and oriented x3. Not in distress. On 2 L via nasal cannula and saturating at 96%. No complaints of chest pain. Patient does have exertional dyspnea. Otherwise afebrile. No cough or sputum production. Chest x-ray today showed stable postsurgical change with trace bilateral pleural effusions and left thoracotomy tube. No evidence for pneumothorax.Left pleural chest tube in place. Laboratory data showed WBC 11.3 hemoglobin 6.0 and is being transfused with 1 unit of PRBC. Platelets 110. Sodium 134 potassium 4.2 chloride 102 bicarb is 27 BUN 16 and creatinine 0.68 and calcium 7.5 blood sugar is 137 this morning. Albumin 2.9. Cardiology and pulmonary is on board. 01/16/2023 Patient is seen and evaluated in follow-up this morning continues to be in ICU with multiple medical consultations following. Patient has had chest tubes removed and Smith catheter currently getting up status post for shower from cardiac surgery and doing well. Per nursing staff patient is improved on her incentive spirometer achieving over 1000 and has been frequently using. Encouraged to continue using at least 10 times every hour while awake. Chest x- ray shows some vascular congestion and weaning FiO2 as tolerated. Patient is currently 96% on 1 L. Encouraged to increase activity as tolerated with restrictions per CT surgery. Patient's blood pressures are soft and recommend monitoring closely. WBC is trending down currently at 14 and hemoglobin is 7.5. Sodium is 133 with a potassium of 4.3 and creatinine is 0.64. Blood sugars being monitored and appeared to be improved. Patient is afebrile denies chest pain or shortness of breath. Patient does have some chest wall pain which is to be expected. Patient denies nausea or vomiting and tolerating diet. Recommend follow-up labs in a.m. along with repeat chest x-ray. 01/17/2023 Patient is seen and evaluated in follow-up today being followed by cardiology a long with cardiothoracic surgery in the ICU. Cardiothoracic surgery discussing possible discharge today. Patient is currently afebrile with no reports of shortness of breath or chest pain noted. Patient continues to have some chest wall pain and will continue current medication regimen. Patient chest x-ray today shows stable cardiomegaly with mild residual venous central congestion possibly. Patient is medically stable with close outpatient follow-up and cardiology has cleared the patient. Patient was awaiting a stepdown bed and transfer out of the ICU although no beds were available. Patient has been up and walking multiple times and weaning FiO2 as tolerated. Review of systems: Constitutional: No reports of fatigue, fever, or chills Cardiovascular: No reports of chest pain or palpitations Respiratory: reports of her mid and periods of shortness of breath mostly with exertion GI: No reports of nausea, vomiting, or diarrhea : No reports of dysuria or retention Neurovascular: No reports of weakness or numbness All medications have been reviewed PHYSICAL EXAMINATION: Patient is up in the chair, alert and oriented 3, well-developed, well- nourished, obese HEENT: Normocephalic. Neck is supple. Pupils reactive. Nostrils clear. Oral cavity is moist. Neck reveals no JVD, carotid bruits, or thyromegaly. CHEST EXAMINATION: Trachea is central. Symmetrical expansion. Some faint crackles noted at the bases bilaterally. No wheezing or rhonchi.. CARDIAC: S1, S2 are muffled ABDOMEN: Soft. Bowel sounds present. Nontender. No organomegaly. No abdominal bruits. Extremities: Trace bilateral pedal edema. No clubbing or cyanosis Neurologically awake, alert, oriented x3 with well-coordinated movements. No focal deficits noted Skin: No rash or skin lesions. Psychiatric: Cooperative. Non-suicidal, Musculoskeletal: No joint swelling or deformity. Normal range of motion. Assessment: Severe aortic stenosis. Status post surgical aortic valve replacement with bovi ne valve. Postoperative day 5 Leukocytosis likely due to postoperative inflammation reaction. improving Acute blood loss anemia expected from surgery. Hemoglobin 6.0 on 01/14/2023, currently 7.4 today Atelectasis, as expected, improving Hypertension Prediabetes Hypothyroidism with history of thyroidectomy History of diverticulitis status post bowel resection GERD Prior history of smoking DVT prophylaxis and GI prophylaxis Full code Plan: Patient continues to be in the ICU although has been a down grade to 3 south and no beds available Chest x-ray shows some continued pulmonary congestion and patient is currently maintaining oxygen saturation of 96% on 1 L. patient continues to use incentive spirometer and Recommend continue using at least 10 times every hour while awake Recommend tight glycemic control and will continue to monitor Accu-Cheks before meals and at bedtime and continue sliding scale as needed PT OT is following. Patient has been up and walking the halls multiple times Patient will be continued on home medication including levothyroxine. Continue GI DVT prophylaxis. Plan is for discharge possibly later today to home We will continue to follow closely with cardiothoracic surgery during hospitalization. Thank you kindly for this consultation. The impression and plan of care has been dictated by Susana Limon, Nurse Practitioner as directed. Dr. Kishan MD I have performed a history and examination and MDM of this patient, discussed the same with the dictator, and agree with the dictator's assessment and plan as written ,documented as a scribe. Based on total visit time, I have performed more than 50% of the visit. Objective - Vital Signs Vital signs: Vital Signs Temp 97.9 F 01/17/23 00:33 Pulse 85 01/17/23 08:31 Resp 17 01/17/23 04:00 BP 97/54 01/17/23 04:00 Pulse Ox 99 01/17/23 08:21 FiO2 40 01/11/23 15:28 Intake & Output 01/16/23 01/17/23 01/17/23 18:59 06:59 18:59 Intake Total 900 Output Total 1450 1400 Balance -550 -1400 Weight 91.5 kg Intake: Oral 900 Output: Urine 1450 1400 Other: Voiding Method Toilet # Voids 1 ABP, PAP, CO, CI - Last Documented Arterial Blood Pressure 97/46 Pulmonary Artery Pressure 25/12 Cardiac Output 5 Cardiac Index 2.6 - Labs CBC & Chem 7: 01/17/23 05:22 01/17/23 05:22 Labs: Abnormal Lab Results - Last 24 Hours (Table) 01/16/23 01/16/23 01/17/23 Range/Units 11:34 20:15 05:22 WBC 11.6 H (3.8-10.6) k/uL RBC 2.31 L (3.80-5.40) m/uL Hgb 7.4 L (11.4-16.0) gm/dL Hct 21.7 L (34.0-46.0) % Carbon Dioxide (22-30) mmol/L POC Glucose (mg/dL) 115 H 123 H (70-110) mg/dL Calcium (8.4-10.2) mg/dL Magnesium (1.6-2.3) mg/dL 01/17/23 01/17/23 Range/Units 05:22 06:48 WBC (3.8-10.6) k/uL RBC (3.80-5.40) m/uL Hgb (11.4-16.0) gm/dL Hct (34.0-46.0) % Carbon Dioxide 32 H (22-30) mmol/L POC Glucose (mg/dL) 128 H (70-110) mg/dL Calcium 7.7 L (8.4-10.2) mg/dL Magnesium 2.5 H (1.6-2.3) mg/dL
[2023-01-17] MEDS: SENNOSIDES-DOCUSATE SODIUM 1 EACH TAB PO SCH (20:48)
[2023-01-18] MEDS: HEPARIN SODIUM,PORCINE/PF 5,000 UNIT/0.5 ML SYRINGE SQ SCH ×3 (00:31→16:05)
[2023-01-18] MEDS: HYDROcodone/APAP 5-325MG 1 EACH TAB PO PRN (03:41)
[2023-01-18 05:08] LABS: HCT 22.2 % (34.0-46.0); HGB 7.1 gm/dL (11.4-16.0); Hypochromasia Slight; MCH 30.7 pg (25.0-35.0); MCHC 32.2 g/dL (31.0-37.0); MCV 95.5 fL (80.0-100.0); Mean Platelet Volume 7.5; Platelet Count 244 k/uL (150-450); RBC 2.32 m/uL (3.80-5.40); RDW 14.7 % (11.5-15.5); WBC 12.2 k/uL (3.8-10.6)
[2023-01-18 05:25] LABS: African American GFR (CKD) >90 (>60 ml/min/1.73 sqM); Anion Gap 4 mmol/L; Blood Urea Nitrogen 15 mg/dL (7-17); Calcium 7.9 mg/dL (8.4-10.2); Carbon Dioxide 31 mmol/L (22-30); Chloride 101 mmol/L (98-107); Glucose 101 mg/dL (74-99); Magnesium 2.4 mg/dL (1.6-2.3); Non-African American GFR(CKD) 88 (>60 ml/min/1.73 sqM); Potassium 4.7 mmol/L (3.5-5.1); Sodium 136 mmol/L (137-145)
[2023-01-18] MEDS: FERROUS SULFATE 325 MG TAB PO SCH (06:45)
[2023-01-18] MEDS: PANTOPRAZOLE 40 MG TABLET PO SCH (06:45)
[2023-01-18] MEDS: LEVOTHYROXINE 100 MCG TAB PO SCH (06:46)
[2023-01-18] MEDS: ASCORBIC ACID 500 MG TAB PO SCH (06:46)
[2023-01-18] MEDS ORDERED: FUROSEMIDE 10 MG/ML 2 ML VIAL IV STA (07:41)
--- NOTE | 2023-01-18 08:04 | P.PN ---
Subjective Progress Note Date: 01/18/23 Principal diagnosis: Severe symptomatic aortic stenosis, tricuspid regurgitation. Previous medical history of hypertension, hyperlipidemia, borderline diet controlled diabetes, hy pothyroid/Graves status post thyroidectomy, previous secondhand smoke exposure, bowel resection secondary to diverticulitis, GERD POD #7 aortic valve replacement with 23 mm Curtis Inspiris bovine pericardial valve, aortic root enlargement with hemashield patch (Gurinder Leahy technique), epi- aortic ultrasound, ligation of the left atrial appendage with a 35 mm AtriCure clip, intraoperative transesophageal echocardiogram performed by anesthesia Postoperative acute blood loss anemia and thrombocytopenia, expected outcomes of postoperative open heart surgery given the hemodilution and cardiopulmonary bypass pump The patient was seen and examined in follow-up today 01/18/2023 at her bedside in the intensive care unit. She is sitting up to the bedside chair, is awake, alert, oriented 3 and is in no acute apparent distress. She denies any complaints of shortness of breath with sitting, but says she does get a little short of breath with ambulating. Denies any complaints of pain at this time, but reports that she did take a pain pill at around 3:45 AM for surgical type pain to her chest, currently rating her pain 2 out of 10 on the pain scale. The patient reports she feels ready to be discharged home today. Oxygen saturations are 93% on room air and she is achieving 1000 mL on her incentive spirometry. Bedside telemetry showing normal sinus rhythm heart rate 85 BPM. She remained hemodynamically stable and is currently on no inotropic or pressor support. She reports she ambulated in the intensive care unit hallway at least 6 times yesterday and also did a flight of stairs and tolerated well. Chest x-ray was reviewed. She been afebrile the last 24 hours. Anticipate discharge home today. Discharge instructions have been reviewed with the patient. Objective - Vital Signs Vital signs: Vital Signs Temp 98.2 F 01/18/23 04:00 Pulse 77 01/18/23 04:00 Resp 18 01/18/23 04:00 BP 104/42 01/18/23 04:00 Pulse Ox 93 L 01/18/23 04:00 FiO2 40 01/11/23 15:28 Intake & Output 01/17/23 01/18/23 01/18/23 18:59 06:59 18:59 Intake Total 650 Output Total 550 400 Balance 100 -400 Intake: Oral 650 Output: Urine 550 400 Other: Voiding Method Toilet # Bowel Movements 1 ABP, PAP, CO, CI - Last Documented Arterial Blood Pressure 97/46 Pulmonary Artery Pressure 25/12 Cardiac Output 5 Cardiac Index 2.6 - Exam CONSTITUTIONAL: Sitting up to the bedside chair in the intensive care unit. Appears comfortable and is cooperative. RESPIRATORY: Lungs sounds diminished bilaterally, right greater than left. Respirations are symmetrical and nonlabored. Currently on room air with oxygen saturation 93%. Able to achieve 1000 mL on incentive spirometry. Strong nonproductive cough. CARDIOVASCULAR: S1, S2 present, negative for S3 or gallop. A holosystolic murmur is present. Regular rate and rhythm, sinus rhythm on bedside telemetry, heart rate 85 bpm. Sternum stable. Palpable peripheral pulses bilaterally. No edema present. No calf pain or tenderness noted. Heart hugger in place with patient demonstrating appropriate use. Antiembolism stockings, SCDs present. GASTROINTESTINAL: Abdomen soft, nontender, nondistended. Active bowel sounds present 4 quadrants. Tolerating diet. Bowel movement last evening. GENITOURINARY: Continues to void. Output 400 mL in the last 8 hours. INTEGUMENTARY: Skin is warm and dry, no evidence of cyanosis or clubbing. Midline sternal chest incision well approximated. No redness or drainage. NEUROLOGIC: Cranial nerves II through XII intact. No focal deficits. MUSKULOSKELETAL: Able to move all extremities, strength equal bilaterally, gait normal. PSYCHIATRIC: Alert and oriented to person place and time. - Allied health notes Allied health notes reviewed: nursing - Labs CBC & Chem 7: 01/18/23 04:16 01/18/23 04:16 Labs: Abnormal Lab Results - Last 24 Hours (Table) 01/17/23 01/18/23 01/18/23 Range/Units 11:41 04:16 04:16 WBC 12.2 H (3.8-10.6) k/uL RBC 2.32 L (3.80-5.40) m/uL Hgb 7.1 L (11.4-16.0) gm/dL Hct 22.2 L (34.0-46.0) % Sodium 136 L (137-145) mmol/L Carbon Dioxide 31 H (22-30) mmol/L Glucose 101 H (74-99) mg/dL POC Glucose (mg/dL) 126 H (70-110) mg/dL Calcium 7.9 L (8.4-10.2) mg/dL Magnesium 2.4 H (1.6-2.3) mg/dL - Imaging and Cardiology Chest x-ray: report reviewed, image reviewed Assessment and Plan Assessment: Severe symptomatic aortic stenosis, status post bioprosthetic aortic valve replacement with aortic root enlargement Tricuspid regurgitation, moderate on previous ZOEY, trivial intraoperative History of hypertension Hyperlipidemia, treated, cholesterol 217, LDL 125, triglycerides 206 Borderline diet controlled diabetes, hemoglobin A1c 6.2% Hypothyroid/Graves status post thyroidectomy, recent TSH 0.274, free T4 2.05 Previous secondhand smoke exposure, preoperative FEV1 83% of predicted Bowel resection secondary to diverticulitis GERD Postoperative acute blood loss anemia and thrombocytopenia, expected Plan: Continue to maximize medical therapy with low-dose aspirin, statin, Plavix, and beta cruz. Will increase beta cruz therapy as tolerated. Currently on metoprolol succinate 25 mg by mouth daily. Encourage incentive spirometry use 10 times every hour while awake. Bronchodilators per pulmonology. Increase activity, ambulate as tolerated. PT/OT/cardiac rehab following. Will monitor daily labs and chest x-rays. Electrolyte replacement protocol. GI/DVT prophylaxis. Pain control with current medication regimen. Insulin management per internal medicine service. Patient is borderline diabetic with preoperative hemoglobin A1c 6.2%, needs tight blood sugar control to prevent infection and promote healing. Shower daily. Strict accurate intake and output. Daily weights. Lasix 20 mg IV 1 now. The patient will be discharged home on Lasix 20 mg by mouth daily 5 days. Surgical support bra placed on patient. Continue to use heart hugger. Transfer orders placed for 3 south, may transfer when bed available. Discharge planning in progress, anticipate discharge to home with home care today. Discharge instructions reviewed with the patient. More recommendations to follow based on patient's clinical course. Time with Patient: Greater than 30
[2023-01-18] MEDS: IPRATROPIUM-ALBUTEROL 3 ML NEB INHALATION SCH ×3 (08:20→15:15)
--- NOTE | 2023-01-18 08:45 | P.PN ---
Subjective Progress Note Date: 01/18/23 This is a 68-year-old female patient with a known history of hypertension, gastroesophageal reflux disease, hypothyroidism, Graves' disease, diverticulitis with previous bowel resection. She also has a known history of severe aortic valve stenosis and was brought in today electively for aortic valve replacement. She received an aortic valve replacement with a 23 mm Curtis Insiris bovine pericardial valve. She is seen in the postoperative period in the intensive care unit. Intubated on mechanical ventilator currently and assist-control mode at a tidal volume of 450, FiO2 100% and a PEEP of 8. She has a left pleural chest tube in place, mediastinal chest tube in place. Right IJ Windom-Nelia cat heter in place. Temperature venous pacing wires in place. Arterial blood gases pending. Labs are pending. The patient is seen today 01/12/2023 in follow-up in the intensive care unit. She was successfully extubated within the six-hour protocol. She is currently sitting up in a chair at the bedside. Maintaining good O2 saturations in the 90s on 2 L/m per nasal cannula. She has lactated Ringer's at 50 MLS per hour. Currently on a insulin drip at 4 units per hour. Right IJ Windom-Nelia catheter remains in place. Cardiac output 5.0. Cardiac index 2.6. CVP 4. PA pressures 25/11. Right radial arterial line in place. Mediastinal and left pleural chest tubes remain in place. AV epicardial pacemaker wires remain in place. Backup rate of 50. Currently in sinus rhythm in the 80s. Blood pressure improved. Off Cleviprex. White count 10.7. Hemoglobin 7.1. Platelet count 121. Sodium 138. Potassium 3.7. Bicarb 24. BUN 19. Creatinine 0.66. Glucose 1:15. AST 37. ALT 15. Magnesium 2.5. Chest x-ray reveals small left pleural effusion. She continues to work well with the incentive spirometer. Continued on DuoNeb inhalations. Heparin for DVT prophylaxis. The patient is seen today 01/13/2023 in follow-up in the intensive care unit. Postoperative day #2. She is currently sitting up in a chair at the bedside. Awake and alert in no acute distress. Maintaining O2 saturations in the 90s on 2 L/m per nasal cannula. She has lactated Ringer's at 20 miles per hour. Chest x-ray reveals a small right effusion and some atelectasis at the bases. She continues working well with the incentive spirometer. Mediastinal/left pleural chest tubes remain in place. Right IJ Cordis in place. Right radial arterial line in place. AV epicardial pacer wires present. Backup rate of 50. She is remaining in sinus rhythm. White count 12.6. Hemoglobin 7.1. Platelets 115. Sodium 135. Potassium 4.2. Bicarb 27. BUN 14. Creatinine 0.68. Glucose 105. Gloria on DuoNeb inhalations. Heparin for DVT prophylaxis. She is up ambulating with assistance. The patient is seen today 01/14/2023 in follow-up in the intensive care unit. Postoperative day #3. She is awake and alert in no acute distress. Sitting up in a chair at the bedside. Maintaining good O2 saturations in the 90s on 2 L nasal cannula. Chest x-ray reveals stable trace bilateral pleural effusions with left chest tube in place. No evidence of pneumothorax. Her main complaint today is that of she did have a hemoglobin of 6.0 with a follow-up hemoglobin of 6.6. The plan is for one unit of packed blood cells today. White count 14.9. Platelets 139. Sodium 134. Potassium 4.2. Bicarb 27. BUN 16. Creatinine 0.68. Glucose 137. Currently in a negative balance. Remains on DuoNeb inhalations. Heparin for DVT prophylaxis. 01/15 2023 the patient is postop day #4, and the patient is currently on 2 L of oxygen by nasal cannula, ambulating. Left pleural chest tube still in place and output has been 50 mL over the past 24 hours. Cardiac rhythm is sinus. Pain is under adequate control and the patient has no specific complaints. Chest x-ray shows no evidence of a pneumothorax. It showed some atelectatic change in the lung bases bilaterally. Chest tube is in a good location. Terms of her hemoglobin, the patient received 2 units of packed RBC for a hemoglobin of 6.0. Her subsequent hemoglobin is at 8.1.S of the blood work shows edematous, 16.3, platelet count of 172, BUN is at 60 with a creatinine of 0.6. Sodium is at 136. No other significant events overnight. Awake and alert and following commands without any focal neurological deficits. On today's evaluation of 01/16/2023, seeing the patient for a follow-up. She is postop day #5 following day open-heart surgery with about replacement. The patient had an aortic valve replacement. On today's evaluation, the patient is still using the incentive spirometer, 20,000, chest x-ray was reviewed and shows atelectatic changes in lung bases bilaterally. She is in normal sinus rhythm. Hemoglobin stable at 7.5. White cell count at 14. Electrolytes are normal, renal function is normal. She is afebrile in the surgical one-sided striking and intact. Chest tubes have been removed. The patient's Smith catheter has b een removed. Hematologic profile shows a stable platelet count of 182. No bleeding. 01/17/2023, the patient is postop day #6. She remains in the intensive care unit. The main issue for today some chest wall pain in the surgical one-sided. She was treated with Haven. Pain is under better control for now. She is using the incentive spirometer. A chest x-ray from today shows small bilateral pleural effusion which is an anticipated expected outcome of surgery. All of the chest was minimal. She is post aortic valve replacement. No lower extremity edema. There is some leakage from the chest tube stoma the left which is minimal at this point in time and is serosanguineous. She is on 2 L of oxygen by nasal cannula. She was ambulating yesterday. Blood pressure is soft and the patient remains on metoprolol 12.5 mg by mouth 3 times a day. She is also on combination of aspirin and Plavix. Epicardial leads are still in place.Assess of the blood work from today shows a hemoglobin of 7.4 which is stable compared to yesterday. WBC count of 11.6. Platelet count is 214. Sodium is at 138, potassium levels at 4.3, bicarb is at 32, BUN is 14 with a creatinine of 0.67 which is essentially stable. She has adequate urine output. She has adequate bowel sounds. She is ambulating. On 01/18/2023, the patient is coming room air oxygen. She is recovering from her surgery. She is day #7 following aortic valve replacement. The chest x-ray from today shows small bilateral pleural effusions the lung bases. The patient was given Lasix. Her cardiac rhythm is sinus. Echocardiogram needs were removed. She remains hemodynamically stable. She is ambulating. No nausea. No emesis. The wound is clean and there is no active drainage at this point in time. The patient has a stable hemoglobin of 7.1. WBC count is at 12.2. BUN is at 60 with a creatinine of 0.7. No other significant events otherwise for now. She is on room air oxygen. Using the incentive spirometer. Objective - Vital Signs Vital signs: Vital Signs Temp 97.8 F 01/18/23 07:59 Pulse 88 01/18/23 08:34 Resp 14 01/18/23 07:59 BP 96/56 01/18/23 07:59 Pulse Ox 94 L 01/18/23 07:59 FiO2 40 01/11/23 15:28 Intake & Output 01/17/23 01/18/23 01/18/23 18:59 06:59 18:59 Intake Total 650 300 Output Total 550 400 300 Balance 100 -400 0 Weight 91.3 kg Intake: Oral 650 300 Output: Urine 550 400 300 Other: Voiding Method Toilet # Bowel Movements 1 ABP, PAP, CO, CI - Last Documented Arterial Blood Pressure 97/46 Pulmonary Artery Pressure 25/12 Cardiac Output 5 Cardiac Index 2.6 - Exam GENERAL EXAM: Alert, very pleasant, pale 68-year-old female, up in a chair, on 2 L nasal cannula, fatigued, comfortable in no apparent distress. HEAD: Normocephalic. EYES: Normal reaction of pupils, equal size. NOSE: Clear with pink turbinates. THROAT: No erythema or exudates. NECK: Right IJ Cordis in place. No masses, no JVD. CHEST: Sternal dressing dry and intact. She'll submit removed and AV pacemaker wires in place, grounded. LUNGS: Equal air entry with faint crackles in the bilateral bases. CVS: S1 and S2 normal with no audible murmur, regular rhythm. ABDOMEN: No hepatosplenomegaly, normal bowel sounds, no guarding or rigidity. SPINE: No scoliosis or deformity SKIN: No rashes CENTRAL NERVOUS SYSTEM: No focal deficits, tone is normal in all 4 extremities. EXTREMITIES: There is trace peripheral edema. Peripheral pulses are intact. - Labs CBC & Chem 7: 01/18/23 04:16 01/18/23 04:16 Labs: Abnormal Lab Results - Last 24 Hours (Table) 0601/18/23 01/18/23 Range/Units 11:41 04:16 04:16 WBC 12.2 H (3.8-10.6) k/uL RBC 2.32 L (3.80-5.40) m/uL Hgb 7.1 L (11.4-16.0) gm/dL Hct 22.2 L (34.0-46.0) % Sodium 136 L (137-145) mmol/L Carbon Dioxide 31 H (22-30) mmol/L Glucose 101 H (74-99) mg/dL POC Glucose (mg/dL) 126 H (70-110) mg/dL Calcium 7.9 L (8.4-10.2) mg/dL Magnesium 2.4 H (1.6-2.3) mg/dL Assessment and Plan Plan: Severe aortic stenosis status post aortic valve replacement utilizing a 23 mm Curtis Insiris bovine pericardial valve. Postoperative day #7 Anemia, expected outcome of surgery, current hemoglobin 6.6, receiving 1 unit of packed red blood cells, current hemoglobin is at 7.1 History of hypertension Hypothyroidism status post thyroidectomy History of Graves' disease Gastroesophageal reflux disease History of diverticulitis with previous bowel resection Nonsmoker, pulmonary function testing revealed an FEV1 value of 2.0 L which was 83% of predicted Plan: Control chest wall pain and it is adequate for now No constipation Continue using incentive spirometer The epicardial leads e removed Chest tubes have been removed Using the incentive spirometer Ambulating Had a bowel movement yesterday Tolerating diet Clinically stable hemodynamically stable and she is still on metoprolol 25 mg daily Chest x-ray was reviewed and there is no acute abnormalities. Some atelectatic change in lung bases and small effusions Continue using the incentive spirometer We'll continue to follow possible hme today
[2023-01-18] MEDS: ACETAMINOPHEN TAB 325 MG TAB PO PRN (08:48)
--- NOTE | 2023-01-18 08:48 | XR ---
EXAMINATION TYPE: XR chest 2V DATE OF EXAM: 01/18/2023 COMPARISON: 01/17/2023 TECHNIQUE: PA and lateral views submitted. HISTORY: Post cardiac surgery FINDINGS: Heart is enlarged and there is diffuse interstitial pattern with bilateral infiltrate and small effus ion. Postsurgical changes are seen in this arthropathy of the right shoulder. No sizable pneumothorax . Hypertrophic and degenerative changes of the spine. IMPRESSION: 1. Bilateral infiltrate and pleural effusion stable.
[2023-01-18] MEDS ORDERED: METOPROLOL SUCCINATE (ER) 25 MG TAB.ER.24H PO SCH (09:00)
--- NOTE | 2023-01-18 09:12 | P.PN ---
Subjective Progress Note Date: 01/18/23 The patient is a 68-year-old female who follows in the office with Dr. Wheatley. She underwent aortic valve replacement on January [address] Baxter. Postoperative recovery includes blood loss anemia, requiring transfusion. No arrhythmias to date. Discharge was delayed due to continued anemia. She's been given an extra dose of furosemide today per CV surgery. The patient was interviewed and examined sitting up in the recliner chair. She states her pain is well controlled. No exertional shortness of breath or orthopnea. No dizziness or lightheadedness when standing. GENERAL: Well-appearing, well-nourished and in no acute distress. NECK: Supple without JVD or thyromegaly. LUNGS: Breath sounds clear to auscultation bilaterally. Respiration equal and unlabored. HEART: Regular rate and rhythm. Soft systolic murmur. No rubs or gallops. S1 and S2 heard. Heart hugger in place. EXTREMITIES: Normal range of motion, no edema. No clubbing or cyanosis. Peripheral pulses intact and strong. TELEMETRY: Sinus rhythm. No arrhythmias overnight. LABS: WBC 2.2, hemoglobin 7.1, hematocrit 22.2, platelet 244, sodium 136, potassium 4.7 BUN 15, creatinine 0.72 IMPRESSION: Aortic stenosis Status post bioprosthetic aortic valve replacement Hypertension Hypothyroidism PLAN: Agree with transitioning to metoprolol succinate Patient to follow-up with primary finger waver Dr. Wheatley in one week I am dictating on behalf of Dr Herbert Encarnacion's history/physical and assessment/plan. Objective - Vital Signs Vital signs: Vital Signs Temp 97.8 F 01/18/23 07:59 Pulse 88 01/18/23 08:34 Resp 14 01/18/23 07:59 BP 96/56 01/18/23 07:59 Pulse Ox 94 L 01/18/23 07:59 FiO2 40 01/11/23 15:28 Intake & Output 01/17/23 01/18/23 01/18/23 18:59 06:59 18:59 Intake Total 650 300 Output Total 550 400 300 Balance 100 -400 0 Weight 91.3 kg Intake: Oral 650 300 Output: Urine 550 400 300 Other: Voiding Method Toilet # Bowel Movements 1 ABP, PAP, CO, CI - Last Documented Arterial Blood Pressure 97/46 Pulmonary Artery Pressure 25/12 Cardiac Output 5 Cardiac Index 2.6 - Labs CBC & Chem 7: 01/18/23 04:16 01/18/23 04:16 Labs: Abnormal Lab Results - Last 24 Hours (Table) 01/17/23 01/18/23 01/18/23 Range/Units 11:41 04:16 04:16 WBC 12.2 H (3.8-10.6) k/uL RBC 2.32 L (3.80-5.40) m/uL Hgb 7.1 L (11.4-16.0) gm/dL Hct 22.2 L (34.0-46.0) % Sodium 136 L (137-145) mmol/L Carbon Dioxide 31 H (22-30) mmol/L Glucose 101 H (74-99) mg/dL POC Glucose (mg/dL) 126 H (70-110) mg/dL Calcium 7.9 L (8.4-10.2) mg/dL Magnesium 2.4 H (1.6-2.3) mg/dL
[2023-01-18] MEDS: ASPIRIN 81 MG PO SCH (09:24)
[2023-01-18] MEDS: CALCIUM CARBONATE 500 MG CHEWABLE PO SCH (09:24)
[2023-01-18] MEDS: ATORVASTATIN 20 MG TAB PO SCH (09:24)
[2023-01-18] MEDS: CHOLECALCIFEROL 25 MCG (1000 IU) TABLET PO SCH (09:24)
[2023-01-18] MEDS: CLOPIDOGREL 75 MG TAB PO SCH (09:25)
[2023-01-18] MEDS: MULTIVITAMINS, THERA 1 EACH TAB PO SCH (09:25)
--- NOTE | 2023-01-18 15:18 | P.PN ---
Subjective Progress Note Date: 01/18/23 Patient is a 68-year-old female with a known history of hypertension, prediabetes, GERD, osteoarthritis, diverticulitis with history of bowel resection hypothyroidism and prior history of smoking and severe aortic stenosis was admitted to the hospital for elective aortic valve replacement. Patient is s/p replacement with bovine pericardial valve. Patient was intubated perioperatively and was transferred to MICU. Currently on Ventilator with assist control with FiO2 450 and PEEP of 8. Chest x-ray showed left lower lobe infiltrate with small effusion. Postoperative changes. ABG showed pH 7.38 PCO2 42 and PO2 202 WBC 17.2 hemoglobin 10.6 and platelets 128 Sodium 137 potassium 4.3 chloride 108 bicarb 23 BUN 19 and creatinine 0.65 blood sugar is 138 and albumin 2.8. 01/12/2023 Patient is currently in the MICU. Was extubated successfully yesterday. Currently on oxygen at 2 L via nasal cannula. Able to sit up in the chair. Pleural and mediastinal chest tubes in place. Epicardial pacemaker wires in place. Patient is being continued on incentive spirometry and DuoNebs. On insulin drip. Blood sugars controlled. Laboratory data showed WBC 10.7 hemoglobin 7.1 and platelets 121, sodium 138 potassium 3.7 chloride 107 bicarb 24 BUN 19 and creatinine 0.66 Blood sugar 105 calcium 7.4 AST 37 albumin 3.1. 01/13/2023 Patient is postoperative day 2 Currently sitting in the chair. Complains of shortness of breath with exertion and while moving to the chair. Denies any complaints of chest pain. Requiring 2 L oxygen via nasal cannula. Left pleural and mediastinal chest tubes in place. Chest x-ray showed stable postsurgical changes with trace bilateral pleural effusions and left thoracotomy tube. No evidence for pneumothorax. Patient is on insulin sliding scale. Blood sugar this morning 105 Laboratory data showed WBC 12.6 hemoglobin 7.1 and platelets 115, sodium 135 potassium 4.2 chloride 104 bicarb is 27 BUN 14 and creatinine 0.68 and albumin 3.2. 01/14/2023 Patient is currently sitting in the chair comfortably. Awake alert and oriented x3. Not in distress. On 2 L via nasal cannula and saturating at 96%. No complaints of chest pain. Patient does have exertional dyspnea. Otherwise afebrile. No cough or sputum production. Chest x-ray today showed stable postsurgical change with trace bilateral pleural effusions and left thoracotomy tube. No evidence for pneumothorax.Left pleural chest tube in place. Laboratory data showed WBC 11.3 hemoglobin 6.0 and is being transfused with 1 unit of PRBC. Platelets 110. Sodium 134 potassium 4.2 chloride 102 bicarb is 27 BUN 16 and creatinine 0.68 and calcium 7.5 blood sugar is 137 this morning. Albumin 2.9. Cardiology and pulmonary is on board. 01/16/2023 Patient is seen and evaluated in follow-up this morning continues to be in ICU with multiple medical consultations following. Patient has had chest tubes removed and Smith catheter currently getting up status post for shower from cardiac surgery and doing well. Per nursing staff patient is improved on her incentive spirometer achieving over 1000 and has been frequently using. Encouraged to continue using at least 10 times every hour while awake. Chest x- ray shows some vascular congestion and weaning FiO2 as tolerated. Patient is currently 96% on 1 L. Encouraged to increase activity as tolerated with restrictions per CT surgery. Patient's blood pressures are soft and recommend monitoring closely. WBC is trending down currently at 14 and hemoglobin is 7.5. Sodium is 133 with a potassium of 4.3 and creatinine is 0.64. Blood sugars being monitored and appeared to be improved. Patient is afebrile denies chest pain or shortness of breath. Patient does have some chest wall pain which is to be expected. Patient denies nausea or vomiting and tolerating diet. Recommend follow-up labs in a.m. along with repeat chest x-ray. 01/17/2023 Patient is seen and evaluated in follow-up today being followed by cardiology a long with cardiothoracic surgery in the ICU. Cardiothoracic surgery discussing possible discharge today. Patient is currently afebrile with no reports of shortness of breath or chest pain noted. Patient continues to have some chest wall pain and will continue current medication regimen. Patient chest x-ray today shows stable cardiomegaly with mild residual venous central congestion possibly. Patient is medically stable with close outpatient follow-up and cardiology has cleared the patient. Patient was awaiting a stepdown bed and transfer out of the ICU although no beds were available. Patient has been up and walking multiple times and weaning FiO2 as tolerated. 01/18/2023 Patient seen and evaluated in follow-up today continues to report some shortness of breath maintaining oxygen saturation above 92% while on 1 L via nasal cannula. Patient continues to report shortness of breath with exertion and also feeling weak and tired today. Hemoglobin was found to be 7.1 from 7.4 yesterday and other labs reviewed within normal limits. Chest x-ray continues to show bilateral pleural effusions that are stable. Patient is afebrile with no reports of chest pain or palpitations. Patient has been up and walking frequently and does report dyspnea with exertion. Encouraged patient to continue using incentive spirometer at least 10 times every hour while awake. Patient is planned for possible discharge today versus tomorrow. Review of systems: Constitutional: No reports of fatigue, fever, or chills Cardiovascular: No reports of chest pain or palpitations Respiratory: reports ocontinued shortness of breath mostly with exertion GI: No reports of nausea, vomiting, or diarrhea : No reports of dysuria or retention Neurovascular: No reports of weakness or numbness All medications have been reviewed PHYSICAL EXAMINATION: Patient is up in the chair, alert and oriented 3, well-developed, well- nourished, obese HEENT: Normocephalic. Neck is supple. Pupils reactive. Nostrils clear. Oral cavity is moist. Neck reveals no JVD, carotid bruits, or thyromegaly. CHEST EXAMINATION: Trachea is central. Symmetrical expansion. Some faint crackles noted at the bases bilaterally. No wheezing or rhonchi.. CARDIAC: S1, S2 are muffled ABDOMEN: Soft. Bowel sounds present. Nontender. No organomegaly. No abdominal bruits. Extremities: Trace bilateral pedal edema. No clubbing or cyanosis Neurologically awake, alert, oriented x3 with well-coordinated movements. No focal deficits noted Skin: No rash or skin lesions. Psychiatric: Cooperative. Non-suicidal, Musculoskeletal: No joint swelling or deformity. Normal range of motion. Assessment: Severe aortic stenosis. Status post surgical aortic valve replacement with bovine valve. Postoperative day 6 Leukocytosis likely due to postoperative inflammation reaction. improving Acute blood loss anemia expected from surgery. Hemoglobin 6.0 on 01/14/2023, currently 7.1 today Atelectasis, as expected, improving Hypertension Prediabetes Hypothyroidism with history of thyroidectomy History of diverticulitis status post bowel resection GERD Obesity with BMI of 32.0 Prior history of smoking DVT prophylaxis and GI prophylaxis Full code Plan: Patient continues to be in the ICU although has been a down grade to 3 south and no beds available Chest x-ray shows some continued stable bilateral pleural effusions and c urrently maintained on 1 L via nasal cannula and may be going home with that per cardiothoracic surgery Patient continues to use incentive spirometer and Recommend continue using at least 10 times every hour while awake Recommend tight glycemic control and will continue to monitor Accu-Cheks before meals and at bedtime and continue sliding scale as needed PT OT is following. Patient has been up and walking the halls multiple times Patient will be continued on home medication including levothyroxine. Patient's hemoglobin is 7.1 today and discussing possible discharge if patient stays would recommend unit of PRBC and follow-up labs. Plan is for discharge possibly later today to home We will continue to follow closely with cardiothoracic surgery during hospitalization. Thank you kindly for this consultation. The impression and plan of care has been dictated by Susana Limon, Nurse Practitioner as directed. Dr. Kishan MD I have performed a history and examination and MDM of this patient, discussed the same with the dictator, and agree with the dictator's assessment and plan as written ,documented as a scribe. Based on total visit time, I have performed more than 50% of the visit. Objective - Vital Signs Vital signs: Vital Signs Temp 98.4 F 01/18/23 11:35 Pulse 89 01/18/23 11:49 Resp 16 01/18/23 11:35 BP 114/47 01/18/23 11:35 Pulse Ox 93 L 01/18/23 11:35 FiO2 40 01/11/23 15:28 Intake & Output 01/17/23 01/18/23 01/18/23 18:59 06:59 18:59 Intake Total 650 300 Output Total 510 650 8675 Balance 100 -400 -1300 Weight 91.3 kg Intake: Oral 650 300 Output: Urine 732 195 9956 Other: Voiding Method Toilet # Bowel Movements 1 ABP, PAP, CO, CI - Last Documented Arterial Blood Pressure 97/46 Pulmonary Artery Pressure 25/12 Cardiac Output 5 Cardiac Index 2.6 - Labs CBC & Chem 7: 01/18/23 04:16 01/18/23 04:16 Labs: Abnormal Lab Results - Last 24 Hours (Table) 01/18/23 01/18/23 Range/Units 04:16 04:16 WBC 12.2 H (3.8-10.6) k/uL RBC 2.32 L (3.80-5.40) m/uL Hgb 7.1 L (11.4-16.0) gm/dL Hct 22.2 L (34.0-46.0) % Sodium 136 L (137-145) mmol/L Carbon Dioxide 31 H (22-30) mmol/L Glucose 101 H (74-99) mg/dL Calcium 7.9 L (8.4-10.2) mg/dL Magnesium 2.4 H (1.6-2.3) mg/dL
[2023-01-18 16:04] VITALS: BP 107/63; PULSE 88; RESP 18; TEMP 98.1
[2023-01-19] MEDS ORDERED: FUROSEMIDE 20 MG TAB PO SCH (09:00)
== END 2023-01-18 16:15 | disposition home health service (06) | DRG 220 ==
LOC: 2ORMAIN 05:32 → 2SICU 12:58
PROVIDERS: ADMIT Thoracic Surgery (Cardiothoracic Vascular Surgery); ATTEND Thoracic Surgery (Cardiothoracic Vascular Surgery)
PROC: 02RF08Z Replacement of Aortic Valve with Zooplastic Tissue, Open Approach (ICD-10-PCS; 2023-01-11)
PROC: 5A1221Z Performance of Cardiac Output, Continuous (ICD-10-PCS; 2023-01-11)
PROC: B24BZZ4 Ultrasonography of Heart with Aorta, Transesophageal (ICD-10-PCS; 2023-01-11)
PROC: 02L70CK Occlusion of Left Atrial Appendage with Extraluminal Device, Open Approach (ICD-10-PCS; principal; 2023-01-11 08:00)
PROC: 30233N1 Transfusion of Nonautologous Red Blood Cells into Peripheral Vein, Percutaneous Approach (ICD-10-PCS; 2023-01-14)
DX: I08.2 Rheumatic disorders of both aortic and tricuspid valves (principal); D62 Acute posthemorrhagic anemia; J90 Pleural effusion, not elsewhere classified; K57.92 Diverticulitis of intestine, part unspecified, without perforation or abscess without bleeding; D69.6 Thrombocytopenia, unspecified; E66.9 Obesity, unspecified; Z68.32 Body mass index [BMI] 32.0-32.9, adult; R73.03 Prediabetes; E78.5 Hyperlipidemia, unspecified; E89.0 Postprocedural hypothyroidism; I10 Essential (primary) hypertension; K21.9 Gastro-esophageal reflux disease without esophagitis; D72.829 Elevated white blood cell count, unspecified; R09.02 Hypoxemia; Z77.22 Contact with and (suspected) exposure to environmental tobacco smoke (acute) (chronic); Z20.822 Contact with and (suspected) exposure to COVID-19; Z79.82 Long term (current) use of aspirin; Z79.899 Other long term (current) drug therapy; Z85.828 Personal history of other malignant neoplasm of skin; Z87.891 Personal history of nicotine dependence; Z90.49 Acquired absence of other specified parts of digestive tract
CPT/HCPCS: 36415; 71045; 71046; 80048; 80053; 82330; 82805; 83735; 85025; 85027; 85610; 85730; 86850; 86891; 86900; 86901; 86920; 87070; 88305; 94002; 94640; 94760

== ENCOUNTER 2023-01-18 20:09 | Emergency (ER) | payer MEDICARE ==
--- NOTE | 2023-01-18 22:07 | XR ---
EXAMINATION: XR chest 2V: 01/18/2023 9:38 PM CLINICAL INDICATION: Cough/pain TECHNIQUE: Departmental protocol COMPARISON: 01/18/2023 at 6:13 AM FINDINGS: There is a fine reticular pattern of increased attenuation throughout the lungs, suggesting interstit ial phase pulmonary edema. Moderate bilateral pleural effusions are unchanged. No pneumothorax or other abnormal gas collection. Sternal sutures and mediastinal clips, without prosthesis and left atrial clip. The cardiac silhouett e is moderately enlarged. The skeletal structures and soft tissues are negative for acute findings. IMPRESSION: Suspect interstitial phase pulmonary edema.
--- NOTE | 2023-01-18 23:10 | ED ---
General Adult HPI - General Chief complaint: Recheck/Abnormal Lab/Rx Stated complaint: Chest Tube Opened, Fluid Coming Out Time Seen by Provider: 01/18/23 21:06 Source: patient Mode of arrival: ambulatory Limitations: no limitations - History of Present Illness Initial comments: 68-year-old female presents emergency department reporting drainage from her chest tube site. Patient had aortic valve replacement by Dr. Baxter. She had 2 chest tubes placed which were removed before hospital discharge. Patient was just discharged home earlier today. States that she went home and attempted to have a bowel movement on the toilet. She bear down and felt a pop. She had a significant gush of fluid. Patient called down leg. She did not hear back and therefore called EMS. She denies any bloody output. No shortness of breath. No other alleviating, precipitating or modifying factors - Related Data Home Medications Medication Instructions Recorded Confirmed Levothyroxine Sodium [Levoxyl] 200 mcg PO DAILY 06/15/15 01/11/23 Mometasone Furoate [Nasonex 50 mcg 1 - 2 spray EA NOSTRIL DAILY PRN 06/15/15 01/08/23 Nasal [place]] Omeprazole [PriLOSEC] 20 mg PO HS 06/15/15 01/11/23 Calcium Carbonate [Calcium] 600 mg PO DAILY 05/15/17 01/08/23 Multivit with Calcium,Iron,Min 1 each PO DAILY 05/15/17 01/11/23 [Women's Multivitamin] Acetaminophen [Tylenol Extra 500 mg PO DIRECTED PRN 10/20/22 01/11/23 Strength] Aspirin 81 mg PO DAILY 10/20/22 01/11/23 Fexofenadine HCl [Liat Allergy] 180 mg PO DAILY PRN 10/20/22 01/11/23 Ibuprofen [Motrin Ib] 200 mg PO DIRECTED PRN 10/20/22 01/11/23 Magnesium 250 mg PO DAILY 10/20/22 01/08/23 Unk B Complex 1 tab PO DAILY 10/20/22 01/11/23 Unk Biotin 1 tab PO DAILY 10/20/22 01/11/23 Unk Vitamin C 1 tab PO DAILY 10/20/22 01/11/23 Cholecalciferol (Vitamin D3) 2,000 unit PO DAILY 11/20/22 01/11/23 [Vitamin D3 (50 Mcg = 2000 Iu) Chew Tab] Ubidecarenone [Coenzyme Q10] 200 mg PO DAILY 11/20/22 01/11/23 Rosuvastatin [Crestor] 10 mg PO QAM 01/08/23 01/11/23 Previous Rx's Medication Instructions Recorded Clopidogrel [Plavix] 75 mg PO DAILY #30 tab 01/17/23 Ferrous Sulfate [Iron (65 MG 325 mg PO BID-W/MEALS #28 tab 01/17/23 Elemental)] HYDROcodone/APAP 5-325MG [[place] 1 each PO Q6HR PRN #28 tab 01/17/23 5-325] Metoprolol Succinate (ER) [Toprol 25 mg PO DAILY #30 tab 01/17/23 XL] Sennosides-Docusate Sodium 2 each PO HS PRN tab 01/17/23 [Senokot-S] Furosemide [Lasix] 20 mg PO DAILY #5 tab 01/18/23 Allergies Allergy/AdvReac Type Severity Reaction Status Date / Time cefaclor [From Ceclor] Allergy Rash/Hives Verified 01/18/23 20:21 ciprofloxacin [From Cipro] Allergy Unknown Verified 01/18/23 20:21 sulfamethoxazole AdvReac Nausea & Verified 01/18/23 20:21 [From Septra] Vomiting trimethoprim [From Septra] AdvReac Nausea & Verified 01/18/23 20:21 Vomiting Review of Systems ROS Statement: Those systems with pertinent positive or pertinent negative responses have been documented in the HPI. ROS Other: All systems not noted in ROS Statement are negative. Past Medical History Past Medical History: Cancer, Diabetes Mellitus, GERD/Reflux, Hypertension, Osteoarthritis (OA), Thyroid Disorder Additional Past Medical History / Comment(s): past hx. hypertension-just takes "water pill". past hx. Grave's disease thyroid removed, aortic valve issues recent fatigue and SOB w/exertion, hx mild leaky mitral valve. tricuspid valve issue, "pre diabetic." watching diet. basal cell skin cancer removed from arm History of Any Multi-Drug Resistant Organisms: None Reported Past Surgical History: Bowel Resection, Heart Catheterization, Hernia Repair, Tonsillectomy, Uterine Ablation Additional Past Surgical History / Comment(s): thyroidectomy, inc hernia repair, left shoulder rotator cuff repair Past Anesthesia/Blood Transfusion Reactions: Postoperative Nausea & Vomiting (PONV) Additional Past Anesthesia/Blood Transfusion Reaction / Comment(s): slow to come out of anesthesia. no blood transfusions Past Psychological History: Anxiety Smoking Status: Former smoker, Second hand smoke exposure Past Alcohol Use History: None Reported Past Drug Use History: None Reported - Past Family History Mother Family Medical History: Deep Vein Thrombosis (DVT) Father Family Medical History: Deep Vein Thrombosis (DVT) General Exam Limitations: no limitations General appearance: alert, in no apparent distress Head exam: Present: atraumatic, normocephalic, normal inspection Eye exam: Present: normal appearance, PERRL, EOMI. Absent: scleral icterus, conjunctival injection, periorbital swelling ENT exam: Present: normal exam, mucous membranes moist Neck exam: Present: normal inspection. Absent: tenderness, meningismus, lymphadenopathy Respiratory exam: Present: normal lung sounds bilaterally, other (2 left lateral incisions - 1.5 cm each, most proximal is draining serosanginous fluid. no bleeding. no surrounding cellulitis). Absent: respiratory distress, wheezes, rales, rhonchi, stridor Cardiovascular Exam: Present: regular rate, normal rhythm, normal heart sounds. Absent: systolic murmur, diastolic murmur, rubs, gallop, clicks GI/Abdominal exam: Present: soft, normal bowel sounds. Absent: distended, tenderness, guarding, rebound, rigid Extremities exam: Present: normal inspection, full ROM, normal capillary refill. Absent: tenderness, pedal edema, joint swelling, calf tenderness Back exam: Present: normal inspection Neurological exam: Present: alert, oriented X3, CN II-XII intact Psychiatric exam: Present: normal affect, normal mood Skin exam: Present: warm, dry, intact, normal color. Absent: rash Course Vital Signs 01/18/23 01/18/23 20:18 23:28 Temperature 98.0 F 98.4 F Pulse Rate 96 78 Respiratory 20 16 Rate Blood Pressure 121/77 115/74 O2 Sat by Pulse 92 L 98 Oximetry Medical Decision Making - Medical Decision Making Was pt. sent in by a medical professional or institution (, PA, SENIOR PROJECT CONTROLS SPECIALIST, urgent care, hospital, or senior care...) When possible be specific @ -No Did you speak to anyone other than the patient for history (EMS, parent, family, police, friend...)? What history was obtained from this source @ -No Did you review nursing and triage notes (agree or disagree)? Why? @ -I reviewed and agree with nursing and triage notes Were old charts reviewed (outside hosp., previous admission, EMS record, old EKG, old radiological studies, urgent care reports/EKG's, senior care records)? Report findings @ - old charts were reviewed - chest xray from today Differential Diagnosis (chest pain, altered mental status, abdominal pain women, abdominal pain men, vaginal bleeding, weakness, fever, dyspnea, syncope, headache, dizziness, GI bleed, back pain, seizure, CVA, palpatations, mental health, musculoskeletal)? @ -pleural effusion, wound dehiscence, surgical site bleeding, surgical site infection EKG interpreted by me (3pts min.). @ -Not done X-rays interpreted by me (1pt min.). @ -yes - pulmonary vascular congestion CT interpreted by me (1pt min.). @ -none done U/S interpreted by me (1pt. min.). @ -None done What testing was considered but not performed or refused? (CT, X-rays, U/S, labs)? Why? @ -None What meds were considered but not given or refused? Why? @ -None Did you discuss the management of the patient with other professionals (professionals i.e. , PA, SENIOR PROJECT CONTROLS SPECIALIST, lab, RT, psych nurse, web content & social media manager, industrial servicer, teacher, catapult and arresting gear officer, manager rn case)? Give summary @ -don from CT and Dr. Baxter Was smoking cessation discussed for >3mins.? @ -no Was critical care preformed (if so, how long)? @ -No Were there social determinants of health that impacted care today? How? (Homelessness, low income, unemployed, alcoholism, drug addiction, transportation, low edu. Level, literacy, decrease access to med. care, correction, rehab)? @ -No Was there de-escalation of care discussed even if they declined (Discuss DNR or withdrawal of care, Hospice)? DNR status @ -No What co-morbidities impacted this encounter? (DM, HTN, Smoking, COPD, CAD, Cancer, CVA, ARF, Chemo, Hep., AIDS, mental health diagnosis, sleep apnea, morbid obesity)? @ -aortic valve insuff with recent open heart surgery Was patient admitted / discharged? Hospital course, mention meds given and route, prescriptions, significant lab abnormalities, going to OR and other pertinent info. @ -Upon arrival patient was placed into room 1. Thorough history and physical exam is performed. Chest x-rays performed which demonstrates some mild pulmonary edema. Called and spoke with Jer Muñiz. He is requesting that I call Dr. Baxter directly. I did speak with Dr. Baxter who states that gauze and tape should be placed the outside. No further intervention. This is discussed with the patient. She is agreeable to this. Instructed that it will heal from inside out. She must follow-up with her cardiac thoracic surgeon and return for any new or worsening symptoms. Patient discharged in stable condition Undiagnosed new problem with uncertain prognosis? @ -no Drug Therapy requiring intensive monitoring for toxicity (Heparin, Nitro, Insulin, Cardizem)? @ -No Were any procedures done? @ -No Diagnosis/symptom? @ -acute drainage from chest tube site Acute, or Chronic, or Acute on Chronic? @ -acute Uncomplicated (without systemic symptoms) or Complicated (systemic symptoms)? @ -uncomplicated Side effects of treatment? @ -none Exacerbation, Progression, or Severe Exacerbation? @ -no Poses a threat to life or bodily function? How? (Chest pain, USA, NM, pneumonia, PE, COPD, DKA, ARF, appy, cholecystitis, CVA, Diverticulitis, Homicidal, Suicidal, threat to staff... and all critical care pts) @ -No Disposition Clinical Impression: S/P aortic valve repair, S/P chest tube placement Disposition: HOME SELF-CARE Condition: Stable Instructions (If sedation given, give patient instructions): Aortic Valve Replacement (DC) Additional Instructions: Please keep the area clean, dry and covered. You may have to replace your bandages overnight. Follow-up with Dr. Baxter and return for any worsening symptoms Is patient prescribed a controlled substance at d/c from ED?: No Referrals: Sayra Britt MD [Primary Care Provider] - 1-2 days Chadwick Baxter MD [STAFF PHYSICIAN] - 1-2 days Time of Disposition: 23:09
[2023-01-18 23:29] VITALS: BP 115/74; PULSE 78; RESP 16; TEMP 98.4
== END 2023-01-18 23:29 | disposition home or self-care (01) ==
LOC: EC 20:09
DX: Z46.82 Encounter for fitting and adjustment of non-vascular catheter (principal); J81.1 Chronic pulmonary edema; E11.9 Type 2 diabetes mellitus without complications; I10 Essential (primary) hypertension; E07.9 Disorder of thyroid, unspecified; K21.9 Gastro-esophageal reflux disease without esophagitis; Z79.890 Hormone replacement therapy; Z79.82 Long term (current) use of aspirin; Z79.899 Other long term (current) drug therapy; Z87.891 Personal history of nicotine dependence; Z77.22 Contact with and (suspected) exposure to environmental tobacco smoke (acute) (chronic); Z88.1 Allergy status to other antibiotic agents; Z88.2 Allergy status to sulfonamides; Z95.2 Presence of prosthetic heart valve
CPT/HCPCS: 71046; 99284

== ENCOUNTER → 2023-01-26 | Outpatient (CLI) | payer MEDICARE ==
--- NOTE | 2023-01-26 09:18 | XR ---
EXAMINATION TYPE: XR chest 2V DATE OF EXAM: 01/26/2023 COMPARISON: Chest x-ray 8 days ago HISTORY: Post open cardiac surgery 2 weeks ago. Diminished breath sounds right lung. TECHNIQUE: Frontal and lateral views of the chest are obtained. FINDINGS: Overlying sternal wires along with left atrial appendage clip and metallic aortic valve ar e all redemonstrated. Persistent cardiomegaly with persistent small to moderate sized bilateral pleur al effusions. Associated bibasilar opacity favors compressive atelectasis is redemonstrated. Upper claudia ngs remain clear without pneumothorax. Osseous structures are intact. IMPRESSION: As above. No significant change from most recent study.
[2023-01-26 16:39] LABS: ALT 20 U/L (8-44); AST 21 U/L (13-35); Albumin 3.9 d/dL (3.8-4.9); Albumin/Globulin Ratio 1.39 Ratio (1.60-3.17); Alkaline Phosphatase 113 U/L (41-126); BUN/Creat Ratio 14.44 Ratio (12.00-20.00); Calcium 9.1 mg/dL (8.7-10.3); Chloride 101 mmol/L (96-109); Globulin 2.8 d/dL (1.6-3.3); Glucose 92 mg/dL (70-110); Potassium 4.7 mmol/L (3.5-5.5); Sodium 138 mmol/L (135-145); Total Bilirubin 0.4 mg/dL (0.3-1.2); Total Protein 6.7 d/dL (6.2-8.2)
[2023-01-26 17:32] LABS: Basophils # (A) 0.07 X 10*3/uL (0.00-0.10); Basophils % (A) 0.5 %; Eosinophils # (A) 0.41 X 10*3/uL (0.04-0.35); HCT 31.1 % (37.2-46.3); HGB 9.1 d/dL (12.0-15.0); Lymphocytes # (A) 1.72 X 10*3/uL (0.90-5.00); Lymphocytes % (A) 12.6 %; MCH 28.6 pg (27.0-32.0); MCHC 29.3 d/dL (32.0-37.0); MCV 97.8 FL (80.0-97.0); Monocytes # (A) 0.98 X 10*3/uL (0.20-1.00); Monocytes % (A) 7.2 %; NRBC Per 100 WBC 0 X 10*3/uL (0.00-0.01); Neutrophils # (A) 10.33 X 10*3/uL (1.80-7.70); Platelet Count 497 X 10*3/uL (140-440); RBC 3.18 X 10*6/uL (4.10-5.20); RDW 15.7 % (11.5-14.5); WBC 13.61 X 10*3/uL (4.50-10.00)
== END | disposition home or self-care (01) ==
LOC: RADXRMAIN 08:57
PROVIDERS: ATTEND Thoracic Surgery (Cardiothoracic Vascular Surgery)
DX: I35.1 Nonrheumatic aortic (valve) insufficiency (principal); R06.02 Shortness of breath; R74.01 Elevation of levels of liver transaminase levels
CPT/HCPCS: 71046; 80053; 85025

== ENCOUNTER → 2023-01-31 | Outpatient (CLI) | payer MEDICARE ==
[2023-01-31 13:30] LABS: Appearance,Urine Cloudy (Clear); Bacteria,Urine Rare /hpf; Bilirubin,Urine Negative (Negative); Blood,Urine Negative (Negative); Color,Urine Yellow; Glucose,Urine (UA) Negative (Negative); Ketones,Urine Negative (Negative); Leukocyte Esterase,Urine Negative (Negative); Mucus,Urine Few /hpf; Nitrite,Urine Negative (Negative); PH, Urine 6.5 (5.0-8.0); Protein,Urine Negative (Negative); RBC,Urine 1 /hpf (0-5); Specific Gravity,Urine 1.016 (1.001-1.035); Squamous Epithelial Cell,Urine 4 /hpf (0-4); Urobilinogen,Urine <2.0 mg/dL (<2.0); WBC,Urine 1 /hpf (0-5)
[2023-01-31 21:40] LABS: HCT 35.5 % (37.2-46.3); HGB 10.8 d/dL (12.0-15.0); MCH 29.4 pg (27.0-32.0); MCHC 30.4 d/dL (32.0-37.0); MCV 96.7 FL (80.0-97.0); Mean Platelet Volume 8.9 FL (9.5-12.2); NRBC Per 100 WBC 0 X 10*3/uL (0.00-0.01); Platelet Count 456 X 10*3/uL (140-440); RBC 3.67 X 10*6/uL (4.10-5.20); RDW 15.1 % (11.5-14.5); WBC 12.84 X 10*3/uL (4.50-10.00)
== END | disposition home or self-care (01) ==
LOC: LABWHC1 11:44
PROVIDERS: ATTEND Internal Medicine Interventional Cardiology
DX: Z95.2 Presence of prosthetic heart valve (principal)
CPT/HCPCS: 36415; 81001; 85027; 87040; 87086

== ENCOUNTER → 2023-02-23 | Outpatient (CLI) | payer MEDICARE ==
--- NOTE | 2023-02-23 15:22 | XR ---
EXAMINATION TYPE: XR chest 2V DATE OF EXAM: 02/23/2023 COMPARISON: 01/26/2023 HISTORY: Shortness of breath TECHNIQUE: Frontal and lateral views of the chest are obtained. FINDINGS: Scattered senescent parenchymal changes noted. Hyperinflation compatible with COPD. Improved aeration right lower lobe with small residual pleural effusion. The left lung is clear. Rece nt postoperative cardiac surgery changes. Heart size is stable. Mediastinal structures are stable and grossly unremarkable. No evidence for hilar prominence. Degenerative changes dorsal spine. IMPRESSION: 1. No evidence for acute pulmonary disease.
--- NOTE | 2023-02-23 15:27 | XR ---
EXAMINATION TYPE: XR thoracic spine complete DATE OF EXAM: 02/23/2023 CLINICAL HISTORY: pain TECHNIQUE: Frontal, lateral, and swimmer's view of thoracic spine are obtained. COMPARISON: None. FINDINGS: Thoracic spine show satisfactory alignment without evidence of acute fracture or dislocatio n. Vertebral body heights are preserved. Moderate multilevel degenerative disc space narrowing and s pondylosis. Visualized ribs are unremarkable. IMPRESSION: No acute fracture or dislocation is seen in the thoracic spine. ICD 10 NO FRACTURE, INIT IAL EVALUATION
== END | disposition home or self-care (01) ==
LOC: RADXRMAIN 14:52
PROVIDERS: ATTEND Family Medicine
DX: S29.011A Strain of muscle and tendon of front wall of thorax, initial encounter (principal); M54.6 Pain in thoracic spine; X58.XXXA Exposure to other specified factors, initial encounter
CPT/HCPCS: 71046; 72072

== ENCOUNTER → 2023-03-30 | Outpatient (CLI) | payer MEDICARE ==
[2023-03-30 14:20] LABS: ALT 12 U/L (8-44); AST 20 U/L (13-35); Albumin 4.3 d/dL (3.8-4.9); Albumin/Globulin Ratio 1.59 Ratio (1.60-3.17); Alkaline Phosphatase 120 U/L (41-126); BUN/Creat Ratio 17.75 Ratio (12.00-20.00); Blood Urea Nitrogen 14.2 mg/dL (9.0-27.0); Calcium 9.2 mg/dL (8.7-10.3); Carbon Dioxide 26.6 mmol/L (21.6-31.8); Chloride 103 mmol/L (96-109); Chol/HDL Ratio 2.81 Ratio; Globulin 2.7 d/dL (1.6-3.3); Glucose 104 mg/dL (70-110); LDL Cholesterol,Calculated 54.5 mg/dL (0.0-131.0); Potassium 4.4 mmol/L (3.5-5.5); Sodium 141 mmol/L (135-145); Total Bilirubin 0.3 mg/dL (0.3-1.2)
== END | disposition home or self-care (01) ==
LOC: LABWHC1 07:17
PROVIDERS: ATTEND Internal Medicine Interventional Cardiology
DX: E78.2 Mixed hyperlipidemia (principal)
CPT/HCPCS: 36415; 80053; 80061

== ENCOUNTER → 2023-09-29 | Outpatient (CLI) | payer MEDICARE ==
[2023-09-29 13:29] LABS: ALT 21 U/L (8-44); AST 23 U/L (13-35); Chol/HDL Ratio 2.63 Ratio; LDL Cholesterol,Calculated 49.9 mg/dL (0.0-131.0)
== END | disposition home or self-care (01) ==
LOC: LABWHC1 08:40
PROVIDERS: ATTEND Internal Medicine Interventional Cardiology
DX: E78.2 Mixed hyperlipidemia (principal)
CPT/HCPCS: 36415; 80061; 84450; 84460

== ENCOUNTER → 2023-10-18 | Outpatient (CLI) | payer MEDICARE ==
--- NOTE | 2023-10-18 09:57 | USB ---
Reason for Exam: Clinical finding. Patient History: Menarche at age 12. First Full-Term at age 20. Postmenopausal. Other cancer. 06/16/2002, Benign Stereotactic Core Biopsy on the right side. Paternal cousin had breast cancer, age 42. Risk Values: Rhea 5 year model risk: 1.6%. NCI Lifetime model risk: 5.4%. Technique: Method: Targeted. Prior Study Comparison: 12/24/2020 Bilateral Screening Mammogram, [facility]. 01/02/2022 Bilateral MG 3D screening mammo w/cad, [facility]. 01/03/2023 Bilateral MG 3D screening mammo w/cad, [facility]. Findings: The whole breast of the left breast, the axilla of the left breast and the retroareolar of the left breast were scanned. Technique utilized:US breast complete LT Image; Ultrasound imaging of: Area of concern, retroareolar region and axilla. Few retroareolar dilated ducts no suspicious masses or organizing fluid collections. No evidence for organizing fluid collection or mass. Overall Assessment: Benign, BI-RAD 2 Management: Screening Mammogram of both breasts in 1 year. A clinical breast exam by your physician is recommended on an annual basis and results should be correlated with mammographic findings. This exam should not preclude additional follow-up of suspicious palpable abnormalities. Results were given to the patient verbally at the time of exam. Electronically signed and approved by: Sina Berrios DO
[2023-10-18 16:13] LABS: ALT 16 U/L (8-44); AST 22 U/L (13-35); Albumin 4.3 g/dL (3.8-4.9); Albumin/Globulin Ratio 1.54 Ratio (1.60-3.17); Alkaline Phosphatase 133 U/L (41-126); Blood Urea Nitrogen 25.9 mg/dL (9.0-27.0); Calcium 9.5 mg/dL (8.7-10.3); Carbon Dioxide 28.1 mmol/L (21.6-31.8); Chloride 101 mmol/L (96-109); Chol/HDL Ratio 2.45 Ratio; Globulin 2.8 g/dL (1.6-3.3); Glucose 112 mg/dL (70-110); LDL Cholesterol,Calculated 54.2 mg/dL (0.0-131.0); Potassium 4.1 mmol/L (3.5-5.5); Sodium 140 mmol/L (135-145); Total Bilirubin 0.4 mg/dL (0.3-1.2); Total Protein 7.1 g/dL (6.2-8.2)
[2023-10-18 16:31] LABS: Basophils # (A) 0.05 X 10*3/uL (0.00-0.10); Basophils % (A) 0.5 %; Eosinophils # (A) 0.13 X 10*3/uL (0.04-0.35); Eosinophils % (A) 1.3 %; HCT 44.7 % (37.2-46.3); HGB 14.3 g/dL (12.0-15.0); Lymphocytes # (A) 2.31 X 10*3/uL (0.90-5.00); Lymphocytes % (A) 22.8 %; MCH 28.9 pg (27.0-32.0); MCV 90.3 FL (80.0-97.0); Mean Platelet Volume 9.8 FL (9.5-12.2); Monocytes # (A) 0.81 X 10*3/uL (0.20-1.00); NRBC Per 100 WBC 0 X 10*3/uL (0.00-0.01); Neutrophils # (A) 6.81 X 10*3/uL (1.80-7.70); Platelet Count 242 X 10*3/uL (140-440); RBC 4.95 X 10*6/uL (4.10-5.20); RDW 14.2 % (11.5-14.5); WBC 10.15 X 10*3/uL (4.50-10.00)
== END | disposition home or self-care (01) ==
LOC: RADMAMWWP 08:31
PROVIDERS: ATTEND Family Medicine
DX: N64.4 Mastodynia (principal); Z78.0 Asymptomatic menopausal state; Z80.3 Family history of malignant neoplasm of breast; E78.5 Hyperlipidemia, unspecified
CPT/HCPCS: 77062; 77066; 80053; 80061; 84443; 85025

== ENCOUNTER → 2023-11-28 | Outpatient (CLI) | payer MEDICARE ==
--- NOTE | 2023-11-28 16:33 | XR ---
EXAMINATION TYPE: XR shoulder complete RT DATE OF EXAM: 11/28/2023 COMPARISON: NONE HISTORY: Pain TECHNIQUE: Shoulder examined in 3 projections. FINDINGS: The humeral head articulates with the glenoid. The acromio-clavicular junction is normal. No acute fractures or dislocations are evident. A follow up study can be performed 7-10 days from acute trauma for continued pain. MRI can be perfor med if soft tissue evaluation would be of benefit. IMPRESSION: 1. No acute osseous shoulder abnormality.
== END | disposition home or self-care (01) ==
LOC: RADXRMAIN 15:58
PROVIDERS: ATTEND Family Medicine
DX: M75.101 Unspecified rotator cuff tear or rupture of right shoulder, not specified as traumatic (principal); M25.511 Pain in right shoulder

== ENCOUNTER → 2023-12-12 | Outpatient (CLI) | payer MEDICARE ==
--- NOTE | 2023-12-12 22:48 | MR ---
EXAMINATION TYPE: MR shoulder RT wo con DATE OF EXAM: 12/12/2023 COMPARISON: Right shoulder x-ray November 28, 2023 HISTORY: Right shoulder pain and weakness in Rt arm for 2 years TECHNIQUE: Multiplanar, multisequence imaging of the right shoulder is performed without contrast. FINDINGS: Rotator Cuff: Infraspinatus tendon intact. Increased signal in the supraspinatus tendon greatest dist ally. Intact subscapularis tendon with slight heterogeneity. Acromioclavicular Joint: Mild to moderate narrowing at the acromioclavicular joint with mild/moderate capsular hypertrophy and spurring. Loss of underlying fat plane. Glenohumeral Joint: Small to moderate size joint effusion. No significant spurring. Labrum: The labrum appears grossly intact given limitation of non-arthrogram study. Biceps Tendon: The long head of biceps is in normal location within bicipital groove. Bone marrow signal: Tiny subchondral cystic change anterior humeral head near subscapularis tendon in sertion. Other: No additional significant abnormality is appreciated. IMPRESSION: 1. Fairly moderate AC joint arthropathy with suggestion of underlying impingement. Correlate clinical ly. 2. Tendinosis/partial tearing of the supraspinatus tendon.
== END | disposition home or self-care (01) ==
LOC: RADMRIMAIN 20:00
PROVIDERS: ATTEND Family Medicine
DX: M25.811 Other specified joint disorders, right shoulder (principal); M19.011 Primary osteoarthritis, right shoulder; M75.111 Incomplete rotator cuff tear or rupture of right shoulder, not specified as traumatic; M67.813 Other specified disorders of tendon, right shoulder

== ENCOUNTER → 2023-12-14 | Outpatient (CLI) | payer MEDICARE ==
[2023-12-14 10:48] LABS: T4, Free (Free Thyroxine) 1.68 ng/dL (0.80-1.80)
== END | disposition home or self-care (01) ==
LOC: LABWHC1 06:51
PROVIDERS: ATTEND Family Medicine
DX: E03.9 Hypothyroidism, unspecified (principal); R73.9 Hyperglycemia, unspecified
CPT/HCPCS: 36415; 83036; 84439; 84443

== ENCOUNTER → 2024-01-08 | Outpatient (CLI) | payer MEDICARE ==
--- NOTE | 2024-01-09 10:22 | MM ---
Reason for Exam: Screening (asymptomatic). Last screening mammogram was performed 12 month(s) ago. Patient History: Menarche at age 12. First Full-Term at age 20. Postmenopausal. Other cancer. 06/16/2002, Benign Stereotactic Core Biopsy on the right side. Paternal cousin had breast cancer, age 42. Risk Values: Rhea 5 year model risk: 1.6%. NCI Lifetime model risk: 5.4%. Prior Study Comparison: 01/02/2022 Bilateral MG 3D screening mammo w/cad, [facility]. 01/03/2023 Bilateral MG 3D screening mammo w/cad, [facility]. 10/18/2023 Left MG 3D diag mammo w/cad , [facility]. Tissue Density: There are scattered areas of fibroglandular density. Findings: Analyzed By CAD. There is no suspicious group of microcalcifications or new suspicious mass in either breast. Benign-appearing calcifications. Surgical clip noted in the right breast. Overall Assessment: Benign, BI-RAD 2 Management: Screening Mammogram of both breasts in 1 year. . Patient should continue monthly self-breast exams. A clinical breast exam by your physician is recommended on an annual basis. This exam should not preclude additional follow-up of suspicious palpable abnormalities. Note on Rhea scores and lifetime risk: 1. A Rhea score greater than 3% is considered moderate risk. If this is the case, consider specialist referral to assess eligibility for a risk reducing agent. 2. If overall lifetime risk for the development of breast cancer is 20% or higher, the patient may qualify for future screening with alternating mammogram and breast MRI. Electronically signed and approved by: Saroj Banks M.D. Radiologis
== END | disposition home or self-care (01) ==
LOC: RADMAMWWP 12:32
PROVIDERS: ATTEND Family Medicine
DX: Z12.31 Encounter for screening mammogram for malignant neoplasm of breast (principal); Z80.3 Family history of malignant neoplasm of breast; Z78.0 Asymptomatic menopausal state
CPT/HCPCS: 77063; 77067

== ENCOUNTER → 2024-04-09 | Outpatient (CLI) | payer MEDICARE ==
[2024-04-09 10:44] LABS: ALT 22 U/L (8-44); AST 22 U/L (13-35); Albumin 3.9 g/dL (3.8-4.9); Alkaline Phosphatase 111 U/L (41-126); Blood Urea Nitrogen 26.4 mg/dL (9.0-27.0); Calcium 8.7 mg/dL (8.7-10.3); Carbon Dioxide 28.1 mmol/L (21.6-31.8); Chloride 99 mmol/L (96-109); Chol/HDL Ratio 3.51 Ratio; Globulin 2.6 g/dL (1.6-3.3); Glucose 126 mg/dL (70-110); LDL Cholesterol,Calculated 101.5 mg/dL (0.0-131.0); Potassium 3.6 mmol/L (3.5-5.5); Sodium 137 mmol/L (135-145); Total Bilirubin 0.5 mg/dL (0.3-1.2); Total Protein 6.5 g/dL (6.2-8.2)
== END | disposition home or self-care (01) ==
LOC: LABWHC1 07:43
PROVIDERS: ATTEND Internal Medicine Interventional Cardiology
DX: E78.2 Mixed hyperlipidemia (principal)
CPT/HCPCS: 36415; 80053; 80061

== ENCOUNTER → 2024-06-06 | Outpatient (CLI) | payer MEDICARE ==
[2024-06-06 15:16] LABS: Basophils # (A) 0.05 X 10*3/uL (0.00-0.10); Basophils % (A) 0.5 %; Eosinophils # (A) 0.12 X 10*3/uL (0.04-0.35); Eosinophils % (A) 1.3 %; HCT 46.7 % (37.2-46.3); HGB 14.8 g/dL (12.0-15.0); Lymphocytes # (A) 2.04 X 10*3/uL (0.90-5.00); Lymphocytes % (A) 21.5 %; MCHC 31.7 g/dL (32.0-37.0); MCV 91.4 FL (80.0-97.0); Mean Platelet Volume 9.9 FL (9.5-12.2); Monocytes # (A) 0.73 X 10*3/uL (0.20-1.00); Monocytes % (A) 7.7 %; NRBC Per 100 WBC 0 X 10*3/uL (0.00-0.01); Neutrophils # (A) 6.53 X 10*3/uL (1.80-7.70); Neutrophils % (A) 68.6 %; Platelet Count 224 X 10*3/uL (140-440); RBC 5.11 X 10*6/uL (4.10-5.20); RDW 15.4 % (11.5-14.5); WBC 9.51 X 10*3/uL (4.50-10.00)
[2024-06-06 19:44] LABS: ALT 18 U/L (8-44); AST 27 U/L (13-35); Albumin 4.1 g/dL (3.8-4.9); Albumin/Globulin Ratio 1.41 Ratio (1.60-3.17); Alkaline Phosphatase 114 U/L (41-126); Blood Urea Nitrogen 22.5 mg/dL (9.0-27.0); Chloride 102 mmol/L (96-109); Chol/HDL Ratio 2.79 Ratio; Globulin 2.9 g/dL (1.6-3.3); Glucose 114 mg/dL (70-110); LDL Cholesterol,Calculated 66.6 mg/dL (0.0-131.0); Potassium 4.2 mmol/L (3.5-5.5); Sodium 140 mmol/L (135-145); T4, Free (Free Thyroxine) 2.11 ng/dL (0.80-1.80); Total Bilirubin 0.4 mg/dL (0.3-1.2)
== END | disposition home or self-care (01) ==
LOC: LABWHC1 08:12
PROVIDERS: ATTEND Family Medicine
DX: E78.5 Hyperlipidemia, unspecified (principal); E03.9 Hypothyroidism, unspecified; R73.03 Prediabetes
CPT/HCPCS: 36415; 80053; 80061; 83036; 84439; 84443; 85025

== ENCOUNTER 2024-06-08 16:19 | Emergency (ER) | payer MEDICARE ==
--- NOTE | 2024-06-08 16:57 | ED ---
Fall HPI - General Chief Complaint: Fall Stated Complaint: L side rib pain Time Seen by Provider: 06/08/24 16:37 Source: patient, family Mode of arrival: ambulatory - History of Present Illness Initial Comments: Patient is a previous healthy 69-year-old female presenting today for left rib injury after falling. States that she was painting a door at home when she went to sit on a stool which fell forward causing her to fall backwards hit her ribs against the toilet. Patient states initially that she did not have any pain and was able to go about her day without any issue. Took 500 mg Tylenol around 10 AM and then took a nap at around 230 with an ice Instruments. When she woke up she began having pain along her left ribs worsens with deep breathing and lifting her left arm. She denies additional injury, denies neck pain, back pain, hitting her head, injuries to her extremities. She denies hemoptysis, shortness of breath or chest pain. Denies any abdominal pain, nausea vomiting, diarrhea bloody stools. Patient does not take blood thinners. - Related Data Home Medications Medication Instructions Recorded Confirmed Levothyroxine Sodium [Levoxyl] 200 mcg PO DAILY 06/15/15 01/11/23 Mometasone Furoate [Nasonex 50 mcg 1 - 2 spray EA NOSTRIL DAILY PRN 06/15/15 01/08/23 Nasal [place]] Omeprazole [PriLOSEC] 20 mg PO HS 06/15/15 01/11/23 Calcium Carbonate [Calcium] 600 mg PO DAILY 05/15/17 01/08/23 Multivit with Calcium,Iron,Min 1 each PO DAILY 05/15/17 01/11/23 [Women's Multivitamin] Acetaminophen [Tylenol Extra 500 mg PO DIRECTED PRN 10/20/22 01/11/23 Strength] Aspirin 81 mg PO DAILY 10/20/22 01/11/23 Fexofenadine HCl [Liat Allergy] 180 mg PO DAILY PRN 10/20/22 01/11/23 Ibuprofen [Motrin Ib] 200 mg PO DIRECTED PRN 10/20/22 01/11/23 Magnesium 250 mg PO DAILY 10/20/22 01/08/23 Unk B Complex 1 tab PO DAILY 10/20/22 01/11/23 Unk Biotin 1 tab PO DAILY 10/20/22 01/11/23 Unk Vitamin C 1 tab PO DAILY 10/20/22 01/11/23 Cholecalciferol (Vitamin D3) 2,000 unit PO DAILY 11/20/22 01/11/23 [Vitamin D3 (50 Mcg = 2000 Iu) Chew Tab] Ubidecarenone [Coenzyme Q10] 200 mg PO DAILY 11/20/22 01/11/23 Rosuvastatin [Crestor] 10 mg PO QAM 01/08/23 01/11/23 Previous Rx's Medication Instructions Recorded Clopidogrel [Plavix] 75 mg PO DAILY #30 tab 01/17/23 Ferrous Sulfate [Iron (65 MG 325 mg PO BID-W/MEALS #28 tab 01/17/23 Elemental)] HYDROcodone/APAP 5-325MG [[place] 1 each PO Q6HR PRN #28 tab 01/17/23 5-325] Metoprolol Succinate (ER) [Toprol 25 mg PO DAILY #30 tab 01/17/23 XL] Sennosides-Docusate Sodium 2 each PO HS PRN tab 01/17/23 [Senokot-S] Furosemide [Lasix] 20 mg PO DAILY #5 tab 01/18/23 methocarbamoL [Robaxin] 500 mg PO QID PRN 3 Days #12 tab 06/08/24 Allergies Allergy/AdvReac Type Severity Reaction Status Date / Time cefaclor [From Ceclor] Allergy Rash/Hives Verified 06/08/24 16:29 ciprofloxacin [From Cipro] Allergy Unknown Verified 06/08/24 16:29 sulfamethoxazole AdvReac Nausea & Verified 06/08/24 16:29 [From Septra] Vomiting trimethoprim [From Septra] AdvReac Nausea & Verified 06/08/24 16:29 Vomiting Review of Systems ROS Statement: Those systems with pertinent positive or pertinent negative responses have been documented in the HPI. ROS Other: All systems not noted in ROS Statement are negative. Past Medical History Past Medical History: Cancer, Diabetes Mellitus, GERD/Reflux, Hypertension, Osteoarthritis (OA), Thyroid Disorder Additional Past Medical History / Comment(s): past hx. hypertension-just takes "water pill". past hx. Grave's disease thyroid removed, aortic valve issues recent fatigue and SOB w/exertion, hx mild leaky mitral valve. tricuspid valve issue, "pre diabetic." watching diet. basal cell skin cancer removed from arm History of Any Multi-Drug Resistant Organisms: None Reported Past Surgical History: Bowel Resection, Cardiac Valve Replacement, Heart Catheterization, Hernia Repair, Tonsillectomy, Uterine Ablation Additional Past Surgical History / Comment(s): thyroidectomy, inc hernia repair, left shoulder rotator cuff repair. [employer] Implanted Device ID card: Percardial Tissue Heart Valve Serial:[id number] Implant:. Also has interior clip in heart Past Anesthesia/Blood Transfusion Reactions: Postoperative Nausea & Vomiting (PONV) Additional Past Anesthesia/Blood Transfusion Reaction / Comment(s): slow to come out of anesthesia. no blood transfusions Past Psychological History: Anxiety Smoking Status: Former smoker, Second hand smoke exposure Past Alcohol Use History: None Reported Past Drug Use History: None Reported - Past Family History Mother Family Medical History: Deep Vein Thrombosis (DVT) Father Family Medical History: Deep Vein Thrombosis (DVT) General Exam - General Exam Comments Initial Comments: PE: CONSTITUTIONAL: No apparent distress, well appearing SKIN: Warm, dry, no jaundice, hives or petechiae, no bruising or hematomas EYES: Pupils are equally round, extraocular movements intact without nystagmus, clear conjunctiva, non-icteric sclera HENT: Normocephalic, atraumatic, moist mucus membranes, oropharynx clear NECK: , Full range of motion, normal appearance PULMONARY: Clear to auscultation without wheezes, rhonchi, or rales, somewhat decreased excursion 2/2 pain with deep inspiration, no accessory muscle use and no stridor tenderness outpatient along left lateral ribs 8-12 CARDIOVASCULAR: Regular rate, rhythm, normal S1 and S2. No appreciated murmurs, rubs or gallops. Strong radial pulses with intact distal perfusion. No lower extremity edema GASTROINTESTINAL: Soft, active bowel sounds throughout, non-tender, non- distended, no palpable masses, no rebound or guarding. No hepatosplenomegaly MUSCULOSKELETAL: Extremities have no gross deformity, no edema, redness, or swelling. No calf swelling NEUROLOGIC:_a/o x 3, GCS 15, normal mentation and speech. Moves all extremities x 4 without motor or sensory deficit PSYCHIATRIC:_normal mood and affect, thought process is clear and linear Limitations: no limitations Course Vital Signs 06/08/24 06/08/24 16:29 18:18 Temperature 97.8 F 98.1 F Pulse Rate 78 90 Respiratory 20 18 Rate Blood Pressure 150/82 139/78 O2 Sat by Pulse 98 99 Oximetry Medical Decision Making - Medical Decision Making Was pt. sent in by a medical professional or institution (TONO Haque, CERTIFIED CREDIT COUNSELOR, urgent care, hospital, or jail...) When possible be specific @ -No Did you speak to anyone other than the patient for history (EMS, parent, family, police, friend...)? What history was obtained from this source @ -No Did you review nursing and triage notes (agree or disagree)? Why? @ -I reviewed and agree with nursing and triage notes Were old charts reviewed (outside hosp., previous admission, EMS record, old EKG, old radiological studies, urgent care reports/EKG's, jail records)? Report findings @ -Medical records reviewed Differential Diagnosis (chest pain, altered mental status, abdominal pain women, abdominal pain men, vaginal bleeding, weakness, fever, dyspnea, syncope, headache, dizziness, GI bleed, back pain, seizure, CVA, palpatations, mental health, musculoskeletal)? @ -Differential Musculoskeletal Muscular strain, contusion, ligament sprain, fracture, arthritis, septic arthritis, bursitis, cellulitis, muscle spasm, nerve compression, DVT, arterial occlusion, herpes zoster, electrolyte abnormality, tumor.... This is not meant to be in all inclusive list Differential diagnosis remains broad however top considerations include rib fracture, contusion, muscular strain, ligament sprain, pulmonary contusion, pneumothorax, this is not an all inclusive list EKG interpreted by me (3pts min.). @ -As above X-rays interpreted by me (1pt min.). @ -few corticol irregularities along lateral left ribs that appear to be possible fractures near ribs 04/08. CT interpreted by me (1pt min.). @ -None done U/S interpreted by me (1pt. min.). @ -None done What testing was considered but not performed or refused? (CT, X-rays, U/S, labs)? Why? @ -None What meds were considered but not given or refused? Why? @ -None Did you discuss the management of the patient with other professionals (professionals i.e. TONO Haque, CERTIFIED CREDIT COUNSELOR, lab, RT, psych nurse, social studies teacher, clinical education specialist, teacher, sergeant of officers, renal case manager)? Give summary @ -No Was smoking cessation discussed for >3mins.? @ -No Was critical care preformed (if so, how long)? @ -No Were there social determinants of health that impacted care today? How? (Homelessness, low income, unemployed, alcoholism, drug addiction, transportation, low edu. Level, literacy, decrease access to med. care, long-term, rehab)? @ -No Was there de-escalation of care discussed even if they declined (Discuss DNR or withdrawal of care, Hospice)? @ -No What co-morbidities impacted this encounter? (DM, HTN, Smoking, COPD, CAD, Cancer, CVA, ARF, Chemo, Hep., AIDS, mental health diagnosis, sleep apnea, morbid obesity)? @ -None Was patient admitted / discharged? Hospital course, mention meds given and route, prescriptions, significant lab abnormalities, going to OR and other pertinent info. @ -Hospital course This is a pleasant 69-year-old female presenting today for left rib pain after falling off of a stool from ground-level height. Patient well-appearing on assessment, uncomfortable with movements due to pain in ribs, tenderness location left lateral ribs, abdomen is soft and nontender, no midline spinal tenderness. Patient denies additional injuries. Highly suspect rib fractures, plan for x-ray ribs and pain control. Patient agreeable with plan of care And I reviewed patient's x-ray do see irregularities along the lateral left ribs 9 and 10 but no clear fracture, read by radiologist as remote appearing rib deformities. No pneumothorax, no consolidations or effusions. I updated patient to these findings and she endorses improvement of pain. We discussed plan for discharge home with Jhonatan, patient was also instructed to use Aleve and lidocaine patches as needed for pain. We discussed signs and symptoms warranting return to the emergency department including hemoptysis, comfortable sputum, uncontrolled pain and fevers. In my medical judgment there is currently no evidence of an immediate life- threatening or surgical condition. Discharge is therefore indicated at this time. Discharge treatment instructions, follow up instructions, and appropriate e mergency department return precautions were discussed with the patient and/or medical decision maker. Patient and/or medical decision maker expressed understanding of and agreed with the treatment plan, follow up instructions, and emergency department return precaution. All patient's and/or medical decision maker's questions were answered. The patient was advised that a small risk still exists that a serious condition could develop and was therefore instructed to return to the ED for any changes in symptoms, persistent symptoms, inability to obtain proper follow-up or for any further concerns. Patient received verbal and written instructions for this condition. Undiagnosed new problem with uncertain prognosis? @ -No Drug Therapy requiring intensive monitoring for toxicity (Heparin, Nitro, Insulin, Cardizem)? @ -No Were any procedures done? @ -No Diagnosis/symptom? @ -Rib fractures Acute, or Chronic, or Acute on Chronic? @ -Acute Uncomplicated (without systemic symptoms) or Complicated (systemic symptoms)? @ -Uncomplicated Side effects of treatment? @ -No Exacerbation, Progression, or Severe Exacerbation? @ -No Poses a threat to life or bodily function? How? (Chest pain, [place], [place], pneumonia, PE, COPD, DKA, ARF, appy, cholecystitis, CVA, Diverticulitis, Homicidal, Suicidal, threat to staff... and all critical care pts) @ -No Disposition Clinical Impression: Rib fractures Disposition: HOME SELF-CARE Condition: Good Instructions (If sedation given, give patient instructions): Rib Fracture (ED) Additional Instructions: Every disease is a spectrum and a small chance still exists that a serious condition could develop, for this reason, please monitor yourself closely for new, changing or worsening symptoms, pain that you cannot control at home, coughing up blood, cough adductive of thick sputum, shortness of breath/difficulty in breathing fever, inability to tolerate/keep down fluids or your medications, inability to follow up with outpatient providers as instructed and should you experience these symptoms or should you have any further concerns for your wellbeing please return to the ED or call 911 immediately. Your pain can be treated with ibuprofen and acetaminophen. You can take up to 400-600 mg of ibuprofen (Advil, Motrin) 3 times daily (every 8 hours) but can also use lower doses if this relieves your pain. Some people prefer naproxen (Aleve, Naprosyn) which can be taken in doses of 500 mg up to twice a day. Do not take both of these medicines together, and do not combine either with ketorolac (Toradol), meloxicam (Mobic), or indomethacin (Tivorbex). Some people can develop stomach discomfort with higher doses of either ibuprofen or naproxen, if this develops decrease your dose or stop taking it. If you need to take this dose daily for more than a week, please schedule an appointment for re-evaluation with your PCP. Please take these medications with food. You can take up to 1000 mg of acetaminophen (Tylenol) every 6 hours. Be careful as this is included in some medicines like Nyquil, [place], Percocet, Vicodin, STANBACK, Goody's Powders, and Excedrin. You can also use lidocaine patches for topical pain. You can purchase 4% patches over the counter at most drug stores. These can be helpful for pain from your muscles or bones. PLEASE call your primary care physician as soon as possible to arrange / discuss plan for followup appointment. Appointment in the next 1-3 days is strongly encouraged if possible. PLEASE let us know here before you leave if there is anything further we can do to be of any assistance. Take care and feel Better! Prescriptions: methocarbamoL [Robaxin] 500 mg PO QID PRN 3 Days #12 tab PRN Reason: Pain Is patient prescribed a controlled substance at d/c from ED?: No Referrals: Sayra Britt MD [Primary Care Provider] - 1-2 days
[2024-06-08] MEDS: KETOROLAC 15 MG/ML 1 ML VIAL IM STA ×2 (17:07→18:06)
[2024-06-08] MEDS: methocarbamoL 500 MG TAB PO PRN (17:07)
[2024-06-08] MEDS: LIDOCAINE 4% PATCH TOPICAL ONE (17:11)
--- NOTE | 2024-06-08 17:25 | XR ---
EXAMINATION TYPE: XR ribs bilat w pa chest xray DATE OF EXAM: 06/08/2024 5:06 PM COMPARISON: None CLINICAL INDICATION: Female, 69 years old with history of fall, TTP left lat. ribs; [facility] TECHNIQUE: XR ribs bilat w pa chest xray; Frontal and oblique views of the ribs with frontal chest ra diograph. FINDINGS: The ribs have a normal appearance. No evidence of fracture. Overall, the lungs are clear. The cardiac silhouette is normal in size. The remaining osseous structures are intact. Sternotomy w ires present. Left atrial appendage occlusion device. Aortic valvular repair changes. Remote appearin g deformities of left ribs. IMPRESSION: 1. No definitive acute osseous pathology. 2. Remote appearing left rib deformities. [facility], , 06/08/2024 5:23 PM
[2024-06-08 18:20] VITALS: BP 139/78; PULSE 90; RESP 18; TEMP 98.1
== END 2024-06-08 19:21 | disposition home or self-care (01) ==
LOC: EC 16:19
DX: S22.32XA Fracture of one rib, left side, initial encounter for closed fracture (principal); Z77.22 Contact with and (suspected) exposure to environmental tobacco smoke (acute) (chronic); Z88.1 Allergy status to other antibiotic agents; Z88.2 Allergy status to sulfonamides; Z88.8 Allergy status to other drugs, medicaments and biological substances; W22.09XA Striking against other stationary object, initial encounter
CPT/HCPCS: 71111; 99283; 96372 ×2; J1885

== ENCOUNTER 2024-10-10 12:48 | Emergency (ER) | payer MEDICARE ==
[2024-10-10 13:30] VITALS: RESP 18
--- NOTE | 2024-10-10 13:58 | ED ---
Nausea/Vomiting/Diarrhea HPI - General Source: patient, RN notes reviewed Mode of arrival: ambulatory Limitations: no limitations <Beverley Levy - Last Filed: 10/10/24 13:57> <Fabiola Horner - Last Filed: 10/10/24 21:59> - General Source: patient, RN notes reviewed Mode of arrival: ambulatory Limitations: no limitations - History of Present Illness MD complaint: nausea, vomiting, diarrhea, abdominal pain Onset/Timin -: hour(s) Description of Vomiting: food contents Description of Diarrhea: water Associated Abdominal Pain: Yes Location: diffuse Context: possible food poisoning <Chaz Sutton - Last Filed: 10/11/24 17:05> - General Chief complaint: Nausea/Vomiting/Diarrhea Stated complaint: NVD Time Seen by Provider: 10/10/24 13:57 - History of Present Illness Initial comments: Quick note: 69-year-old female presented the ER for evaluation of nausea and vomiting. Patient states since 1 AM she has been having persistent vomiting every 20 to 30 minutes for the past 12 hours. She states she is even unable to take sips of water. She also endorses diarrhea. Patient admits to a headache as well. No chest pain or fevers. (Beverley Levy) This is a 69-year-old female with history of aortic valve replacement presenting for GI symptoms since 0 100 this morning. Patient states she ate at [employer] on Sunday with a medium rare steak, also eating a salad on , which she suspects caused her current symptoms. Endorses nausea /vomiting/diarrhea, abdominal cramping, headache and general weakness. Denies fever, chills, chest pain, dyspnea, hematemesis, hematochezia, melena. (Chaz Sutton) - Related Data Home Medications Medication Instructions Recorded Confirmed Levothyroxine Sodium [Levoxyl] 200 mcg PO DAILY 06/15/15 01/11/23 Mometasone Furoate [Nasonex 50 mcg 1 - 2 spray EA NOSTRIL DAILY PRN 06/15/15 01/08/23 Nasal Lipan] Omeprazole [PriLOSEC] 20 mg PO HS 06/15/15 01/11/23 Calcium Carbonate [Calcium] 600 mg PO DAILY 05/15/17 01/08/23 Multivit with Calcium,Iron,Min 1 each PO DAILY 05/15/17 01/11/23 [Women's Multivitamin] Acetaminophen [Tylenol Extra 500 mg PO DIRECTED PRN 10/20/22 01/11/23 Strength] Aspirin 81 mg PO DAILY 10/20/22 01/11/23 Fexofenadine HCl [Liat Allergy] 180 mg PO DAILY PRN 10/20/22 01/11/23 Ibuprofen [Motrin Ib] 200 mg PO DIRECTED PRN 10/20/22 01/11/23 Magnesium 250 mg PO DAILY 10/20/22 01/08/23 Unk B Complex 1 tab PO DAILY 10/20/22 01/11/23 Unk Biotin 1 tab PO DAILY 10/20/22 01/11/23 Unk Vitamin C 1 tab PO DAILY 10/20/22 01/11/23 Cholecalciferol (Vitamin D3) 2,000 unit PO DAILY 11/20/22 01/11/23 [Vitamin D3 (50 Mcg = 2000 Iu) Chew Tab] Ubidecarenone [Coenzyme Q10] 200 mg PO DAILY 11/20/22 01/11/23 Rosuvastatin [Crestor] 10 mg PO QAM 01/08/23 01/11/23 Previous Rx's Medication Instructions Recorded Clopidogrel [Plavix] 75 mg PO DAILY #30 tab 01/17/23 Ferrous Sulfate [Iron (65 MG 325 mg PO BID-W/MEALS #28 tab 01/17/23 Elemental)] HYDROcodone/APAP 5-325MG [[place] 1 each PO Q6HR PRN #28 tab 01/17/23 5-325] Metoprolol Succinate (ER) [Toprol 25 mg PO DAILY #30 tab 01/17/23 XL] Sennosides-Docusate Sodium 2 each PO HS PRN tab 01/17/23 [Senokot-S] Furosemide [Lasix] 20 mg PO DAILY #5 tab 01/18/23 methocarbamoL [Robaxin] 500 mg PO QID PRN 3 Days #12 tab 06/08/24 Ondansetron Odt [Zofran Odt] 4 mg PO Q8HR PRN #15 tab 10/10/24 Ondansetron [Ondansetron ODT] 4 mg PO Q8H PRN #12 tab 10/10/24 Allergies Allergy/AdvReac Type Severity Reaction Status Date / Time cefaclor [From Ceclor] Allergy Rash/Hives Verified 10/10/24 13:30 ciprofloxacin [From Cipro] Allergy Unknown Verified 10/10/24 13:30 sulfamethoxazole AdvReac Nausea & Verified 10/10/24 13:30 [From Septra] Vomiting trimethoprim [From Septra] AdvReac Nausea & Verified 10/10/24 13:30 Vomiting Review of Systems ROS Other: All systems not noted in ROS Statement are negative. <Beverley Levy - Last Filed: 10/10/24 13:57> ROS Other: All systems not noted in ROS Statement are negative. <Fabiola Horner - Last Filed: 10/10/24 21:59> ROS Other: All systems not noted in ROS Statement are negative. <Chaz Sutton - Last Filed: 10/11/24 17:05> ROS Statement: Those systems with pertinent positive or pertinent negative responses have been documented in the HPI. Past Medical History Past Medical History: Cancer, Diabetes Mellitus, GERD/Reflux, Hypertension, Osteoarthritis (OA), Thyroid Disorder Additional Past Medical History / Comment(s): past hx. hypertension-just takes "water pill". past hx. Grave's disease thyroid removed, aortic valve issues recent fatigue and SOB w/exertion, hx mild leaky mitral valve. tricuspid valve issue, "pre diabetic." watching diet. basal cell skin cancer removed from arm History of Any Multi-Drug Resistant Organisms: None Reported Past Surgical History: Bowel Resection, Cardiac Valve Replacement, Heart Catheterization, Hernia Repair, Tonsillectomy, Uterine Ablation Additional Past Surgical History / Comment(s): thyroidectomy, inc hernia repair, left shoulder rotator cuff repair. [employer] Implanted Device ID card: Percardial Tissue Heart Valve Serial:[id number] Model:[id number] Implant:. Also has interior clip in heart. ablation on leg Past Anesthesia/Blood Transfusion Reactions: Postoperative Nausea & Vomiting (PONV) Additional Past Anesthesia/Blood Transfusion Reaction / Comment(s): slow to come out of anesthesia. no blood transfusions Past Psychological History: Anxiety Smoking Status: Former smoker, Second hand smoke exposure Past Alcohol Use History: None Reported Past Drug Use History: None Reported - Past Family History Mother Family Medical History: Deep Vein Thrombosis (DVT) Father Family Medical History: Deep Vein Thrombosis (DVT) <Beverley Levy - Last Filed: 10/10/24 13:57> General Exam Limitations: no limitations <Beverley Levy - Last Filed: 10/10/24 13:57> Limitations: no limitations General appearance: alert, in no apparent distress Head exam: Present: atraumatic, normocephalic, normal inspection Eye exam: Present: normal appearance, PERRL, EOMI. Absent: scleral icterus, conjunctival injection, periorbital swelling ENT exam: Present: normal exam, mucous membranes moist Neck exam: Present: normal inspection. Absent: tenderness, meningismus, lymphadenopathy Respiratory exam: Present: normal lung sounds bilaterally. Absent: respiratory distress, wheezes, rales, rhonchi, stridor Cardiovascular Exam: Present: regular rate, normal rhythm, normal heart sounds. Absent: systolic murmur, diastolic murmur, rubs, gallop, clicks GI/Abdominal exam: Present: soft, tenderness (Diffuse abdominal tenderness without guarding or or rebound tenderness), hyperactive bowel sounds. Absent: distended, guarding, rebound, rigid Extremities exam: Present: normal inspection, full ROM, normal capillary refill. Absent: tenderness, pedal edema, joint swelling, calf tenderness Back exam: Present: normal inspection Neurological exam: Present: alert, oriented X3, CN II-XII intact Psychiatric exam: Present: normal affect, normal mood Skin exam: Present: warm, dry, intact, normal color. Absent: rash <Chaz Sutton - Last Filed: 10/11/24 17:05> - General Exam Comments Initial Comments: Visual Physical Exam Vital signs reviewed General: Well-appearing, nontoxic, no acute distress. Head: Normocephalic, atraumatic Eyes: PERRLA, EOMI ENT: Airway patent Chest: Nonlabored breathing Skin: No visual rash, normal skin tone Neuro: Alert and oriented 3 Musculoskeletal: No gross abnormalities (Beverley Levy) Course Vital Signs 10/10/24 10/10/24 13:27 21:00 Temperature 99 F 98.8 F Pulse Rate 99 87 Respiratory 18 18 Rate Blood Pressure 115/78 120/83 O2 Sat by Pulse 97 98 Oximetry Medical Decision Making <Beverley Levy - Last Filed: 10/10/24 13:57> - Lab Data Result diagrams: 10/10/24 15:07 10/10/24 15:07 <Fabiola Horner - Last Filed: 10/10/24 21:59> - Lab Data Result diagrams: 10/10/24 15:07 10/10/24 15:07 <LesleyChaz - Last Filed: 10/11/24 17:05> - Medical Decision Making I performed the quick note portion of this chart. Electronically signed by Beverley Levy PA-C (Beverley Levy) I followed up on the patient's repeat lactic acid, which remained elevated at 3.3. This was rechecked and at this point had improved but was still elevated at 2.6. This was after 2 L of fluids. Additional 500 mL bolus of IV fluids ad ministered. I did advise rechecking this again, however patient refused and states that she would rather go home as she was feeling much better. (Fabiola Horner) Was pt. sent in by a medical professional or institution (TONO Haque, WATER ATTENDANT, urgent care, hospital, or residential...) When possible be specific @ -No Did you speak to anyone other than the patient for history (EMS, parent, family, police, friend...)? What history was obtained from this source @ -No Did you review nursing and triage notes (agree or disagree)? Why? @ -I reviewed and agree with nursing and triage notes Were old charts reviewed (outside hosp., previous admission, EMS record, old EKG, old radiological studies, urgent care reports/EKG's, residential records)? Report findings @ -No old charts were reviewed Differential Diagnosis (chest pain, altered mental status, abdominal pain women, abdominal pain men, vaginal bleeding, weakness, fever, dyspnea, syncope, headache, dizziness, GI bleed, back pain, seizure, CVA, palpatations, mental health, musculoskeletal)? @ -Differential Abdominal Pain Women: Appendicitis, Cholecystitis, diverticulosis, ischemic bowel, pancreatitis, hepatitis, UTI, gastroenteritis, AAA, incarcerated hernia, bowel obstruction, constipation, inflammatory bowel, hepatitis, peptic ulcer disease, splenic infarction, perforated viscus, vulvitis, ovarian torsion, PID, kidney stone, placenta abruption, this is not meant to be an all-inclusive list EKG interpreted by me (3pts min.). @ -Not done X-rays interpreted by me (1pt min.). @ -None done CT interpreted by me (1pt min.). @ -None done U/S interpreted by me (1pt. min.). @ -None done What testing was considered but not performed or refused? (CT, X-rays, U/S, labs)? Why? @ -None What meds were considered but not given or refused? Why? @ -None Did you discuss the management of the patient with other professionals (professionals i.e. , PA, WATER ATTENDANT, lab, RT, psych nurse, social professionals, quality assurance intern, teacher, flight deck officer, nurse outreach case manager)? Give summary @ -No Was smoking cessation discussed for >3mins.? @ -No Was critical care preformed (if so, how long)? @ -No Were there social determinants of health that impacted care today? How? (Homelessness, low income, unemployed, alcoholism, drug addiction, transportation, low edu. Level, literacy, decrease access to med. care, penitentiary, rehab)? @ -No Was there de-escalation of care discussed even if they declined (Discuss DNR or withdrawal of care, Hospice)? DNR status @ -No What co-morbidities impacted this encounter? (DM, HTN, Smoking, COPD, CAD, Cancer, CVA, ARF, Chemo, Hep., AIDS, mental health diagnosis, sleep apnea, morbid obesity)? @ -None Was patient admitted / discharged? Hospital course, mention meds given and route, prescriptions, significant lab abnormalities, going to OR and other pertinent info. @ -Lab work shows dehydration, hyperglycemia 188, slightly elevated alk phos and lactic acidosis 3.3. Patient initially provided 2 L IV normal saline and Zofran. P.o. Tylenol also provided. Repeat lactic acid remains 3.3 with recheck at 2.6. Care passed to Fabiola Ham PA-C who administered an additional 500 mL IV normal saline and Zofran. Patient discharged at this point, with stable vital signs, with Zofran starter pack and Zofran sent to patient's pharmacy. Advised to continue oral rehydration and sarah tea/raza for ongoing nausea. Advised follow-up with PCP in the next 24-48 hours. Return to ER if symptoms continue to persist or worsen. Discussed patient with Dr. Guzman. Undiagnosed new problem with uncertain prognosis? @ -No Drug Therapy requiring intensive monitoring for toxicity (Heparin, Nitro, Insulin, Cardizem)? @ -No Were any procedures done? @ -No Diagnosis/symptom? @ -Food poisoning, dehydration, lactic acidosis Acute, or Chronic, or Acute on Chronic? @ -Acute Uncomplicated (without systemic symptoms) or Complicated (systemic symptoms)? @ -Complicated Side effects of treatment? @ -No Exacerbation, Progression, or Severe Exacerbation? @ -No Poses a threat to life or bodily function? How? (Chest pain, [place], [place], pneumonia, PE, COPD, DKA, ARF, appy, cholecystitis, CVA, Diverticulitis, Homicidal, Suicid al, threat to staff... and all critical care pts) @ -No (Chaz Sutton) - Lab Data Lab Results 10/10/24 10/10/24 10/10/24 Range/Units 13:31 15:07 15:07 WBC 7.8 (3.8-10.6) k/uL RBC 5.49 H (3.80-5.40) m/uL Hgb 15.9 (11.4-16.0) gm/dL Hct 49.4 H (34.0-46.0) % MCV 90.0 (80.0-100.0) fL MCH 29.0 (25.0-35.0) pg MCHC 32.2 (31.0-37.0) g/dL RDW 14.2 (11.5-15.5) % Plt Count 222 (150-450) k/uL MPV 7.6 Neutrophils % (Manual) 87 % Band Neuts % (Manual) 3 % Lymphocytes % (Manual) 6 % Monocytes % (Manual) 4 % Neutrophils # (Manual) 7.00 (1.3-7.7) k/uL Lymphocytes # (Manual) 0.47 L (1.0-4.8) k/uL Monocytes # (Manual) 0.31 (0-1.0) k/uL Nucleated RBCs 0 (0-0) /100 WBC Manual Slide Review Performed RBC Morphology Normal Sodium 139 (137-145) mmol/L Potassium 4.1 (3.5-5.1) mmol/L Chloride 102 (98-107) mmol/L Carbon Dioxide 23 (22-30) mmol/L Anion Gap 14 mmol/L BUN 26 H (7-17) mg/dL Creatinine 0.64 (0.52-1.04) mg/dL Est GFR (CKD-EPI)AfAm >90 (>60 ml/min/1.73 sqM) Est GFR (CKD-EPI)NonAf >90 (>60 ml/min/1.73 sqM) Glucose 188 H (74-99) mg/dL Lactic Ac Sepsis Rflx Plasma Lactic Acid Erich (0.7-2.0) mmol/L Calcium 8.7 (8.4-10.2) mg/dL Total Bilirubin 0.8 (0.2-1.3) mg/dL AST 29 (14-36) U/L ALT 22 (4-34) U/L Alkaline Phosphatase 134 H (38-126) U/L Total Protein 7.4 (6.3-8.2) g/dL Albumin 4.4 (3.5-5.0) g/dL Amylase 55 (30-110) U/L Lipase 50 (23-300) U/L Influenza Type A (PCR) Not Detected (Not Detectd) Influenza Type B (PCR) Not Detected (Not Detectd) RSV (PCR) Not Detected (Not Detectd) SARS-CoV-2 (PCR) Not Detected (Not Detectd) 10/10/24 10/10/24 10/10/24 Range/Units 15:07 16:02 18:12 WBC (3.8-10.6) k/uL RBC (3.80-5.40) m/uL Hgb (11.4-16.0) gm/dL Hct (34.0-46.0) % MCV (80.0-100.0) fL MCH (25.0-35.0) pg MCHC (31.0-37.0) g/dL RDW (11.5-15.5) % Plt Count (150-450) k/uL MPV Neutrophils % (Manual) % Band Neuts % (Manual) % Lymphocytes % (Manual) % Monocytes % (Manual) % Neutrophils # (Manual) (1.3-7.7) k/uL Lymphocytes # (Manual) (1.0-4.8) k/uL Monocytes # (Manual) (0-1.0) k/uL Nucleated RBCs (0-0) /100 WBC Manual Slide Review RBC Morphology Sodium (137-145) mmol/L Potassium (3.5-5.1) mmol/L Chloride (98-107) mmol/L Carbon Dioxide (22-30) mmol/L Anion Gap mmol/L BUN (7-17) mg/dL Creatinine (0.52-1.04) mg/dL Est GFR (CKD-EPI)AfAm (>60 ml/min/1.73 sqM) Est GFR (CKD-EPI)NonAf (>60 ml/min/1.73 sqM) Glucose (74-99) mg/dL Lactic Ac Sepsis Rflx Y Plasma Lactic Acid Erich 3.3 H* 3.3 H* (0.7-2.0) mmol/L Calcium (8.4-10.2) mg/dL Total Bilirubin (0.2-1.3) mg/dL AST (14-36) U/L ALT (4-34) U/L Alkaline Phosphatase (38-126) U/L Total Protein (6.3-8.2) g/dL Albumin (3.5-5.0) g/dL Amylase (30-110) U/L Lipase (23-300) U/L Influenza Type A (PCR) (Not Detectd) Influenza Type B (PCR) (Not Detectd) RSV (PCR) (Not Detectd) SARS-CoV-2 (PCR) (Not Detectd) 10/10/24 10/10/24 10/10/24 Range/Units 19:14 19:21 21:19 WBC (3.8-10.6) k/uL RBC (3.80-5.40) m/uL Hgb (11.4-16.0) gm/dL Hct (34.0-46.0) % MCV (80.0-100.0) fL MCH (25.0-35.0) pg MCHC (31.0-37.0) g/dL RDW (11.5-15.5) % Plt Count (150-450) k/uL MPV Neutrophils % (Manual) % Band Neuts % (Manual) % Lymphocytes % (Manual) % Monocytes % (Manual) % Neutrophils # (Manual) (1.3-7.7) k/uL Lymphocytes # (Manual) (1.0-4.8) k/uL Monocytes # (Manual) (0-1.0) k/uL Nucleated RBCs (0-0) /100 WBC Manual Slide Review RBC Morphology Sodium (137-145) mmol/L Potassium (3.5-5.1) mmol/L Chloride (98-107) mmol/L Carbon Dioxide (22-30) mmol/L Anion Gap mmol/L BUN (7-17) mg/dL Creatinine (0.52-1.04) mg/dL Est GFR (CKD-EPI)AfAm (>60 ml/min/1.73 sqM) Est GFR (CKD-EPI)NonAf (>60 ml/min/1.73 sqM) Glucose (74-99) mg/dL Lactic Ac Sepsis Rflx Y Y Plasma Lactic Acid Erich 2.6 H* (0.7-2.0) mmol/L Calcium (8.4-10.2) mg/dL Total Bilirubin (0.2-1.3) mg/dL AST (14-36) U/L ALT (4-34) U/L Alkaline Phosphatase (38-126) U/L Total Protein (6.3-8.2) g/dL Albumin (3.5-5.0) g/dL Amylase (30-110) U/L Lipase (23-300) U/L Influenza Type A (PCR) (Not Detectd) Influenza Type B (PCR) (Not Detectd) RSV (PCR) (Not Detectd) SARS-CoV-2 (PCR) (Not Detectd) Disposition <Beverley Levy - Last Filed: 10/10/24 13:57> <Fabiola Horner - Last Filed: 10/10/24 21:59> Is patient prescribed a controlled substance at d/c from ED?: No Time of Disposition: 21:00 <Chaz Sutton - Last Filed: 10/11/24 17:05> Clinical Impression: Food poisoning, Dehydration, Lactic acidosis Disposition: HOME SELF-CARE Condition: Good Instructions (If sedation given, give patient instructions): Acute Nausea and Vomiting (ED) Additional Instructions: Bread, rice, applesauce, tea, toast. Increase intake of sugar-free Pedialyte/Gatorade. Sarah tea/raza for nausea Prescriptions: Ondansetron [Ondansetron ODT] 4 mg PO Q8H PRN #12 tab PRN Reason: Nausea Ondansetron Odt [Zofran Odt] 4 mg PO Q8HR PRN #15 tab PRN Reason: Nausea And Vomiting Referrals: Sayra Britt MD [Primary Care Provider] - 1-2 days Alma Pugh MD [STAFF PHYSICIAN] - 1-2 days
[2024-10-10 15:01] LABS: Influenza A Not Detected (Not Detectd); Influenza B Not Detected (Not Detectd); RSV Not Detected (Not Detectd)
[2024-10-10] MEDS: ONDANSETRON 4 MG/2 ML VIAL IVP STA ×2 (15:43→20:16)
[2024-10-10] MEDS: SODIUM CHLORIDE 0.9% 1,000 ML IV STA ×2 (15:44→16:53)
[2024-10-10 15:52] LABS: ALT 22 U/L (4-34); AST 29 U/L (14-36); African American GFR (CKD) >90 (>60 ml/min/1.73 sqM); Albumin 4.4 g/dL (3.5-5.0); Alkaline Phosphatase 134 U/L (38-126); Amylase 55 U/L (30-110); Anion Gap 14 mmol/L; Blood Urea Nitrogen 26 mg/dL (7-17); Calcium 8.7 mg/dL (8.4-10.2); Carbon Dioxide 23 mmol/L (22-30); Chloride 102 mmol/L (98-107); Glucose 188 mg/dL (74-99); Lipase 50 U/L (23-300); Non-African American GFR(CKD) >90 (>60 ml/min/1.73 sqM); Potassium 4.1 mmol/L (3.5-5.1); Sodium 139 mmol/L (137-145); Total Bilirubin 0.8 mg/dL (0.2-1.3); Total Protein 7.4 g/dL (6.3-8.2)
[2024-10-10 16:19] LABS: HCT 49.4 % (34.0-46.0); HGB 15.9 gm/dL (11.4-16.0); MCHC 32.2 g/dL (31.0-37.0); Mean Platelet Volume 7.6; Platelet Count 222 k/uL (150-450); RBC 5.49 m/uL (3.80-5.40); RDW 14.2 % (11.5-15.5); WBC 7.8 k/uL (3.8-10.6)
[2024-10-10 17:12] LABS: Band Neutrophils % 3 %; Lymphocytes # (M) 0.47 k/uL (1.0-4.8); Monocytes # (M) 0.31 k/uL (0-1.0); Neutrophils % (M) 87 %; Nucleated Red Blood Cells 0 /100 WBC (0-0); Total Cells Counted 100
[2024-10-10 17:13] LABS: RBC Morphology Normal
[2024-10-10] MEDS: ACETAMINOPHEN TAB 500 MG TAB PO STA (18:41)
[2024-10-10] MEDS: SODIUM CHLORIDE 0.9% 500 ML 500 ML IV ONE (19:49)
[2024-10-10 21:00] VITALS: BP 120/83; PULSE 87; TEMP 98.8
[2024-10-10] MEDS: ONDANSETRON 4 MG ODT STARTER PACK 2 TAB BTL PO STA (21:27)
== END 2024-10-10 21:32 | disposition home or self-care (01) ==
LOC: EC 12:48
DX: A05.9 Bacterial foodborne intoxication, unspecified (principal); E86.0 Dehydration; E87.20 Acidosis, unspecified; Z77.22 Contact with and (suspected) exposure to environmental tobacco smoke (acute) (chronic); Z88.1 Allergy status to other antibiotic agents; Z88.2 Allergy status to sulfonamides; Z11.52 Encounter for screening for COVID-19
CPT/HCPCS: 36415; 80053; 82150; 83605; 83690; 85025; 87636; 99284; 96374; 96376; 96361; J2405; S0119

== ENCOUNTER → 2024-10-24 | Outpatient (CLI) | payer MEDICARE ==
[2024-10-24 15:50] LABS: ALT 18 U/L (8-44); AST 17 U/L (13-35); Chol/HDL Ratio 2.86 Ratio; LDL Cholesterol,Calculated 55.1 mg/dL (0.0-131.0); T4, Free (Free Thyroxine) 1.72 ng/dL (0.80-1.80)
== END | disposition home or self-care (01) ==
LOC: LABWHC1 07:06
PROVIDERS: ATTEND Internal Medicine Interventional Cardiology
DX: E78.2 Mixed hyperlipidemia (principal); E03.9 Hypothyroidism, unspecified
CPT/HCPCS: 36415; 80061; 84439; 84443; 84450; 84460

== ENCOUNTER → 2024-11-26 | Outpatient (CLI) | payer MEDICARE ==
--- NOTE | 2024-11-26 13:08 | BD ---
EXAMINATION TYPE: Axial Bone Density DATE OF EXAM: 11/26/2024 CLINICAL HISTORY: 69 years old Female. ICD-10 CODE: Z78.0 ASYMPTOMATIC MENOPAUSAL STATE , Additional History: Height: 64.5 Weight: 202 FRAX RISK QUESTIONS: Family History (Parent hip fracture): no History of Fracture in Adulthood: yes Secondary Osteoporosis: no RISK FACTORS HISTORY OF: Surgery to Spine/Hip(right/left)/Wrist (right/left): no MEDICATIONS: Thyroid Medications: yes Which medication: Levothyroxine How Lon+ years Osteoporosis Medications: no EXAM MEASUREMENTS: Bone mineral densitometry was performed using the MOAEC System. Bone mineral density as measured about the Lumbar spine is: ----- L1-L4(G/cm2): 1.087 T Score Values are as follows: ----- L1: -1.1 ----- L2: -0.9 ----- L3: -0.6 ----- L4: -0.7 ----- L1-L4: -0.8 Z Score Values are as follows: ----- L1: -0.4 ----- L2: -0.1 ----- L3: 0.2 ----- L4: 0.1 ----- L1-L4: 0.0 Bone mineral density baseline Bone mineral density about the R hip (g/cm2): 0.927 Bone mineral density about the L hip (g/cm2): 0.967 T Score values are as follows: -----R Neck: -2.0 -----L Neck: -1.5 -----R Total: -0.6 -----L Total: -0.3 Z Score values are as follows: -----R Neck: -1.0 -----L Neck: -0.4 -----R Total: 0.1 -----L Total: 0.4 Bone mineral density baseline FRAX%s: The graph provided illustrates a 11.2% chance for a major osteoporotic fx and a 2.0% chance f or the hips probability for fx in 10 years time. IMPRESSION: Osteopenia (T Score between -2.5 and -1) at femoral neck level in both hips. There is slightly increased risk of fracture and the patient may be considered for treatment. Re-Screen 2-5 years. NOTE: T-SCORE=SD OF THE YOUNG ADULT MEAN. [facility], , 11/26/2024 1:06 PM
== END | disposition home or self-care (01) ==
LOC: RADBDWWP 10:44
PROVIDERS: ATTEND Family Medicine
DX: Z13.820 Encounter for screening for osteoporosis (principal); M85.89 Other specified disorders of bone density and structure, multiple sites; Z78.0 Asymptomatic menopausal state
CPT/HCPCS: 77080

== ENCOUNTER → 2025-01-20 | Outpatient (CLI) | payer MEDICARE ==
[2025-01-20 18:47] LABS: Appearance,Urine Clear (Clear); Bilirubin,Urine Negative (Negative); Blood,Urine Negative (Negative); Color,Urine Yellow (Yellow); Ketones,Urine Trace (Negative); Nitrite,Urine Negative (Negative); Specific Gravity,Urine 1.027 (1.001-1.030); Urobilinogen,Urine 0.2 E.U./DL
== END | disposition home or self-care (01) ==
LOC: LABWHC1 11:48
PROVIDERS: ATTEND Family Medicine
DX: D72.829 Elevated white blood cell count, unspecified (principal)
CPT/HCPCS: 81003; 87086

== ENCOUNTER → 2025-01-22 | Outpatient (CLI) | payer MEDICARE ==
--- NOTE | 2025-01-22 07:36 | MM ---
Reason for Exam: Screening (asymptomatic). Last screening mammogram was performed 12 month(s) ago. Patient History: Menarche at age 12. First Full-Term at age 20. Postmenopausal. Other cancer. 06/16/2002, Benign Stereotactic Core Biopsy on the right side. Paternal cousin had breast cancer, age 42. Risk Values: Rhea 5 year model risk: 1.6%. NCI Lifetime model risk: 5.0%. Prior Study Comparison: 01/03/2023 Bilateral MG 3D screening mammo w/cad, [facility]. 10/18/2023 Left MG 3D diag mammo w/cad LT, [facility]. 01/08/2024 Bilateral MG 3D screening mammo w/cad, [facility]. Tissue Density: There are scattered areas of fibroglandular density. Findings: Analyzed By CAD. Right breast: There is no suspicious group of microcalcifications or new suspicious mass. Left breast: There is no suspicious group of microcalcifications or new suspicious mass. Overall Assessment: Negative, BI-RAD 1 Management: Screening Mammogram of both breasts in [address] [facility] will attempt to contact patient to return for supplemental views and ultrasound if indicated. Patient should continue monthly self-breast exams. A clinical breast exam by your physician is recommended on an annual basis. This exam should not preclude additional follow-up of suspicious palpable abnormalities. Note on Rhea scores and lifetime risk: 1. A Rhea score greater than 3% is considered moderate risk. If this is the case, consider specialist referral to assess eligibility for a risk reducing agent. 2. If overall lifetime risk for the development of breast cancer is 20% or higher, the patient may qualify for future screening with alternating mammogram and breast MRI. [facility], , 01/22/2025 7:33 AM. Electronically signed and approved by: Sina Berrios DO
== END | disposition home or self-care (01) ==
LOC: RADMAMWWP 06:52
PROVIDERS: ATTEND Family Medicine
DX: Z12.31 Encounter for screening mammogram for malignant neoplasm of breast (principal); R92.323 Mammographic fibroglandular density, bilateral breasts; Z78.0 Asymptomatic menopausal state; Z80.3 Family history of malignant neoplasm of breast
CPT/HCPCS: 77063; 77067